=== PATIENT | male | born 1945 | race Caucasian/White ===

== ENCOUNTER 2017-02-02 10:43 | Inpatient (IN) | payer BC, MEDICARE, OTHER ==
[2017-02-02] MEDS ORDERED: RX INFO: IV CONTRAST WAS GIVEN 1 EACH MISC MISCELLANE PRN (10:47)
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
[2017-02-02 11:03] LABS: Anisocytosis Slight; Basophils # (A) 0.1 k/uL (0-0.2); Basophils % (A) 1 %; CH 26.2; CHCM 30.9; Eosinophils # (A) 0.2 k/uL (0-0.7); Eosinophils % (A) 2 %; HDW 2.87; HGB 11.1 gm/dL (13.0-17.5); Hypochromasia Moderate; Luc # (Auto) 0.35; Luc % (Auto) 3; Lymphocytes # (A) 1.9 k/uL (1.0-4.8); Lymphocytes % (A) 19 %; MCH 26.2 pg (25.0-35.0); MCHC 30.9 g/dL (31.0-37.0); MCV 84.9 fL (80.0-100.0); Monocytes # (A) 0.7 k/uL (0-1.0); Monocytes % (A) 7 %; Neutrophils % (A) 69 %; RBC 4.24 m/uL (4.30-5.90); WBC 10.2 k/uL (3.8-10.6); WBC (Perox) 10.68
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
[2017-02-02 11:16] LABS: INR 1.4 (<1.1); Prothrombin Time 13.6 sec (9.0-12.0)
[2017-02-02 11:20] LABS: ALT 31 U/L (21-72); AST 28 U/L (17-59); Alcohol <10 mg/dL; Alkaline Phosphatase 137 U/L (38-126); Amylase 55 U/L (30-110); Anion Gap 9 mmol/L; Blood Urea Nitrogen 18 mg/dL (9-20); Calcium 8.8 mg/dL (8.4-10.2); Carbon Dioxide 24 mmol/L (22-30); Chloride 110 mmol/L (98-107); Glucose 138 mg/dL (74-99); Non-African American GFR(MDRD) >60 (>60 ml/min/1.73 sqM); Potassium 4.6 mmol/L (3.5-5.1); Sodium 143 mmol/L (137-145); Total Bilirubin 0.6 mg/dL (0.2-1.3); Total Protein 6.8 g/dL (6.3-8.2)
[2017-02-02 11:27] LABS: Creatine Kinase 125 U/L (55-170)
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
[2017-02-02 11:40] LABS: Creatine Kinase MB 1.2 ng/mL (0.0-2.4); Troponin I <0.012 ng/mL (0.000-0.034)
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
[2017-02-02] MEDS ORDERED: NALOXONE 0.4 MG/ML 1 ML VIAL IV PRN (12:40)
[2017-02-02] MEDS ORDERED: HYDROmorphone 1 MG/ML 1 ML SYRINGE IVP PRN (12:43)
[2017-02-02 13:36] LABS: Appearance,Urine Clear (Clear); Bilirubin,Urine Negative (Negative); Glucose,Urine (UA) Negative (Negative); Ketones,Urine Negative (Negative); Leukocyte Esterase,Urine Negative (Negative); Nitrite,Urine Negative (Negative); PH, Urine 5.5 (5.0-8.0); Particle Count 6567; Protein,Urine Trace (Negative); RBC,Urine 76 /hpf (0-5); Squamous Epithelial Cell,Urine <1 /hpf (0-4); UA Billing (MACRO vs. MICRO) MICRO; Urobilinogen,Urine <2.0 mg/dL (<2.0); WBC,Urine 4 /hpf (0-5)
[2017-02-02 14:43] LABS: Specific Gravity,Urine 1.047 (1.001-1.035)
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
[2017-02-02] MEDS ORDERED: MAGNESIUM HYDROXIDE 2,400 MG/10 ML CUP PO PRN (15:23)
[2017-02-02 17:41] LABS: Creatine Kinase 371 U/L (55-170)
[2017-02-02] MEDS: PANTOPRAZOLE 40 MG TABLET PO SCH (17:42)
[2017-02-02 17:56] LABS: Troponin I <0.012 ng/mL (0.000-0.034)
[2017-02-02 17:59] LABS: Creatine Kinase MB 4.2 ng/mL (0.0-2.4)
[2017-02-02] MEDS: amLODIPine 5 MG TAB PO SCH (20:46)
[2017-02-02] MEDS: ATORVASTATIN 80 MG TAB PO SCH (20:46)
[2017-02-02] MEDS: traMADol 50 MG TAB PO PRN (23:04)
[2017-02-03] MEDS: PANTOPRAZOLE 40 MG TABLET PO SCH (05:58)
[2017-02-03] MEDS: traMADol 50 MG TAB PO PRN ×2 (06:01→19:47)
[2017-02-03 06:50] LABS: Anisocytosis Slight; CH 25.8; CHCM 30.4; HCT 29.6 % (39.0-53.0); HDW 2.77; Hypochromasia Marked; MCH 26.2 pg (25.0-35.0); MCHC 30.7 g/dL (31.0-37.0); MCV 85.1 fL (80.0-100.0); RBC 3.47 m/uL (4.30-5.90); WBC 12.1 k/uL (3.8-10.6)
[2017-02-03 07:02] LABS: HGB 9.1 gm/dL (13.0-17.5)
[2017-02-03 07:19] LABS: Anion Gap 7 mmol/L; Blood Urea Nitrogen 26 mg/dL (9-20); Calcium 8.5 mg/dL (8.4-10.2); Carbon Dioxide 26 mmol/L (22-30); Chloride 109 mmol/L (98-107); Glucose 117 mg/dL (74-99); Non-African American GFR(MDRD) 50 (>60 ml/min/1.73 sqM); Potassium 4.8 mmol/L (3.5-5.1); Sodium 142 mmol/L (137-145)
--- NOTE | 2017-02-03 08:01 | XR ---
EXAMINATION TYPE: XR chest 2V DATE OF EXAM: 02/03/2017 COMPARISON: February 02, 2017 HISTORY: Shortness of breath TECHNIQUE: Frontal and lateral views of the chest are obtained. FINDINGS: Scattered senescent parenchymal changes noted. Hyperinflation compatible with COPD. No evidence for infiltrate. No evidence for atelectasis. Heart size is stable. Mediastinal structures are stable and grossly unremarkable. No evidence for hilar prominence. Degenerative changes dorsal spine. IMPRESSION: 1. No evidence for acute pulmonary disease.
[2017-02-03] MEDS: ASPIRIN 81 MG CHEW PO SCH (08:23)
[2017-02-03] MEDS: DONEPEZIL 5 MG TAB PO SCH (08:24)
[2017-02-03] MEDS: FUROSEMIDE 20 MG TAB PO SCH (08:24)
[2017-02-03] MEDS: LISINOPRIL 10 MG TAB PO SCH (08:24)
[2017-02-03] MEDS: amLODIPine 5 MG TAB PO SCH ×2 (08:24→19:38)
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
[2017-02-03] MEDS: SODIUM CHLORIDE 0.9% 1,000 ML IV SCH ×2 (13:32→19:38)
[2017-02-03 13:55] LABS: Reticulocyte % 2.6 % (0.5-2.0)
[2017-02-03 13:57] LABS: % Iron Saturation 9.9 % (20-50)
[2017-02-03 15:14] LABS: Anisocytosis Slight; CH 25.8; CHCM 30.3; HCT 27.2 % (39.0-53.0); HDW 2.75; HGB 8.4 gm/dL (13.0-17.5); Hypochromasia Marked; MCH 26.4 pg (25.0-35.0); MCHC 30.9 g/dL (31.0-37.0); MCV 85.5 fL (80.0-100.0); Mean Platelet Volume 7.8; RBC 3.18 m/uL (4.30-5.90); WBC 13.9 k/uL (3.8-10.6)
[2017-02-03 18:37] LABS: Appearance,Urine Cloudy (Clear); Bilirubin,Urine Negative (Negative); Glucose,Urine (UA) Negative (Negative); Granular Casts,Urine 3 /lpf (0); Ketones,Urine Negative (Negative); Leukocyte Esterase,Urine Large (Negative); Mucus,Urine Occasional /hpf; Nitrite,Urine Negative (Negative); Particle Count 19116; Protein,Urine 1+ (Negative); RBC,Urine 11 /hpf (0-5); Specific Gravity,Urine 1.026 (1.001-1.035); Squamous Epithelial Cell,Urine 2 /hpf (0-4); UA Billing (MACRO vs. MICRO) MICRO; Urobilinogen,Urine <2.0 mg/dL (<2.0); WBC,Urine 102 /hpf (0-5)
[2017-02-03] MEDS: ATORVASTATIN 80 MG TAB PO SCH (19:38)
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
[2017-02-03 21:53] LABS: Anisocytosis Slight; CH 25.9; CHCM 30.9; HCT 27.5 % (39.0-53.0); HGB 8.9 gm/dL (13.0-17.5); Hypochromasia Moderate; MCH 27.4 pg (25.0-35.0); MCHC 32.5 g/dL (31.0-37.0); MCV 84.2 fL (80.0-100.0); Mean Platelet Volume 7.6; RBC 3.26 m/uL (4.30-5.90); WBC 16.3 k/uL (3.8-10.6)
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
[2017-02-03 23:27] LABS: Calcium 8.2 mg/dL (8.4-10.2); Magnesium 2.2 mg/dL (1.6-2.3); Potassium 5.1 mmol/L (3.5-5.1)
[2017-02-04] MEDS: SODIUM CHLORIDE 0.9% 1,000 ML IV SCH ×2 (05:10→08:27)
[2017-02-04 06:00] LABS: Anisocytosis Slight; CH 25.7; CHCM 30.8; HCT 25.3 % (39.0-53.0); HDW 2.88; Hypochromasia Moderate; MCH 26.6 pg (25.0-35.0); MCHC 31.8 g/dL (31.0-37.0); MCV 83.8 fL (80.0-100.0); Mean Platelet Volume 8.2; RBC 3.02 m/uL (4.30-5.90); RDW 16.8 % (11.5-15.5); WBC 16.9 k/uL (3.8-10.6)
[2017-02-04] MEDS: PANTOPRAZOLE 40 MG TABLET PO SCH (06:15)
[2017-02-04] MEDS: traMADol 50 MG TAB PO PRN (08:32)
[2017-02-04] MEDS: DONEPEZIL 5 MG TAB PO SCH (08:33)
[2017-02-04] MEDS: ASPIRIN 81 MG CHEW PO SCH (08:33)
[2017-02-04] MEDS: FUROSEMIDE 20 MG TAB PO SCH (08:33)
[2017-02-04] MEDS: LISINOPRIL 10 MG TAB PO SCH (08:33)
[2017-02-04] MEDS: amLODIPine 5 MG TAB PO SCH ×2 (08:33→22:55)
[2017-02-04] MEDS ORDERED: RIVAROXABAN 10 MG TAB PO SCH (09:00)
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
--- NOTE | 2017-02-04 11:08 | CT ---
EXAMINATION TYPE: CT chest wo con DATE OF EXAM: 02/04/2017 COMPARISON: February 02, 2017 HISTORY: Chest pain CT DLP: 573.[address] of the chest was performed with lung and mediastinal window settings submitted. The la ck of contrast limits evaluation of the vascular, mediastinal and parenchymal structures including th e upper abdomen. LUNGS: There is a new right-sided pleural effusion which is new areas of increased density may reflec t hemothorax. AP measurement is 3.8 cm. Anterior sliver pneumothorax persists. There is also new find ing of pneumomediastinum. There is subcutaneous emphysema along the right chest wall. The left lung i s clear. MEDIASTINUM/JULIO: There is also new finding of pneumomediastinum.Thoracic aorta is of normal caliber with limited evaluation given lack of contrast. The heart is enlarged with coronary artery calcific ations identified.. No evidence for mediastinal mass. No lymph nodes greater than 1cm. UPPER ABDOMEN mild fluid density noted within the periphery of the liver seen on image 52 of 64 may r eflect a small subcapsular hematoma. This is a new finding. Is evidence of cholelithiasis. OTHER: Recently described multiple right-sided rib fractures are again noted. Segmental fractures not ed to involve the right third rib. IMPRESSION: 1. New finding of a pneumomediastinum with extensive subcutaneous air along the right chest wall and minimally extending towards the left. 2. Sliver right-sided pneumothorax suspected. 3. New finding of right-sided pleural effusion with probable hemothorax component. 4. I cannot exclude a small subcapsular hepatic hematoma. This is also a new finding. 5. Multiple right-sided rib fractures are again noted. One segmental component of rib #3. Correlate c linically for possible flail chest.
--- NOTE | 2017-02-04 12:15 | P.PN ---
Progress Note - Text The patient's CT scan was reviewed. There is evidence of a new pneumomediastinum and pleural effusion. The patient will be made nothing by mouth and thoracic surgery consult. we'll start IV antibiotics.
[2017-02-04] MEDS ORDERED: SODIUM CHLORIDE 0.9% 1,000 ML IV SCH (12:45)
[2017-02-04 14:25] LABS: Anisocytosis Slight; CH 25.5; CHCM 29.9; HCT 25.3 % (39.0-53.0); HDW 2.71; HGB 7.8 gm/dL (13.0-17.5); Hypochromasia Marked; MCH 26.4 pg (25.0-35.0); MCHC 30.9 g/dL (31.0-37.0); MCV 85.6 fL (80.0-100.0); RBC 2.95 m/uL (4.30-5.90); RDW 16.9 % (11.5-15.5); WBC 18.3 k/uL (3.8-10.6)
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
[2017-02-04] MEDS: metroNIDAZOLE-NS PMX 500 MG in SALINE 1 100ML.BAG IVPB SCH ×2 (15:20→23:50)
[2017-02-04] MEDS: AMPICILLIN-SULBACTAM 3 GM in SODIUM CHLORIDE 0.9% 100 ML IVPB SCH ×2 (16:26→23:48)
--- NOTE | 2017-02-04 18:37 | XR ---
EXAMINATION TYPE: XR ribs bilateral DATE OF EXAM: 02/04/2017 6:18 PM COMPARISON: NONE HISTORY: Chest pain TECHNIQUE: 8 views FINDINGS: There is subcutaneous emphysema over the right chest. I see no pneumothorax. I see no displ aced rib fracture. Lungs appear clear of consolidation. There is slight blunting of right costophreni c angle.. There is subtle deformity of the anterior right fourth and fifth ribs that could be nondisp laced fractures. IMPRESSION: Subcutaneous emphysema and nondisplaced right rib fractures. Small right pleural effusion . No change compared to the CT scan this morning at 10:00 AM.
[2017-02-04] MEDS ORDERED: RX INFO: IV CONTRAST WAS GIVEN 1 EACH MISC MISCELLANE PRN (18:47)
--- NOTE | 2017-02-04 20:32 | ECHOF ---
Referral Reason:R/O cardiac contusion MEASUREMENTS -------- HEIGHT: 157.5 cm WEIGHT: 130.6 kg BP: RVIDd: 3.7 cm (< 3.3) IVSd: 1.2 cm (0.6 - 1.1) LVIDd: 4.8 cm (3.9 - 5.3) LVPWd: 1.3 cm (0.6 - 1.1) IVSs: 1.9 cm LVIDs: 2.6 cm LVPWs: 1.7 cm MV E Jairon: 0.71 m/s MV DecT: 176 ms MV A Jairon: 0.24 m/s MV E/A Ratio: 2.96 RAP: 5.00 mmHg RVSP: 8.27 mmHg FINDINGS -------- Sinus rhythm. Morbid Obesity This was a techncally difficult study with suboptimal views, , Definity utilized for enhancement of images. There is mild concentric left ventricular hypertrophy. Overall left ventricular systolic function is low-normal with, an EF between 50 - 55 %. The right ventricle is normal in size. The left atrial size is normal. The right atrial size is normal. 1.5MG OF DEFINITY UTLIZED: 2 OR MORE WALL SEGMENTS NOT VISUALIZED. The aortic valve was not well visualized. Mild mitral regurgitation is present. Mild tricuspid regurgitation present. There is no evidence of pulmonary hypertension. The right ventricular systolic pressure, as measured by Doppler, is 8.27mmHg. The pulmonic valve was not well visualized. CONCLUSIONS -------- 1. Morbid Obesity 2. There is no evidence of pulmonary hypertension. 3. The right ventricular systolic pressure, as measured by Doppler, is 8.27mmHg. 4. The pulmonic valve was not well visualized. 13.Aorta Not well visualized- consider other modalities for optimal evaluation 5. This was a techncally difficult study with suboptimal views, , Definity utilized for enhancement of images. 6. There is mild concentric left ventricular hypertrophy. 7. Overall left ventricular systolic function is low-normal with, an EF between 50 - 55 %. 8. The right ventricle is normal in size. 9. 1.5MG OF DEFINITY UTLIZED: 2 OR MORE WALL SEGMENTS NOT VISUALIZED. 10. The aortic valve was not well visualized. 11. Mild mitral regurgitation is present. 12. Mild tricuspid regurgitation present. FIRE ALARM OPERATOR: Yolanda Rebolledo RDCS
[2017-02-04 20:39] LABS: Calcium 7.9 mg/dL (8.4-10.2); Potassium 4.8 mmol/L (3.5-5.1)
--- NOTE | 2017-02-04 22:06 | CT ---
EXAMINATION TYPE: CT angio chest DATE OF EXAM: 02/04/2017 9:53 PM COMPARISON: NONE HISTORY: r/o dissection CT DLP: 1631.70 mGycm Automated exposure control for dose reduction was used. CONTRAST: CTA scan of the thorax is performed with IV Contrast, patient injected with 80 mL of Visipaque 320, p ulmonary embolism protocol. There are 3-D post processed images.. FINDINGS: There is extensive subcutaneous emphysema and soft tissue air on the right anterior chest wall. There is no sign of a pneumothorax. There is pneumopericardium. There is some pericardial fluid. There is right pleural effusion with right basilar atelectasis. I see no filling defects in the pulmonary jossue laurie. There are multiple right-sided rib fractures and at least one comminuted rib fracture. There is no evidence of aortic aneurysm or dissection. There is no mediastinal adenopathy. There is c oronary artery calcification. There are no hilar masses.. IMPRESSION: RIGHT PLEURAL EFFUSION AND RIGHT LOWER LOBE INFILTRATE AND ATELECTASIS. PNEUMOPERICARDIUM. NO EVIDENC E OF PULMONARY EMBOLISM. RIGHT-SIDED CHEST WALL EXTENSIVE SOFT TISSUE AIR. RIGHT LATERAL MULTIPLE RIB FRACTURES NOTED. THERE I S AT LEAST ONE COMMINUTED RIB FRACTURE AND THIS IS DIAGNOSTIC OF FLAIL CHEST. Calcified gallstones are noted.
[2017-02-04 22:28] LABS: Anisocytosis Slight; CH 25.8; HCT 23.8 % (39.0-53.0); HDW 2.88; HGB 7.6 gm/dL (13.0-17.5); Hypochromasia Moderate; MCH 26.6 pg (25.0-35.0); MCHC 31.9 g/dL (31.0-37.0); MCV 83.5 fL (80.0-100.0); Mean Platelet Volume 7.9; RBC 2.85 m/uL (4.30-5.90); RDW 16.9 % (11.5-15.5); WBC 18.8 k/uL (3.8-10.6)
[2017-02-04] MEDS: ATORVASTATIN 80 MG TAB PO SCH (22:55)
[2017-02-05] MEDS ORDERED: SODIUM CHLORIDE 0.9% 1,000 ML IV SCH (03:51)
[2017-02-05] MEDS: PANTOPRAZOLE 40 MG TABLET PO SCH ×2 (06:25→06:37)
[2017-02-05 06:45] LABS: Anisocytosis Slight; CH 25.8; CHCM 30.2; HCT 23.9 % (39.0-53.0); HDW 2.78; HGB 7.4 gm/dL (13.0-17.5); Hypochromasia Marked; MCH 26.6 pg (25.0-35.0); MCHC 30.9 g/dL (31.0-37.0); MCV 85.9 fL (80.0-100.0); Mean Platelet Volume 7.9; RBC 2.78 m/uL (4.30-5.90); RDW 17.3 % (11.5-15.5); WBC 14.8 k/uL (3.8-10.6)
[2017-02-05 07:00] LABS: Anion Gap 6 mmol/L; Blood Urea Nitrogen 32 mg/dL (9-20); Calcium 7.8 mg/dL (8.4-10.2); Carbon Dioxide 24 mmol/L (22-30); Chloride 112 mmol/L (98-107); Glucose 108 mg/dL (74-99); Non-African American GFR(MDRD) 54 (>60 ml/min/1.73 sqM); Potassium 4.6 mmol/L (3.5-5.1); Sodium 142 mmol/L (137-145)
--- NOTE | 2017-02-05 09:18 | FL ---
EXAMINATION TYPE: FL barium swallow DATE OF EXAM ORDERED: 02/05/2017 9:08 AM HISTORY: Chest pain. COMPARISON: None. FINDINGS: The patient drank Omnipaque with ease. The esophagus distended normally with Omnipaque 300 was obstructing or constricting disease. There is no evidence of extravasation. The ligament of Trei tz is in the correct location. IMPRESSION: NO EVIDENCE OF ESOPHAGEAL LEAK.
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
[2017-02-05] MEDS: ASPIRIN 81 MG CHEW PO SCH (09:52)
[2017-02-05] MEDS: metroNIDAZOLE-NS PMX 500 MG in SALINE 1 100ML.BAG IVPB SCH ×2 (09:52→16:48)
[2017-02-05] MEDS: HEPARIN SODIUM,PORCINE 5,000 UNIT/ML 1 ML VIAL SQ SCH ×2 (09:52→16:48)
[2017-02-05] MEDS: FUROSEMIDE 20 MG TAB PO SCH (09:52)
[2017-02-05] MEDS: LISINOPRIL 10 MG TAB PO SCH (09:52)
[2017-02-05] MEDS: amLODIPine 5 MG TAB PO SCH ×2 (09:52→20:19)
[2017-02-05] MEDS: DONEPEZIL 5 MG TAB PO SCH (09:52)
[2017-02-05] MEDS: SODIUM CHLORIDE 0.9% 1,000 ML IV SCH ×2 (11:16→20:32)
[2017-02-05] MEDS: AMPICILLIN-SULBACTAM 3 GM in SODIUM CHLORIDE 0.9% 100 ML IVPB SCH ×2 (11:16→18:17)
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
[2017-02-05 15:15] LABS: Anisocytosis Slight; CH 25.7; CHCM 30.8; HCT 23.5 % (39.0-53.0); HDW 2.96; HGB 7.5 gm/dL (13.0-17.5); Hypochromasia Moderate; MCH 26.8 pg (25.0-35.0); MCV 83.9 fL (80.0-100.0); Mean Platelet Volume 8.5; RDW 17.2 % (11.5-15.5); WBC 18.4 k/uL (3.8-10.6)
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
[2017-02-05] MEDS: ATORVASTATIN 80 MG TAB PO SCH (20:19)
[2017-02-05] MEDS: traMADol 50 MG TAB PO PRN (20:33)
[2017-02-05 22:58] LABS: Anisocytosis Slight; CHCM 30.2; HCT 23.9 % (39.0-53.0); HDW 2.83; HGB 7.3 gm/dL (13.0-17.5); Hypochromasia Marked; MCH 26.3 pg (25.0-35.0); MCHC 30.6 g/dL (31.0-37.0); MCV 86.2 fL (80.0-100.0); Mean Platelet Volume 8.1; RBC 2.77 m/uL (4.30-5.90); RDW 17.4 % (11.5-15.5); WBC 15.1 k/uL (3.8-10.6)
[2017-02-06] MEDS: AMPICILLIN-SULBACTAM 3 GM in SODIUM CHLORIDE 0.9% 100 ML IVPB SCH ×2 (00:51→19:09)
[2017-02-06] MEDS: HEPARIN SODIUM,PORCINE 5,000 UNIT/ML 1 ML VIAL SQ SCH ×4 (00:51→23:04)
[2017-02-06] MEDS: metroNIDAZOLE-NS PMX 500 MG in SALINE 1 100ML.BAG IVPB SCH ×3 (02:00→19:09)
[2017-02-06] MEDS: PANTOPRAZOLE 40 MG TABLET PO SCH (06:07)
[2017-02-06] MEDS: ASPIRIN 81 MG CHEW PO SCH (08:04)
[2017-02-06] MEDS: FUROSEMIDE 20 MG TAB PO SCH (08:04)
[2017-02-06] MEDS: amLODIPine 5 MG TAB PO SCH ×2 (08:04→20:00)
[2017-02-06] MEDS: DONEPEZIL 5 MG TAB PO SCH (08:04)
[2017-02-06] MEDS: LISINOPRIL 10 MG TAB PO SCH (08:04)
[2017-02-06] MEDS: SODIUM CHLORIDE 0.9% 1,000 ML IV SCH (08:05)
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
[2017-02-06] MEDS: TAMSULOSIN 0.4 MG CAP.ER.24H PO SCH (10:36)
[2017-02-06 10:57] LABS: Anisocytosis Slight; CH 25.5; CHCM 29.8; HCT 25.2 % (39.0-53.0); HDW 2.87; HGB 7.9 gm/dL (13.0-17.5); Hypochromasia Marked; MCH 26.8 pg (25.0-35.0); MCHC 31.2 g/dL (31.0-37.0); RBC 2.93 m/uL (4.30-5.90); RDW 17.3 % (11.5-15.5); WBC 13.9 k/uL (3.8-10.6)
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
[2017-02-06 16:01] LABS: Magnesium 2.5 mg/dL (1.6-2.3); Potassium 4.1 mmol/L (3.5-5.1)
[2017-02-06] MEDS: ATORVASTATIN 80 MG TAB PO SCH (20:00)
[2017-02-06] MEDS: CIPROFLOXACIN HCL 500 MG TAB PO SCH (20:00)
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
[2017-02-07] MEDS: PANTOPRAZOLE 40 MG TABLET PO SCH (06:45)
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
[2017-02-07] MEDS: FUROSEMIDE 20 MG TAB PO SCH (10:13)
[2017-02-07] MEDS: DONEPEZIL 5 MG TAB PO SCH (10:13)
[2017-02-07] MEDS: HEPARIN SODIUM,PORCINE 5,000 UNIT/ML 1 ML VIAL SQ SCH (10:13)
[2017-02-07] MEDS: ASPIRIN 81 MG CHEW PO SCH (10:13)
[2017-02-07] MEDS: CIPROFLOXACIN HCL 500 MG TAB PO SCH (10:13)
[2017-02-07] MEDS: TAMSULOSIN 0.4 MG CAP.ER.24H PO SCH (10:14)
[2017-02-07] MEDS: LISINOPRIL 10 MG TAB PO SCH (10:14)
[2017-02-07 11:34] VITALS: BP 125/63; PULSE 68; RESP 16; TEMP 98.9
[2017-02-07] MEDS: amLODIPine 5 MG TAB PO SCH (12:42)
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
== END 2017-02-07 16:49 | DRG 183 ==
LOC: EC 10:43 → 6SEL 12:40
PROVIDERS: ADMIT Surgery; ATTEND Surgery
PROC: 0T9B70Z Drainage of Bladder with Drainage Device, Via Natural or Artificial Opening (ICD-10-PCS; principal; 2017-02-03)
DX: S22.41XA Multiple fractures of ribs, right side, initial encounter for closed fracture (principal); S27.2XXA Traumatic hemopneumothorax, initial encounter; N17.9 Acute kidney failure, unspecified; S22.20XA Unspecified fracture of sternum, initial encounter for closed fracture; T79.7XXA Traumatic subcutaneous emphysema, initial encounter; S27.0XXA Traumatic pneumothorax, initial encounter; E66.01 Morbid (severe) obesity due to excess calories; N39.0 Urinary tract infection, site not specified; S31.119A Laceration without foreign body of abdominal wall, unspecified quadrant without penetration into peritoneal cavity, initial encounter; B95.2 Enterococcus as the cause of diseases classified elsewhere; I48.2 Chronic atrial fibrillation; R60.0 Localized edema; R33.9 Retention of urine, unspecified; S80.02XA Contusion of left knee, initial encounter; R13.10 Dysphagia, unspecified; D64.9 Anemia, unspecified; R31.29 Other microscopic hematuria; R04.0 Epistaxis; R47.02 Dysphasia; E78.5 Hyperlipidemia, unspecified; G47.33 Obstructive sleep apnea (adult) (pediatric); I73.9 Peripheral vascular disease, unspecified; I25.5 Ischemic cardiomyopathy; Z86.718 Personal history of other venous thrombosis and embolism; Z86.79 Personal history of other diseases of the circulatory system; Z86.73 Personal history of transient ischemic attack (TIA), and cerebral infarction without residual deficits; Z79.899 Other long term (current) drug therapy; Z79.01 Long term (current) use of anticoagulants; Z79.82 Long term (current) use of aspirin; Z87.891 Personal history of nicotine dependence; Z82.3 Family history of stroke; Z68.39 Body mass index [BMI] 39.0-39.9, adult; V43.52XA Car driver injured in collision with other type car in traffic accident, initial encounter; Y92.410 Unspecified street and highway as the place of occurrence of the external cause
CPT/HCPCS: 36415; 70450; 71010; 71020; 71110; 71250; 71260; 71275; 72125; 72170; 74177; 74220; 80048; 80053; 80306; 80320; 81001; 82150; 82550; 82553; 82607; 82728; 82746; 83540; 83550; 83605; 83690; 83735; 84132; 84466; 84484; 85025; 85027; 85045; 85610; 85730; 86850; 86900; 86901; 87077; 87086; 87186; 93005; 93306

== ENCOUNTER 2017-10-11 08:12 | Day surgery (SDC) | payer MEDICARE, BC ==
[2017-10-10 11:20] VITALS: BMI 38.3
[~2017-10-11 08:12] MED LIST: LACTATED RINGERS 1,000 ML IV SCH
[2017-10-11 08:36] VITALS: RESP 16; TEMP 98.5
[2017-10-11] MEDS ORDERED: LIDOCAINE 1% 20 ML VIAL (10MG/ML) FOR IV START INTRADERMA ONE (08:44)
[2017-10-11] MEDS ORDERED: PROPOFOL 10 MG/ML 20 ML VIAL IV ONE (10:04)
[2017-10-11 11:11] VITALS: BP 154/69; PULSE 49
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
== END 2017-10-11 11:29 | disposition home or self-care (01) ==
LOC: ORWHC2ENDO 08:12
DX: D12.3 Benign neoplasm of transverse colon (principal); K29.50 Unspecified chronic gastritis without bleeding; K44.9 Diaphragmatic hernia without obstruction or gangrene; K29.80 Duodenitis without bleeding; K57.30 Diverticulosis of large intestine without perforation or abscess without bleeding; Z86.010 Personal history of colon polyps; E78.5 Hyperlipidemia, unspecified; I11.9 Hypertensive heart disease without heart failure; I48.91 Unspecified atrial fibrillation; G47.33 Obstructive sleep apnea (adult) (pediatric); K21.9 Gastro-esophageal reflux disease without esophagitis; Z86.73 Personal history of transient ischemic attack (TIA), and cerebral infarction without residual deficits; Z86.718 Personal history of other venous thrombosis and embolism; Z79.01 Long term (current) use of anticoagulants; Z79.82 Long term (current) use of aspirin; Z79.899 Other long term (current) drug therapy
CPT/HCPCS: 88305; 45385; 43239; J2704

== ENCOUNTER → 2017-11-17 | Outpatient (CLI) | payer MEDICARE, BC ==
[2017-11-17 07:48] LABS: Anisocytosis Slight; HCT 32.3 % (39.0-53.0); HGB 10.1 gm/dL (13.0-17.5); Hypochromasia Marked; MCH 26.3 pg (25.0-35.0); MCHC 31.4 g/dL (31.0-37.0); MCV 83.8 fL (80.0-100.0); Mean Platelet Volume 8.2; Microcytosis Slight; Platelet Count 207 k/uL (150-450); RBC 3.85 m/uL (4.30-5.90); RDW 19.7 % (11.5-15.5); WBC 10.8 k/uL (3.8-10.6)
[2017-11-17 08:28] LABS: Calcium 8.9 mg/dL (8.4-10.2); Potassium 4.6 mmol/L (3.5-5.1)
== END | disposition home or self-care (01) ==
LOC: LABWHC1 07:07
PROVIDERS: ATTEND Internal Medicine Clinical Cardiac Electrophysiology
DX: I49.3 Ventricular premature depolarization (principal); I47.2 Ventricular tachycardia
CPT/HCPCS: 36415; 80048; 85027

== ENCOUNTER 2017-11-26 06:42 | Day surgery (SDC) | payer MEDICARE, BC ==
[2017-11-22 09:30] VITALS: BMI 38.3
[~2017-11-26 06:42] MED LIST changes: +ALPRAZolam 0.25 MG TAB PO PRN; +ALPRAZolam 0.5 MG TAB PO PRN; +ASPIRIN 325 MG TAB PO STA; +ATORVASTATIN 80 MG TAB PO STA; +NITROGLYCERIN SL TABS 0.4 MG TAB SUBLINGUAL PRN; +SODIUM CHLORIDE 0.9% 1,000 ML IV SCH; +SODIUM CHLORIDE 0.9% 1,000 ML in EMPTY BAG 1 BAG IV ONE
[2017-11-26] MEDS ORDERED: HEPARIN SODIUM,PORCINE 5,000 UNIT/ML 1 ML VIAL ONE (08:08)
[2017-11-26] MEDS ORDERED: PROTAMINE SULFATE 10 MG/ML 5 ML VIAL IV ONE (08:08)
[2017-11-26] MEDS ORDERED: diphenhydrAMINE 50 MG/ML 1 ML VIAL ONE (08:08)
[2017-11-26] MEDS ORDERED: ATROPINE SULFATE 0.1 MG/ML 10ML SYRINGE ONE (08:08)
[2017-11-26] MEDS ORDERED: IV FLUID CONTINUATION 900 ML IV ONE (08:08)
[2017-11-26] MEDS ORDERED: fentaNYL (PF) 50 MCG/ML 2 ML AMP ONE (08:08)
[2017-11-26] MEDS ORDERED: MIDAZOLAM 2 MG/2 ML VIAL ONE (08:08)
[2017-11-26] MEDS ORDERED: LIDOCAINE 2% INJ 20 MG/ML SQ ONE (08:49)
[2017-11-26 10:03] LABS: O2 Sat Blood Gas 74.9 %
[2017-11-26 10:05] LABS: O2 Sat Blood Gas 74.5 %
[2017-11-26] MEDS ORDERED: HEPARIN SODIUM (1,000 UNIT/ML) 1,000 UNIT in SODIUM CHLORIDE 0.9% 1,000 ML IRRIGATION ONE (10:06)
[2017-11-26 10:07] LABS: O2 Sat Blood Gas 99.5 %
[2017-11-26 10:11] LABS: O2 Sat Blood Gas 75.8 %
[2017-11-26 10:13] LABS: O2 Sat Blood Gas 71.9 %
[2017-11-26 10:15] LABS: O2 Sat Blood Gas 99.4 %
[2017-11-26] MEDS ORDERED: HEPARIN SOD,PORK IN 0.45% NACL 25,000 UNIT in 0.45% NACL 1 500ML.BAG IV ONE (10:41)
[2017-11-26] MEDS ORDERED: HYDROcodone/APAP 5-325MG 1 EACH TAB PO PRN (13:00)
[2017-11-26] MEDS ORDERED: ACETAMINOPHEN TAB 325 MG TAB PO PRN (13:00)
[2017-11-26] MEDS ORDERED: ACETAMINOPHEN IV (For NPO) 1,000 MG in EMPTY BAG 1 BAG IVPB ONE (13:30)
--- NOTE | 2017-11-26 13:39 | P.PN ---
Progress Note - Text Patient awaiting evaluation of pulmonary hypertension Right heart cath revealed elevated PA pressures in the mid 70s Pulmonary capillary wedge pressures and direct LA pressure is of 30 mmHg hypertension with hypertensive heart disease and preserved LV systolic function RA pressure of about 27 mmHg Eccentric aortic regurgitation with a pressure half time of greater than 500 ms in the past Mild MR Nonobstructive CAD Obesity Pulmonary hypertension severe Atrial tachycardia, epicardial PVCs from inferior wall status post ablation in the past Plan Consult Dr. Valdes Pulmonary hypertension workup, reassessment of her sleep apnea, possible chest CT Look for any pericardial constraint/thickening 2-D echo and Doppler study to assess Structure and function, evaluate diastolic function evaluate mitral valve and aortic valve
[2017-11-26] MEDS ORDERED: IV FLUID CONTINUATION 1,000 ML IV ONE (13:43)
--- NOTE | 2017-11-26 13:50 | AS ---
ARTERIAL STUDY Tin James is a 72-year-old male patient who had elevated PA pressures on 2D echo. He has normal LV function. Mild coronary artery disease. No significant mitral valve disease. The aortic valve is calcified. There is an eccentric mild aortic regurgitation with a pressure half-time of 572 milliseconds. PA pressure is elevated on 2D echo. Right heart cath was recommended. Venous sheaths were placed in the right and left femoral veins in preparation for EP study and ablation, but prior to that a Pierson-Inder catheter was placed in the right heart. The pulmonary capillary wedge pressure was 32 mmHg, mean 29 mmHg, and oxygen saturation was 95%. PA pressures were 79/26//42 mmHg and with 70% saturation. RV pressure 77/21/23 mmHg and oxygen saturation was 74.9%. RA pressure was 27 x 26 mmHg and mean of 24 with oxygen saturation of 71.9%. SVC 26 mmHg, IVC 25 mmHg, oxygen saturation of the SVC was 75.8% and the oxygen saturation of the IVC was 74.5%. The FA oxygen saturation was 99.4%. This was later confirmed with direct LA pressure measurements with a mean of 30 mmHg. IMPRESSION: Severe pulmonary hypertension with elevated left atrial pressures as well as right atrial pressures. SUGGEST: 1. Repeat 2D echo and Doppler study to assess the aortic valve and mitral valve. 2. Pulmonary hypertension evaluation and CT of the chest to look for any pericardial calcification of thickening. 3. The RA pressure was around 28 x 13 x 20 mmHg and LA pressure was 67 x 0 x 30 mmHg. MMODL / IJN: [id number] /
--- NOTE | 2017-11-26 14:41 | CE ---
CARDIAC ELECTROPHYSIOLOGY REPORT This is a 72-year-old male patient who was brought in for an EP study and possible ablation. Right heart cath was performed. He has known atrial fibrillation and frequent PVCs but during the monitoring period he had no PVCs on the left from the left ventricle. He has undergone previous PVC ablation in the past. He was actually found to be in atrial tachycardia. He also has elevated LA pressures and diastolic heart failure and a decision was made to proceed with atrial tachycardia ablation. Three venous sheaths were placed in the right femoral vein and a femoral arterial sheath was placed for hemodynamic monitoring and sampling through the procedure and this was removed at the end of the procedure. The procedure was performed on IV heparin. Patient is on Eliquis. CS catheter was placed and an atrial tachycardia with a cycle length of about 280 milliseconds was noted. Mapping ablation catheter placed in the right atrium, entrainment mapping was performed from the right atrial isthmus and the post pacing interval was close to 400 milliseconds. The post pacing intervals were within 30 milliseconds from the coronary sinus catheters; however, when the coronary sinus catheter was placed in the anterior cardiac vein, the PPA was longer. Intracardiac echocardiography was performed. The right atrial and left atrial appendages were evaluated. There was no evidence for intracardiac mass or thrombus. Left to right transseptal catheterization was performed. RA pressure 28 mmHg. LV pressure 30 mmHg. A 3D electro anatomic mapping of the atrial tachycardia was performed with mapping and ablation catheter irrigated tip catheter). The tachycardia was localized just to the roof of the left atrium just outside the left superior pulmonary vein, slightly on the anterior side. RF ablation at this site and around the area with good contact force and a power of 25 patel did not result in termination of tachycardia. It did not result in slowing of the tachycardia. This was about 134 milliseconds earlier than the earliest coronary sinus and with good unipolar signals. Therefore, a decision made to perform an encircling linear ablation around the left superior pulmonary vein only and this was successfully accomplished and later the scar prep revealed an isolated pulmonary vein with entrance block. However, this did not result in termination of the tachycardia. Therefore, the ablation catheter was removed. A PentaRay catheter was placed in the left atrium and once again a detailed 3D activation mapping of the left atrium was performed. Once again, the earliest site was in the roof just outside the left superior pulmonary vein exactly where we had previously ablated. Further RF lesions in this area did not result in any termination of the tachycardia. This tachycardia was deemed to be an epicardial atrial tachycardia and all catheters were then removed and patient was transferred back to telemetry. RESULT: 1. Diagnostic EP study revealing an epicardial atrial tachycardia outside the left superior pulmonary vein and the roof of the left atrium, but RF ablation with good contact force and with adequate power did not result in termination of tachycardia. 2. Wide venetie ira linear ablation around the pulmonary vein did not result in termination of the tachycardia. All catheters were removed. Heparin was reversed. The patient was transferred back to telemetry. PLAN: Continue current medications. Continue antihypertensive therapy and anticoagulation. MMODL / IJN: [id number] /
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
[2017-11-26] MEDS: amLODIPine 5 MG TAB PO SCH (20:26)
[2017-11-26] MEDS ORDERED: ATORVASTATIN 80 MG TAB PO SCH (21:00)
[2017-11-27] MEDS: amLODIPine 5 MG TAB PO SCH (08:11)
[2017-11-27 08:53] VITALS: RESP 18
[2017-11-27] MEDS ORDERED: ASPIRIN 81 MG PO SCH (09:00)
[2017-11-27] MEDS ORDERED: TAMSULOSIN 0.4 MG CAP.ER.24H PO SCH (09:00)
[2017-11-27] MEDS ORDERED: RIVAROXABAN 20 MG TAB PO SCH (09:00)
[2017-11-27] MEDS ORDERED: LISINOPRIL 10 MG TAB PO SCH (09:00)
[2017-11-27] MEDS ORDERED: FUROSEMIDE 40 MG TAB PO SCH (09:00)
--- NOTE | 2017-11-27 10:40 | P.PCN ---
Preoperative Diagnosis: Patient is sitting comfortably in bed but he gets short of breath with average exertion. Groins of healed well. He denies any chest discomfort dizziness or lightheadedness On examination temperature 98.2F pulse rate in the 70s Blood pressure 137/61 mmHg pulse rate in the 70s afebrile Heart sounds are normal no murmurs no gallops no rubs Breath sounds are clear no rhonchi no crackles Increased BMI Impression severe pulmonary hypertension Assess for valvular heart disease Observe sleep apnea Morbid obesity Hypertensive heart disease and preserved LV systolic function Nonobstructive CAD Diastolic heart failure, chronic Plan HUNTER today to assess for valvular heart disease as a cause of pulmonary hypertension Discharge later and follow-up in the office in about 1-2 weeks Condition: stable
[2017-11-27 11:53] VITALS: PULSE 56; TEMP 97.8
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
[2017-11-27 16:06] VITALS: BP 120/58
--- NOTE | 2017-11-27 18:10 | PN ---
PROGRESS NOTE DATE OF SERVICE: 11/27/2017 CHIEF COMPLAINT: Arrhythmia. HISTORY OF PRESENT ILLNESS: This gentleman is doing well. He feels good. He has had no fever, chills, chest pain, palpitations, etc. He is expected to go home today. PHYSICAL EXAMINATION: CHEST: Clear. Cardiac exam is unchanged. The abdomen is protuberant, soft, nontender. IMPRESSION: 1. Supraventricular tachycardia. 2. Hypertension. PLAN: Possibly home today. MMODL / IJN: [id number] /
--- NOTE | 2017-11-27 18:25 | CONS ---
CONSULTATION CHIEF COMPLAINT: Cardiac arrhythmia. HISTORY OF PRESENT ILLNESS: This is another admission for this 72-year-old gentleman who has come in for elective attempt to ablate atrial arrhythmia. Apparently the procedure was done and was unsuccessful. He is comfortable and otherwise has no complaints. REVIEW OF SYSTEMS: He has had no headaches, dizziness, syncope, change in vision or hearing, cough, hemoptysis, chest pain, orthopnea, PND, abdominal pain, nausea, vomiting, melena, hematochezia, renal failure, etc. Past medical history, family history, and personal and social histories reveal that he has NO ALLERGIES. He takes: 1. Lisinopril 10 mg once a day. 2. Lasix 20 mg once a day. 3. Amlodipine 5 mg twice a day. 4. Atorvastatin 80 mg once a day. 5. Donepezil 5 mg at bedtime. 6. Xarelto 20 mg a day. 7. Aspirin 81 mg. Remainder of his history is unremarkable. He used to smoke, but he has quit. He drinks alcohol occasionally. He is very compliant in terms of management of his health care. He is overweight. PHYSICAL EXAMINATION: Blood pressure is 142/60 with a pulse of 80 and regular, respirations of 20 and he is afebrile. In general, he appeared to be well developed, well nourished, in no acute distress. Skin color is normal. Skin is warm and dry. Lymph nodes are not enlarged. Head, ears, eyes, nose, mouth and throat were normal. Neck veins were not distended. Thyroid is not enlarged. Chest is clear. Cardiac exam demonstrates an irregularly irregular rhythm. There is no S3 or S4. The abdomen is protuberant, soft, nontender without any masses or visceromegaly. Extremities are normal. Neurologically he is intact. IMPRESSION: 1. Atrial fibrillation and atrial tachycardia. 2. History of premature ventricular contractions. 3. Hypertension. 4. Exogenous obesity. RECOMMENDATIONS: None at this time. MMODL / IJN: [id number] /
== END 2017-11-27 17:38 | disposition home or self-care (01) ==
LOC: CATHEP 06:42 → 3OBS 12:56 → CATHEP 11-27 17:38
PROVIDERS: ATTEND Internal Medicine Clinical Cardiac Electrophysiology
DX: I49.3 Ventricular premature depolarization (principal); I27.20 Pulmonary hypertension, unspecified; I08.3 Combined rheumatic disorders of mitral, aortic and tricuspid valves; I47.2 Ventricular tachycardia; I48.2 Chronic atrial fibrillation; I47.1 Supraventricular tachycardia; I25.10 Atherosclerotic heart disease of native coronary artery without angina pectoris; E78.5 Hyperlipidemia, unspecified; I11.0 Hypertensive heart disease with heart failure; I50.32 Chronic diastolic (congestive) heart failure; G47.33 Obstructive sleep apnea (adult) (pediatric); Z99.89 Dependence on other enabling machines and devices; E66.01 Morbid (severe) obesity due to excess calories; Z68.38 Body mass index [BMI] 38.0-38.9, adult; R73.03 Prediabetes; I25.5 Ischemic cardiomyopathy; F03.90 Unspecified dementia, unspecified severity, without behavioral disturbance, psychotic disturbance, mood disturbance, and anxiety; Z86.73 Personal history of transient ischemic attack (TIA), and cerebral infarction without residual deficits; Z79.01 Long term (current) use of anticoagulants; Z79.82 Long term (current) use of aspirin; Z79.899 Other long term (current) drug therapy; Z86.718 Personal history of other venous thrombosis and embolism; Z87.891 Personal history of nicotine dependence
CPT/HCPCS: 93451; 93462; 93662; 93654; 85347; 86900; 86901; 85018; 82810; 86850; C1769 ×5; C1894 ×2; C1730; C1731; C1759; C1893; C1732; J2001; J2250; J2720; J1200; J1644 ×3; J0461; J3010

== ENCOUNTER 2017-11-29 10:47 | Day surgery (SDC) | payer MEDICARE, BC ==
[2017-11-28 09:04] VITALS: BMI 38.3
[2017-11-29 11:08] VITALS: TEMP 97.6
[2017-11-29] MEDS ORDERED: MIDAZOLAM 2 MG/2 ML VIAL ONE (12:19)
[2017-11-29] MEDS ORDERED: fentaNYL (PF) 50 MCG/ML 2 ML AMP ONE (12:19)
[2017-11-29] MEDS ORDERED: IV FLUID CONTINUATION 400 ML IV ONE (12:20)
[2017-11-29] MEDS: BENZOCAINE SPRAY 1 CAN MUCOUS MEM ONE ×2 (12:35→12:39)
[2017-11-29] MEDS ORDERED: MIDAZOLAM 2 MG/2 ML VIAL IV ONE (12:38)
[2017-11-29] MEDS ORDERED: fentaNYL (PF) 50 MCG/ML 2 ML AMP IV ONE (12:38)
[2017-11-29 12:48] VITALS: RESP 14
[2017-11-29 12:54] VITALS: PULSE 56
[2017-11-29] MEDS ORDERED: SODIUM CHLORIDE 0.9% 1,000 ML IV SCH (13:00)
--- NOTE | 2017-11-29 13:18 | ECHOT ---
TRANSESOPHAGEAL ECHOCARDIOGRAM This transesophageal echocardiogram was performed to evaluate the pulmonary hypertension and aortic regurgitation. The patient was given intravenous sedation with Versed and fentanyl and transesophageal echocardiogram was performed without any complications. Left ventricular chamber is normal in size with an estimated ejection fraction of 50%. The mitral valve morphology is normal. There is moderate mitral regurgitation noted. Bi-atrial enlargement is noted. Left atrium is severely enlarged. There is no evidence of any thrombus in the left atrial appendage. There is systolic diastolic reversal of flow in the pulmonary vein suggestive of elevated left atrial pressure. The right ventricular chamber is normal in size. Right atrium is enlarged. There is a moderate degree of tricuspid regurgitation. Aortic valve is mildly thickened. There is a mild to moderate aortic regurgitation noted. Color Doppler study shows evidence of small atrial septal defect which is secondary to probably recent transseptal puncture. FINAL IMPRESSION: 1. This study shows evidence of mild to moderate aortic regurgitation. There is mild thickening of the aortic leaflets noted. 2. Significant bi-atrial enlargement is noted. 3. There is no evidence of any thrombus in left atrium. 4. There is a moderate degree of mitral regurgitation and [id number] aortic regurgitation and moderate degree of tricuspid regurgitation noted. There is a small atrial septal defect secondary to recent transeptal puncture. RECOMMENDATIONS: Aggressive medical treatment for the elevated left atrial pressure and pulmonary hypertension. MMODL / IJN: [id number] /
[2017-11-29 14:30] VITALS: BP 141/65
== END 2017-11-29 14:24 | disposition home or self-care (01) ==
LOC: CATHCVL 10:47
PROVIDERS: ATTEND Internal Medicine Cardiovascular Disease
DX: I08.3 Combined rheumatic disorders of mitral, aortic and tricuspid valves (principal); Q21.1 Atrial septal defect; I48.2 Chronic atrial fibrillation; Z79.01 Long term (current) use of anticoagulants; I47.2 Ventricular tachycardia; I49.3 Ventricular premature depolarization; E78.5 Hyperlipidemia, unspecified; I25.10 Atherosclerotic heart disease of native coronary artery without angina pectoris; I10 Essential (primary) hypertension; Z87.891 Personal history of nicotine dependence; Z86.73 Personal history of transient ischemic attack (TIA), and cerebral infarction without residual deficits; G47.33 Obstructive sleep apnea (adult) (pediatric); Z99.89 Dependence on other enabling machines and devices; Z79.82 Long term (current) use of aspirin; Z79.899 Other long term (current) drug therapy
CPT/HCPCS: 93312; 93320; 93325; J2250; J3010

== ENCOUNTER 2018-02-05 20:36 | Inpatient (IN) | payer MEDICARE, BC ==
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
[2018-02-05 20:59] LABS: Glucose,Whole Blood 112 mg/dL (75-99)
[2018-02-05] MEDS ORDERED: IPRATROPIUM 0.5 MG/2.5 ML NEBU INHALATION STA (21:05)
[2018-02-05] MEDS ORDERED: ALBUTEROL NEBULIZED 2.5 MG/3 ML INHALATION STA (21:05)
[2018-02-05 21:19] LABS: Anisocytosis Slight; Basophils % (A) 0 %; Eosinophils % (A) 0 %; HCT 22.5 % (39.0-53.0); Hypochromasia Marked; Lymphocytes # (A) 0.9 k/uL (1.0-4.8); Lymphocytes % (A) 14 %; MCHC 26.8 g/dL (31.0-37.0); MCV 82.1 fL (80.0-100.0); Mean Platelet Volume 8.8; Microcytosis Slight; Monocytes # (A) 0.5 k/uL (0-1.0); Monocytes % (A) 8 %; Neutrophils # (A) 4.8 k/uL (1.3-7.7); Neutrophils % (A) 75 %; Platelet Count 138 k/uL (150-450); Poikilocytosis Slight; RBC 2.74 m/uL (4.30-5.90); RDW 19.4 % (11.5-15.5); WBC 6.4 k/uL (3.8-10.6)
[2018-02-05 21:25] LABS: INR 2.1 (<1.2); Partial Thromboplastin Time 39.8 sec (22.0-30.0); Prothrombin Time 19.3 sec (9.0-12.0)
[2018-02-05 21:33] LABS: Creatine Kinase 38 U/L (55-170)
[2018-02-05 21:37] LABS: Albumin 3.1 g/dL (3.5-5.0); Calcium 8.6 mg/dL (8.4-10.2); Magnesium 2.7 mg/dL (1.6-2.3); Phosphorus 5.3 mg/dL (2.5-4.5); Potassium 4.4 mmol/L (3.5-5.1); Total Bilirubin 1.1 mg/dL (0.2-1.3); Total Protein 6.3 g/dL (6.3-8.2)
--- NOTE | 2018-02-05 21:37 | CT ---
EXAMINATION TYPE: CT brain wo con DATE OF EXAM: 02/05/2018 COMPARISON: 02/02/2017 INDICATION: ams, weakness, cva symptoms DLP: 1054.2 mGycm, Automated exposure control for dose reduction was used. CONTRAST: None CT of the brain is performed utilizing 3 mm thick sections through the posterior fossa and 3 mm thick sections through the remaining calvarium. Study is performed within 24 hours of arrival to the hosp ital. No abnormal hyperdensity is present to suggest an acute intracranial hemorrhage. No mass lesion is evident. No acute infarcts are evident. Mild periventricular white matter hypodensity is present most likely o n the basis of chronic white matter ischemic changes. Ventricles and sulci are prominent for the patient age. Paranasal sinuses and mastoid air cells within the [id number] are clear. IMPRESSIONS: 1. Atrophy with mild white matter changes. No significant change from comparison.
--- NOTE | 2018-02-05 21:38 | XR ---
EXAMINATION TYPE: XR chest 2V DATE OF EXAM: 02/05/2018 COMPARISON: 02/03/2017 INDICATION: Weakness TECHNIQUE: Frontal and lateral views of the chest are obtained. FINDINGS: The heart size is normal. The pulmonary vasculature is normal. Small right pleural fluid collection is present. EKG leads overlie the chest.. IMPRESSION: 1. Small right pleural effusion with adjacent atelectasis
[2018-02-05 21:46] LABS: Troponin I <0.012 ng/mL (0.000-0.034)
[2018-02-05 21:51] LABS: Creatine Kinase MB 2.7 ng/mL (0.0-2.4)
[2018-02-05] MEDS ORDERED: SODIUM CHLORIDE 0.9% 1,000 ML IV STA ×2 (22:09)
--- NOTE | 2018-02-05 23:13 | CT ---
EXAMINATION TYPE: CT angio chest DATE OF EXAM: 02/05/2018 11:06 PM COMPARISON: 02/04/2017 HISTORY: SOB, weakness CT DLP: 545.1 mGycm Automated exposure control for dose reduction was used. CONTRAST: CTA scan of the thorax is performed with IV Contrast, patient injected with 80 mL of Isovue 370, pulm onary embolism protocol. There are 3-D post processed images.. FINDINGS: There are moderate bilateral pleural effusions. Heart is enlarged. There is no pericardial effusion. There is patchy bilateral lower lobe atelectasis and infiltrate. There is no mediastinal adenopathy. I see no filling defects in the pulmonary arteries. Ascending aorta measures 4.2 cm. There is no evid ence of dissection. Bony thorax appears intact. There is thoracolumbar kyphotic mild deformity. IMPRESSION: NO EVIDENCE OF PULMONARY EMBOLISM. BILATERAL PLEURAL EFFUSIONS. MILD ANEURYSM OF ASCENDING AORTA. ATH EROSCLEROTIC VASCULAR DISEASE.
--- NOTE | 2018-02-05 23:29 | CT ---
EXAMINATION TYPE: CT abdomen pelvis w con DATE OF EXAM: 02/05/2018 COMPARISON: NONE HISTORY: abdominal pain, weakness CT DLP: 1504.2 mGycm Automated exposure control for dose reduction was used. TECHNIQUE: Helical acquisition of images was performed from the lung bases through the pelvis. CONTRAST: Performed without Oral Contrast and with IV Contrast, patient injected with 80 mL of Isovue 370. FINDINGS: There are moderate bilateral pleural effusions with basilar pulmonary infiltrates and atelectasis. Liver shows no focal defect. There are numerous calcified gallstones. Spleen appears normal. There is no pancreatic mass. I see no intestinal wall thickening. There are no dilated loops. There is subcut aneous edema around the abdomen. There is no sign of free air. There is no ascites. There are sigmoid diverticula. There is no sign of diverticulitis. There is some cortical thinning in the lower pole r ight kidney. There is no hydronephrosis. There are bilateral renal calcifications and most of these a re vascular. There are spondylotic changes in the lumbar spine. I see no compression fracture. IMPRESSION: CORTICAL THINNING IN THE LOWER POLE RIGHT KIDNEY COULD RELATE TO CHRONIC PYELONEPHRITIS. ATHEROSCLERO TIC VASCULAR DISEASE. BILATERAL PLEURAL EFFUSIONS AND BASILAR PULMONARY INFILTRATES AND ATELECTASIS. CARDIOMEGALY. THE CHEST ABNORMALITIES ARE NEW COMPARED TO OLD EXAM AND ARE CONSISTENT WITH CHRONIC CO NGESTIVE HEART FAILURE. . CHOLELITHIASIS. GALLSTONES ARE INCREASED COMPARED TO OLD EXAM.
[2018-02-05] MEDS ORDERED: cefTRIAXone 2,000 MG in SODIUM CHLORIDE 0.9% 100 ML IVPB STA (23:30)
[2018-02-05] MEDS ORDERED: AZITHROMYCIN 500 MG in SODIUM CHLORIDE 0.9% 250 ML IVPB STA (23:31)
[2018-02-06 00:10] LABS: Appearance,Urine Cloudy (Clear); Bilirubin,Urine Negative (Negative); Blood,Urine Negative (Negative); Color,Urine Yellow; Glucose,Urine (UA) Negative (Negative); Hyaline Casts,Urine 41 /lpf (0-2); Ketones,Urine Negative (Negative); Leukocyte Esterase,Urine Trace (Negative); Mucus,Urine Rare /hpf; Nitrite,Urine Negative (Negative); Protein,Urine 1+ (Negative); RBC,Urine 2 /hpf (0-5); Specific Gravity,Urine 1.017 (1.001-1.035); Squamous Epithelial Cell,Urine 1 /hpf (0-4); Urobilinogen,Urine <2.0 mg/dL (<2.0); WBC,Urine 10 /hpf (0-5)
[2018-02-06 00:50] LABS: Glucose,Whole Blood 131 mg/dL (75-99)
[2018-02-06] MEDS ORDERED: SODIUM CHLORIDE 0.9% 1,000 ML IV ONE ×3 (01:01→15:30)
[2018-02-06] MEDS ORDERED: NALOXONE 0.4 MG/ML 1 ML VIAL IV PRN (01:07)
[2018-02-06] MEDS ORDERED: SODIUM CHLORIDE 0.9% 1,000 ML IV SCH ×2 (01:15→15:45)
[2018-02-06] MEDS: NOREPINEPHRIN 4 MG-0.9% NS PMX 4 MG/250 ML ML IV SCH ×5 (03:23→21:36)
[2018-02-06 06:46] LABS: Anisocytosis Slight; Basophils % (A) 0 %; Eosinophils % (A) 1 %; HCT 26.2 % (39.0-53.0); Hypochromasia Marked; Lymphocytes # (A) 0.8 k/uL (1.0-4.8); Lymphocytes % (A) 13 %; MCH 23.7 pg (25.0-35.0); MCHC 28.5 g/dL (31.0-37.0); Monocytes # (A) 0.6 k/uL (0-1.0); Monocytes % (A) 10 %; Neutrophils # (A) 4.6 k/uL (1.3-7.7); Neutrophils % (A) 74 %; Platelet Count 111 k/uL (150-450); Poikilocytosis Marked; RBC 3.16 m/uL (4.30-5.90); RDW 18.5 % (11.5-15.5); WBC 6.2 k/uL (3.8-10.6)
[2018-02-06 06:52] LABS: HGB 7.5 gm/dL (13.0-17.5)
[2018-02-06 07:09] LABS: Calcium 7.9 mg/dL (8.4-10.2); Magnesium 2.4 mg/dL (1.6-2.3); Phosphorus 5.4 mg/dL (2.5-4.5); Potassium 4.6 mmol/L (3.5-5.1)
--- NOTE | 2018-02-06 07:26 | XR ---
EXAMINATION TYPE: XR chest 1V DATE OF EXAM: 02/06/2018 HISTORY: Shortness of breath. COMPARISON: 02/05/2018 TECHNIQUE: Single view of the chest is submitted. FINDINGS: Demonstrated are scattered senescent parenchymal change. There is right basilar effusion and atelectasis with improved aeration relative to the prior study sm all left-sided pleural effusion. Pulmonary venous congestion. The heart is stable. Hilar and mediastinal structures are within normal limits. Degenerative changes are seen of the dorsal spine. IMPRESSION: 1. There is right basilar effusion and atelectasis with improved aeration relative to the prior stud y small left-sided pleural effusion. Pulmonary venous congestion.
[2018-02-06] MEDS ORDERED: PANTOPRAZOLE 40 MG/10 ML VIAL IV SCH (09:00)
[2018-02-06] MEDS ORDERED: FUROSEMIDE 10 MG/ML 10 ML VIAL IV STA (09:01)
[2018-02-06] MEDS: HEPARIN SODIUM,PORCINE 5,000 UNIT/ML 1 ML VIAL SQ SCH ×2 (09:17→16:12)
[2018-02-06] MEDS: cefTRIAXone IN SWFI 1,000 MG/10 ML SYRINGE IVP SCH ×2 (09:43→21:01)
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
[2018-02-06] MEDS: ASPIRIN 81 MG PO SCH (11:00)
--- NOTE | 2018-02-06 11:19 | US ---
EXAMINATION TYPE: US chest DATE OF EXAM: 02/06/2018 COMPARISON: NONE CLINICAL HISTORY: Markings for thoracentesis by pulmonary staff. EXAM MEASUREMENTS: Right Pleural Effusion fluid pocket: 5.0 cm Right skin to fluid thickness: 3.4 cm Left Pleural Effusion fluid pocket: 7.9 cm Left skin to fluid thickness: 3.4 cm Right side marked for possible thoracentesis outside the dept. Left side marked for possible thoracentesis outside the dept. Pulmonologists are able to review the images in the patient?s EMR. IMPRESSIONS: Pleural effusions as noted.
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
[2018-02-06] MEDS: SODIUM CHLORIDE 0.9% 1,000 ML IV SCH (18:27)
--- NOTE | 2018-02-06 18:28 | CONS ---
CONSULTATION Mr. James is a 72-year-old gentleman with a known history of chronic persistent atrial fibrillation who underwent an EP study by Dr. Albarado in November of this year. He had an EP study for possible ablation of atrial tachycardia. However, this procedure was unsuccessful and he has been also known to have chronic atrial fib for which rate control and anticoagulation was advised. He came into the hospital this time with what seems to be increasing shortness of breath. He has multiple medical problems in the form of obstructive sleep apnea secondary to pulmonary hypertension, chronic atrial fibrillation on Xarelto with a decent rate control and previous ablation for nonsustained VT and atrial tachycardia ablation was unsuccessful. He has history of previous DVT as well. He came in complaining of increasing shortness of breath and also feeling weak tired and exhausted. He appears to have bilateral pleural effusions and probably right lower lobe pneumonia as well. He also was hypotensive when he came in. He received IV fluids and placed on a norepinephrine drip at 4 mcg/minute. I was asked to see him mainly because of his associated atrial fibrillation. Patient appears to have sepsis clinically, but atrial fibrillation rate is controlled. He is hemodynamically somewhat unstable on Levophed drip. He seems to be reasonably stable, though overall. PAST MEDICAL HISTORY: Past medical history remarkable for: 1. Chronic atrial fibrillation, history of ablation for PVCs but none unsuccessful ablation for atrial tachycardia. 2. History of deep vein thrombosis. 3. Hypertension. 4. Hyperlipidemia. 5. Sleep apnea syndrome. 6. Pulmonary hypertension. MEDICATIONS: At home include: 1. Aspirin. 2. Atorvastatin. 3. Lasix. 4. Zestril. 5. Xarelto 20 mg daily. 6. Norvasc 5 mg daily. 7. Multivitamins. This gentleman had a transesophageal echo that was performed in November which revealed preserved left ventricular systolic function. EXAMINATION: VITAL SIGNS: Blood pressure is about 100/70, pulse rate is about 60 per minute irregular. HEENT: Unremarkable. Fundus was not examined by me. NECK: Supple. There is JVD of 1 cm. No carotid bruit. CARDIAC: Heart exam reveals S1, S2 heard normally with irregularity in rhythm, short systolic murmur. LUNGS reveal diminished air entry both bases. ABDOMEN is soft, nontender. EXTREMITIES: Lower extremities reveal diminished pulses. CENTRAL NERVOUS SYSTEM: Central nervous system grossly no focal deficits. IMPRESSION: 1. Probable right lower lobe pneumonia with effusion and probable sepsis. 2. Chronic atrial fibrillation. 3. No evidence of systolic heart failure with preserved ejection fraction by echo as recently as November. 4. Hyperlipidemia. RECOMMENDATIONS: I am recommending that we continue antibiotics, cautious IV fluids. Obtain EKG in the morning and based on clinical course I will make further recommendations. I will also check a BNP level as well on this patient. His lactic acid level was elevated and he should be ideally be hydrated. From a cardiac standpoint, no aggressive intervention is advised. Thank you very much for the consult. KATHLEEN / IJN: [id number] /
[2018-02-06] MEDS ORDERED: FUROSEMIDE 250 MG in SODIUM CHLORIDE 0.9% 225 ML IVP SCH (18:30)
--- NOTE | 2018-02-06 18:46 | CONS ---
CONSULTATION DATE OF SERVICE: 02/06/2018. CHIEF COMPLAINT: Sepsis. HISTORY OF PRESENT ILLNESS: This patient is doing a little bit better. Temperature is being brought up with thermal blanket. His rhythm is atrial fib with PVCs. PHYSICAL EXAM: Chest is clear. Cardiac exam demonstrates atrial fibrillation and it is irregularly irregular. Abdomen is protuberant and soft. Extremities are well perfused. IMPRESSION: 1. Sepsis, source unknown. 2. Hypothermia. 3. Atrial fibrillation with frequent PVCs. 4. History of coronary artery disease. 5. Anemia. PLAN: Continue to follow with stranding supervisor. Patient seems to be stable and improving. MMODL / IJN: [id number] /
[2018-02-06] MEDS: ATORVASTATIN 40 MG TAB PO SCH (21:00)
[2018-02-06] MEDS: AZITHROMYCIN 500 MG in SODIUM CHLORIDE 0.9% 250 ML IVPB SCH (21:00)
[2018-02-06] MEDS: LATANOPROST 0.005% OPHTH DROPS 2.5 ML BTL BOTH EYES SCH (21:01)
[2018-02-06 22:34] LABS: ABG Base Excess -1.7 mmol/L; ABG HCO3 27 mmol/L (21-25); ABG Oxygen Saturation 94.2 % (94-97); ABG PO2 80 mmHg (83-108); ABG TCO2 29 mmol/L (19-24)
[2018-02-06 22:39] LABS: ABG PCO2 71 mmHg (35-45); ABG PH 7.18 (7.35-7.45)
[2018-02-06] MEDS ORDERED: PROPOFOL 100 ML IV ONE (22:46)
[2018-02-06 22:53] LABS: Anisocytosis Slight; Basophils % (A) 0 %; Eosinophils # (A) 0.2 k/uL (0-0.7); Eosinophils % (A) 1 %; HCT 27.9 % (39.0-53.0); HGB 8.4 gm/dL (13.0-17.5); Hypochromasia Marked; Lymphocytes % (A) 6 %; MCH 24.5 pg (25.0-35.0); MCHC 30.1 g/dL (31.0-37.0); MCV 81.3 fL (80.0-100.0); Mean Platelet Volume 7.5; Microcytosis Slight; Monocytes # (A) 1.6 k/uL (0-1.0); Monocytes % (A) 9 %; Neutrophils # (A) 14.2 k/uL (1.3-7.7); Neutrophils % (A) 82 %; Platelet Count 146 k/uL (150-450); Poikilocytosis Marked; RBC 3.43 m/uL (4.30-5.90); RDW 19.3 % (11.5-15.5); WBC 17.3 k/uL (3.8-10.6)
[2018-02-06 22:59] LABS: Calcium 7.5 mg/dL (8.4-10.2); Potassium 5.1 mmol/L (3.5-5.1)
[2018-02-06] MEDS: PROPOFOL 1,000 MG in EMPTY BAG 1 BAG IV SCH (23:25)
--- NOTE | 2018-02-06 23:32 | XR ---
EXAMINATION TYPE: XR chest 1V portable DATE OF EXAM: 02/06/2018 COMPARISON: 02/06/2018 HISTORY: Tube placement TECHNIQUE: Single frontal view of the chest is obtained. FINDINGS: Endotracheal tube is 2.5 cm from the christiano. There is nasogastric tube. Exam is limited by the patient size. There are bilateral pleural effusions. There is pulmonary vascular congestion. The re are chest leads. IMPRESSION: Congestive heart failure with pleural effusions that appears worse than exam this mckay g at 6:00 AM.
[2018-02-07] MEDS: PROPOFOL 1,000 MG in EMPTY BAG 1 BAG IV SCH ×4 (00:05→17:43)
[2018-02-07] MEDS ORDERED: SODIUM CHLORIDE 0.9% 1,000 ML IV ONE (00:07)
[2018-02-07 00:35] LABS: ABG Base Excess -2.6 mmol/L; ABG HCO3 25 mmol/L (21-25); ABG Oxygen Saturation 99.9 % (94-97); ABG PCO2 61 mmHg (35-45); ABG PH 7.22 (7.35-7.45); ABG PO2 242 mmHg (83-108); ABG TCO2 27 mmol/L (19-24)
[2018-02-07] MEDS: NOREPINEPHRIN 4 MG-0.9% NS PMX 4 MG/250 ML ML IV SCH ×5 (02:07→13:41)
[2018-02-07] MEDS: HEPARIN SODIUM,PORCINE 5,000 UNIT/ML 1 ML VIAL SQ SCH ×3 (02:29→15:10)
[2018-02-07 05:28] LABS: Anisocytosis Slight; Basophils % (A) 0 %; Eosinophils # (A) 0.1 k/uL (0-0.7); Eosinophils % (A) 1 %; HCT 26.7 % (39.0-53.0); HGB 7.6 gm/dL (13.0-17.5); Hypochromasia Marked; Lymphocytes # (A) 1.1 k/uL (1.0-4.8); Lymphocytes % (A) 8 %; MCH 23.5 pg (25.0-35.0); MCHC 28.5 g/dL (31.0-37.0); MCV 82.6 fL (80.0-100.0); Mean Platelet Volume 10.1; Microcytosis Slight; Monocytes # (A) 1.5 k/uL (0-1.0); Monocytes % (A) 11 %; Neutrophils # (A) 11.5 k/uL (1.3-7.7); Neutrophils % (A) 79 %; Platelet Count 112 k/uL (150-450); Poikilocytosis Marked; RBC 3.24 m/uL (4.30-5.90); RDW 19.3 % (11.5-15.5); WBC 14.5 k/uL (3.8-10.6)
[2018-02-07 05:34] LABS: Calcium 7.6 mg/dL (8.4-10.2); Magnesium 2.2 mg/dL (1.6-2.3); Phosphorus 4.7 mg/dL (2.5-4.5); Potassium 4.4 mmol/L (3.5-5.1)
--- NOTE | 2018-02-07 06:45 | P.PCN ---
Date of Procedure: 02/07/18 Preoperative Diagnosis: Hemodynamic instability Postoperative Diagnosis: Hemodynamic instability Procedure(s) Performed: Right radial arterial line placement Anesthesia: none Surgeon: Kei Bianchi Indications for Procedure: Patient requiring vasopressor support Description of Procedure: Right wrist was prepped and draped appropriately. Gabino's test was performed and showed adequate collateral circulation Sterile technique was used sterile Mask and gloves.. 2 mls of 1% lidocaine were injected. A 20-gauge arrow was utilized and the Selinger technique was utilized with palpation of the right radial artery. Flashback was achieved guidewire was advanced, and 20-gauge Angiocath was hubbed the skin. Angiocath was sutured in place and securement Tegaderm was placed as well Patient tolerated procedure well
--- NOTE | 2018-02-07 06:50 | P.PCN ---
Date of Procedure: 02/06/18 Preoperative Diagnosis: Acute respiratory failure Postoperative Diagnosis: Acute respiratory failure Procedure(s) Performed: Endotracheal intubation Anesthesia: GETA (6 mg etomidate, 80 mg succinylcholine, 2 mg Versed) Indications for Procedure: Acute respiratory failure Description of Procedure: 72-year-old male with acute respiratory failure. Were called for endotracheal intubation. Patient was alert and oriented 3 Medical history reviewed, nothing by mouth status was ascertained to be greater than 8 hours Patient was laid in the supine position, 6 programs etomidate, 2 mg Versed, and 80 mg going were given Mac 3 blade was used in an 8.0 endotracheal tube was placed with a grade 1 view. CO2 color change was appreciated, bilateral breath sounds appreciated. Patient remained hemodynamic stable throughout the intubation.
[2018-02-07 07:29] LABS: ABG Base Excess -0.1 mmol/L; ABG HCO3 26 mmol/L (21-25); ABG Oxygen Saturation 95.9 % (94-97); ABG PCO2 48 mmHg (35-45); ABG PH 7.34 (7.35-7.45); ABG PO2 77 mmHg (83-108); ABG TCO2 27 mmol/L (19-24)
[2018-02-07] MEDS: PANTOPRAZOLE 40 MG/10 ML VIAL IV SCH ×2 (08:26→20:46)
[2018-02-07] MEDS: CHLORHEXIDINE GLUCONATE 15 ML CUP MUCOUS MEM SCH ×2 (08:26→20:43)
[2018-02-07] MEDS: ASPIRIN 81 MG PO SCH (08:27)
--- NOTE | 2018-02-07 08:38 | XR ---
EXAMINATION TYPE: XR chest 1V DATE OF EXAM: 02/07/2018 COMPARISON: NONE INDICATION: Bilateral infiltrates TECHNIQUE: Single frontal view of the chest is obtained. FINDINGS: The heart size is enlarged. The pulmonary vasculature is somewhat prominent. There is diffuse increased lung markings greater at the right base but present throughout the bilater al lung saucedo. There is a endotracheal tube with the tip above the christiano. Nasogastric tube transverses the thorax. IMPRESSION: 1. Improving bilateral lung infiltrates. The greatest residuals in the right lung base. Continued fol low-up is recommended. 2. Lines and catheters discussed above.
[2018-02-07] MEDS ORDERED: RIVAROXABAN 20 MG TAB PO SCH (09:00)
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
[2018-02-07] MEDS ORDERED: FUROSEMIDE 10 MG/ML 10 ML VIAL IV STA (11:05)
--- NOTE | 2018-02-07 11:23 | PN ---
PROGRESS NOTE Mr. James came in yesterday with what seemed to be a pneumonia and sepsis type picture. He is known to have chronic atrial fibrillation. However, overnight he became hypotensive and was intubated. He is on a ventilator now, on Levophed drip, which is being gradually weaned off. Sepsis seems to be the main issue. Hemodynamically, he is unstable. Remains in atrial fib controlled rate. Prognosis remains guarded. Vital signs reveal a blood pressure of 108/70 on Levophed drip. S1, S2 heard normally with irregular rate and rhythm, short systolic murmur. Lungs reveal diminished air entry with rales on both bases. Abdomen is soft. Lower extremities reveal diminished pulses. Central nervous system assessment was not possible. Cardiac-martinez, no intervention. I agree with the management outlined by Dr. Turk. [email or web address] / REMEDIOS: [id number] /
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
--- NOTE | 2018-02-07 12:23 | ECHOF ---
Referral Reason:eval LV function MEASUREMENTS -------- HEIGHT: 180.3 cm WEIGHT: 126.1 kg BP: 130/53 RVIDd: 3.4 cm (< 3.3) IVSd: 1.1 cm (0.6 - 1.1) LVIDd: 5.2 cm (3.9 - 5.3) LVPWd: 1.4 cm (0.6 - 1.1) IVSs: 1.6 cm LVIDs: 4.5 cm LVPWs: 1.2 cm Ao Diam: 4.2 cm (2.0 - 3.7) AV Cusp: 2.3 cm (1.5 - 2.6) LA Diam: 4.5 cm (2.7 - 3.8) MV EXCURSION: 17.570 mm (> 18.000) MV EF SLOPE: 180 mm/s (70 - 150) EPSS: 1.5 cm MV E Jairon: 1.20 m/s MV DecT: 206 ms MV A Jairon: 0.68 m/s MV E/A Ratio: 1.77 AV maxP.07 mmHg AV meanP.44 mmHg AR PHT: 554 ms RAP: 5.00 mmHg RVSP: 27.35 mmHg FINDINGS -------- Sinus rhythm. This was a technically difficult study with suboptimal views. Pt. on a vent. The left ventricular size is normal. Left ventricular wall thickness is normal. There is mild toan bal hypokinesis of LV . Overall left ventricular systolic function is mildly impaired with, an EF b etween 45 - 50 %. Mitral Doppler inflow pattern suggests diastolic filling abnormality 17.87. The right ventricle is mildly enlarged. The left atrium is mildly dilated. The right atrium is normal in size. Aortic valve is trileaflet and is mildly thickened. There is mild aortic regurgitation. The mitral valve leaflets are mildly thickened. Mild mitral regurgitation is present. Mild tricuspid regurgitation present. The right ventricular systolic pressure, as measured by Doppl er, is 27.35mmHg. Pulmonic valve appears structurally normal. The aortic root is dilated measuring 4.2 cm. The pericardium is normal. CONCLUSIONS -------- 1. Sinus rhythm. 2. This was a technically difficult study with suboptimal views. 3. Pt. on a vent. 4. The left ventricular size is normal. 5. Left ventricular wall thickness is normal. 6. There is mild global hypokinesis of LV . 7. Overall left ventricular systolic function is mildly impaired with, an EF between 45 - 50 %. 8. Mitral Doppler inflow pattern suggest diastolic filling abnormality 17.87. 9. The right ventricle is mildly enlarged. 10. The left atrium is mildly dilated. 11. The right atrium is normal in size. 12. Aortic valve is trileaflet and is mildly thickened. 13. There is mild aortic regurgitation. 14. The mitral valve leaflets are mildly thickened. 15. Mild mitral regurgitation is present. 16. Mild tricuspid regurgitation present. 17. The right ventricular systolic pressure, as measured by Doppler, is 27.35mmHg. 18. Pulmonic valve appears structurally normal. 19. The aortic root is dilated measuring 4.2 cm 20. The pericardium is normal. [employer]ASTEW[employer] SUPERVISOR: Larisa Samaniego RDCS
[2018-02-07] MEDS: cefTRIAXone IN SWFI 1,000 MG/10 ML SYRINGE IVP SCH ×2 (13:18→20:47)
[2018-02-07] MEDS: SODIUM CHLORIDE 0.9% 1,000 ML IV SCH (13:23)
--- NOTE | 2018-02-07 13:35 | CDI ---
Last Revision, August 2017 Documentation Clarification Form Date: 02/07/18 133 From: Clover Lawrence Admit Date: 02/05/2018 11:33:00 PM Patient Name: Tin James Visit Number: [id number] ATTENTION: The Clinical Documentation Specialists (CDI) and [facility] Coding Staff appreciate your assistance in clarifying documentation. Please respond to the clarification below the line at the bottom and electronically sign. The CDI & [facility] Coding staff will review the response and follow-up if needed. Please note: Queries are made part of the Legal Health Record. If you have any questions, please contact the author of this message via ITS. Dr. Ayush Wills A diagnosis of anemia lacks specificity to accurately reflect your patients severity of condition and clarification is needed. History/Risk Factors: Chronic anemia, sepsis, Atrial Fib on chronic anticoagulation, CAD, HTN, Hypothermia Clinical indicators: 02/06 H&P :"Delirium, sepsis, pneumonitis, and anemia." 02/07 Nephrology Consult: "Severe anemia on admission status post blood transfusion. Hemoglobin improved." Hemoglobin: 6/8.4/7.6 Hematocrit: 22.5/27.9/26.7 Treatment: Labs AM Daily 2 units PRBC's transfused 3L IVF Bolus In order to capture the severity of condition, please clarify the type of anemia and etiology if known: Acute blood loss anemia Acute on chronic blood loss anemia Chronic blood loss anemia Iron deficiency anemia Drug induced anemia Nutritional anemia Anemia of chronic kidney disease Anemia of chronic disease Unable to determine Other, please specify Please continue to document in your progress notes and discharge summary in order to capture severity of illness and risk of mortality. Include clinical findings that support your diagnosis. MTDD
--- NOTE | 2018-02-07 13:55 | CDI ---
Last Revision, August 2017 Documentation Clarification Form Date: 02/07/18 5811 From: Clover Lawrence RN, CCDS Admit Date: 02/05/2018 11:33:00 PM Patient Name: Tin James Visit Number: [id number] ATTENTION: The Clinical Documentation Specialists (CDI) and [facility] Coding Staff appreciate your assistance in clarifying documentation. Please respond to the clarification below the line at the bottom and electronically sign. The CDI & [facility] Coding staff will review the response and follow-up if needed. Please note: Queries are made part of the Legal Health Record. If you have any questions, please contact the author of this message via ITS. Dr. Ayush Wills Altered mental status was documented in the medical record and requires further specifity Patient history/risk factors: Atrial Fib, CAD, HTN, BECKY with ATN, Sepsis with Septic shock, Pneumonia Clinical Indicators: 02/06 H&P: "Delirium, sepsis, pneumonitis, and anemia." 02/07 Nephrology Consult: "Patient presented to the hospital with altered mental status and severe anemia with hemoglobin of 6." Labs: WBC 6.4/17.3/14.5, Hgb 6/8.4/7.6, BUN 34/32, Creatinine 1.4/1.76/1.7, Lactic Acid 9/1.3 CXR: "Improving bilateral lung infiltrates. The greatest residuals in the right lung base." CT Brain:"Atrophy with mild white matter changes. No significant change from comparison." Treatment: 2 units PRBC's 3 IVF Bolus Lasix Gtt and Lasix IVP Levophed titrate for B/P Iv Zithromax 250 IVPB Q 24 hrs IV Cefriaxone 1 gm IVP BID In your professional opinion, please clarify the etiology of the altered mental status, if known. Encephalopathy (specify Type- Metabolic, Septic, Toxic, Anoxic and Underlying Medical Illness) Dementia (if know, specify Type and if with/without Behavioral Disturbance) Other condition (please specify) Unable to determine Please continue to document in your progress notes and discharge summary in order to capture severity of illness and risk of mortality. Include clinical findings that support your diagnosis. MTDD
--- NOTE | 2018-02-07 20:11 | PN ---
PROGRESS NOTE CHIEF COMPLAINT: Septic shock. HISTORY OF PRESENT ILLNESS: This gentleman is doing fairly well, but he is intubated and on pressors. Vital signs at the present time are stable. Source of the infection is still not clear. PHYSICAL EXAMINATION: Blood pressure is 111/68. Peripheral perfusion is good. Chest is clear to auscultation on both sides. Cardiac exam demonstrates atrial fibrillation. The abdomen is soft and nontender and without masses. IMPRESSION: 1. Septic shock, source unknown. 2. Atrial fibrillation. 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 MMODL / IJN: [id number] /
[2018-02-07] MEDS: ATORVASTATIN 40 MG TAB PO SCH (20:43)
[2018-02-07] MEDS: LATANOPROST 0.005% OPHTH DROPS 2.5 ML BTL BOTH EYES SCH (20:45)
[2018-02-07] MEDS: AZITHROMYCIN 500 MG in SODIUM CHLORIDE 0.9% 250 ML IVPB SCH (20:47)
[2018-02-07] MEDS ORDERED: DEXTROSE 5% IN WATER 1,000 ML IV ONE (22:43)
[2018-02-08] MEDS: FUROSEMIDE 10 MG/ML 4 ML VIAL IV SCH ×3 (00:17→16:18)
[2018-02-08] MEDS: HEPARIN SODIUM,PORCINE 5,000 UNIT/ML 1 ML VIAL SQ SCH ×3 (00:17→16:18)
[2018-02-08] MEDS: PROPOFOL 1,000 MG in EMPTY BAG 1 BAG IV SCH ×4 (00:19→20:52)
[2018-02-08] MEDS ORDERED: ATROPINE SULFATE 0.1 MG/ML 10ML SYRINGE ONE (02:40)
[2018-02-08 03:28] LABS: Anisocytosis Moderate; HCT 25.3 % (39.0-53.0); HGB 7.5 gm/dL (13.0-17.5); Hypochromasia Marked; MCHC 29.7 g/dL (31.0-37.0); MCV 80.8 fL (80.0-100.0); Mean Platelet Volume 11.3; Microcytosis Slight; Platelet Count 100 k/uL (150-450); Poikilocytosis Marked; RBC 3.13 m/uL (4.30-5.90); WBC 9.8 k/uL (3.8-10.6)
[2018-02-08 03:35] LABS: Calcium 7.7 mg/dL (8.4-10.2); Magnesium 2.1 mg/dL (1.6-2.3); Phosphorus 2.9 mg/dL (2.5-4.5); Potassium 3.5 mmol/L (3.5-5.1)
[2018-02-08 04:06] LABS: Lymphocytes # (M) 0.88 k/uL (1.0-4.8); Monocytes # (M) 1.37 k/uL (0-1.0); Myelocytes % 1 %; Neutrophils # (M) 7.45 k/uL (1.3-7.7); Neutrophils % (M) 76 %; Nucleated Red Blood Cells 0 /100 WBC (0-0); Total Cells Counted 200
[2018-02-08] MEDS ORDERED: Potassium Replacement Protocol 1 EACH MISC MISCELLANE PRN (05:35)
[2018-02-08] MEDS: POTASSIUM BICARBONATE/CIT AC 20 MEQ TABLET.EFF NG-TUBE SCH ×2 (06:33→08:13)
--- NOTE | 2018-02-08 07:18 | XR ---
EXAMINATION TYPE: XR chest 1V portable DATE OF EXAM: 02/08/2018 COMPARISON: 02/07/2018 HISTORY: Ventilatory dependent respiratory failure TECHNIQUE: Single frontal view of the chest is obtained. FINDINGS: Similar appearing bilateral layering pleural effusions and bibasilar airspace disease are seen. Endotracheal tube and enteric tube are stable in position overall. Cardiomegaly is redemonstrat ed. Osseous structures are grossly intact. No sizable pneumothorax. IMPRESSION: Unchanged bilateral layering small pleural effusions and associated bibasilar airspace d isease, likely on the basis of decompensated congestive heart failure.
[2018-02-08] MEDS: CHLORHEXIDINE GLUCONATE 15 ML CUP MUCOUS MEM SCH ×2 (08:14→20:39)
[2018-02-08] MEDS: ASPIRIN 81 MG PO SCH (08:14)
[2018-02-08] MEDS: PANTOPRAZOLE 40 MG/10 ML VIAL IV SCH ×2 (08:14→20:39)
[2018-02-08] MEDS: cefTRIAXone IN SWFI 1,000 MG/10 ML SYRINGE IVP SCH ×2 (08:14→20:38)
[2018-02-08 08:40] LABS: ABG Base Excess 6.9 mmol/L; ABG HCO3 30 mmol/L (21-25); ABG Oxygen Saturation 95.3 % (94-97); ABG PCO2 41 mmHg (35-45); ABG PH 7.48 (7.35-7.45); ABG PO2 71 mmHg (83-108); ABG TCO2 32 mmol/L (19-24)
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
--- NOTE | 2018-02-08 11:53 | CDI ---
Last Revision, August 2017 Documentation Clarification Form 2nd Request Date: 02/07/2018 1:36:00 PM From: Clover Lawrence RN, CCDS Admit Date: 02/05/2018 11:33:00 PM Patient Name: Tin James Visit Number: [id number] ATTENTION: The Clinical Documentation Specialists (CDI) and [facility] Coding Staff appreciate your assistance in clarifying documentation. Please respond to the clarification below the line at the bottom and electronically sign. The CDI & [facility] Coding staff will review the response and follow-up if needed. Please note: Queries are made part of the Legal Health Record. If you have any questions, please contact the author of this message via ITS. Dr. Ayush Wills A diagnosis of anemia lacks specificity to accurately reflect your patients severity of condition and clarification is needed. History/Risk Factors: Chronic anemia, sepsis, Atrial Fib on chronic anticoagulation, CAD, HTN, Hypothermia Clinical indicators: 02/06 H&P :"Delirium, sepsis, pneumonitis, and anemia." 02/07 Nephrology Consult: "Severe anemia on admission status post blood transfusion. Hemoglobin improved." Hemoglobin: 6/8.4/7.6 Hematocrit: 22.5/27.9/26.7 Treatment: Labs AM Daily 2 units PRBC's transfused 3L IVF Bolus In order to capture the severity of condition, please clarify the type of anemia and etiology if known: Acute blood loss anemia Acute on chronic blood loss anemia Chronic blood loss anemia Iron deficiency anemia Drug induced anemia Nutritional anemia Anemia of chronic kidney disease Anemia of chronic disease Unable to determine Other, please specify Please continue to document in your progress notes and discharge summary in order to capture severity of illness and risk of mortality. Include clinical findings that support your diagnosis. MTDD
--- NOTE | 2018-02-08 11:57 | PN ---
PROGRESS NOTE Patient is still intubated on vent, has history of atrial fibrillation. He is on vent with Levophed which is being tapered. Remains in atrial fibrillation with controlled ventricular rate. He is on subcu heparin. He was on Xarelto prior to coming in. He is anemic with a hemoglobin 7.5. When stable, we should reintroduce the anticoagulant. On exam, intubated on vent. Blood pressure is 111/44, respiratory rate 15, heart rate is 54. Chest exam reveals diminished air entry bilaterally. Heart exam reveals first and second heart sounds. No gallop. Examination of extremities reveals bilateral 2+ edema with cellulitis. ASSESSMENT: 1. Acute exacerbation of chronic systolic heart failure. 2. Vent requiring respiratory failure. 3. Hypotension. I will continue current medications. Will see why the patient is not resuming the anticoagulant. If there are no good reasons, we will. KATHLEEN / REMEDIOS: [id number] /
--- NOTE | 2018-02-08 11:58 | CDI ---
Last Revision, August 2017 Documentation Clarification Form 2nd Request Date: 02/07/2018 1:55:00 PM From: Clover Lawrence RN, CCDS Admit Date: 02/05/2018 11:33:00 PM Patient Name: Tin James Visit Number: [id number] ATTENTION: The Clinical Documentation Specialists (CDI) and [facility] Coding Staff appreciate your assistance in clarifying documentation. Please respond to the clarification below the line at the bottom and electronically sign. The CDI & [facility] Coding staff will review the response and follow-up if needed. Please note: Queries are made part of the Legal Health Record. If you have any questions, please contact the author of this message via ITS. Dr. Ayush Wills Patient history/risk factors: Atrial Fib, CAD, HTN, BECKY with ATN, Sepsis with Septic shock, Pneumonia Clinical Indicators: 02/06 H&P: "Delirium, sepsis, pneumonitis, and anemia." 02/07 Nephrology Consult: "Patient presented to the hospital with altered mental status and severe anemia with hemoglobin of 6." Labs: WBC 6.4/17.3/14.5, Hgb 6/8.4/7.6, BUN 34/32, Creatinine 1.4/1.76/1.7, Lactic Acid 9/1.3 CXR: "Improving bilateral lung infiltrates. The greatest residuals in the right lung base." CT Brain:"Atrophy with mild white matter changes. No significant change from comparison." Treatment: 2 units PRBC's 3 IVF Bolus Lasix Gtt and Lasix IVP Levophed titrate for B/P Iv Zithromax 250 IVPB Q 24 hrs IV Cefriaxone 1 gm IVP BID In your professional opinion, please clarify the etiology of the altered mental status, if known. Encephalopathy (specify Type Metabolic, Toxic, Anoxic, Hepatic) Dementia (if know, specify Type and if with/without Behavioral Disturbance) Other condition (please specify) Unable to determine Please continue to document in your progress notes and discharge summary in order to capture severity of illness and risk of mortality. Include clinical findings that support your diagnosis. MTDD
[2018-02-08 12:10] LABS: ABG Base Excess 8.7 mmol/L; ABG HCO3 32 mmol/L (21-25); ABG Oxygen Saturation 56.9 % (94-97); ABG PCO2 40 mmHg (35-45); ABG PH 7.51 (7.35-7.45); ABG TCO2 33 mmol/L (19-24)
[2018-02-08 12:13] LABS: ABG PO2 29 mmHg (83-108)
--- NOTE | 2018-02-08 12:45 | XR ---
EXAMINATION TYPE: XR chest 1V DATE OF EXAM: 02/08/2018 COMPARISON: 02/08/2018 HISTORY: Endotracheal tube evaluation. TECHNIQUE: Single frontal view of the chest is obtained. FINDINGS: The endotracheal tube appears appropriately positioned terminating approximately 2.2 cm fr om the christiano the level of the aortic arch. Enteric tube courses beyond the distal [id number] and also appears appropriately placed. Bilateral layering pleural effusions and bibasilar airspace diseas e are again seen examination with mild pulmonary vascular congestion and cardiomegaly. Osseous struct ures appear intact. IMPRESSION: Stable appearance of appropriately radiographically placed lines and tubes. Unchanged se quela of congestive heart failure in comparison to the exam earlier on the same date.
[2018-02-08] MEDS: POTASSIUM CHLORIDE 10 MEQ in WATER FOR INJECTION 1 100ML.BAG IVPB SCH ×2 (14:03→16:17)
--- NOTE | 2018-02-08 14:27 | PN ---
PROGRESS NOTE Patient is seen for followup for acute kidney injury and volume overload. He is currently maintained on IV Lasix and D5W, which was started for hyponatremia. The patient has had good urine output. For 24 hours, he had about 6.8 L. PHYSICAL EXAMINATION: On examination, patient is on the vent. Blood pressure is 114/39, heart rate 54 per minute. He is afebrile. EXAMINATION OF THE HEART: S1, S2. EXAMINATION OF THE LUNGS: Bilateral breath sounds are heard. Abdomen is soft, nontender. Examination of lower extremities shows edema 3+ bilaterally. [employer] exam is grossly intact. LABS: Labs show sodium of 145, potassium 3.5, chloride 108, BUN 28, serum creatinine 1.4 mg/dL. ASSESSMENT: 1. Severe volume overload, currently improving. 2. Acute kidney injury, nonoliguric, acute tubular necrosis secondary to hypotension and anemia. Renal function is improved. Patient also had IV contrast with a component of contrast nephropathy. 3. Lower extremity cellulitis, maintained on antibiotics. 4. History of diastolic heart failure. 5. Chronic kidney disease stage 3 with baseline creatinine 1.1 to 1.3. 6. Hypotension secondary to sepsis, likely from cellulitis. All cultures are negative. 7. Hypernatremia, now improved with D5W. PLAN: Continue antibiotics. Continue current dose of Lasix. Continue with the D5W as well. MMODL / IJN: [id number] /
--- NOTE | 2018-02-08 15:57 | PN ---
PROGRESS NOTE CHIEF COMPLAINT: Septic shock. HISTORY OF PRESENT ILLNESS: This gentleman is doing a little bit better. He has diuresed off a significant amount of fluid and he is off of pressors. He is still on a ventilator. Source for his sepsis is not known. PHYSICAL EXAMINATION: He is slightly pale. He is on a ventilator. Breath sounds are heard well on both sides. Cardiac exam demonstrates a slow ventricular response to his atrial fibrillation. Abdomen is soft. There are no masses. Extremities are normal. IMPRESSION: 1. Septic shock, improving. 2. Atrial fibrillation. 3. Possible pneumonitis. 4. Cellulitis of both lower legs. PLAN: Continue current treatment until he can be safely extubated and moved out of ICU. MMODL / IJN: [id number] /
[2018-02-08] MEDS: AZITHROMYCIN 500 MG in SODIUM CHLORIDE 0.9% 250 ML IVPB SCH (20:38)
[2018-02-08] MEDS: ATORVASTATIN 40 MG TAB PO SCH (20:39)
[2018-02-08] MEDS: LATANOPROST 0.005% OPHTH DROPS 2.5 ML BTL BOTH EYES SCH (20:43)
[2018-02-09] MEDS: FUROSEMIDE 10 MG/ML 4 ML VIAL IV SCH ×4 (00:24→23:37)
[2018-02-09] MEDS: HEPARIN SODIUM,PORCINE 5,000 UNIT/ML 1 ML VIAL SQ SCH ×4 (00:25→23:37)
[2018-02-09] MEDS: PROPOFOL 1,000 MG in EMPTY BAG 1 BAG IV SCH ×2 (03:34→07:10)
[2018-02-09 04:45] LABS: Anisocytosis Moderate; Basophils % (A) 0 %; Eosinophils # (A) 0.2 k/uL (0-0.7); Eosinophils % (A) 3 %; HCT 25.3 % (39.0-53.0); HGB 7.5 gm/dL (13.0-17.5); Hypochromasia Marked; Lymphocytes # (A) 1.1 k/uL (1.0-4.8); Lymphocytes % (A) 15 %; MCH 23.4 pg (25.0-35.0); MCHC 29.5 g/dL (31.0-37.0); MCV 79.6 fL (80.0-100.0); Microcytosis Slight; Monocytes # (A) 0.9 k/uL (0-1.0); Monocytes % (A) 11 %; Neutrophils # (A) 5.1 k/uL (1.3-7.7); Neutrophils % (A) 68 %; Platelet Count 100 k/uL (150-450); Poikilocytosis Marked; RBC 3.18 m/uL (4.30-5.90); RDW 20.7 % (11.5-15.5); WBC 7.5 k/uL (3.8-10.6)
[2018-02-09 05:04] LABS: Calcium 7.7 mg/dL (8.4-10.2); Magnesium 1.8 mg/dL (1.6-2.3); Potassium 3.6 mmol/L (3.5-5.1)
[2018-02-09] MEDS: DEXTROSE 5% IN WATER 1,000 ML IV SCH (07:11)
[2018-02-09] MEDS: POTASSIUM BICARBONATE/CIT AC 20 MEQ TABLET.EFF NG-TUBE SCH ×2 (07:26→08:43)
[2018-02-09] MEDS: MAGNESIUM SULFATE-D5W PMX 1 GM in DEXTROSE/WATER 1 100ML.BAG IVPB SCH ×2 (07:33→08:44)
--- NOTE | 2018-02-09 07:50 | XR ---
EXAMINATION TYPE: XR chest 1V portable DATE OF EXAM: 02/09/2018 COMPARISON: 02/08/2018 HISTORY: Endotracheal tube positioning TECHNIQUE: Single frontal view of the chest is obtained. FINDINGS: Endotracheal tube and enteric tube are unchanged in position, appearing satisfactorily alfonso shayy. There are persistent layering pleural effusions and associated bibasilar airspace disease, simil ar in degree to the prior exam given differences in inspiration. Lung apices are well aerated. Cardia mucinous fluid is enlarged. Osseous structures appear intact. Mild pulmonary vascular congestion is unchanged. IMPRESSION: Unchanged mild pulmonary vascular congestion and bilateral pleural effusions with associ ated bibasilar airspace disease likely on the basis of congestive heart failure.
[2018-02-09] MEDS: PANTOPRAZOLE 40 MG/10 ML VIAL IV SCH ×2 (08:06→20:11)
[2018-02-09] MEDS: CHLORHEXIDINE GLUCONATE 15 ML CUP MUCOUS MEM SCH (08:12)
[2018-02-09] MEDS: cefTRIAXone IN SWFI 1,000 MG/10 ML SYRINGE IVP SCH ×2 (08:12→20:11)
[2018-02-09 08:15] LABS: ABG Base Excess 9.8 mmol/L; ABG HCO3 32 mmol/L (21-25); ABG Oxygen Saturation 99.6 % (94-97); ABG PCO2 39 mmHg (35-45); ABG PH 7.53 (7.35-7.45); ABG PO2 142 mmHg (83-108); ABG TCO2 34 mmol/L (19-24)
[2018-02-09] MEDS: ASPIRIN 81 MG PO SCH (08:43)
[2018-02-09 10:54] LABS: ABG Base Excess 9.8 mmol/L; ABG HCO3 33 mmol/L (21-25); ABG Oxygen Saturation 98.1 % (94-97); ABG PCO2 45 mmHg (35-45); ABG PH 7.48 (7.35-7.45); ABG PO2 95 mmHg (83-108); ABG TCO2 35 mmol/L (19-24)
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
--- NOTE | 2018-02-09 12:28 | P.PN ---
Subjective Progress Note Date: 02/09/18 Principal diagnosis: This is a 72-year-old male seen in consultation because of acute kidney injury from congestive heart failure. He is responding slowly but consistently with large amount of urine output on Lasix IV. He still remains extremely weak on nasal cannula oxygen with significant edema. His awake alert. Patient is a 72-year-old male seen in renal consultation for acute kidney injury. It appears patient has chronic kidney disease stage III with baseline creatinine in the range of 1.1-1.3. Creatinine peaked at 1.76 this admission and is down to 1.70 today. Patient presented to the hospital with altered mental status and severe anemia with hemoglobin of 6. He did receive 2 units of blood transfusion and hemoglobin improved. He is currently requiring 12 mics of Levophed. He was noted to have bilateral pleural effusions and therefore rate of IV fluids has been decreased to normal saline at 50 mL an hour. He did receive IV contrast dye on February 05 for CAT scan of the abdomen and pelvis and a CTA. He was noted to have bilateral pleural effusions. No hydronephrosis was noted. His urine output is about 100 mL an hour. He was intubated last night. Sodium level is slightly high at 146. Cultures are negative so far. He is noted to have lower extremity cellulitis. He was maintained on lisinopril as an outpatient which is currently held. Objective - Vital Signs Vital signs: Vital Signs Temp 97.7 F 02/09/18 12:00 Pulse 75 02/09/18 12:00 Resp 18 02/09/18 12:00 BP 99/45 02/09/18 10:00 Pulse Ox 95 02/09/18 12:00 Intake & Output 02/08/18 02/09/18 02/09/18 18:59 06:59 18:59 Intake Total 810.00 1618.957 648.05 Output Total 3325 2245 675 Balance -2515.00 -626.043 -26.95 Weight 126 kg 126 kg 121.6 kg Intake: IV 600 800 262 Azithromycin 500 mg In 250 Sodium Chloride 0.9% 250 ml @ 125 mls/hr IVPB Q24H [facility] Rx#:[id number] Dextrose 5% in Water 1, 600 550 250 000 ml @ 50 mls/hr IV . Q20H [facility] Rx#:[id number] normal saline pressure 12 bag Intake, IV Titration 100.00 168.957 86.05 Amount Propofol 1,000 mg In 100.00 168.957 86.05 Empty Bag 1 bag @ Titrate IV .Q0M [facility] Rx#: [id number] Oral 60 Tube Feeding 50 560 270 Other 90 30 Output: Urine 3325 2245 675 Other: Voiding Method Indwelling Catheter Indwelling Catheter Indwelling Catheter ABP, PAP, CO, CI - Last Documented Arterial Blood Pressure 118/44 On examination he is a ill-looking gentleman on nasal cannula oxygen HEENT exam no JVP neck is supple no facial asymmetry Lungs are significant for bilateral wheezes and crackles with fair air entry bilaterally Heart sounds are unremarkable for any murmur rub gallop Abdomen soft somewhat distended and obese He has edema of the abdominal wall and the chest wall. Extremity exam was 2-3+ edema Neurologically awake alert but profoundly weak. No focal motor deficit - Labs CBC & Chem 7: 02/09/18 04:30 02/09/18 11:40 Labs: Abnormal Lab Results - Last 24 Hours (Table) 02/09/18 02/09/18 02/09/18 Range/Units 04:30 04:30 08:08 RBC 3.18 L (4.30-5.90) m/uL Hgb 7.5 L (13.0-17.5) gm/dL Hct 25.3 L (39.0-53.0) % MCV 79.6 L (80.0-100.0) fL MCH 23.4 L (25.0-35.0) pg MCHC 29.5 L (31.0-37.0) g/dL RDW 20.7 H (11.5-15.5) % Plt Count 100 L (150-450) k/uL ABG pH 7.53 H (7.35-7.45) ABG pO2 142 H (83-108) mmHg ABG HCO3 32 H (21-25) mmol/L ABG Total CO2 34 H (19-24) mmol/L ABG O2 Saturation 99.6 H (94-97) % Carbon Dioxide 32 H (22-30) mmol/L BUN 23 H (9-20) mg/dL Creatinine 1.29 H (0.66-1.25) mg/dL Calcium 7.7 L (8.4-10.2) mg/dL Microbiology - Last 24 Hours (Table) 02/07/18 09:01 Gram Stain - Final Sputum Sputum Culture - Final 02/07/18 00:15 Blood Culture - Preliminary Blood No Growth after 48 hours 02/05/18 20:47 Blood Culture - Preliminary Blood No Growth after 72 hours 02/06/18 22:28 Blood Culture - Preliminary Blood No Growth after 48 hours Assessment and Plan Assessment: Impression 1. Acute kidney injury secondary to congestive heart failure as well as secondary to ATN from hypotension and possible dye. Responding to IV Lasix with significant diuresis blood pressure is maintained 2. Mild degree of metabolic alkalosis with a pH of 7.53, pCO2 is 39 and is bicarb is 32. This reflects effect of diuresis with's bicarb being stable. 3. Anemia with hemoglobin of 7.5, on admission was 6. 4. Mild thrombocytopenia 5. Congestive heart failure. Recommendation. 1. Maintain current diuretic regimen of 40 mg every 8 hours. 2. Maintain monitoring potassium and sodium currently they are within normal range. Replace as necessary. 3. Watch blood pressure. 4. Adequate nutritional support
--- NOTE | 2018-02-09 13:00 | US ---
EXAMINATION TYPE: US chest DATE OF EXAM: 02/09/2018 COMPARISON: NONE CLINICAL HISTORY: pleural effusions. EXAM MEASUREMENTS: Right Pleural Effusion fluid pocket: 12.5 cm Right skin to fluid thickness: 3.8 cm Left Pleural Effusion fluid pocket: 9.7 cm Left skin to fluid thickness: 2.8 cm Right side marked for possible thoracentesis outside the dept. Pulmonologists are able to review the images in the patient?s EMR. IMPRESSIONS: Bilateral pleural effusions, right greater than left.
--- NOTE | 2018-02-09 13:23 | XR ---
EXAMINATION TYPE: XR chest 1V portable DATE OF EXAM: 02/09/2018 COMPARISON: 02/09/2018 HISTORY: Status post right-sided thoracentesis TECHNIQUE: Single frontal view of the chest is obtained. FINDINGS: Endotracheal and enteric tubes have been removed in the interim. There is interval improve ment of the right-sided pleural effusion with trace right pleural effusion layering remaining. Small to moderate left pleural effusion also is redemonstrated that it has a layering effect. No postproced ural pneumothorax is identified. Cardiomediastinal silhouette is partially obscured but stable and ap pears enlarged. IMPRESSION: No postprocedural pneumothorax status post right-sided pleural effusion with improvement in degree of right-sided pleural effusion. Stable left pleural effusion and left basilar airspace di sease likely atelectasis.
--- NOTE | 2018-02-09 13:25 | PCN ---
PROCEDURE NOTE OPERATIVE REPORT: Right sided thoracentesis. PREOPERATIVE DIAGNOSIS: Large right-sided pleural effusion. POSTOPERATIVE DIAGNOSIS: Large right-sided pleural effusion. ANESTHESIA USED: 2 mL of 1% lidocaine. PROCEDURE: Patient was placed in a sitting upright position, the area below the right scapula was examined with ultrasound, and fluid was localized via by ultrasound first. Then the area was prepared in a sterile fashion and drapes were applied. At the level of the 8th intercostal space and tip of the scapula, the area was locally anesthetized with lidocaine. Then, a 26-gauge needle inserted into the same site, advanced into the pleural space until fluid was obtained and the fluid was initially clear. Standard thoracentesis catheter and needle were used, and it was an 8-Azeri catheter that was used. However, prior to placement of the needle and catheter, a small tiny incision was made at the same site, that catheter and needle were advanced into the pleural space, fluid was obtained, the fluid was slightly serosanguineous, and roughly 1500 mL of fluid were obtained from the right pleural space. Procedure was well tolerated, no evidence of any immediate complications, the fluid was sent for different diagnostic studies. Chest x-ray was ordered postoperatively. MMODL / IJN: [id number] /
--- NOTE | 2018-02-09 13:49 | PN ---
PROGRESS NOTE CHIEF COMPLAINT: Septic shock. HISTORY OF PRESENT ILLNESS: This gentleman is doing a little bit better. He is still on the ventilator and he is off pressors. PHYSICAL EXAM: Blood pressure 135/59 with a pulse of 75, in atrial fibrillation. Breath sounds are heard on both sides. Cardiac exam is otherwise unremarkable. Abdomen is soft and there are no masses or obvious tenderness. Extremities are the same. IMPRESSION: 1. Septic shock, source unknown. 2. Atrial fibrillation. PLAN: Continue to monitor until he is off the ventilator and can be transferred to a step- down unit. MMODL / IJN: [id number] /
--- NOTE | 2018-02-09 14:16 | PN ---
PROGRESS NOTE Tin is a 72-year-old gentleman who was admitted to hospital with congestive heart failure. He also has underlying atrial fibrillation and pleural effusion. This morning, he is extubated, had a thoracentesis done. Denies any new symptoms. On exam, heart rate is 75 beats per minute, blood pressure is 118/44, respiratory rate is 18. Chest exam reveals diminished air entry at the bases. Heart exam reveals first and second heart sounds, irregular rhythm. Abdomen is soft. Examination of extremities reveals bilateral 2+ edema. LAB: Labs show a hemoglobin of 7.5, platelet count is 100. Potassium is 3.6. Creatinine is 1.2. ASSESSMENT: 1. Acute exacerbation of chronic congestive heart failure. 2. Chronic atrial fibrillation. 3. Pleural effusion. PLAN: Patient is on appropriate medical therapy including aspirin, Lipitor, IV Lasix. Will restart the MARTHA inhibitors and anticoagulant needs to be re-initiated. MMODL / IJN: [id number] /
[2018-02-09 15:29] LABS: Appearance,BF Bloody; Color,BF Red
[2018-02-09 15:30] LABS: Nucleated Cells, Body Fluid 1125 /uL; RBC, Body Fluid 35875 /uL
[2018-02-09 15:40] LABS: Mononuclear WBC,Body Fluid 45 %; Polynuclear WBC,Body Fluid 54 %; Total Cells Counted,Body Fluid 100
[2018-02-09] MEDS: ATORVASTATIN 40 MG TAB PO SCH (20:11)
[2018-02-09] MEDS: LATANOPROST 0.005% OPHTH DROPS 2.5 ML BTL BOTH EYES SCH (20:11)
[2018-02-09] MEDS: AZITHROMYCIN 500 MG in SODIUM CHLORIDE 0.9% 250 ML IVPB SCH (20:11)
[2018-02-09 23:35] LABS: Total Protein, Body Fluid 1600 mg/dL
[2018-02-10 05:37] LABS: Magnesium 2.1 mg/dL (1.6-2.3); Potassium 4.3 mmol/L (3.5-5.1)
[2018-02-10 05:45] LABS: Anisocytosis Moderate; HCT 26.2 % (39.0-53.0); HGB 7.8 gm/dL (13.0-17.5); Hypochromasia Marked; MCH 23.9 pg (25.0-35.0); MCHC 29.7 g/dL (31.0-37.0); MCV 80.4 fL (80.0-100.0); Mean Platelet Volume 11.2; Microcytosis Slight; Platelet Count 101 k/uL (150-450); Poikilocytosis Moderate; RBC 3.26 m/uL (4.30-5.90); RDW 20.6 % (11.5-15.5); WBC 8.1 k/uL (3.8-10.6)
[2018-02-10] MEDS: DEXTROSE 5% IN WATER 1,000 ML IV SCH (05:45)
[2018-02-10 06:14] LABS: Eosinophils # (M) 0.08 k/uL (0-0.7); Lymphocytes # (M) 0.89 k/uL (1.0-4.8); Monocytes # (M) 0.97 k/uL (0-1.0); Myelocytes # (M) 0.08 k/uL (0); Myelocytes % 1 %; Neutrophils # (M) 6.08 k/uL (1.3-7.7); Neutrophils % (M) 75 %; Nucleated Red Blood Cells 0 /100 WBC (0-0); Total Cells Counted 200
--- NOTE | 2018-02-10 07:26 | XR ---
EXAMINATION: XR chest 1V portable DATE AND TIME: 02/10/2018 6:25 AM ORDERING PROVIDER: Matt Turk MD~[id number] CLINICAL INDICATION: Tube placement TECHNIQUE: AP semiupright portable COMPARISON: 02/09/2018 1:03 PM DESCRIPTION: EKG leads noted. Pleural spaces are negative pneumothorax, but positive for bilateral posteriorly dependent pleural ef fusions, appearing to be mild-moderate radiographically. There is concurrent partial airlessness with in the lower lobes, presumably passive atelectasis although concurrent basilar pneumonia can be clini rito considered. There is no dewayne pulmonary edema and no visualized consolidative opacities throughout the lungs. Mildly enlarged cardiac silhouette redemonstrated. Bones and soft tissues are unremarkable. IMPRESSION: 1. SIMILAR OVERALL LUNG INFLATION PATTERN. 2. BILATERAL PLEURAL EFFUSIONS WITH BIBASILAR AIRLESSNESS.
[2018-02-10] MEDS: cefTRIAXone IN SWFI 1,000 MG/10 ML SYRINGE IVP SCH ×2 (08:31→20:57)
[2018-02-10] MEDS: HEPARIN SODIUM,PORCINE 5,000 UNIT/ML 1 ML VIAL SQ SCH (08:31)
[2018-02-10] MEDS: FUROSEMIDE 10 MG/ML 4 ML VIAL IV SCH ×2 (08:31→20:57)
[2018-02-10] MEDS: PANTOPRAZOLE 40 MG/10 ML VIAL IV SCH ×2 (08:31→20:57)
[2018-02-10] MEDS: ASPIRIN 81 MG PO SCH (09:18)
[2018-02-10] MEDS: LACTULOSE 20 GM/30 ML CUP PO SCH (10:04)
--- NOTE | 2018-02-10 11:59 | P.PN ---
Subjective Principal diagnosis: This is a 72-year-old male seen in consultation because of acute kidney injury from congestive heart failure. He is responding slowly but consistently with large amount of urine output on Lasix IV. UO was 3851.BP lowish 90's He still remains extremely weak on nasal cannula oxygen with significant edema. His awake alert. Creat better Patient is a 72-year-old male seen in renal consultation for acute kidney injury. It appears patient has chronic kidney disease stage III with baseline creatinine in the range of 1.1-1.3. Creatinine peaked at 1.76 this admission and is down to 1.70 today. Patient presented to the hospital with altered mental status and severe anemia with hemoglobin of 6. He did receive 2 units of blood transfusion and hemoglobin improved. He is currently requiring 12 mics of Levophed. He was noted to have bilateral pleural effusions and therefore rate of IV fluids has been decreased to normal saline at 50 mL an hour. He did receive IV contrast dye on February 05 for CAT scan of the abdomen and pelvis and a CTA. He was noted to have bilateral pleural effusions. No hydronephrosis was noted. His urine output is about 100 mL an hour. He was intubated last night. Sodium level is slightly high at 146. Cultures are negative so far. He is noted to have lower extremity cellulitis. He was maintained on lisinopril as an outpatient which is currently held. Objective - Vital Signs Vital signs: Vital Signs Temp 97.2 F L 02/10/18 08:00 Pulse 63 02/10/18 11:00 Resp 18 02/10/18 11:00 BP 98/53 02/10/18 10:00 Pulse Ox 97 02/10/18 11:00 Intake & Output 02/09/18 02/10/18 02/10/18 18:59 06:59 18:59 Intake Total 1019.05 939 462 Output Total 3560 2250 730 Balance -2540.95 -1311 -268 Weight 121.6 kg 110.1 kg Intake: IV 633 689 212 Dextrose 5% in Water 1, 600 000 ml @ 50 mls/hr IV . Q20H [facility] Rx#:[id number] Dextrose 5% in Water 1, 650 200 000 ml @ 50 mls/hr IV . Q20H [facility] Rx#:[id number] normal saline pressure 33 39 12 bag Intake, IV Titration 86.05 250 Amount Azithromycin 500 mg In 250 Sodium Chloride 0.9% 250 ml @ 125 mls/hr IVPB Q24H [facility] Rx#:[id number] Propofol 1,000 mg In 86.05 Empty Bag 1 bag @ Titrate IV .Q0M [facility] Rx#: [id number] Oral 250 Tube Feeding 270 Other 30 Output: Urine 1960 2250 730 Other 1600 Other: Voiding Method Indwelling Catheter Indwelling Catheter Indwelling Catheter ABP, PAP, CO, CI - Last Documented Arterial Blood Pressure 121/34 On examination he is a ill-looking gentleman on nasal cannula oxygen HEENT exam no JVP neck is supple no facial asymmetry Lungs are improved with fair air entry and no crackles Heart sounds are unremarkable for any murmur rub gallop Abdomen soft somewhat distended and obese He has edema of the abdominal wall and the chest wall. Extremity exam was 2-3+ edema Neurologically awake alert but profoundly weak. No focal motor deficit - Labs CBC & Chem 7: 02/10/18 05:00 02/10/18 05:00 Labs: Abnormal Lab Results - Last 24 Hours (Table) 02/09/18 02/10/18 02/10/18 Range/Units 10:50 05:00 05:00 RBC 3.26 L (4.30-5.90) m/uL Hgb 7.8 L (13.0-17.5) gm/dL Hct 26.2 L (39.0-53.0) % MCH 23.9 L (25.0-35.0) pg MCHC 29.7 L (31.0-37.0) g/dL RDW 20.6 H (11.5-15.5) % Plt Count 101 L (150-450) k/uL Lymphocytes # (Manual) 0.89 L (1.0-4.8) k/uL Myelocytes # (Manual) 0.08 H (0) k/uL ABG pH 7.48 H (7.35-7.45) ABG HCO3 33 H (21-25) mmol/L ABG Total CO2 35 H (19-24) mmol/L ABG O2 Saturation 98.1 H (94-97) % Carbon Dioxide 34 H (22-30) mmol/L BUN 21 H (9-20) mg/dL Calcium 8.0 L (8.4-10.2) mg/dL Microbiology - Last 24 Hours (Table) 02/07/18 00:15 Blood Culture - Preliminary Blood No Growth after 72 hours 02/05/18 20:47 Blood Culture - Preliminary Blood No Growth after 96 hours 02/06/18 22:28 Blood Culture - Preliminary Blood No Growth after 72 hours 02/07/18 09:01 Gram Stain - Final Sputum Sputum Culture - Final Assessment and Plan Assessment: Impression 1. Acute kidney injury secondary to congestive heart failure as well as secondary to ATN from hypotension and possible dye. Responding to IV Lasix with significant diuresis 3850 cc, blood pressure is low in 90's.Creat better 2. Mild degree of metabolic alkalosis with a bicarb is 32>34. This reflects effect of diuresis 3. Anemia with hemoglobin of 7.5 > 7.8, on admission was 6. 4. Mild thrombocytopenia 5. Congestive heart failure.better 6. S/P left pleural Tap 02/09/18 Recommendation. 1. Maintain current diuretic regimen of 40 mg every 8 hours. 2. Maintain monitoring potassium and sodium currently they are within normal range. Replace as necessary. 3. Watch blood pressure. 4. Adequate nutritional support
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
--- NOTE | 2018-02-10 13:32 | PN ---
PROGRESS NOTE Tin is a 72-year-old gentleman who was admitted to hospital with acute onset congestive heart failure, has chronic underlying atrial fibrillation. He had pleural effusion and underwent thoracentesis. This morning he is feeling better. Still has leg edema and is on IV Lasix. Heart rate is well controlled and Xarelto had been resumed. EXAM: On exam today, he is comfortable at rest. Heart rate is 69 beats per minute, irregular. Blood pressure is 99/54, respiratory rate is 18. Chest exam reveals diminished air entry at the bases. Heart exam reveals first and second heart sounds. No gallop. Exam of extremities reveals bilateral pitting edema. LABS: Show a hemoglobin of 7.8, potassium is 4.3, BUN is 21, creatinine is 1.2. ASSESSMENT: 1. Acute exacerbation of chronic congestive heart failure. 2. Pleural effusion. 3. Chronic atrial fibrillation with controlled ventricular rate. PLAN: Patient will continue the current dose of Lasix and continue the Xarelto. MMODL / IJN: [id number] /
[2018-02-10] MEDS: RIVAROXABAN 20 MG TAB PO SCH (17:26)
[2018-02-10] MEDS: ATORVASTATIN 40 MG TAB PO SCH (20:57)
[2018-02-10] MEDS: LATANOPROST 0.005% OPHTH DROPS 2.5 ML BTL BOTH EYES SCH (20:57)
[2018-02-11] MEDS: DEXTROSE 5% IN WATER 1,000 ML IV SCH (00:15)
[2018-02-11 04:55] LABS: Anisocytosis Moderate; Basophils % (A) 0 %; Eosinophils # (A) 0.2 k/uL (0-0.7); Eosinophils % (A) 3 %; HCT 23.9 % (39.0-53.0); HGB 7.1 gm/dL (13.0-17.5); Hypochromasia Marked; Lymphocytes # (A) 1.1 k/uL (1.0-4.8); Lymphocytes % (A) 15 %; MCH 23.9 pg (25.0-35.0); MCHC 29.5 g/dL (31.0-37.0); MCV 80.9 fL (80.0-100.0); Mean Platelet Volume 10.9; Microcytosis Slight; Monocytes # (A) 0.8 k/uL (0-1.0); Monocytes % (A) 11 %; Neutrophils # (A) 4.9 k/uL (1.3-7.7); Neutrophils % (A) 67 %; Poikilocytosis Moderate; RBC 2.96 m/uL (4.30-5.90); RDW 20.8 % (11.5-15.5); WBC 7.3 k/uL (3.8-10.6)
[2018-02-11 05:20] LABS: Potassium 4.4 mmol/L (3.5-5.1)
[2018-02-11 05:29] LABS: Large Platelets Present; Platelet Count 89 k/uL (150-450); Target Cells Present
[2018-02-11] MEDS: PANTOPRAZOLE 40 MG/10 ML VIAL IV SCH ×2 (08:13→20:06)
[2018-02-11] MEDS: FUROSEMIDE 10 MG/ML 4 ML VIAL IV SCH (08:13)
[2018-02-11] MEDS: ASPIRIN 81 MG PO SCH (08:13)
[2018-02-11] MEDS: LACTULOSE 20 GM/30 ML CUP PO SCH (08:13)
[2018-02-11] MEDS: cefTRIAXone IN SWFI 1,000 MG/10 ML SYRINGE IVP SCH ×2 (08:21→20:05)
--- NOTE | 2018-02-11 08:25 | XR ---
EXAMINATION TYPE: XR chest 1V portable DATE OF EXAM: 02/11/2018 COMPARISON: 02/10/2018 INDICATION: Tube placement TECHNIQUE: Single frontal view of the chest is obtained. FINDINGS: The heart size is normal. The pulmonary vasculature is slightly prominent. There is opacity in the retrocardiac region with silhouetting left diaphragm. A retrocardiac infiltra te should be considered. Small effusion could be considered. This is slightly improved from prior neftali dy. Small right pleural effusion is present. IMPRESSION: 1. Silhouetting left diaphragm. 2. Small bilateral pleural effusions likely present. Retrocardiac infiltrate such as pneumonia should also be considered.
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
[2018-02-11 10:21] VITALS: BMI 35.5
--- NOTE | 2018-02-11 11:33 | PN ---
PROGRESS NOTE The patient is followup for acute kidney injury. Renal function has improved with creatinine going down from 1.7 at peak to 1.19 now. The patient will be transferred out of the ICU. He was being aggressively diuresed. Lasix is now at 40 mg IV daily. The patient has had good urine output. PHYSICAL EXAMINATION: On examination, blood pressure is 118/37, heart rate 69 per minute. Patient is afebrile. EXAMINATION OF THE HEART: S1, S2. EXAMINATION OF THE LUNGS: Bilateral breath sounds are heard. Abdomen is soft, nontender. Examination of the lower extremities shows edema 2+ bilaterally. Chronic skin changes. NETWORKER exam is grossly intact. LABS: Labs show hemoglobin 7.1 g/dL. Sodium 139, potassium 4.4, BUN 20, serum creatinine 1.19. ASSESSMENT: 1. Acute kidney injury, cardiorenal, currently improved. The patient also had an element of acute tubular necrosis from hypotension and dye. His creatinine is significantly improved. Continue with current dose of Lasix. He has been diuresing fairly well. 2. Anemia. No active bleeding noted. Hemoglobin staying at around 7. If it drops further, patient will benefit from 1 unit packed RBCs transfusion. 3. Congestive heart failure, volume overload, acute on top of chronic, now improved. 4. Left pleural effusion, status post thoracentesis. 5. Respiratory failure, status post extubation. 6. Chronic kidney disease stage III with baseline creatinine 1.1 to 1.3 mg/dL. 7. Hypernatremia, now resolved. 8. Lower extremity cellulitis, maintained on antibiotics. PLAN: Encourage increased oral intake. Continue current dose of Lasix. Repeat labs in a.m.. MMODL / IJN: [id number] /
[2018-02-11] MEDS: SODIUM CHLORIDE 0.9% 500 ML IV SCH (11:58)
--- NOTE | 2018-02-11 17:06 | MISC ---
MISCELLANOUS REPORT QUERY: 1. Wanted to know about the anemia. The type of anemia and I would say other specify. Anemia of sepsis and septic shock. 2. Clarify etiology of altered mental status. First one encephalopathy, toxic, metabolic. MMODL / IJN: [id number] /
[2018-02-11] MEDS: RIVAROXABAN 20 MG TAB PO SCH (17:30)
--- NOTE | 2018-02-11 19:39 | PN ---
PROGRESS NOTE DATE OF SERVICE: 02/10/2018 CHIEF COMPLAINT: Resolving septic shock. HISTORY OF PRESENT ILLNESS: This gentleman is coming along slowly. He has been extubated. He is having a little difficulty with speech, but he seems oriented and has no problems with vision, hearing, or moving on either side. PHYSICAL EXAMINATION: Chest is clear. Cardiac exam is normal. Abdomen is soft, nontender. Extremities are normal and well perfused. IMPRESSION: 1. Cardiogenic shock. 2. Renal failure. 3. Atrial fibrillation. 4. Anemia. PLAN: Continue to follow as he slowly improves. His hemoglobin is 7.1. MMODL / IJN: [id number] /
--- NOTE | 2018-02-11 19:39 | PN ---
PROGRESS NOTE DATE OF SERVICE: 02/11/2018 CHIEF COMPLAINT: Resolving septic shock. HISTORY OF PRESENT ILLNESS: This gentleman is doing a little bit better each day. Speech has cleared up quite a bit. PHYSICAL EXAMINATION: His color is good. Chest demonstrates fairly good breath sounds on both sides. Cardiac exam is normal. The abdomen is soft, nontender. IMPRESSION: Resolving cardiogenic shock with heart failure, renal failure and atrial fibrillation. PLAN: As he continues to improve, he may eventually be moved out of ICU. MMODL / IJN: [id number] /
[2018-02-11] MEDS: ATORVASTATIN 40 MG TAB PO SCH (20:05)
[2018-02-11] MEDS: LATANOPROST 0.005% OPHTH DROPS 2.5 ML BTL BOTH EYES SCH (20:06)
[2018-02-12 06:11] LABS: Anisocytosis Moderate; HGB 7.5 gm/dL (13.0-17.5); Hypochromasia Marked; MCH 24.4 pg (25.0-35.0); MCHC 29.8 g/dL (31.0-37.0); MCV 81.9 fL (80.0-100.0); Microcytosis Slight; Poikilocytosis Moderate; RBC 3.06 m/uL (4.30-5.90); RDW 21.2 % (11.5-15.5); WBC 6.7 k/uL (3.8-10.6)
[2018-02-12 06:12] LABS: Platelet Count 92 k/uL (150-450)
[2018-02-12 06:24] LABS: Calcium 8.1 mg/dL (8.4-10.2); Phosphorus 3.9 mg/dL (2.5-4.5); Potassium 4.4 mmol/L (3.5-5.1)
[2018-02-12 06:37] LABS: Basophils # (M) 0.07 k/uL (0-0.2); Eosinophils # (M) 0.34 k/uL (0-0.7); Large Platelets Present; Monocytes # (M) 1.07 k/uL (0-1.0); Neutrophils # (M) 4.42 k/uL (1.3-7.7); Neutrophils % (M) 66 %; Nucleated Red Blood Cells 0 /100 WBC (0-0); Polychromasia Present; Total Cells Counted 100
--- NOTE | 2018-02-12 08:06 | XR ---
EXAMINATION TYPE: XR chest 1V portable DATE OF EXAM: 02/12/2018 COMPARISON: 02/11/2018 HISTORY: Shortness of breath TECHNIQUE: Single frontal view of the chest is obtained. FINDINGS: Bilateral consolidation and pleural effusion are stable. Chronic rib deformities noted. No pneumothorax. Interstitium is unchanged correlate for mild venous congestion. IMPRESSION: 1. Bilateral infiltrate and pleural effusion. Central venous congestion not excluded correlate clinic ally
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
[2018-02-12] MEDS: cefTRIAXone IN SWFI 1,000 MG/10 ML SYRINGE IVP SCH ×2 (09:23→22:03)
[2018-02-12] MEDS: LACTULOSE 20 GM/30 ML CUP PO SCH (09:23)
[2018-02-12] MEDS: FUROSEMIDE 10 MG/ML 4 ML VIAL IV SCH (09:23)
[2018-02-12] MEDS: SODIUM CHLORIDE 0.9% 500 ML IV SCH (09:24)
[2018-02-12] MEDS: PANTOPRAZOLE 40 MG/10 ML VIAL IV SCH (09:24)
[2018-02-12] MEDS: ASPIRIN 81 MG PO SCH (10:26)
--- NOTE | 2018-02-12 12:25 | PN ---
PROGRESS NOTE DATE OF SERVICE: 02/12/2018 CHIEF COMPLAINT: Status post septic shock. HISTORY OF PRESENT ILLNESS: This gentleman continues to improve. He is oriented, awake and alert. Speech is back to normal. He is not having a lot of discomfort. PHYSICAL EXAM: His chest is clear. Cardiac exam is unchanged with atrial fibrillation. The abdomen is soft, nontender. Extremities are normal. IMPRESSION: Septic shock. PLAN: 1. Gradually increase activity. 2. Start to consider discharge planning. He may have to go for rehab. MMODL / IJN: [id number] /
[2018-02-12] MEDS: RIVAROXABAN 20 MG TAB PO SCH (17:02)
[2018-02-12] MEDS: PANTOPRAZOLE 40 MG TABLET PO SCH (17:02)
[2018-02-12] MEDS: LATANOPROST 0.005% OPHTH DROPS 2.5 ML BTL BOTH EYES SCH (21:15)
[2018-02-12] MEDS: ATORVASTATIN 40 MG TAB PO SCH (21:15)
[2018-02-13] MEDS: LACTULOSE 20 GM/30 ML CUP PO SCH (07:51)
[2018-02-13] MEDS: ASPIRIN 81 MG PO SCH (07:52)
[2018-02-13] MEDS: SODIUM CHLORIDE 0.9% 500 ML IV SCH (07:52)
[2018-02-13] MEDS: FUROSEMIDE 10 MG/ML 4 ML VIAL IV SCH ×2 (07:52→21:42)
[2018-02-13] MEDS: PANTOPRAZOLE 40 MG TABLET PO SCH ×2 (07:52→16:52)
[2018-02-13] MEDS: cefTRIAXone IN SWFI 1,000 MG/10 ML SYRINGE IVP SCH ×2 (08:59→21:19)
[2018-02-13 09:55] LABS: Anisocytosis Moderate; HCT 25.4 % (39.0-53.0); HGB 7.4 gm/dL (13.0-17.5); Hypochromasia Marked; MCH 24.2 pg (25.0-35.0); MCHC 29.1 g/dL (31.0-37.0); Mean Platelet Volume 9.9; Microcytosis Slight; Platelet Count 106 k/uL (150-450); Poikilocytosis Moderate; RBC 3.06 m/uL (4.30-5.90); RDW 21.1 % (11.5-15.5); WBC 7.4 k/uL (3.8-10.6)
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
--- NOTE | 2018-02-13 16:26 | PN ---
PROGRESS NOTE Patient is seen for followup for acute kidney injury, severe volume overload. He has been on Lasix drip, which is now discontinued, and patient is maintained on IV Lasix at 40 mg once a day. He has been transferred out of the ICU. Patient is complaining of increased lower extremity edema. He denies any significant shortness of breath. His creatinine is stable at about 1.2 mg/dL. Chest x-ray from yesterday shows bilateral infiltrates and pleural effusions with suggestion of central venous congestion as well. On examination, blood pressure is 121/58, heart rate 61 per minute. Patient is afebrile. EXAMINATION OF THE HEART: S1, S2. EXAMINATION OF LUNGS: Bilateral breath sounds are heard. Decreased breath sounds at the bases. ABDOMEN: Soft, non-tender. Examination of lower extremities shows about 3 to 4+ edema bilaterally with redness of the skin noted as well. [employer] exam is grossly intact. ASSESSMENT: 1. Acute kidney injury, mainly cardiorenal, currently improved. 2. Severe volume overload, also improved. However, patient's legs remain significantly edematous. I will increase the Lasix to 40 mg IV q.12 hours. 3. Status post respiratory failure. 4. Left pleural effusion, status post thoracentesis. 5. Chronic kidney disease, stage III, secondary to nephrosclerosis with baseline creatinine 1.1 to 1.3 mg/dL. 6. Hypernatremia, now resolved. PLAN: Increase Lasix to 40 mg q.12 hours and check iron profile. MMODL / IJN: [id number] /
[2018-02-13] MEDS: RIVAROXABAN 20 MG TAB PO SCH (16:52)
--- NOTE | 2018-02-13 18:13 | PN ---
PROGRESS NOTE CHIEF COMPLAINT: Status post septic shock. HISTORY OF PRESENT ILLNESS: This gentleman is doing well. He is sitting up in a chair, but his legs are extremely weak. He will probably have to go to rehab. REVIEW OF SYSTEMS: He has no other complaints. PHYSICAL EXAMINATION: He is slightly pale. Chest is clear. Cardiac exam is unremarkable with atrial fibrillation. Abdomen is soft, nontender. IMPRESSION: Septic shock. PLAN: Progress activity. He will probably be able to go to rehab soon. MMODL / IJN: [id number] /
[2018-02-13] MEDS: LATANOPROST 0.005% OPHTH DROPS 2.5 ML BTL BOTH EYES SCH (21:19)
[2018-02-13] MEDS: ATORVASTATIN 40 MG TAB PO SCH (21:19)
[2018-02-14 01:28] LABS: Iron Saturation 3.97 (15.00-50.00)
[2018-02-14 06:41] VITALS: BP 106/51; PULSE 67; RESP 24; TEMP 97
[2018-02-14] MEDS: FUROSEMIDE 10 MG/ML 4 ML VIAL IV SCH (08:34)
[2018-02-14] MEDS: LACTULOSE 20 GM/30 ML CUP PO SCH (08:34)
[2018-02-14] MEDS: ASPIRIN 81 MG PO SCH (08:35)
[2018-02-14] MEDS: PANTOPRAZOLE 40 MG TABLET PO SCH (08:35)
[2018-02-14] MEDS: cefTRIAXone IN SWFI 1,000 MG/10 ML SYRINGE IVP SCH (09:29)
--- NOTE | 2018-02-14 14:15 | PN ---
PROGRESS NOTE The patient is seen for followup for acute kidney disease and severe fluid overload. His Lasix was increased yesterday to 40 mg q.12 hours. is stable with serum creatinine of 1.2 mg/dL from yesterday. Overall, patient states he is feeling well. He denies any shortness of breath. PHYSICAL EXAMINATION: Blood pressure is 106/51, heart rate 67 per minute. He is afebrile. Examination of the heart: S1, S2. Examination lungs: Bilateral breath sounds are heard. No crackles or wheezing heard. Decreased breath sounds in the bases. Abdomen is soft, obese. Examination lower extremity shows edema 4+ bilaterally with erythema of the skin noted bilaterally as well. LABS: Hemoglobin 7.4 g/dL, serum creatinine 1.46. I do not have any labs from today. ASSESSMENT: 1. Acute kidney injury, mainly cardiorenal and associated with hypoperfusion, currently improved. We will repeat renal profile today. 2. Volume overload, improved; however, the patient remains with significant edema. Lasix was increased yesterday q.12 hours, which I will continue for now. 3. Pleural effusion, status post right thoracentesis. 4. Chronic kidney disease stage III secondary to nephrosclerosis. Baseline creatinine 1.1 to 13 mg/dL. 5. Hyponatremia, currently resolved. PLAN: Check labs today. MMODL / IJN: [id number] /
--- NOTE | 2018-02-14 14:51 | DS ---
DISCHARGE SUMMARY CHIEF COMPLAINT: Anemia and sepsis. HISTORY OF PRESENT ILLNESS AND PHYSICAL EXAM: Details of this man's history and physical can be found in the initial workup. LABORATORY STUDIES: While he was in the hospital, he had laboratory studies, details of which can be found in the laboratory section of his chart. COURSE IN HOSPITAL: After admission, he was placed on bedrest and started on intravenous fluids. He went into septic shock and was placed in the intensive care unit. He did well enough on the ventilator for several days and renal function ozzy. He remained in atrial fibrillation, but eventually stabilized and the blood pressure came back up. He was able to be taken off of pressors. He was then placed on the step-down unit and continued to do fairly well. His legs were very weak, but he felt that he could manage at home with help and did not need to go to the [facility]. Arrangements were made for him to go home on the . He will have home care. We will see him in the office in the next several days. FINAL DIAGNOSES: 1. Septic shock, source unknown. 2. Cellulitis of both shins. 3. Possible urinary tract infection. 4. Possible pneumonitis. 5. Atrial fibrillation. 6. Acute renal failure due to sepsis. 7. Congestive heart failure. OPERATIONS: None. CONSULTATIONS: Intensive medicine and infectious Disease. He is improved. He is improved. MMODL / LUCERON: [id number] /
== END 2018-02-14 14:23 | DRG 871 ==
LOC: EC 20:36 → 6ICU 23:33 → 4MS4W 02-12 10:24
PROVIDERS: ADMIT Family Medicine; ATTEND Family Medicine
PROC: 0W993ZZ Drainage of Right Pleural Cavity, Percutaneous Approach (ICD-10-PCS; 2018-02-05)
PROC: 30233N1 Transfusion of Nonautologous Red Blood Cells into Peripheral Vein, Percutaneous Approach (ICD-10-PCS; 2018-02-06)
PROC: 5A1945Z Respiratory Ventilation, 24-96 Consecutive Hours (ICD-10-PCS; principal; 2018-02-07)
PROC: 0BH17EZ Insertion of Endotracheal Airway into Trachea, Via Natural or Artificial Opening (ICD-10-PCS; 2018-02-07)
PROC: 03HB33Z Insertion of Infusion Device into Right Radial Artery, Percutaneous Approach (ICD-10-PCS; 2018-02-07)
PROC: 5A09357 Assistance with Respiratory Ventilation, Less than 24 Consecutive Hours, Continuous Positive Airway Pressure (ICD-10-PCS; 2018-02-10)
DX: A41.9 Sepsis, unspecified organism (principal); I50.33 Acute on chronic diastolic (congestive) heart failure; J18.9 Pneumonia, unspecified organism; J96.01 Acute respiratory failure with hypoxia; J96.02 Acute respiratory failure with hypercapnia; N17.0 Acute kidney failure with tubular necrosis; R65.21 Severe sepsis with septic shock; E87.0 Hyperosmolality and hypernatremia; E87.4 Mixed disorder of acid-base balance; I13.0 Hypertensive heart and chronic kidney disease with heart failure and stage 1 through stage 4 chronic kidney disease, or unspecified chronic kidney disease; L03.115 Cellulitis of right lower limb; L03.116 Cellulitis of left lower limb; N39.0 Urinary tract infection, site not specified; J90 Pleural effusion, not elsewhere classified; D64.9 Anemia, unspecified; I71.2 Thoracic aortic aneurysm, without rupture; D69.6 Thrombocytopenia, unspecified; I27.29 Other secondary pulmonary hypertension; I48.2 Chronic atrial fibrillation; E86.0 Dehydration; N18.3 Chronic kidney disease, stage 3 (moderate); N14.1 Nephropathy induced by other drugs, medicaments and biological substances; E78.5 Hyperlipidemia, unspecified; G47.33 Obstructive sleep apnea (adult) (pediatric); I25.10 Atherosclerotic heart disease of native coronary artery without angina pectoris; I87.8 Other specified disorders of veins; T50.8X5A Adverse effect of diagnostic agents, initial encounter; E66.9 Obesity, unspecified; R01.1 Cardiac murmur, unspecified; Z68.35 Body mass index [BMI] 35.0-35.9, adult; Z79.01 Long term (current) use of anticoagulants; Z79.82 Long term (current) use of aspirin; Z79.899 Other long term (current) drug therapy; Z87.891 Personal history of nicotine dependence; Z86.73 Personal history of transient ischemic attack (TIA), and cerebral infarction without residual deficits; Z86.718 Personal history of other venous thrombosis and embolism; Z82.3 Family history of stroke; Y92.239 Unspecified place in hospital as the place of occurrence of the external cause
CPT/HCPCS: 36415; 36600; 70450; 71045; 71046; 71275; 74177; 76604; 80048; 80053; 81001; 82140; 82550; 82553; 82805; 83540; 83550; 83605; 83615; 83735; 83880; 84100; 84132; 84157; 84295; 84443; 84484; 85025; 85027; 85610; 85730; 86850; 86900; 86901; 86920; 87040; 87070; 87086; 87205; 88108; 88305; 89050; 93005; 93306; 94002; 94003; 94644; 94660; 94760; 96361; 96365; 96368; 99291

== ENCOUNTER 2018-02-15 14:35 | Emergency (ER) | payer MEDICARE, BC ==
[2018-02-15 14:44] VITALS: RESP 18
[2018-02-15 15:18] LABS: Anisocytosis Moderate; Basophils # (A) 0.1 k/uL (0-0.2); Basophils % (A) 1 %; Eosinophils # (A) 0.2 k/uL (0-0.7); Eosinophils % (A) 2 %; HCT 26.8 % (39.0-53.0); HGB 7.8 gm/dL (13.0-17.5); Hypochromasia Marked; Lymphocytes # (A) 1.1 k/uL (1.0-4.8); Lymphocytes % (A) 13 %; MCH 23.8 pg (25.0-35.0); MCHC 29.1 g/dL (31.0-37.0); MCV 81.9 fL (80.0-100.0); Microcytosis Slight; Monocytes # (A) 0.8 k/uL (0-1.0); Monocytes % (A) 10 %; Neutrophils # (A) 6.1 k/uL (1.3-7.7); Neutrophils % (A) 71 %; Platelet Count 163 k/uL (150-450); Poikilocytosis Moderate; RBC 3.27 m/uL (4.30-5.90); RDW 21.4 % (11.5-15.5); WBC 8.7 k/uL (3.8-10.6)
[2018-02-15 15:21] LABS: INR 1.4 (<1.2); Partial Thromboplastin Time 33.4 sec (22.0-30.0)
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
[2018-02-15 15:23] LABS: Albumin 3.2 g/dL (3.5-5.0); Calcium 8.4 mg/dL (8.4-10.2); Potassium 3.6 mmol/L (3.5-5.1); Total Bilirubin 0.7 mg/dL (0.2-1.3); Total Protein 6.9 g/dL (6.3-8.2)
[2018-02-15 15:53] LABS: Creatine Kinase MB 0.5 ng/mL (0.0-2.4); Troponin I 0.02 ng/mL (0.000-0.034)
[2018-02-15 17:10] VITALS: BP 126/60; PULSE 80; TEMP 98.3
== END 2018-02-15 17:09 | disposition home or self-care (01) ==
LOC: EC 14:35
DX: D64.9 Anemia, unspecified (principal); I48.91 Unspecified atrial fibrillation; E78.5 Hyperlipidemia, unspecified; G47.33 Obstructive sleep apnea (adult) (pediatric); E66.9 Obesity, unspecified; Z87.891 Personal history of nicotine dependence; Z79.01 Long term (current) use of anticoagulants; Z79.899 Other long term (current) drug therapy; Z86.73 Personal history of transient ischemic attack (TIA), and cerebral infarction without residual deficits; Z86.718 Personal history of other venous thrombosis and embolism; Z99.89 Dependence on other enabling machines and devices; Z68.37 Body mass index [BMI] 37.0-37.9, adult
CPT/HCPCS: 36415; 80053; 82272; 82550; 82553; 83605; 84484; 85025; 85610; 85730; 86850; 86900; 86901; 99284

== ENCOUNTER 2018-02-19 03:45 | Observation (INO) | payer MEDICARE, BC ==
[2018-02-19 04:17] LABS: Calcium 8.2 mg/dL (8.4-10.2); Potassium 4.1 mmol/L (3.5-5.1); Total Bilirubin 0.8 mg/dL (0.2-1.3); Total Protein 6.5 g/dL (6.3-8.2)
[2018-02-19 04:24] LABS: Anisocytosis Moderate; Basophils # (A) 0.1 k/uL (0-0.2); Basophils % (A) 1 %; Eosinophils # (A) 0.2 k/uL (0-0.7); Eosinophils % (A) 2 %; HCT 25.5 % (39.0-53.0); HGB 7.3 gm/dL (13.0-17.5); Hypochromasia Marked; Lymphocytes % (A) 10 %; MCH 23.6 pg (25.0-35.0); MCHC 28.7 g/dL (31.0-37.0); MCV 82.3 fL (80.0-100.0); Mean Platelet Volume 8.7; Microcytosis Slight; Monocytes # (A) 0.6 k/uL (0-1.0); Monocytes % (A) 6 %; Neutrophils # (A) 7.9 k/uL (1.3-7.7); Neutrophils % (A) 79 %; Platelet Count 251 k/uL (150-450); Poikilocytosis Moderate; RDW 20.9 % (11.5-15.5)
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
[2018-02-19] MEDS ORDERED: SODIUM CHLORIDE 0.9% 1,000 ML IV ONE (08:05)
[2018-02-19] MEDS ORDERED: NA PHOS,M-B/NA PHOS,DI-BA 133 ML ENEMA RECTAL PRN (08:07)
[2018-02-19] MEDS ORDERED: BISACODYL 10 MG SUPP RECTAL PRN (08:07)
[2018-02-19] MEDS ORDERED: MAGNESIUM HYDROXIDE 2,400 MG/10 ML CUP PO PRN (08:07)
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
[2018-02-19 11:45] LABS: INR 1.3 (<1.2); Prothrombin Time 12.2 sec (9.0-12.0)
[2018-02-19] MEDS ORDERED: PROPOFOL 10 MG/ML 20 ML VIAL IV ONE (16:17)
[2018-02-19] MEDS ORDERED: MIDAZOLAM 2 MG/2 ML VIAL ONE (16:17)
[2018-02-19] MEDS ORDERED: LACTATED RINGERS 1,000 ML IV ONE ×2 (16:17)
[2018-02-19] MEDS ORDERED: GLYCOPYRROLATE 0.2 MG/ML 2 ML VIAL ONE (16:17)
[2018-02-19] MEDS ORDERED: LIDOCAINE 1% INJ 10MG/ML (20 ML MDV) ONE (16:17)
--- NOTE | 2018-02-19 16:49 | P.PCN ---
Date of Procedure: 02/19/18 Procedure(s) Performed: Procedure: Esophagogastroduodenoscopy. Preoperative diagnosis: Anemia, nausea and vomiting. Postoperative diagnosis: Gastritis but no ulcers, gastric outlet obstruction or bleeding. Preparation sedation: Was provided by anesthesia. Brief clinical history: The patient is a 72-year-old male with a history of DVT , A. fib maintained on XARELTO, CHF, sleep apnea, hyperlipidemia, colonic diverticulosis. Patient admitted from [facility] with acute emesis 2 yesterday. Patient states it appeared to be undigested food gastric fluids with minimal abdominal discomfort. Denies chest pain or shortness of breath. Denies hematemesis hematochezia melena. He denies abdominal pain. Unsure if he received his anticoagulation yesterday. Admission hemoglobin 6.8 presenyly 7.3. Over the past month hemoglobin has ranged between 6-8. He was hospitalized early February with anemia (hemoglobin 6-8) and sepsis possible pneumonitis possible UTI required ICU monitoring. He received 2 units of blood on 02/06/2018. Previous hemoglobin in 2017 was similar ranging between 7-9. INR on 02/15/2018 was 1.4. He underwent EGD colonoscopy October 2017 for Hemoccult-positive stools with findings of small sliding hiatal hernia but no obvious esophagitis or completed reflux disease. Mild antral gastritis and moderate duodenitis but no ulcers or bleeding. Colonoscopy revealed sigmoid diverticulosis with no evidence of diverticulitis or strictures. Splenic flexure polypectomy 1. Other details are summarized in the history and physical and dictated consultation and progress notes. This evaluation is to assess for a possible source of bleeding. Procedure: With the patient on his left lateral decubitus position and after informed consent and adequate sedation, I passed the Olympus-GIF 160 video upper endoscope through the cricopharyngeus down the esophagus. The esophagus appeared healthy with no obvious erosions, ulcers, strictures or Julian's esophagus. There were no mucosal tears or bleeding. The endoscope was then passed into the stomach which was insufflated with air and inspected in detail including the retroflex view in the cardia. There was diffuse mottling and erythema but no ulcers, erosions or bleeding. No pyloric channel ulcer. Duodenal bulb, post bulbar area and descending duodenum appeared healthy. No biopsies were obtained then the endoscope was withdrawn. Plan: The patient was reassured. Will allow diet as tolerated and consider capsule endoscopy either this admission or as outpatient.
[2018-02-19] MEDS: RIVAROXABAN 20 MG TAB PO SCH (17:16)
[2018-02-19] MEDS: MULTIVITAMINS, THERA 1 EACH TAB PO SCH (17:16)
[2018-02-19] MEDS: CHOLECALCIFEROL 1,000 UNIT TAB PO SCH (17:16)
[2018-02-19] MEDS: PANTOPRAZOLE 40 MG TABLET PO SCH (17:16)
[2018-02-19] MEDS: amLODIPine 5 MG TAB PO SCH (17:16)
--- NOTE | 2018-02-19 18:05 | HP ---
HISTORY AND PHYSICAL CHIEF COMPLAINT: Vomiting and anemia. HISTORY OF PRESENT ILLNESS: This is a re-admission for this 72-year-old white male who was just sent to [facility] for rehab after an extended hospital stay for septic shock. When he left the hospital, his hemoglobin was over 7. [facility] that he was having repeated episodes of nausea and vomiting, but no hematemesis, melena, etc. In the middle of the night, the nurse called that his hemoglobin was down to around 6.8. He is referred to the hospital. There are no signs of GI blood loss, but dropping hemoglobin is a concern. REVIEW OF SYSTEMS: He has no complaints, including chest pain, shortness of breath, abdominal pain, nausea, vomiting, etc. Past medical history, family history and personal and social histories are all unchanged. PHYSICAL EXAMINATION: Blood pressure is 126/74 with a pulse of 84 and regular, respirations of 35. He is afebrile. In general, he appeared to be pale and overweight. He was seen to be comfortable. Head, ears, eyes, nose, mouth and throat were normal. Neck veins were not distended. The chest is clear. Cardiac demonstrated atrial fibrillation. The abdomen is soft, nontender without masses. Bowel sounds are present. Extremities are normal. Neurologically, he is intact. IMPRESSION: 1. Anemia. 2. Rule out gastrointestinal blood loss. 3. Atrial fibrillation. PLAN: 1. Bed rest. 2. IV fluids. 3. GI consult for probable upper GI endoscopy. KATHLEEN / REMEDIOS: [id number] /
[2018-02-19] MEDS: ATORVASTATIN 80 MG TAB PO SCH (21:05)
[2018-02-19] MEDS: LATANOPROST 0.005% OPHTH DROPS 2.5 ML BTL BOTH EYES SCH (21:05)
[2018-02-20] MEDS: FUROSEMIDE 20 MG TAB PO SCH (06:22)
[2018-02-20] MEDS ORDERED: MAGNESIUM CITRATE 296 ML BOTTLE PO STA (07:42)
--- NOTE | 2018-02-20 07:46 | P.PN ---
Subjective Progress Note Date: 02/20/18 Principal diagnosis: anemia s/p EGD no evidence of PUD/bleeding. Denies abdominal pain. CBC pending. Objective - Vital Signs Vital signs: Vital Signs Temp 97.8 F 02/20/18 05:27 Pulse 70 02/20/18 05:27 Resp 16 02/20/18 05:27 BP 106/69 02/20/18 05:27 Pulse Ox 93 L 02/20/18 05:27 Intake & Output 02/19/18 02/20/18 02/20/18 18:59 06:59 18:59 Intake Total 200 Balance 200 Weight 109.769 kg Intake: IV 200 Oral 0 Other: Voiding Method Toilet Toilet # Voids 1 - Constitutional General appearance: Present: average body habitus - EENT Eyes: Present: normal appearance - Respiratory Respiratory: bilateral: CTA - Cardiovascular Rhythm: regular Heart sounds: normal: S1, S2 - Gastrointestinal Gastrointestinal Comment(s): nontender General gastrointestinal: Present: soft - Labs CBC & Chem 7: 02/19/18 03:51 02/19/18 03:51 Labs: Abnormal Lab Results - Last 24 Hours (Table) 02/19/18 Range/Units 10:52 PT 12.2 H (9.0-12.0) sec INR 1.3 H (<1.2) Assessment and Plan (1) Anemia Narrative/Plan: 72-year-old gentleman admitted with acute nonbloody emesis 2 with minimal epigastric discomfort with acute anemia over the last month and recent hospitalization requiring blood transfusion maintained on anticoagulation for history of atrial fibrillation. Etiology of acute blood loss anemia is unclear possible peptic ulcer disease possible small bowel source possible colonic. EGD colonoscopy October 2017 reported no evidence of upper GI bleed or peptic ulcer disease colonoscopy revealed sigmoid diverticulosis. Re-surveillance EGD yesterday no evidence of peptic ulcer disease or bleeding. Possible small bowel source. Current Visit: Yes Status: Acute Code(s): D64.9 - ANEMIA, UNSPECIFIED SNOMED Code(s): 600254296 (2) Vomiting Current Visit: Yes Status: Acute Code(s): R11.10 - VOMITING, UNSPECIFIED SNOMED Code(s): 043524249 (3) Colon, diverticulosis Current Visit: Yes Status: Acute Code(s): K57.30 - DVRTCLOS OF LG INT W/O PERFORATION OR ABSCESS W/O BLEEDING SNOMED Code(s): 604399320 (4) Chronic atrial fibrillation Current Visit: No Status: Acute Code(s): I48.2 - CHRONIC ATRIAL FIBRILLATION SNOMED Code(s): 933682299 (5) Coagulopathy Current Visit: Yes Status: Acute Code(s): D68.9 - COAGULATION DEFECT, UNSPECIFIED SNOMED Code(s): 79810690 Plan: 1. Continue PPI. 2. CApsule study today. 3. CBC monitoring. Assessment and plan of care discussed with Dr. Treadwell
[2018-02-20] MEDS: PANTOPRAZOLE 40 MG TABLET PO SCH ×2 (08:25→17:58)
[2018-02-20] MEDS: DONEPEZIL 5 MG TAB PO SCH (08:25)
[2018-02-20] MEDS: amLODIPine 5 MG TAB PO SCH ×2 (08:25→17:58)
[2018-02-20] MEDS: LISINOPRIL 10 MG TAB PO SCH (08:25)
[2018-02-20 09:36] LABS: Anisocytosis Moderate; Basophils % (A) 0 %; Eosinophils # (A) 0.2 k/uL (0-0.7); Eosinophils % (A) 2 %; HCT 24.3 % (39.0-53.0); HGB 7.1 gm/dL (13.0-17.5); Hypochromasia Marked; Lymphocytes # (A) 1.1 k/uL (1.0-4.8); Lymphocytes % (A) 14 %; MCH 24.2 pg (25.0-35.0); MCHC 29.3 g/dL (31.0-37.0); MCV 82.7 fL (80.0-100.0); Mean Platelet Volume 9.3; Microcytosis Slight; Monocytes # (A) 0.6 k/uL (0-1.0); Monocytes % (A) 8 %; Neutrophils # (A) 5.9 k/uL (1.3-7.7); Neutrophils % (A) 74 %; Platelet Count 230 k/uL (150-450); Poikilocytosis Slight; RBC 2.94 m/uL (4.30-5.90); RDW 20.9 % (11.5-15.5)
[2018-02-20] MEDS ORDERED: SIMETHICONE 40 MG/0.6 ML DROPS 2,000 MG/30 ML BOTTLE PO ONE (14:00)
--- NOTE | 2018-02-20 16:12 | PN ---
PROGRESS NOTE DATE OF SERVICE: 02/20/2018 CHIEF COMPLAINT: Abdominal pain, vomiting and anemia. HISTORY OF PRESENT ILLNESS: This gentleman is comfortable. He is not having any further abdominal pain or vomiting. He is going for upper GI endoscopy today. PHYSICAL EXAMINATION: He remains pale. He is awake and alert. Chest is clear. Cardiac exam is unchanged with his atrial fibrillation. Abdomen is soft, nontender. IMPRESSION: 1. Anemia. 2. Vomiting. PLAN: Upper GI endoscopy today. If this is negative, he can probably go back to the senior care tomorrow. MMODL / IJN: [id number] /
[2018-02-20] MEDS: CHOLECALCIFEROL 1,000 UNIT TAB PO SCH (17:58)
[2018-02-20] MEDS: MULTIVITAMINS, THERA 1 EACH TAB PO SCH (17:58)
[2018-02-20] MEDS: RIVAROXABAN 20 MG TAB PO SCH (17:58)
[2018-02-20] MEDS: IRON POLYSACCHARIDES COMPLEX 150 MG CAP PO SCH (17:58)
[2018-02-20] MEDS: LATANOPROST 0.005% OPHTH DROPS 2.5 ML BTL BOTH EYES SCH (21:03)
[2018-02-20] MEDS: ATORVASTATIN 80 MG TAB PO SCH (21:03)
[2018-02-21 05:38] VITALS: RESP 18
[2018-02-21] MEDS: FUROSEMIDE 20 MG TAB PO SCH (06:04)
[2018-02-21 07:56] LABS: Anisocytosis Moderate; Basophils % (A) 0 %; Eosinophils # (A) 0.2 k/uL (0-0.7); Eosinophils % (A) 2 %; HCT 23.4 % (39.0-53.0); Hypochromasia Marked; Lymphocytes # (A) 0.9 k/uL (1.0-4.8); Lymphocytes % (A) 13 %; MCH 23.8 pg (25.0-35.0); MCHC 29.1 g/dL (31.0-37.0); MCV 81.9 fL (80.0-100.0); Mean Platelet Volume 9.1; Microcytosis Slight; Monocytes # (A) 0.6 k/uL (0-1.0); Monocytes % (A) 8 %; Neutrophils # (A) 5.2 k/uL (1.3-7.7); Neutrophils % (A) 74 %; Platelet Count 246 k/uL (150-450); Poikilocytosis Slight; RBC 2.86 m/uL (4.30-5.90)
[2018-02-21 08:02] LABS: HGB 6.8 gm/dL (13.0-17.5)
[2018-02-21] MEDS: DONEPEZIL 5 MG TAB PO SCH (08:19)
[2018-02-21] MEDS: amLODIPine 5 MG TAB PO SCH ×2 (08:19→16:58)
[2018-02-21] MEDS: PANTOPRAZOLE 40 MG TABLET PO SCH ×2 (08:19→16:57)
[2018-02-21] MEDS: LISINOPRIL 10 MG TAB PO SCH (08:19)
[2018-02-21] MEDS: IRON POLYSACCHARIDES COMPLEX 150 MG CAP PO SCH (11:51)
--- NOTE | 2018-02-21 12:19 | P.PN ---
Subjective Progress Note Date: 02/21/18 Principal diagnosis: anemia s/p EGD no evidence of PUD/bleeding. Denies abdominal pain. CBC 6.8. Denies hematemesis hematochezia or melena. Small bowel capsule endoscopy completed preliminarily results indicated capsule remained mostly in the stomach exam was limited what was seen no obvious bleeding. Receiving unit of blood this morning. Anticipate discharge. Objective - Vital Signs Vital signs: Vital Signs Temp 96.8 F L 02/21/18 10:58 Pulse 65 02/21/18 10:58 Resp 18 02/21/18 10:58 BP 124/61 02/21/18 10:58 Pulse Ox 93 L 02/21/18 10:58 Intake & Output 02/20/18 02/21/18 02/21/18 18:59 06:59 18:59 Intake Total 0 Balance 0 Intake: Blood Product 0 Rc As-1 Unit 0 [id number] Other: Voiding Method Toilet Toilet Toilet # Voids 1 # Bowel Movements 1 - Exam General appearance: The patient is alert, oriented, in no acute distress. HET: Head is normocephalic and atraumatic. Pupils are equal and reactive. Oropharynx is clear without lesions. Neck: Supple without lymphadenopathy. Trachea midline. Heart: S1 S2. Regular rate and rhythm. Lungs: No crackles or wheezes are heard. Abdomen: Soft, nontender, nondistended with bowel sounds. No peritoneal signs. No palpable organomegaly or masses. - Labs CBC & Chem 7: 02/21/18 06:59 02/19/18 03:51 Labs: Abnormal Lab Results - Last 24 Hours (Table) 02/19/18 02/21/18 Range/Units 03:51 06:59 RBC 2.86 L (4.30-5.90) m/uL Hgb 6.8 L* (13.0-17.5) gm/dL Hct 23.4 L (39.0-53.0) % MCH 23.8 L (25.0-35.0) pg MCHC 29.1 L (31.0-37.0) g/dL RDW 21.0 H (11.5-15.5) % Lymphocytes # 0.9 L (1.0-4.8) k/uL Crossmatch See Detail Assessment and Plan (1) Anemia Narrative/Plan: 72-year-old gentleman admitted with acute nonbloody emesis 2 with minimal epigastric discomfort with acute anemia over the last month and recent hospitalization requiring blood transfusion maintained on anticoagulation for history of atrial fibrillation. Etiology of acute blood loss anemia is unclear possible peptic ulcer disease possible small bowel source possible colonic. EGD colonoscopy October 2017 reported no evidence of upper GI bleed or peptic ulcer disease colonoscopy revealed sigmoid diverticulosis. Re-surveillance EGD yesterday no evidence of peptic ulcer disease or bleeding. Small ENDOSCOPY COMPLETED HOWEVER LIMITED EXAM SECONDARY TO CAPSULE REMAINING IN STOMACH FOR MOST OF THE STUDY WHAT WAS SEEN NO EVIDENCE OF ACTIVE BLEEDING. Possible small bowel source possible colonic. Current Visit: Yes Status: Acute Code(s): D64.9 - ANEMIA, UNSPECIFIED SNOMED Code(s): 901721039 (2) Vomiting Current Visit: Yes Status: Acute Code(s): R11.10 - VOMITING, UNSPECIFIED SNOMED Code(s): 876339828 (3) Colon, diverticulosis Current Visit: Yes Status: Acute Code(s): K57.30 - DVRTCLOS OF LG INT W/O PERFORATION OR ABSCESS W/O BLEEDING SNOMED Code(s): 679697383 (4) Chronic atrial fibrillation Current Visit: No Status: Acute Code(s): I48.2 - CHRONIC ATRIAL FIBRILLATION SNOMED Code(s): 183699931 (5) Coagulopathy Current Visit: Yes Status: Acute Code(s): D68.9 - COAGULATION DEFECT, UNSPECIFIED SNOMED Code(s): 28638192 Plan: 1. Formal report to follow from Dr. Treadwell regarding small ENDOSCOPY FINDINGS. DISCHARGE PER MEDICINE. REPEAT CBC IN 3-5 DAYS. DIET TOLERATED. RESUME ANTICOAGULATION. FOLLOW-UP IN OFFICE IN 2-3 WEEKS. Assessment and plan a care discussed with Dr. Treadwell
--- NOTE | 2018-02-21 14:16 | PN ---
PROGRESS NOTE CHIEF COMPLAINT: Anemia. HISTORY OF PRESENT ILLNESS: This gentleman is doing well. He is undergoing a capsule study. He did not have an endoscopy. He feels fine. He has had no shortness of breath, chest pain, abdominal pain, etc. Hemoglobin has dropped below 7 again. IMPRESSION: 1. Anemia. 2. Question gastrointestinal blood loss. 3. Atrial fibrillation. 4. Congestive heart failure. 5. Recent septic shock. PLAN: He can go back to [facility] any time pending the outcome of his endoscopy study. Because his hemoglobin is down to 6.8, be given another unit of packed cells. MMODL / IJN: [id number] /
[2018-02-21 16:23] VITALS: BP 132/69; PULSE 67; TEMP 98
--- NOTE | 2018-02-21 16:23 | DS ---
DISCHARGE SUMMARY CHIEF COMPLAINT: Progressive anemia and possible GI blood loss with nausea and vomiting. HISTORY OF PRESENT ILLNESS AND PHYSICAL EXAM: Details of this man's history and physical can be found in the initial workup. LABORATORY STUDIES: While he was in a hospital he had laboratory studies, details which can be found in the laboratory section of her chart. COURSE IN HOSPITAL: After admission he was placed on bedrest on intravenous fluids and was transfused. While in the hospital, he was seen and evaluated by GI and they took him for upper GI endoscopy, which is unremarkable. He had an enteric study with a capsule which was less than adequate because the stayed in the stomach most of the time. However, no other abnormalities identified and it was felt he could go back to the alf on the . He will return there for physical therapy on his usual activity, diet and medication. FINAL DIAGNOSES: 1. Progressive anemia. 2. Possible slow GI blood loss, source unknown. 3. Atrial fibrillation. 4. Congestive heart failure. 5. Recent episode of septic shock. OPERATIONS: Endoscopy. CONSULTATION: Gastroenterology. He is improved. MMODL / IJN: [id number] /
[2018-02-21] MEDS: RIVAROXABAN 20 MG TAB PO SCH (16:57)
[2018-02-21] MEDS: CHOLECALCIFEROL 1,000 UNIT TAB PO SCH (16:57)
[2018-02-21] MEDS: MULTIVITAMINS, THERA 1 EACH TAB PO SCH (16:57)
== END 2018-02-21 17:13 ==
LOC: EC 03:45 → 5MS5E 08:05
PROVIDERS: ADMIT Family Medicine; ATTEND Family Medicine
DX: D64.9 Anemia, unspecified (principal); K29.60 Other gastritis without bleeding; I48.2 Chronic atrial fibrillation; K57.30 Diverticulosis of large intestine without perforation or abscess without bleeding; D68.9 Coagulation defect, unspecified; E78.5 Hyperlipidemia, unspecified; I50.9 Heart failure, unspecified; G47.33 Obstructive sleep apnea (adult) (pediatric); Z99.89 Dependence on other enabling machines and devices; E66.9 Obesity, unspecified; Z68.33 Body mass index [BMI] 33.0-33.9, adult; Z79.899 Other long term (current) drug therapy; Z79.01 Long term (current) use of anticoagulants; Z86.19 Personal history of other infectious and parasitic diseases; Z87.891 Personal history of nicotine dependence; Z86.010 Personal history of colon polyps; Z86.73 Personal history of transient ischemic attack (TIA), and cerebral infarction without residual deficits; Z86.718 Personal history of other venous thrombosis and embolism; Z82.3 Family history of stroke
CPT/HCPCS: 99285 ×2; 36415; 93005; 86900; 86901; 80053; 85025 ×3; 85610; 86850; 86920; 43235; 91110; G0378 ×3; P9016; J2250; J2001; J2704

== ENCOUNTER 2018-04-12 16:42 | Inpatient (IN) | payer MEDICARE, BC ==
[2018-04-12] MEDS ORDERED: SODIUM CHLORIDE 0.9% 500 ML IV STA (16:43)
[2018-04-12 17:13] LABS: Anisocytosis Slight; Basophils % (A) 0 %; Eosinophils % (A) 0 %; HCT 27.9 % (39.0-53.0); HGB 8.5 gm/dL (13.0-17.5); Hypochromasia Marked; Lymphocytes # (A) 0.8 k/uL (1.0-4.8); Lymphocytes % (A) 6 %; MCH 24.7 pg (25.0-35.0); MCHC 30.5 g/dL (31.0-37.0); MCV 80.9 fL (80.0-100.0); Mean Platelet Volume 7.5; Microcytosis Slight; Monocytes # (A) 1.1 k/uL (0-1.0); Monocytes % (A) 8 %; Neutrophils # (A) 11.8 k/uL (1.3-7.7); Neutrophils % (A) 84 %; Platelet Count 384 k/uL (150-450); RBC 3.44 m/uL (4.30-5.90); VBG PH 7.36 (7.31-7.41)
[2018-04-12 17:20] LABS: INR 1.4 (<1.2); Partial Thromboplastin Time 27.2 sec (22.0-30.0); Prothrombin Time 12.9 sec (9.0-12.0)
[2018-04-12 17:23] LABS: Calcium 7.4 mg/dL (8.4-10.2); Magnesium 1.8 mg/dL (1.6-2.3); Total Bilirubin 0.9 mg/dL (0.2-1.3)
[2018-04-12] MEDS ORDERED: SODIUM CHLORIDE 0.9% 500 ML IV ONE ×3 (17:32→18:58)
[2018-04-12 17:46] LABS: Creatine Kinase MB 1.6 ng/mL (0.0-2.4); Troponin I 0.034 ng/mL (0.000-0.034)
[2018-04-12] MEDS ORDERED: VANCOMYCIN IV PER PHARMACY 1 EACH MISC MISCELLANE PRN (17:46)
[2018-04-12] MEDS ORDERED: CEFEPIME 2 GM in SODIUM CHLORIDE 0.9% 50 ML IVPB STA (17:49)
[2018-04-12] MEDS ORDERED: VANCOMYCIN 1,750 MG in SODIUM CHLORIDE 0.9% 500 ML IVPB ONE (18:00)
[2018-04-12] MEDS ORDERED: PANTOPRAZOLE 40 MG/10 ML VIAL IVP STA (18:38)
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
--- NOTE | 2018-04-12 19:14 | XR ---
EXAMINATION TYPE: XR chest 2V DATE OF EXAM: 04/12/2018 COMPARISON: 02/12/2018 HISTORY: Short of breath TECHNIQUE: Frontal and lateral views of the chest are obtained. FINDINGS: There is increased density posteriorly on the lateral view that is suggestive of consolida tion in the right lower lobe. There is no heart failure. Heart appears slightly enlarged. There is sp urring in the thoracic spine. IMPRESSION: Right lower lobe posterior consolidation and pleural fluid. There is probably improved a eration of the left lung base compared to last exam.
--- NOTE | 2018-04-12 19:27 | CT ---
EXAMINATION TYPE: CT brain wo con DATE OF EXAM: 04/12/2018 COMPARISON: 02/25/2018 HISTORY: pain headache CT DLP: [id number] mGycm Automated exposure control for dose reduction was used. FINDINGS: There is cerebral cortical atrophy. There is no mass effect nor midline shift. There is no sign of in tracranial hemorrhage. The calvarium is intact. There is incomplete pneumatization of the mastoid sin uses. IMPRESSION: CEREBRAL ATROPHY. NO ACUTE INTRACRANIAL ABNORMALITY. NO CHANGE. CHRONIC BILATERAL MASTOIDITIS.
[2018-04-12 20:24] LABS: Appearance,Urine Cloudy (Clear); Bilirubin,Urine Negative (Negative); Blood,Urine Moderate (Negative); Color,Urine Yellow; Glucose,Urine (UA) Negative (Negative); Hyaline Casts,Urine 25 /lpf (0-2); Ketones,Urine Negative (Negative); Leukocyte Esterase,Urine Negative (Negative); Mucus,Urine Occasional /hpf; Nitrite,Urine Negative (Negative); Protein,Urine 2+ (Negative); RBC,Urine 23 /hpf (0-5); Squamous Epithelial Cell,Urine 1 /hpf (0-4); Urobilinogen,Urine <2.0 mg/dL (<2.0); WBC,Urine 8 /hpf (0-5)
[2018-04-12] MEDS ORDERED: NALOXONE 0.4 MG/ML 1 ML VIAL IV PRN (20:48)
[2018-04-12] MEDS ORDERED: ACETAMINOPHEN TAB 325 MG TAB PO PRN (20:48)
[2018-04-12] MEDS: SODIUM CHLORIDE 0.9% 1,000 ML IV SCH (22:34)
[2018-04-13] MEDS: CEFEPIME 2 GM in SODIUM CHLORIDE 0.9% 50 ML IVPB SCH ×3 (01:21→20:20)
[2018-04-13] MEDS: PANTOPRAZOLE 40 MG/10 ML VIAL IVP SCH ×2 (07:35→20:20)
[2018-04-13 08:10] LABS: Calcium 7.1 mg/dL (8.4-10.2); Potassium 4.2 mmol/L (3.5-5.1)
[2018-04-13] MEDS: SODIUM CHLORIDE 0.9% 1,000 ML IV SCH ×2 (10:57→20:20)
[2018-04-13] MEDS: DONEPEZIL 5 MG TAB PO SCH (11:19)
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
[2018-04-13] MEDS: VANCOMYCIN 1,500 MG in SODIUM CHLORIDE 0.9% 250 ML IVPB SCH (17:08)
--- NOTE | 2018-04-13 18:27 | PN ---
PROGRESS NOTE DATE OF SERVICE: 04/13/2018. CHIEF COMPLAINT: Syncope, possible GI bleeding. HISTORY OF PRESENT ILLNESS: This gentleman seems to feel fine. Vital signs have stabilized. He has he has not had any bleeding. He denies any chest pain. He has had no shortness of breath. He still has the generalized petechial rash. PHYSICAL EXAM: His chest demonstrates occasional rales at the bases. Cardiac exam is atrial fibrillation. The abdomen is soft. IMPRESSION: 1. Syncope, etiology unknown. 2. Hypertension. 3. Anemia. 4. Rule out GI bleed. 5. Petechial rash. PLAN: Progress activity and diet and continue to monitor his vital signs and hemoglobin as well as other parameters. MMODL / IJN: [id number] /
--- NOTE | 2018-04-13 18:27 | HP ---
HISTORY AND PHYSICAL CHIEF COMPLAINT: Syncope. HISTORY OF PRESENT ILLNESS: This is another recent admission for this 72-year-old white male. He was in the hospital recently for septic shock and nearly succumbed. He then went to [facility] for over a month. He just got out. He has persistent anemia. When he was in the office recently he was still anemic. He apparently fell at home and EMS was called. He was taken to the hospital. He has chronic atrial fibrillation. He had no focal neurologic deficits, complaints of chest pain, abdominal pain, vomiting, diarrhea, hematemesis, melena, etc. REVIEW OF SYSTEMS: He denies any headaches, chest pain, abdominal pain, urinary complaints, neurologic changes, etc. PAST MEDICAL HISTORY, FAMILY HISTORY, PERSONAL AND SOCIAL HISTORIES: Find that he is on Aricept, low-dose aspirin, atorvastatin 80, ferrous sulfate 325, Lasix 40 mg daily, lisinopril 10 mg daily, rivaroxaban 20 mg a day and amlodipine 5 mg twice a day. He has no allergies. Does not smoke or drink. PHYSICAL EXAMINATION: Blood pressure is 78/42 with a pulse 69 and irregularly irregular. Respirations were 20 and temp is 99.4. In general, he appeared to be pale and chronically ill. Skin was dry. He had generalized petechial dermatitis. Head, ears, eyes, nose, mouth, and throat were normal and neck veins were not distended. The chest is clear. Cardiac exam demonstrated atrial fibrillation. Abdomen is soft, nontender without any masses or visceromegaly. Extremities are normal. Neurologically, he is intact. LABORATORY VALUES: Revealed a BUN of 41 and creatinine of 2. Troponin was normal. [place] white [place] [address] with a hemoglobin of 8.5. Platelets are 384,000. He has been admitted to the hospital diagnoses: 1. Syncope, etiology unknown. 2. Hypotension, etiology unknown. 3. Anemia. 4. Rule out GI bleed. 5. Rule out myocardial infarction. 6. Rule out sepsis. PLAN: 1. Bed rest. 2. IV fluids. 3. Appropriate cultures. 4. Monitor vital signs. 5. Monitor hemoglobin. MMODL / IJN: [id number] /
[2018-04-14] MEDS: PANTOPRAZOLE 40 MG/10 ML VIAL IVP SCH ×2 (08:05→20:56)
[2018-04-14] MEDS: CEFEPIME 2 GM in SODIUM CHLORIDE 0.9% 50 ML IVPB SCH ×2 (09:06→20:56)
[2018-04-14] MEDS: DONEPEZIL 5 MG TAB PO SCH (11:06)
--- NOTE | 2018-04-14 12:18 | P.PN ---
Subjective Progress Note Date: 04/14/18 Erika is a 72-year-old white male patient of Dr. Pastrana, who presented per EMS to the emergency department on the way 2017 at 1600 or evaluation of dyspnea, hypotension, altered mentation, A. fib RVR. He is a poor historian. He denied any fever, or chills, denied any chest pain, denied any phlegm production. Patient states he lost his balance going up the steps to his house , and fell onto the steps, but he denies any injuries. He was noted to be very short of breath, and His female friend called the ambulance. When the ambulance arrived patient was confused, and moderate to severe amount of respiratory distress. In the emergency department she was noted to be hypotensive and tachycardic in atrial fibrillation. Patient was hospitalized in February of this year, for progressive anemia, possible GI blood loss, and the source was not determined, bilateral plural effusions secondary to congestive heart failure with diastolic dysfunction, and possible underlying pneumonia, requiring intubation and mechanical ventilation. We saw the patient in consultation during that admission, and patient underwent right-sided thoracentesis with Dr. Stokes with removal of 1500 mL of pleural fluid which was transudate in nature and cytology was negative for malignancy. Patient was discharged to [facility] and rehab on 02/21/2018 where he remained for a period of 3 weeks, and subsequently was discharged home. Chest x-ray was completed and showed a right lower lobe posterior consolidation and pleural effusion, this was compared to previous chest x-ray on 02/12/2018 and and there is probably improved aeration of the left lung compared to last exam. Lab work showed mild leukocytosis, and obesity of 14.0, hemoglobin is 8.5, INR is 1.4, sodium is 135, BUN of 41, creatinine is 2.0, plasma lactic acid was elevated at 4.1, LFTs were within normal limits, urine analysis showed moderate ketones, RBCs and WBCs. Patient was given a total of 4 L of 0.9 normal saline, his lactic acid did come down to 1.6, and his blood pressure improved. Patient was started on combination of cefepime and vancomycin for a possibility of healthcare acquired pneumonia. Anyway seen the patient in consultation for septic shock, likely related to acute right lower lobe pneumonia, possibly healthcare acquired. On today's evaluation of 04/14/2018, the patient is looking extremely well. Sitting up on a chair. No respiratory distress. No cough or sputum production. No fever or chills. Hemodynamically stable. Awaiting follow-up on his blood work. Meanwhile the blood cultures are negative and urine cultures are negative the patient is still covered with a broad-spectrum antibiotics utilizing a combination of cefepime and vancomycin. The rash is also improved and I would say there is probably 40-50% improvement in the rash throughout his body. No other significant events. Is resting comfortably in bed. He is able to sit up on a chair without any major difficulties. Objective - Vital Signs Vital signs: Vital Signs Temp 97.6 F 04/14/18 08:05 Pulse 79 04/14/18 08:05 Resp 18 04/14/18 08:05 BP 109/57 04/14/18 08:05 Pulse Ox 97 04/14/18 08:05 Intake & Output 04/13/18 04/14/18 04/14/18 18:59 06:59 18:59 Intake Total 430 Output Total 700 1250 Balance -270 -1250 Weight 109.5 kg Intake: Oral 430 Output: Urine 700 1250 Other: Voiding Method Indwelling Catheter Indwelling Catheter Indwelling Catheter - Exam GENERAL EXAM: Alert, pleasant, pale looking 72-year-old white male, comfortable in no apparent distress. HEAD: Normocephalic/atraumatic. EYES: Normal reaction of pupils, equal size. Conjunctiva pink, sclera white. NOSE: Clear with pink turbinates. THROAT: No erythema or exudates. NECK: No masses, no JVD, no thyroid enlargement, no adenopathy. CHEST: No chest wall deformity. Symmetrical expansion. LUNGS: Diminished breath sounds, with bibasilar crackles CVS: Irregular rate and rhythm, normal S1 and S2, no gallops, no murmurs, no rubs ABDOMEN: Soft, nontender. No hepatosplenomegaly, normal bowel sounds, no guarding or rigidity. EXTREMITIES: No clubbing, no cyanosis, 2+ pulses and upper and lower extremities. 1+ edema and upper and lower extremities MUSCULOSKELETAL: Muscle strength and tone normal. SPINE: No scoliosis or deformity SKIN: Patient has petechial rash on upper and lower extremities CENTRAL NERVOUS SYSTEM: Alert and oriented -3. No focal deficits, tone is normal in all 4 extremities. PSYCHIATRIC: Alert and oriented -3. Appropriate affect. Intact judgment and insight. - Labs CBC & Chem 7: 04/12/18 16:54 04/13/18 07:00 Labs: Abnormal Lab Results - Last 24 Hours (Table) 04/12/18 Range/Units 16:54 ESR 20 H (0-15) mm/hr Microbiology - Last 24 Hours (Table) 04/12/18 19:54 Urine Culture - Final Urine,Catheterized 04/12/18 16:54 Blood Culture - Preliminary Blood No Growth after 24 hours Assessment and Plan Plan: #1. Septic shock, likely related to right lower lobe pneumonia, possibly healthcare acquired , improving. Repeat chest x-ray in the morning. Continue the cefepime vancomycin combination. #2. Leukocytosis, hypotension, altered mental status, acute kidney injury secondary to above, awaiting follow-up blood work from today. The patient is hemodynamically stable at this point in time. #3. Anemia, related to GI blood loss, occult stool was positive. Most recent GI workup in February 2018 consisting of EGD, small bowel endoscopy could not identify the source of bleeding #4. A. fib RVR, well controlled at this point in time #5. Chronic A. fib on long-term anticoagulation with Xarelto #6. Acute kidney injury dated to sepsis #7. Lactic acidosis related to sepsis, improved with IV fluids, improved and lactic acid level is down to 1.6 #8. Recent hospitalization for septic shock, possible underlying pneumonia, pulmonary edema, pleural effusions, UTI, GI bleeding #9. History of CVA #10. Secondary pulmonary hypertension #11. Hyperlipidemia #12. Previous history of cardiac ablation for nonsustained V. tach #13 diffuse body rash Plan Continue same antibiotic coverage. The rash is improving. Awaiting follow-up blood work from today. We'll hold and the Xarelto and MARTHA inhibitor still the patient's renal function normalizes. Hold also on the Lasix. Restart Aricept. Restart Lipitor. We'll continue to follow.
[2018-04-14 12:54] LABS: Anisocytosis Slight; Basophils % (A) 0 %; Eosinophils % (A) 0 %; HCT 28.6 % (39.0-53.0); HGB 8.3 gm/dL (13.0-17.5); Hypochromasia Marked; Lymphocytes # (A) 0.7 k/uL (1.0-4.8); Lymphocytes % (A) 5 %; MCH 23.9 pg (25.0-35.0); MCHC 29.2 g/dL (31.0-37.0); MCV 81.8 fL (80.0-100.0); Mean Platelet Volume 8.3; Microcytosis Slight; Monocytes # (A) 0.8 k/uL (0-1.0); Monocytes % (A) 6 %; Neutrophils # (A) 11.4 k/uL (1.3-7.7); Neutrophils % (A) 87 %; Platelet Count 437 k/uL (150-450); RDW 19.1 % (11.5-15.5); WBC 13.1 k/uL (3.8-10.6)
[2018-04-14 13:03] LABS: Albumin 2.1 g/dL (3.5-5.0); Calcium 7.3 mg/dL (8.4-10.2); Potassium 4.5 mmol/L (3.5-5.1); Total Bilirubin 0.5 mg/dL (0.2-1.3); Total Protein 5.1 g/dL (6.3-8.2)
[2018-04-14 17:11] LABS: Glucose,Whole Blood 108 mg/dL (75-99)
[2018-04-14] MEDS: SODIUM CHLORIDE 0.9% 1,000 ML IV SCH (17:25)
[2018-04-14] MEDS: VANCOMYCIN 1,500 MG in SODIUM CHLORIDE 0.9% 250 ML IVPB SCH (17:29)
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
[2018-04-15] MEDS: SODIUM CHLORIDE 0.9% 1,000 ML IV SCH ×2 (05:04→17:53)
[2018-04-15 07:23] LABS: Calcium 7.1 mg/dL (8.4-10.2); Potassium 4.3 mmol/L (3.5-5.1)
[2018-04-15] MEDS: CEFEPIME 2 GM in SODIUM CHLORIDE 0.9% 50 ML IVPB SCH ×2 (07:57→21:20)
[2018-04-15] MEDS: ASPIRIN 81 MG PO SCH (07:57)
[2018-04-15] MEDS: ATORVASTATIN 80 MG TAB PO SCH (07:57)
[2018-04-15] MEDS: PANTOPRAZOLE 40 MG/10 ML VIAL IVP SCH ×2 (07:57→21:20)
--- NOTE | 2018-04-15 08:48 | XR ---
EXAMINATION TYPE: XR chest 1V DATE OF EXAM: 04/15/2018 COMPARISON: 04/12/2018 HISTORY: Follow-up for pneumonia. TECHNIQUE: Single frontal view of the chest is obtained. FINDINGS: There is worsening of the right perihilar and right basilar airspace disease in comparison to the prior. Trace right pleural effusion is suspected as there is blunting of the costophrenic ang le. Cardiac silhouette is enlarged as seen on the prior. Osseous structures are grossly intact. IMPRESSION: Worsening right-sided airspace disease with probable trace pleural effusion.
[2018-04-15] MEDS: DONEPEZIL 5 MG TAB PO SCH (11:27)
--- NOTE | 2018-04-15 12:22 | P.PN ---
Subjective Progress Note Date: 04/15/18 Principal diagnosis: Septic shock, likely related to right lower lobe pneumonia, possibly healthcare acquired, improvingGeovanna James is a 72-year-old white male patient of Dr. Pastrana, who presented per EMS to the emergency department on the way 2017 at 1600 or evaluation of dyspnea, hypotension, altered mentation, A. fib RVR. He is a poor historian. He denied any fever, or chills, denied any chest pain, denied any phlegm production. Patient states he lost his balance going up the steps to his house , and fell onto the steps, but he denies any injuries. He was noted to be very short of breath, and His female friend called the ambulance. When the ambulance arrived patient was confused, and moderate to severe amount of respiratory distress. In the emergency department she was noted to be hypotensive and tachycardic in atrial fibrillation. Patient was hospitalized in February of this year, for progressive anemia, possible GI blood loss, and the source was not determined, bilateral plural effusions secondary to congestive heart failure with diastolic dysfunction, and possible underlying pneumonia, requiring intubation and mechanical ventilation. We saw the patient in consultation during that admission, and patient underwent right-sided thoracentesis with Dr. Stokes with removal of 1500 mL of pleural fluid which was transudate in nature and cytology was negative for malignancy. Patient was discharged to [facility] on 02/21/2018 where he remained for a period of 3 weeks, and subsequently was discharged home. Chest x-ray was completed and showed a right lower lobe posterior consolidation and pleural effusion, this was compared to previous chest x-ray on 02/12/2018 and and there is probably improved aeration of the left lung compared to last exam. Lab work showed mild leukocytosis, and obesity of 14.0, hemoglobin is 8.5, INR is 1.4, sodium is 135, BUN of 41, creatinine is 2.0, plasma lactic acid was elevated at 4.1, LFTs were within normal limits, urine analysis showed moderate ketones, RBCs and WBCs. Patient was given a total of 4 L of 0.9 normal saline, his lactic acid did come down to 1.6, and his blood pressure improved. Patient was started on combination of cefepime and vancomycin for a possibility of healthcare acquired pneumonia. Anyway seen the patient in consultation for septic shock, likely related to acute right lower lobe pneumonia, possibly healthcare acquired. On today's evaluation of 04/14/2018, the patient is looking extremely well. Sitting up on a chair. No respiratory distress. No cough or sputum production. No fever or chills. Hemodynamically stable. Awaiting follow-up on his blood work. Meanwhile the blood cultures are negative and urine cultures are negative the patient is still covered with a broad-spectrum antibiotics utilizing a combination of cefepime and vancomycin. The rash is also improved and I would say there is probably 40-50% improvement in the rash throughout his body. No other significant events. Is resting comfortably in bed. He is able to sit up on a chair without any major difficulties. Only 2017 patient seen in follow-up in selective care unit. She is sitting up in the chair, in no acute distress, pulse ox on 2 L per nasal cannula is 95% , patient is afebrile, any chest pain, denies any chills. No phlegm production. Today's chest x-ray has been reviewed, and shows worsening right- sided airspace disease with probable trace pleural effusion, but clinically patient is doing better, mentation is improving, is afebrile, vital signs are stable, no hypotension, renal profile is improving, BUN is 50 and creatinine is down to 1.70. Electrolytes are unremarkable. Urine and blood cultures remain negative. Patient is being treated with a combination of cefepime and vancomycin, clinically he continues to improve. Objective - Vital Signs Vital signs: Vital Signs Temp 97.0 F L 04/15/18 07:53 Pulse 80 04/15/18 11:54 Resp 18 04/15/18 11:25 BP 102/54 04/15/18 11:25 Pulse Ox 95 04/15/18 11:25 Intake & Output 04/14/18 04/15/18 04/15/18 18:59 06:59 18:59 Intake Total 200 Output Total 800 Balance 200 -800 Weight 110.5 kg Intake: Oral 200 Output: Urine 800 Other: Voiding Method Indwelling Catheter Indwelling Catheter Indwelling Catheter # Bowel Movements 2 - Exam GENERAL EXAM: Alert, pleasant, pale looking 72-year-old white male, comfortable in no apparent distress. HEAD: Normocephalic/atraumatic. EYES: Normal reaction of pupils, equal size. Conjunctiva pink, sclera white. NOSE: Clear with pink turbinates. THROAT: No erythema or exudates. NECK: No masses, no JVD, no thyroid enlargement, no adenopathy. CHEST: No chest wall deformity. Symmetrical expansion. LUNGS: Diminished breath sounds, with bibasilar crackles CVS: Irregular rate and rhythm, normal S1 and S2, no gallops, no murmurs, no rubs ABDOMEN: Soft, nontender. No hepatosplenomegaly, normal bowel sounds, no guarding or rigidity. EXTREMITIES: No clubbing, no cyanosis, 2+ pulses and upper and lower extremities. 1+ edema and upper and lower extremities MUSCULOSKELETAL: Muscle strength and tone normal. SPINE: No scoliosis or deformity SKIN: Patient has petechial rash on upper and lower extremities CENTRAL NERVOUS SYSTEM: Alert and oriented -3. No focal deficits, tone is normal in all 4 extremities. PSYCHIATRIC: Alert and oriented -3. Appropriate affect. Intact judgment and insight. - Labs CBC & Chem 7: 04/14/18 12:39 04/15/18 06:07 Labs: Abnormal Lab Results - Last 24 Hours (Table) 04/14/18 04/14/18 04/14/18 Range/Units 12:39 12:39 16:54 WBC 13.1 H (3.8-10.6) k/uL RBC 3.50 L (4.30-5.90) m/uL Hgb 8.3 L (13.0-17.5) gm/dL Hct 28.6 L (39.0-53.0) % MCH 23.9 L (25.0-35.0) pg MCHC 29.2 L (31.0-37.0) g/dL RDW 19.1 H (11.5-15.5) % Neutrophils # 11.4 H (1.3-7.7) k/uL Lymphocytes # 0.7 L (1.0-4.8) k/uL Sodium 136 L (137-145) mmol/L Chloride 108 H (98-107) mmol/L Carbon Dioxide 21 L (22-30) mmol/L BUN 53 H (9-20) mg/dL Creatinine 1.97 H (0.66-1.25) mg/dL POC Glucose (mg/dL) 108 H (75-99) mg/dL Calcium 7.3 L (8.4-10.2) mg/dL Alkaline Phosphatase 134 H (38-126) U/L Total Protein 5.1 L (6.3-8.2) g/dL Albumin 2.1 L (3.5-5.0) g/dL 04/15/18 Range/Units 06:07 WBC (3.8-10.6) k/uL RBC (4.30-5.90) m/uL Hgb (13.0-17.5) gm/dL Hct (39.0-53.0) % MCH (25.0-35.0) pg MCHC (31.0-37.0) g/dL RDW (11.5-15.5) % Neutrophils # (1.3-7.7) k/uL Lymphocytes # (1.0-4.8) k/uL Sodium (137-145) mmol/L Chloride 111 H (98-107) mmol/L Carbon Dioxide (22-30) mmol/L BUN 50 H (9-20) mg/dL Creatinine 1.70 H (0.66-1.25) mg/dL POC Glucose (mg/dL) (75-99) mg/dL Calcium 7.1 L (8.4-10.2) mg/dL Alkaline Phosphatase (38-126) U/L Total Protein (6.3-8.2) g/dL Albumin (3.5-5.0) g/dL Microbiology - Last 24 Hours (Table) 04/12/18 16:54 Blood Culture - Preliminary Blood No Growth after 48 hours Assessment and Plan Plan: Assessment: #1. Septic shock, likely related to right lower lobe pneumonia, possibly healthcare acquired, repeat chest x-ray shows worsening of right lower lobe infiltrate, but clinically patient is improving #2. Leukocytosis, hypotension, altered mental status, acute kidney injury secondary to above #3. Anemia, related to GI blood loss, occult stool was positive. Most recent GI workup in February 2018 consisting of EGD, small bowel endoscopy could not identify the source of bleeding #4. A. fib RVR #5. Chronic A. fib on long-term anticoagulation with Xarelto #6. Acute kidney injury dated to sepsis #7. Lactic acidosis related to sepsis, improved with IV fluids #8. Recent hospitalization for septic shock, possible underlying pneumonia, pulmonary edema, pleural effusions, UTI, GI bleeding #9. History of CVA #10. Secondary pulmonary hypertension #11. Hyperlipidemia #12. Previous history of cardiac ablation for nonsustained V. tach Plan: Continue current antibiotic coverage, cefepime and vancomycin, patient is stable , continues to improve, no dyspnea, no chest pain, no phlegm production. On his home dose O2 at 2 L per nasal cannula. His chest x-ray has been reviewed, slight worsening of the right lower lobe infiltrate, clinically patient is improving. We'll continue to follow I performed a history & physical examination of the patient and discussed their management with my nurse practitioner, Maylin Tsai. I reviewed the nurse practitioner's note and agree with the documented findings and plan of care. Lung sounds are positive for bibasilar crackles. The findings and the impression was discussed with the patient. I attest to the documentation by the nurse practitioner. Time with Patient: Less than 30
[2018-04-15 15:26] LABS: C-ANCA <1:20 Titer (<1:20); P-ANCA <1:20 Titer (<1:20)
[2018-04-15] MEDS ORDERED: VANCOMYCIN TROUGH DUE 1 EACH MISC MISCELLANE ONE (17:00)
[2018-04-15] MEDS: VANCOMYCIN 1,500 MG in SODIUM CHLORIDE 0.9% 250 ML IVPB SCH (17:52)
--- NOTE | 2018-04-15 18:27 | PN ---
PROGRESS NOTE DATE OF SERVICE: 04/14/2018 CHIEF COMPLAINT: Pneumonitis and possible sepsis with syncope. HISTORY OF PRESENT ILLNESS: This gentleman is doing well. He feels fine. He remains pale, but he is not short of breath and he has no chills and is not running a temperature. PHYSICAL EXAMINATION: He is pale. Breath sounds are diminished at the bases. Cardiac exam is unremarkable. The abdomen is soft, non-tender. IMPRESSION: 1. Syncope and possible sepsis. 2. Pneumonitis. 3. Anemia. PLAN: Continue on the same program and increase his activity. Try to discharge as soon as possible. MMODL / IJN: [id number] /
--- NOTE | 2018-04-15 18:57 | PN ---
PROGRESS NOTE DATE OF SERVICE: 04/15/2018 CHIEF COMPLAINT: Pneumonitis and sepsis. HISTORY OF PRESENT ILLNESS: This gentleman states he feels fine. He has had no fever or chills. PHYSICAL EXAMINATION: Breath sounds are diminished at the bases. Cardiac exam is unchanged. Abdomen is soft. IMPRESSION: 1. Pneumonitis. 2. Sepsis. PLAN: It was thought that he might be able to go home, but his chest actually shows that his infiltrate is getting worse, and he will be held over. MMODL / IJN: [id number] /
[2018-04-16] MEDS: CEFEPIME 2 GM in SODIUM CHLORIDE 0.9% 50 ML IVPB SCH ×2 (08:25→20:35)
[2018-04-16] MEDS: PANTOPRAZOLE 40 MG/10 ML VIAL IVP SCH (08:26)
[2018-04-16] MEDS: ATORVASTATIN 80 MG TAB PO SCH (08:29)
[2018-04-16] MEDS: ASPIRIN 81 MG PO SCH (08:29)
[2018-04-16] MEDS: SODIUM CHLORIDE 0.9% 1,000 ML IV SCH ×2 (08:29→20:35)
[2018-04-16] MEDS: DONEPEZIL 5 MG TAB PO SCH (12:00)
--- NOTE | 2018-04-16 13:48 | P.PN ---
Subjective Progress Note Date: 04/16/18 Principal diagnosis: Septic shock, likely related to right lower lobe pneumonia, possibly healthcare acquired, improvingGeovanna James is a 72-year-old white male patient of Dr. Pastrana, who presented per EMS to the emergency department on the way 2017 at 1600 or evaluation of dyspnea, hypotension, altered mentation, A. fib RVR. He is a poor historian. He denied any fever, or chills, denied any chest pain, denied any phlegm production. Patient states he lost his balance going up the steps to his house , and fell onto the steps, but he denies any injuries. He was noted to be very short of breath, and His female friend called the ambulance. When the ambulance arrived patient was confused, and moderate to severe amount of respiratory distress. In the emergency department she was noted to be hypotensive and tachycardic in atrial fibrillation. Patient was hospitalized in February of this year, for progressive anemia, possible GI blood loss, and the source was not determined, bilateral plural effusions secondary to congestive heart failure with diastolic dysfunction, and possible underlying pneumonia, requiring intubation and mechanical ventilation. We saw the patient in consultation during that admission, and patient underwent right-sided thoracentesis with Dr. Stokes with removal of 1500 mL of pleural fluid which was transudate in nature and cytology was negative for malignancy. Patient was discharged to [facility] and rehab on 02/21/2018 where he remained for a period of 3 weeks, and subsequently was discharged home. Chest x-ray was completed and showed a right lower lobe posterior consolidation and pleural effusion, this was compared to previous chest x-ray on 02/12/2018 and and there is probably improved aeration of the left lung compared to last exam. Lab work showed mild leukocytosis, and obesity of 14.0, hemoglobin is 8.5, INR is 1.4, sodium is 135, BUN of 41, creatinine is 2.0, plasma lactic acid was elevated at 4.1, LFTs were within normal limits, urine analysis showed moderate ketones, RBCs and WBCs. Patient was given a total of 4 L of 0.9 normal saline, his lactic acid did come down to 1.6, and his blood pressure improved. Patient was started on combination of cefepime and vancomycin for a possibility of healthcare acquired pneumonia. Anyway seen the patient in consultation for septic shock, likely related to acute right lower lobe pneumonia, possibly healthcare acquired. On today's evaluation of 04/14/2018, the patient is looking extremely well. Sitting up on a chair. No respiratory distress. No cough or sputum production. No fever or chills. Hemodynamically stable. Awaiting follow-up on his blood work. Meanwhile the blood cultures are negative and urine cultures are negative the patient is still covered with a broad-spectrum antibiotics utilizing a combination of cefepime and vancomycin. The rash is also improved and I would say there is probably 40-50% improvement in the rash throughout his body. No other significant events. Is resting comfortably in bed. He is able to sit up on a chair without any major difficulties. Only 2017 patient seen in follow-up in selective care unit. She is sitting up in the chair, in no acute distress, pulse ox on 2 L per nasal cannula is 95% , patient is afebrile, any chest pain, denies any chills. No phlegm production. Today's chest x-ray has been reviewed, and shows worsening right- sided airspace disease with probable trace pleural effusion, but clinically patient is doing better, mentation is improving, is afebrile, vital signs are stable, no hypotension, renal profile is improving, BUN is 50 and creatinine is down to 1.70. Electrolytes are unremarkable. Urine and blood cultures remain negative. Patient is being treated with a combination of cefepime and vancomycin, clinically he continues to improve. On 04/16/2018 patient seen in follow-up on selective care unit. He sitting up in the chair, in no acute distress, he is on 2 L per nasal cannula with pulse ox 100%, he is afebrile, hemodynamically stable, no evidence of any altered mentation. He is alert and awake, and responding appropriately. Denies any dyspnea, denies any chest pain. No new chest x-rays today, no new labs. Lung sounds are positive for a few scattered crackles, but no rhonchi, no wheezes noted. Microbiology remains negative. No fever, no chills. No dyspnea, no chest pain, no chest congestion. He is looking and feeling well. No cough, no sputum production. The rash on his upper and lower extremities is improving, in the p.m., and c-ANCA and p-ANCA levels were within normal limits. Continues on a combination of cefepime and vancomycin. Objective - Vital Signs Vital signs: Vital Signs Temp 96.2 F L 04/16/18 11:13 Pulse 72 04/16/18 11:13 Resp 18 04/16/18 11:13 BP 118/56 04/16/18 11:13 Pulse Ox 100 04/16/18 11:13 Intake & Output 04/15/18 04/16/18 04/16/18 18:59 06:59 18:59 Intake Total 650 590 200 Output Total 825 1100 Balance -175 -510 200 Weight 111.9 kg Intake: Intake, IV Titration 250 350 Amount Cefepime 2 gm In Sodium 100 Chloride 0.9% 50 ml @ 100 mls/hr IVPB Q12HR YANICK Rx #:[id number] Vancomycin 1,500 mg In 250 250 Sodium Chloride 0.9% 250 ml @ 125 mls/hr IVPB Q24H YANICK Rx#:[id number] Oral 400 240 200 Output: Urine 825 1100 Other: Voiding Method Indwelling Catheter Indwelling Catheter Indwelling Catheter # Voids 2 # Bowel Movements 1 - Exam GENERAL EXAM: Alert, pleasant, pale looking 72-year-old white male, comfortable in no apparent distress. HEAD: Normocephalic/atraumatic. EYES: Normal reaction of pupils, equal size. Conjunctiva pink, sclera white. NOSE: Clear with pink turbinates. THROAT: No erythema or exudates. NECK: No masses, no JVD, no thyroid enlargement, no adenopathy. CHEST: No chest wall deformity. Symmetrical expansion. LUNGS: Diminished breath sounds, with bibasilar crackles CVS: Irregular rate and rhythm, normal S1 and S2, no gallops, no murmurs, no rubs ABDOMEN: Soft, nontender. No hepatosplenomegaly, normal bowel sounds, no guarding or rigidity. EXTREMITIES: No clubbing, no cyanosis, 2+ pulses and upper and lower extremities. 1+ edema and upper and lower extremities MUSCULOSKELETAL: Muscle strength and tone normal. SPINE: No scoliosis or deformity SKIN: Patient has petechial rash on upper and lower extremities CENTRAL NERVOUS SYSTEM: Alert and oriented -3. No focal deficits, tone is normal in all 4 extremities. PSYCHIATRIC: Alert and oriented -3. Appropriate affect. Intact judgment and insight. - Labs CBC & Chem 7: 04/14/18 12:39 04/15/18 06:07 Labs: Microbiology - Last 24 Hours (Table) 04/12/18 16:54 Blood Culture - Preliminary Blood No Growth after 72 hours Assessment and Plan Plan: Assessment: #1. Septic shock, likely related to right lower lobe pneumonia, possibly healthcare acquired, repeat chest x-ray shows worsening of right lower lobe infiltrate, but clinically patient is improving #2. Leukocytosis, hypotension, altered mental status, acute kidney injury secondary to above, improved #3. Anemia, related to GI blood loss, occult stool was positive. Most recent GI workup in February 2018 consisting of EGD, small bowel endoscopy could not identify the source of bleeding #4. A. fib RVR #5. Chronic A. fib on long-term anticoagulation with Xarelto #6. Acute kidney injury dated to sepsis #7. Lactic acidosis related to sepsis, improved with IV fluids #8. Recent hospitalization for septic shock, possible underlying pneumonia, pulmonary edema, pleural effusions, UTI, GI bleeding #9. History of CVA #10. Secondary pulmonary hypertension #11. Hyperlipidemia #12. Previous history of cardiac ablation for nonsustained V. tach Plan: Patient remains stable, no specific complaints, no pulmonary complaints, no dyspnea, no chest pain, no chest congestion, no wheezing. Patient is calm and comfortable, he is afebrile, no chills, no chest wall tenderness. Continues on cefepime and vancomycin. Renal profile is improving. Clinically patient continues to improve and can be considered for discharge from pulmonary standpoint. I performed a history & physical examination of the patient and discussed their management with my nurse practitioner, Maylin Tsai. I reviewed the nurse practitioner's note and agree with the documented findings and plan of care. Lung sounds are positive for bibasilar crackles. The findings and the impression was discussed with the patient. I attest to the documentation by the nurse practitioner. Time with Patient: Less than 30
[2018-04-16] MEDS: VANCOMYCIN 1,500 MG in SODIUM CHLORIDE 0.9% 250 ML IVPB SCH (17:59)
--- NOTE | 2018-04-16 18:01 | PN ---
PROGRESS NOTE CHIEF COMPLAINT: Syncope, right lower lobe pneumonitis and failure to thrive. HISTORY OF PRESENT ILLNESS: This gentleman seems to be declining. He is a little bit more lethargic, but he complains of no chest pain, shortness of breath, abdominal pain, etc. His last chest x- ray demonstrated his right lower lobe infiltrate is increasing intensity. PHYSICAL EXAM: He remains pale. Hemoglobin is stable. Chest demonstrates decreased breath sounds at the right base. Cardiac exam is unremarkable and the abdomen is soft and protuberant. IMPRESSION: 1. Right lower lobe pneumonitis. 2. General debility and weakness. 3. Anemia. PLAN: 1. Physical and occupational therapy. 2. Continue to follow chest x-ray. 3. Discharge planning. MMODL / IJN: [id number] /
[2018-04-16] MEDS: PANTOPRAZOLE 40 MG TABLET PO SCH (20:40)
[2018-04-17] MEDS: SODIUM CHLORIDE 0.9% 1,000 ML IV SCH ×2 (05:57→21:26)
[2018-04-17 06:47] LABS: Calcium 7.4 mg/dL (8.4-10.2); Potassium 4.5 mmol/L (3.5-5.1)
[2018-04-17] MEDS: CEFEPIME 2 GM in SODIUM CHLORIDE 0.9% 50 ML IVPB SCH ×2 (08:15→21:26)
[2018-04-17] MEDS: ATORVASTATIN 80 MG TAB PO SCH (08:15)
[2018-04-17] MEDS: ASPIRIN 81 MG PO SCH (08:15)
[2018-04-17] MEDS: PANTOPRAZOLE 40 MG TABLET PO SCH ×2 (08:15→21:26)
[2018-04-17] MEDS: VANCOMYCIN 1,500 MG in SODIUM CHLORIDE 0.9% 250 ML IVPB SCH (10:58)
[2018-04-17] MEDS: DONEPEZIL 5 MG TAB PO SCH (11:02)
--- NOTE | 2018-04-17 11:29 | P.PN ---
Subjective Progress Note Date: 04/17/18 Principal diagnosis: Shortness of breath Progress note dated 04/17/2018 This is a 72-year-old male with septic shock secondary to right lower lobe pneumonia. His pneumonia is likely healthcare acquired. Anyway, the patient is doing much better. He still on oxygen therapy. Not having any breathing difficulty. Not coughing or wheezing. Not producing any phlegm. In addition, the patient has a history of hypertension, secondary to sepsis anemia secondary to GI blood loss chronic atrial fibrillation with RVR acute kidney injury secondary to sepsis, lactic acidosis, CVA, pulmonary hypertension, hyperlipidemia and cardiac ablation for nonsustained ventricular tachycardia. The patient still is on oxygen. He continues on breathing treatments and antibiotics. Objective - Vital Signs Vital signs: Vital Signs Temp 96.2 F L 04/17/18 11:22 Pulse 64 04/17/18 11:22 Resp 18 04/17/18 11:22 BP 121/59 04/17/18 11:22 Pulse Ox 100 04/17/18 11:22 Intake & Output 04/16/18 04/17/18 04/17/18 18:59 06:59 18:59 Intake Total 430 600 740 Output Total 900 600 Balance -470 0 740 Weight 111.9 kg Intake: IV 600 0.9 600 Intake, IV Titration 50 500 Amount Cefepime 2 gm In Sodium 50 50 Chloride 0.9% 50 ml @ 100 mls/hr IVPB Q12HR [facility]AN[facility] Rx #:[id number] Sodium Chloride 0.9% 1, 200 000 ml @ 75 mls/hr IV . [id number] YANICK Rx#:[id number] Vancomycin 1,500 mg In 250 Sodium Chloride 0.9% 250 ml @ 125 mls/hr IVPB Q24H YANICK Rx#:[id number] Oral 380 240 Output: Urine 900 600 Uretheral ([place]bard) 600 Other: Voiding Method Indwelling Catheter Indwelling Catheter Indwelling Catheter # Voids 2 - Exam No acute distress, oriented 3. Nasal O2 in place. No signs or symptoms of respiratory distress. HEENT examination is grossly unremarkable. Mucous membranes are moist. No oral lesions. Neck supple. Full range of motion. No adenopathy thyromegaly or neck vein distention. Cardiovascular examination reveals regular rhythm rate. S1-S2 normal. No S3 or S4. No discernible murmur noted. Lungs reveal mild coarse bilateral rhonchi. Breath sounds are diminished. No wheezes. No crackles. Breath sounds equal bilaterally. Abdomen soft bowel sounds are heard. No masses or tenderness. Extremities are intact. No cyanosis clubbing or edema. Skin is without rash or lesion. Neurologic examination is brief but nonfocal. - Labs CBC & Chem 7: 04/14/18 12:39 04/17/18 06:15 Labs: Abnormal Lab Results - Last 24 Hours (Table) 04/17/18 Range/Units 06:15 Chloride 113 H (98-107) mmol/L BUN 35 H (9-20) mg/dL Calcium 7.4 L (8.4-10.2) mg/dL Microbiology - Last 24 Hours (Table) 04/12/18 16:54 Blood Culture - Preliminary Blood No Growth after 96 hours Assessment and Plan Assessment: Assessment Septic shock, resolved, secondary to healthcare acquired right lower lobe pneumonia History of acute kidney injury secondary to sepsis Anemia, secondary to GI blood loss, with negative EGD. Atrial fibrillation/RVR Acute kidney injury Lactic acidosis, resolved History of CVA Secondary pulmonary hypertension Hyperlipidemia Previous history of cardiac ablation for nonsustained V. tach Plan: Plan dated 04/17/2018 The patient continues on breathing treatments and antibiotics. The patient also continues on oxygen therapy. Antibiotics include cefepime and vancomycin. The patient is encouraged to deep breathe cough and clear secretions and continue using the incentive spirometer. From the pulmonary standpoint, patient is stable. The patient will need to be evaluated for possible oxygen therapy once discharged. This would include a room air resting saturation and a saturation on room air while ambulating. The patient should follow-up with one of us in the office. Prognosis is guarded. Time with Patient: Less than 30
[2018-04-17] MEDS ORDERED: CALCIUM CARBONATE 500 MG CHEWABLE PO PRN (12:52)
--- NOTE | 2018-04-17 15:22 | XR ---
EXAMINATION TYPE: XR chest 2V DATE OF EXAM: 04/17/2018 COMPARISON: Chest x-ray from 2 days ago. HISTORY: Pneumonia progress study. TECHNIQUE: Frontal and lateral views of the chest are obtained. FINDINGS: Diminished inspiration is present on current study. Persistent perihilar opacities are maryann ntified. Persistent small bilateral pleural effusions are noted best seen on lateral view . The cardi ac silhouette size remains enlarged. The osseous structures are intact. IMPRESSION: Suboptimal study with poor inspiration, persistent cardiomegaly and small bilateral pleu ral effusions with perihilar edema and/or infiltrates. Advised progress two view chest xray.
--- NOTE | 2018-04-17 18:29 | PN ---
PROGRESS NOTE DATE OF SERVICE: 04/17/2018 CHIEF COMPLAINT: Right lower lobe pneumonitis and septic shock. HISTORY OF PRESENT ILLNESS: This gentleman states that he is doing better, but every time one enters the room, he is asleep and has been very inactive. He denies fever, chills, headache, etc. He is coughing and he is a little bit short of breath. Last x-ray demonstrated his right lower lobe infiltrate was getting worse and this will be repeated. PHYSICAL EXAM: He has decreased breath sounds in the right base. Cardiac is the same and the abdomen is soft and nontender. IMPRESSION: 1. Right lower lobe pneumonitis. 2. ? septic shock. 3. Chronic anemia. PLAN: Repeat chest x-ray and continue current program. Discharge planning has been requested, but the patient refuses go back to [facility]. KATHLEEN / REMEDIOS: [id number] /
[2018-04-18] MEDS: VANCOMYCIN 1,500 MG in SODIUM CHLORIDE 0.9% 250 ML IVPB SCH ×2 (03:25→18:54)
[2018-04-18] MEDS: PANTOPRAZOLE 40 MG TABLET PO SCH ×2 (08:21→21:18)
[2018-04-18] MEDS: ASPIRIN 81 MG PO SCH (08:21)
[2018-04-18] MEDS: CEFEPIME 2 GM in SODIUM CHLORIDE 0.9% 50 ML IVPB SCH ×2 (08:21→21:18)
[2018-04-18] MEDS: ATORVASTATIN 80 MG TAB PO SCH (08:21)
[2018-04-18 08:58] VITALS: BMI 34.8
[2018-04-18] MEDS: SODIUM CHLORIDE 0.9% 1,000 ML IV SCH ×2 (10:38→21:18)
[2018-04-18] MEDS: DONEPEZIL 5 MG TAB PO SCH (11:50)
--- NOTE | 2018-04-18 14:42 | P.PN ---
Subjective Progress Note Date: 04/18/18 Principal diagnosis: Septic shock secondary to right lower lobe pneumonia Erika is a 72-year-old white male patient of Dr. Pastrana, who presented per EMS to the emergency department on the way 2017 at 1600 or evaluation of dyspnea, hypotension, altered mentation, A. fib RVR. He is a poor historian. He denied any fever, or chills, denied any chest pain, denied any phlegm production. Patient states he lost his balance going up the steps to his house , and fell onto the steps, but he denies any injuries. He was noted to be very short of breath, and His female friend called the ambulance. When the ambulance arrived patient was confused, and moderate to severe amount of respiratory distress. In the emergency department she was noted to be hypotensive and tachycardic in atrial fibrillation. Patient was hospitalized in February of this year, for progressive anemia, possible GI blood loss, and the source was not determined, bilateral plural effusions secondary to congestive heart failure with diastolic dysfunction, and possible underlying pneumonia, requiring intubation and mechanical ventilation. We saw the patient in consultation during that admission, and patient underwent right-sided thoracentesis with Dr. Stokes with removal of 1500 mL of pleural fluid which was transudate in nature and cytology was negative for malignancy. Patient was discharged to [facility] and rehab on 02/21/2018 where he remained for a period of 3 weeks, and subsequently was discharged home. Chest x-ray was completed and showed a right lower lobe posterior consolidation and pleural effusion, this was compared to previous chest x-ray on 02/12/2018 and and there is probably improved aeration of the left lung compared to last exam. Lab work showed mild leukocytosis, and obesity of 14.0, hemoglobin is 8.5, INR is 1.4, sodium is 135, BUN of 41, creatinine is 2.0, plasma lactic acid was elevated at 4.1, LFTs were within normal limits, urine analysis showed moderate ketones, RBCs and WBCs. Patient was given a total of 4 L of 0.9 normal saline, his lactic acid did come down to 1.6, and his blood pressure improved. Patient was started on combination of cefepime and vancomycin for a possibility of healthcare acquired pneumonia. Anyway seen the patient in consultation for septic shock, likely related to acute right lower lobe pneumonia, possibly healthcare acquired. On today's evaluation of 04/14/2018, the patient is looking extremely well. Sitting up on a chair. No respiratory distress. No cough or sputum production. No fever or chills. Hemodynamically stable. Awaiting follow-up on his blood work. Meanwhile the blood cultures are negative and urine cultures are negative the patient is still covered with a broad-spectrum antibiotics utilizing a combination of cefepime and vancomycin. The rash is also improved and I would say there is probably 40-50% improvement in the rash throughout his body. No other significant events. Is resting comfortably in bed. He is able to sit up on a chair without any major difficulties. Only 2017 patient seen in follow-up in selective care unit. She is sitting up in the chair, in no acute distress, pulse ox on 2 L per nasal cannula is 95% , patient is afebrile, any chest pain, denies any chills. No phlegm production. Today's chest x-ray has been reviewed, and shows worsening right- sided airspace disease with probable trace pleural effusion, but clinically patient is doing better, mentation is improving, is afebrile, vital signs are stable, no hypotension, renal profile is improving, BUN is 50 and creatinine is down to 1.70. Electrolytes are unremarkable. Urine and blood cultures remain negative. Patient is being treated with a combination of cefepime and vancomycin, clinically he continues to improve. On 04/16/2018 patient seen in follow-up on selective care unit. He sitting up in the chair, in no acute distress, he is on 2 L per nasal cannula with pulse ox 100%, he is afebrile, hemodynamically stable, no evidence of any altered mentation. He is alert and awake, and responding appropriately. Denies any dyspnea, denies any chest pain. No new chest x-rays today, no new labs. Lung sounds are positive for a few scattered crackles, but no rhonchi, no wheezes noted. Microbiology remains negative. No fever, no chills. No dyspnea, no chest pain, no chest congestion. He is looking and feeling well. No cough, no sputum production. The rash on his upper and lower extremities is improving, in the p.m., and c-ANCA and p-ANCA levels were within normal limits. Continues on a combination of cefepime and vancomycin. Progress note dated 04/17/2018 This is a 72-year-old male with septic shock secondary to right lower lobe pneumonia. His pneumonia is likely healthcare acquired. Anyway, the patient is doing much better. He still on oxygen therapy. Not having any breathing difficulty. Not coughing or wheezing. Not producing any phlegm. In addition, the patient has a history of hypertension, secondary to sepsis anemia secondary to GI blood loss chronic atrial fibrillation with RVR acute kidney injury secondary to sepsis, lactic acidosis, CVA, pulmonary hypertension, hyperlipidemia and cardiac ablation for nonsustained ventricular tachycardia. The patient still is on oxygen. He continues on breathing treatments and antibiotics. The patient is seen again today 04/18/2018 in follow-up on the selective care unit. He is currently sitting up in a chair at the bedside. He is awake and alert in no acute distress. He denies any worsening shortness of breath, cough or congestion. He is maintaining good O2 saturations in the high 90s on room air. Chest x-ray reveals poor inspiratory effort. There is persistent cardiomegaly and small bilateral pleural effusions with some perihilar edema. He is afebrile. Hemodynamically stable. Blood and urine cultures reveal no growth. He remains on vancomycin and cefepime. Objective - Vital Signs Vital signs: Vital Signs Temp 96.7 F L 04/18/18 11:40 Pulse 85 04/18/18 11:40 Resp 18 04/18/18 11:40 BP 121/57 04/18/18 11:40 Pulse Ox 99 04/18/18 11:40 Intake & Output 04/17/18 04/18/18 04/18/18 18:59 06:59 18:59 Intake Total 1190 175 50 Output Total 600 Balance 1190 -425 50 Weight 113.2 kg 113.2 kg Intake: IV 175 0.9 175 Intake, IV Titration 950 50 Amount Cefepime 2 gm In Sodium 50 50 Chloride 0.9% 50 ml @ 100 mls/hr IVPB Q12HR [facility]ANICK Rx #:[id number] Sodium Chloride 0.9% 1, 400 000 ml @ 75 mls/hr IV . [id number] YANICK Rx#:[id number] Vancomycin 1,500 mg In 500 Sodium Chloride 0.9% 250 ml @ 125 mls/hr IVPB Q24H YANICK Rx#:[id number] Oral 240 Output: Urine 600 Other: Voiding Method Indwelling Catheter Indwelling Catheter Indwelling Catheter - Exam No acute distress, oriented 3. Nasal O2 in place. No signs or symptoms of respiratory distress. HEENT examination is grossly unremarkable. Mucous membranes are moist. No oral lesions. Neck supple. Full range of motion. No adenopathy thyromegaly or neck vein distention. Cardiovascular examination reveals regular rhythm rate. S1-S2 normal. No S3 or S4. No discernible murmur noted. Lungs reveal mild coarse bilateral rhonchi. Breath sounds are diminished. No wheezes. No crackles. Breath sounds equal bilaterally. Abdomen soft bowel sounds are heard. No masses or tenderness. Extremities are intact. No cyanosis clubbing or edema. Skin is without rash or lesion. Neurologic examination is brief but nonfocal. - Labs CBC & Chem 7: 04/14/18 12:39 04/17/18 06:15 Labs: Microbiology - Last 24 Hours (Table) 04/12/18 16:54 Blood Culture - Preliminary Blood No Growth after 120 hours Assessment and Plan Assessment: Assessment Septic shock, resolved, secondary to healthcare acquired right lower lobe pneumonia History of acute kidney injury secondary to sepsis Anemia, secondary to GI blood loss, with negative EGD. Atrial fibrillation/RVR Acute kidney injury Lactic acidosis, resolved History of CVA Secondary pulmonary hypertension Hyperlipidemia Previous history of cardiac ablation for nonsustained V. tach Plan: The patient was seen and evaluated by Dr. Alves. He could be discharged from the pulmonary standpoint. He should follow-up in our office in 1-2 weeks' time. We'll repeat a chest x-ray then. He is encouraged to call sooner with any recurrence of symptoms or other questions or concerns. I, the cosigning physician, performed a history & physical examination of the patient. Lungs sounds with few scattered rhonchi. Maintaining good O2 saturations in the 90s on 2 L/m per nasal cannula. I discussed the assessment and plan of care with my nurse practitioner, Trudy Bear. I attest to the above note as dictated by her.
[2018-04-18 15:09] LABS: Anisocytosis Slight; Basophils % (A) 0 %; Eosinophils # (A) 0.3 k/uL (0-0.7); Eosinophils % (A) 2 %; HCT 28.3 % (39.0-53.0); HGB 8.4 gm/dL (13.0-17.5); Hypochromasia Marked; Lymphocytes % (A) 7 %; MCH 24.2 pg (25.0-35.0); MCHC 29.6 g/dL (31.0-37.0); Mean Platelet Volume 8.1; Microcytosis Slight; Monocytes # (A) 1.6 k/uL (0-1.0); Monocytes % (A) 11 %; Neutrophils # (A) 12.1 k/uL (1.3-7.7); Neutrophils % (A) 80 %; Platelet Count 326 k/uL (150-450); Poikilocytosis Slight; RBC 3.46 m/uL (4.30-5.90); RDW 18.7 % (11.5-15.5); WBC 15.3 k/uL (3.8-10.6)
[2018-04-18 16:11] LABS: Polychromasia Present
--- NOTE | 2018-04-19 00:17 | P.PN ---
Subjective Progress Note Date: 04/18/18 Principal diagnosis: Septic shock secondary to right lower lobe pneumonia Patient is a 72-year-old male with a known history of Atrial Fibrillation, CVA/ TIA, Deep Vein Thrombosis (DVT), Hyperlipidemia, Sleep Apnea/CPAP/BIPAP, Vascular Disorder was admitted to the hospital status post fall and was found to have right lower lobe pneumonia and sepsis. 04/18/2018 Currently patient is awake alert and oriented 3. Denied any worsening shortness of breath or chest pain. Patient is still having leukocytosis. Chest x-ray showed poor inspiratory effort. And persistent cardiomegaly and small bilateral pleural effusions with some perihilar edema. Otherwise patient is afebrile. Continued antibiotics in the form of vancomycin and cefepime. Pulmonary is following. We will monitor his repeat CBC and BMP tomorrow. Hold IV fluids. All other review of systems negative except the above Current medications reviewed Active Medications Generic Name Dose Route Start Last Admin Trade Name Freq PRN Reason Stop Dose Admin Acetaminophen 650 mg 04/12/18 20:48 Tylenol Tab PO Q6HR PRN Mild Pain or Fever > 100.5 Aspirin 81 mg 04/15/18 09:00 04/18/18 08:21 Aspirin PO 81 mg DAILY YANICK Administration Atorvastatin Calcium 80 mg 04/15/18 09:00 04/18/18 08:21 Lipitor PO 80 mg DAILY YANICK Administration Calcium Carbonate/Glycine 500 mg 04/17/18 12:52 Tums PO TID PRN Heartburn Donepezil HCl 5 mg 04/13/18 12:00 04/18/18 11:50 Aricept PO 5 mg DAILY@1200 YANICK Administration Cefepime HCl 2 gm/ Sodium 50 mls @ 100 mls/hr 04/13/18 21:00 04/18/18 21:18 Chloride IVPB 100 mls/hr Q12HR YANICK Administration Vancomycin HCl 1,500 mg/ 250 mls @ 125 mls/hr 04/17/18 11:00 04/18/18 18:54 Sodium Chloride IVPB 125 mls/hr Q16H YANICK Administration Naloxone HCl 0.2 mg 04/12/18 20:48 Narcan IV Q2M PRN Opioid Reversal Pantoprazole Sodium 40 mg 04/16/18 21:00 04/18/18 21:18 Protonix PO Not Given BID YANICK Silver Sulfadiazine 1 applic 04/18/18 21:00 04/18/18 18:55 Silvadene Cream TOPICAL 1 applic 2100 YANICK Administration Objective - Vital Signs Vital signs: Vital Signs Temp 96.7 F L 04/18/18 11:40 Pulse 85 04/18/18 11:40 Resp 18 04/18/18 11:40 BP 121/57 04/18/18 11:40 Pulse Ox 99 04/18/18 11:40 Intake & Output 04/17/18 04/18/18 04/18/18 18:59 06:59 18:59 Intake Total 1190 175 50 Output Total 600 Balance 1190 -425 50 Weight 113.2 kg 113.2 kg Intake: IV 175 0.9 175 Intake, IV Titration 950 50 Amount Cefepime 2 gm In Sodium 50 50 Chloride 0.9% 50 ml @ 100 mls/hr IVPB Q12HR [facility] Rx #:[id number] Sodium Chloride 0.9% 1, 400 000 ml @ 75 mls/hr IV . [id number] [facility] Rx#:[id number] Vancomycin 1,500 mg In 500 Sodium Chloride 0.9% 250 ml @ 125 mls/hr IVPB Q24H [facility] Rx#:[id number] Oral 240 Output: Urine 600 Other: Voiding Method Indwelling Catheter Indwelling Catheter Indwelling Catheter - Exam No acute distress, oriented 3. Nasal O2 in place. No signs or symptoms of respiratory distress. HEENT examination is grossly unremarkable. Mucous membranes are moist. No oral lesions. Neck supple. Full range of motion. No adenopathy thyromegaly or neck vein distention. Cardiovascular examination reveals regular rhythm rate. S1-S2 normal. No S3 or S4. No discernible murmur noted. Lungs reveal mild coarse bilateral rhonchi. Breath sounds are diminished. No wheezes. No crackles. Breath sounds equal bilaterally. Abdomen soft bowel sounds are heard. No masses or tenderness. Extremities are intact. No cyanosis clubbing or edema. Skin is without rash or lesion. Neurologic examination is brief but nonfocal. - Labs CBC & Chem 7: 04/18/18 14:29 04/17/18 06:15 Labs: Abnormal Lab Results - Last 24 Hours (Table) 04/18/18 Range/Units 14:29 WBC 15.3 H (3.8-10.6) k/uL RBC 3.46 L (4.30-5.90) m/uL Hgb 8.4 L (13.0-17.5) gm/dL Hct 28.3 L (39.0-53.0) % MCH 24.2 L (25.0-35.0) pg MCHC 29.6 L (31.0-37.0) g/dL RDW 18.7 H (11.5-15.5) % Microbiology - Last 24 Hours (Table) 04/12/18 16:54 Blood Culture - Preliminary Blood No Growth after 120 hours Assessment and Plan Assessment: Septic shock, resolved, secondary to healthcare acquired right lower lobe pneumonia History of acute kidney injury secondary to sepsis Anemia, secondary to GI blood loss, with negative EGD. Atrial fibrillation/RVR Acute kidney injury Lactic acidosis, resolved History of CVA Secondary pulmonary hypertension Hyperlipidemia Previous history of cardiac ablation for nonsustained V. tach Plan: Patient will be continued on antibiotics and monitor closely. Repeat CBC and BMP. Encourage oral intake and ambulation. IV fluids were discontinued. Anticipate discharge tomorrow with more clinical improvement. Time with Patient: Greater than 30
[2018-04-19 06:29] LABS: Anisocytosis Slight; HCT 28.2 % (39.0-53.0); HGB 8.3 gm/dL (13.0-17.5); Hypochromasia Marked; MCH 24.3 pg (25.0-35.0); MCHC 29.6 g/dL (31.0-37.0); MCV 82.2 fL (80.0-100.0); Mean Platelet Volume 7.2; Microcytosis Slight; Platelet Count 293 k/uL (150-450); RBC 3.42 m/uL (4.30-5.90); RDW 18.5 % (11.5-15.5); WBC 15.7 k/uL (3.8-10.6)
[2018-04-19 06:36] LABS: Potassium 4.3 mmol/L (3.5-5.1)
[2018-04-19 08:09] LABS: Eosinophils # (M) 0.16 k/uL (0-0.7); Lymphocytes # (M) 0.47 k/uL (1.0-4.8); Metamyelocytes # (M) 0.16 k/uL (0); Metamyelocytes % 1 %; Monocytes # (M) 0.47 k/uL (0-1.0); Myelocytes # (M) 0.63 k/uL (0); Myelocytes % 4 %; Neutrophils # (M) 14.13 k/uL (1.3-7.7); Neutrophils % (M) 90 %; Nucleated Red Blood Cells 0 /100 WBC (0-0); Total Cells Counted 200
[2018-04-19 08:10] LABS: Poikilocytosis (M) Present
[2018-04-19] MEDS: ATORVASTATIN 80 MG TAB PO SCH (09:23)
[2018-04-19] MEDS: ASPIRIN 81 MG PO SCH (09:23)
[2018-04-19] MEDS: PANTOPRAZOLE 40 MG TABLET PO SCH ×2 (09:23→21:42)
[2018-04-19] MEDS: CEFEPIME 2 GM in SODIUM CHLORIDE 0.9% 50 ML IVPB SCH (09:23)
[2018-04-19] MEDS: VANCOMYCIN 1,500 MG in SODIUM CHLORIDE 0.9% 250 ML IVPB SCH (11:04)
[2018-04-19] MEDS: DONEPEZIL 5 MG TAB PO SCH (11:04)
--- NOTE | 2018-04-19 13:37 | P.PN ---
Subjective Progress Note Date: 04/19/18 Principal diagnosis: Septic shock secondary to right lower lobe pneumonia Erika is a 72-year-old white male patient of Dr. Pastrana, who presented per EMS to the emergency department on the way 2017 at 1600 or evaluation of dyspnea, hypotension, altered mentation, A. fib RVR. He is a poor historian. He denied any fever, or chills, denied any chest pain, denied any phlegm production. Patient states he lost his balance going up the steps to his house , and fell onto the steps, but he denies any injuries. He was noted to be very short of breath, and His female friend called the ambulance. When the ambulance arrived patient was confused, and moderate to severe amount of respiratory distress. In the emergency department she was noted to be hypotensive and tachycardic in atrial fibrillation. Patient was hospitalized in February of this year, for progressive anemia, possible GI blood loss, and the source was not determined, bilateral plural effusions secondary to congestive heart failure with diastolic dysfunction, and possible underlying pneumonia, requiring intubation and mechanical ventilation. We saw the patient in consultation during that admission, and patient underwent right-sided thoracentesis with Dr. Stokes with removal of 1500 mL of pleural fluid which was transudate in nature and cytology was negative for malignancy. Patient was discharged to [facility] on 02/21/2018 where he remained for a period of 3 weeks, and subsequently was discharged home. Chest x-ray was completed and showed a right lower lobe posterior consolidation and pleural effusion, this was compared to previous chest x-ray on 02/12/2018 and and there is probably improved aeration of the left lung compared to last exam. Lab work showed mild leukocytosis, and obesity of 14.0, hemoglobin is 8.5, INR is 1.4, sodium is 135, BUN of 41, creatinine is 2.0, plasma lactic acid was elevated at 4.1, LFTs were within normal limits, urine analysis showed moderate ketones, RBCs and WBCs. Patient was given a total of 4 L of 0.9 normal saline, his lactic acid did come down to 1.6, and his blood pressure improved. Patient was started on combination of cefepime and vancomycin for a possibility of healthcare acquired pneumonia. Anyway seen the patient in consultation for septic shock, likely related to acute right lower lobe pneumonia, possibly healthcare acquired. On today's evaluation of 04/14/2018, the patient is looking extremely well. Sitting up on a chair. No respiratory distress. No cough or sputum production. No fever or chills. Hemodynamically stable. Awaiting follow-up on his blood work. Meanwhile the blood cultures are negative and urine cultures are negative the patient is still covered with a broad-spectrum antibiotics utilizing a combination of cefepime and vancomycin. The rash is also improved and I would say there is probably 40-50% improvement in the rash throughout his body. No other significant events. Is resting comfortably in bed. He is able to sit up on a chair without any major difficulties. Only 2017 patient seen in follow-up in selective care unit. She is sitting up in the chair, in no acute distress, pulse ox on 2 L per nasal cannula is 95% , patient is afebrile, any chest pain, denies any chills. No phlegm production. Today's chest x-ray has been reviewed, and shows worsening right- sided airspace disease with probable trace pleural effusion, but clinically patient is doing better, mentation is improving, is afebrile, vital signs are stable, no hypotension, renal profile is improving, BUN is 50 and creatinine is down to 1.70. Electrolytes are unremarkable. Urine and blood cultures remain negative. Patient is being treated with a combination of cefepime and vancomycin, clinically he continues to improve. On 04/16/2018 patient seen in follow-up on selective care unit. He sitting up in the chair, in no acute distress, he is on 2 L per nasal cannula with pulse ox 100%, he is afebrile, hemodynamically stable, no evidence of any altered mentation. He is alert and awake, and responding appropriately. Denies any dyspnea, denies any chest pain. No new chest x-rays today, no new labs. Lung sounds are positive for a few scattered crackles, but no rhonchi, no wheezes noted. Microbiology remains negative. No fever, no chills. No dyspnea, no chest pain, no chest congestion. He is looking and feeling well. No cough, no sputum production. The rash on his upper and lower extremities is improving, in the p.m., and c-ANCA and p-ANCA levels were within normal limits. Continues on a combination of cefepime and vancomycin. Progress note dated 04/17/2018 This is a 72-year-old male with septic shock secondary to right lower lobe pneumonia. His pneumonia is likely healthcare acquired. Anyway, the patient is doing much better. He still on oxygen therapy. Not having any breathing difficulty. Not coughing or wheezing. Not producing any phlegm. In addition, the patient has a history of hypertension, secondary to sepsis anemia secondary to GI blood loss chronic atrial fibrillation with RVR acute kidney injury secondary to sepsis, lactic acidosis, CVA, pulmonary hypertension, hyperlipidemia and cardiac ablation for nonsustained ventricular tachycardia. The patient still is on oxygen. He continues on breathing treatments and antibiotics. The patient is seen again today 04/18/2018 in follow-up on the selective care unit. He is currently sitting up in a chair at the bedside. He is awake and alert in no acute distress. He denies any worsening shortness of breath, cough or congestion. He is maintaining good O2 saturations in the high 90s on room air. Chest x-ray reveals poor inspiratory effort. There is persistent cardiomegaly and small bilateral pleural effusions with some perihilar edema. He is afebrile. Hemodynamically stable. Blood and urine cultures reveal no growth. He remains on vancomycin and cefepime. The patient is seen again today 04/19/2018 in follow-up on the selective care unit. He is currently resting quite comfortably in bed. He remains awake and alert in no acute distress. He denies any worsening shortness of breath, cough or congestion. He is maintaining good O2 saturations in the high 90s on 2 L/m per nasal cannula. He is afebrile. Hemodynamically stable. Urine and blood cultures reveal no growth. White count 15.7. Hemoglobin 8.3. Creatinine 1.06 Objective - Vital Signs Vital signs: Vital Signs Temp 98.6 F 04/19/18 00:00 Pulse 89 04/19/18 03:55 Resp 18 04/19/18 03:55 BP 127/57 04/19/18 03:55 Pulse Ox 98 04/19/18 03:55 Intake & Output 04/18/18 04/19/18 04/19/18 18:59 06:59 18:59 Intake Total 50 480 Output Total 600 Balance 50 -600 480 Weight 113.2 kg 112.8 kg Intake: Intake, IV Titration 50 Amount Cefepime 2 gm In Sodium 50 Chloride 0.9% 50 ml @ 100 mls/hr IVPB Q12HR [facility] Rx #:[id number] Oral 480 Output: Urine 600 Other: Voiding Method Indwelling Catheter Indwelling Catheter # Bowel Movements 1 2 - Exam No acute distress, oriented 3. Nasal O2 in place. No signs or symptoms of respiratory distress. HEENT examination is grossly unremarkable. Mucous membranes are moist. No oral lesions. Neck supple. Full range of motion. No adenopathy thyromegaly or neck vein distention. Cardiovascular examination reveals regular rhythm rate. S1-S2 normal. No S3 or S4. No discernible murmur noted. Lungs reveal mild coarse bilateral rhonchi. Breath sounds are diminished. No wheezes. No crackles. Breath sounds equal bilaterally. Abdomen soft bowel sounds are heard. No masses or tenderness. Extremities are intact. No cyanosis clubbing or edema. Skin is without rash or lesion. Neurologic examination is brief but nonfocal. - Labs CBC & Chem 7: 04/19/18 05:55 04/19/18 05:55 Labs: Abnormal Lab Results - Last 24 Hours (Table) 04/18/18 04/19/18 04/19/18 Range/Units 14:29 05:55 05:55 WBC 15.3 H 15.7 H (3.8-10.6) k/uL RBC 3.46 L 3.42 L (4.30-5.90) m/uL Hgb 8.4 L 8.3 L (13.0-17.5) gm/dL Hct 28.3 L 28.2 L (39.0-53.0) % MCH 24.2 L 24.3 L (25.0-35.0) pg MCHC 29.6 L 29.6 L (31.0-37.0) g/dL RDW 18.7 H 18.5 H (11.5-15.5) % Neutrophils # 12.1 H (1.3-7.7) k/uL Neutrophils # (Manual) 14.13 H (1.3-7.7) k/uL Lymphocytes # (Manual) 0.47 L (1.0-4.8) k/uL Monocytes # 1.6 H (0-1.0) k/uL Metamyelocytes # (Man) 0.16 H (0) k/uL Myelocytes # (Manual) 0.63 H (0) k/uL Chloride 114 H (98-107) mmol/L BUN 28 H (9-20) mg/dL Calcium 7.0 L (8.4-10.2) mg/dL Microbiology - Last 24 Hours (Table) 04/12/18 16:54 Blood Culture - Final Blood No Growth after 144 hours Assessment and Plan Assessment: Assessment Septic shock, resolved, secondary to healthcare acquired right lower lobe pneumonia History of acute kidney injury secondary to sepsis Anemia, secondary to GI blood loss, with negative EGD. Atrial fibrillation/RVR Acute kidney injury Lactic acidosis, resolved History of CVA Secondary pulmonary hypertension Hyperlipidemia Previous history of cardiac ablation for nonsustained V. tach Plan: The patient was seen and evaluated by Dr. Alves. He could be discharged from the pulmonary standpoint. He should follow-up in our office in 1-2 weeks' time. We'll repeat a chest x-ray then. He is encouraged to call sooner with any recurrence of symptoms or other questions or concerns. We will see the patient on as-needed basis. I, the cosigning physician, performed a history & physical examination of the patient. Lungs sounds with few scattered rhonchi. Maintaining good O2 saturations in the 90s on 2 L/m per nasal cannula. I discussed the assessment and plan of care with my nurse practitioner, Trudy Bear. I attest to the above note as dictated by her.
--- NOTE | 2018-04-19 20:40 | XR ---
EXAMINATION TYPE: XR chest 1V DATE OF EXAM: 04/19/2018 COMPARISON: 04/17/2018 HISTORY: Pneumonia TECHNIQUE: Single frontal view of the chest is obtained. FINDINGS: There is no heart failure. There is poor inspiration with probably some atelectasis at the right lung base. There are chest leads. IMPRESSION: Poor inspiration that is improved slightly compared to last exam. No heart failure seen.
[2018-04-20] MEDS: VANCOMYCIN 1,500 MG in SODIUM CHLORIDE 0.9% 250 ML IVPB SCH (04:38)
[2018-04-20 07:05] LABS: Calcium 6.9 mg/dL (8.4-10.2); Potassium 4.3 mmol/L (3.5-5.1)
[2018-04-20] MEDS: PANTOPRAZOLE 40 MG TABLET PO SCH (08:17)
[2018-04-20] MEDS: ASPIRIN 81 MG PO SCH (08:17)
[2018-04-20] MEDS: ATORVASTATIN 80 MG TAB PO SCH (08:17)
[2018-04-20] MEDS: DONEPEZIL 5 MG TAB PO SCH (11:27)
[2018-04-20 11:31] VITALS: BP 118/58; PULSE 84; RESP 16; TEMP 97.5
[2018-04-21] MEDS ORDERED: VANCOMYCIN TROUGH DUE 1 EACH MISC MISCELLANE ONE (10:00)
--- NOTE | 2018-04-25 18:40 | DS ---
DISCHARGE SUMMARY DATE OF SERVICE: 04/20/2018 CHIEF COMPLAINT: Syncope, anemia, failure to thrive. HISTORY OF PRESENT ILLNESS AND PHYSICAL EXAM: The details of this man's history and physical can be found in the initial workup. LABORATORY STUDIES: While he was in the hospital, he had laboratory studies, details which can be found in the laboratory section of his chart. COURSE IN HOSPITAL: After admission he was placed on bedrest, started on intravenous fluids and underwent a general evaluation for syncope. He was weak and somewhat debilitated, it was felt that he could be discharged on the to home care and will follow him up as an outpatient. He was discharged in my absence. FINAL DIAGNOSES: 1. Syncope. 2. Failure to thrive. 3. Recent episode of septic shock. 4. Anemia. OPERATIONS: None. CONSULTATIONS: None. He is improved. KATHLEEN / REMEDIOS: [id number] /
== END 2018-04-20 15:34 | disposition home or self-care (01) | DRG 871 ==
LOC: EC 16:42 → 6SEL 20:48
PROVIDERS: ADMIT Family Medicine; ATTEND Family Medicine
DX: A41.9 Sepsis, unspecified organism (principal); R65.21 Severe sepsis with septic shock; J18.9 Pneumonia, unspecified organism; K29.71 Gastritis, unspecified, with bleeding; N17.9 Acute kidney failure, unspecified; E87.2 Acidosis; I47.1 Supraventricular tachycardia; Y95 Nosocomial condition; D50.0 Iron deficiency anemia secondary to blood loss (chronic); I11.0 Hypertensive heart disease with heart failure; I27.29 Other secondary pulmonary hypertension; I48.2 Chronic atrial fibrillation; K29.60 Other gastritis without bleeding; E66.9 Obesity, unspecified; Z68.34 Body mass index [BMI] 34.0-34.9, adult; E78.5 Hyperlipidemia, unspecified; G47.33 Obstructive sleep apnea (adult) (pediatric); I50.9 Heart failure, unspecified; K29.80 Duodenitis without bleeding; K44.9 Diaphragmatic hernia without obstruction or gangrene; K57.30 Diverticulosis of large intestine without perforation or abscess without bleeding; R62.7 Adult failure to thrive; Z91.81 History of falling; Z79.01 Long term (current) use of anticoagulants; Z79.82 Long term (current) use of aspirin; Z79.899 Other long term (current) drug therapy; Z82.3 Family history of stroke; Z86.718 Personal history of other venous thrombosis and embolism; Z86.73 Personal history of transient ischemic attack (TIA), and cerebral infarction without residual deficits; Z87.891 Personal history of nicotine dependence; Z87.440 Personal history of urinary (tract) infections; Z87.01 Personal history of pneumonia (recurrent); Z99.81 Dependence on supplemental oxygen; Z60.2 Problems related to living alone; Z86.010 Personal history of colon polyps; I27.20 Pulmonary hypertension, unspecified; R55 Syncope and collapse
CPT/HCPCS: 36415; 51702; 70450; 71045; 71046; 80048; 80053; 80202; 81001; 82272; 82550; 82553; 82803; 83605; 83735; 84484; 85025; 85610; 85652; 85730; 86255; 87040; 87086; 93005; 96361; 96365; 96375; 99285

== ENCOUNTER 2018-05-13 13:12 | Inpatient (IN) | payer MEDICARE, BC ==
[2018-05-13] MEDS ORDERED: FUROSEMIDE 10 MG/ML 10 ML VIAL IV STA (13:19)
[2018-05-13] MEDS ORDERED: NITROGLYCERIN OINT 1 INCH/GM PACKET TOPICAL STA (13:20)
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
--- NOTE | 2018-05-13 13:44 | XR ---
EXAMINATION TYPE: XR chest 1V portable DATE OF EXAM: 05/13/2018 COMPARISON: 04/19/2018 HISTORY: Difficulty in breathing TECHNIQUE: Single frontal view of the chest is obtained. FINDINGS: There are diffuse bilateral infiltrates and pleural effusion. Heart size prominent. Athero sclerotic change aorta. Arthropathy shoulders. No pneumothorax. IMPRESSION: 1. There is progressive airspace disease bilaterally with pleural effusion. Differential diagnosis in cludes diffuse pneumonia versus pulmonary edema.
[2018-05-13 13:46] LABS: Glucose,Whole Blood 160 mg/dL (75-99)
[2018-05-13 13:51] LABS: INR 1.5 (<1.2); Partial Thromboplastin Time 29.7 sec (22.0-30.0); Prothrombin Time 14.3 sec (9.0-12.0)
[2018-05-13 13:54] LABS: Albumin 2.2 g/dL (3.5-5.0); Calcium 7.4 mg/dL (8.4-10.2); Magnesium 1.4 mg/dL (1.6-2.3); Potassium 3.7 mmol/L (3.5-5.1); Total Bilirubin 0.5 mg/dL (0.2-1.3); Total Protein 5.3 g/dL (6.3-8.2)
--- NOTE | 2018-05-13 14:10 | CT ---
EXAMINATION TYPE: CT brain wo con DATE OF EXAM: 05/13/2018 COMPARISON: 04/12/2018 HISTORY: Neuro deficit CT DLP: 1100 mGycm Automated exposure control for dose reduction was used. FINDINGS: Motion artifact limits the exam. There is no obvious acute intraparenchymal hemorrhage or mass effect . Mild to moderate generalized degenerative change seen with no midline shift or mass effect. Calvari um intact. Periventricular low attenuation compatible with nonspecific white matter changes. More loc alized area of abnormal attenuation in the left parietal white matter stable compatible with remote i schemia. IMPRESSION: 1. EXAM LIMITED BY MOTION DEMONSTRATES NO DEFINITE ACUTE INTRACRANIAL HEMORRHAGE OR MASS EFFECT 2. DEGENERATIVE AND NONSPECIFIC WHITE MATTER CHANGES MOST TYPICAL REMOTE ISCHEMIA.
[2018-05-13 14:16] LABS: Creatine Kinase MB 2.7 ng/mL (0.0-2.4); Troponin I 0.013 ng/mL (0.000-0.034)
[2018-05-13 14:21] LABS: Anisocytosis Moderate; Basophils % (A) 0 %; Eosinophils # (A) 0.1 k/uL (0-0.7); Eosinophils % (A) 1 %; HCT 21.1 % (39.0-53.0); Hypochromasia Marked; Lymphocytes # (A) 0.8 k/uL (1.0-4.8); Lymphocytes % (A) 7 %; MCH 25.5 pg (25.0-35.0); MCHC 28.4 g/dL (31.0-37.0); Mean Platelet Volume 7.7; Monocytes # (A) 0.8 k/uL (0-1.0); Monocytes % (A) 7 %; Neutrophils # (A) 9.2 k/uL (1.3-7.7); Neutrophils % (A) 84 %; Platelet Count 278 k/uL (150-450); RBC 2.34 m/uL (4.30-5.90); RDW 21.2 % (11.5-15.5); WBC 10.9 k/uL (3.8-10.6)
[2018-05-13 14:26] LABS: MCV 89.9 fL (80.0-100.0)
[2018-05-13] MEDS ORDERED: NALOXONE 0.4 MG/ML 1 ML VIAL IV PRN (14:36)
[2018-05-13] MEDS ORDERED: PIPERACILLIN-TAZOBACTAM 3.375 GM in DEXTROSE/WATER 1 50ML.BAG IVPB STA (14:57)
--- NOTE | 2018-05-13 15:24 | XR ---
EXAMINATION TYPE: XR chest 1V DATE OF EXAM: 05/13/2018 HISTORY: Shortness of breath. COMPARISON: 05/13/2018 TECHNIQUE: Single view of the chest is submitted. FINDINGS: Demonstrated are scattered senescent parenchymal change. Diffuse bilateral airspace infiltrates persist with increasing pleural effusion particularly on the r ight. Continued follow-up advised. The heart is stable. Hilar and mediastinal structures are within normal limits. Degenerative changes are seen of the dorsal spine. IMPRESSION: 1. Diffuse bilateral airspace infiltrates persist with increasing pleural effusion particularly on t he right. Continued follow-up advised.
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
[2018-05-13] MEDS ORDERED: FUROSEMIDE 250 MG in SODIUM CHLORIDE 0.9% 225 ML IVP SCH (15:30)
[2018-05-13] MEDS: IPRATROPIUM-ALBUTEROL 3 ML NEB INHALATION SCH ×2 (15:43→19:40)
[2018-05-13] MEDS ORDERED: NOREPINEPHRINE 4 MG in SODIUM CHLORIDE 0.9% 250 ML IV SCH (15:45)
--- NOTE | 2018-05-13 16:05 | PCN ---
PROCEDURE NOTE TRIPLE LUMEN CATHETER PLACEMENT: Indication Hemodynamic monitoring/Intravenous access. A time-out was completed verifying correct patient, procedure, site, positioning, and implant(s) or special equipment if applicable. The patient was placed in a dependent position appropriate for triple lumen catheter placement based on the vein to be cannulated. The patient's left shoulder was prepped and draped in sterile fashion. 1% Lidocaine was used to anesthetize the surrounding skin area. A triple lumen 9F Cordis catheter was introduced into the subclavian or internal jugular or common femoral vein using Seldinger technique. The catheter was threaded smoothly over the guide wire and appropriate blood return was obtained. Each lumen of the catheter was evacuated of air and flushed with sterile saline. The catheter was then sutured in place to the skin and a sterile dressing applied. Perfusion to the extremity distal to the point of catheter insertion was checked and found to be adequate. PREOP DIAGNOSIS: Acute pulmonary edema. POSTOP DIAGNOSIS: Acute pulmonary edema. No complications. No pneumothorax. Chest x-ray shows adequate positioning of the line. MMODL / IJN: [id number] /
[2018-05-13 16:17] LABS: ABG Base Excess 1.5 mmol/L; ABG HCO3 26 mmol/L (21-25); ABG Oxygen Saturation 98.7 % (94-97); ABG PCO2 40 mmHg (35-45); ABG PH 7.42 (7.35-7.45); ABG PO2 91 mmHg (83-108); ABG TCO2 27 mmol/L (19-24)
[2018-05-13 16:52] LABS: Glucose,Whole Blood 113 mg/dL (75-99)
[2018-05-13] MEDS: PANTOPRAZOLE 40 MG/10 ML VIAL IVP SCH (16:55)
[2018-05-13] MEDS ORDERED: NOREPINEPHRINE 16 MG in SODIUM CHLORIDE 0.9% 250 ML IV SCH (17:30)
[2018-05-13] MEDS ORDERED: POTASSIUM CHLORIDE 20 MEQ in WATER FOR INJECTION 1 100ML.BAG IVPB ONE (18:44)
[2018-05-13] MEDS ORDERED: MAGNESIUM SULFATE-D5W PMX 1 GM in DEXTROSE/WATER 1 100ML.BAG IVPB ONE (18:44)
[2018-05-13 20:14] LABS: Amorphous Sediment,Urine Rare /hpf; Appearance,Urine Clear (Clear); Bacteria,Urine Occasional /hpf; Bilirubin,Urine Negative (Negative); Blood,Urine Large (Negative); Color,Urine Light Yellow; Glucose,Urine (UA) Negative (Negative); Hyaline Casts,Urine 22 /lpf (0-2); Ketones,Urine Negative (Negative); Leukocyte Esterase,Urine Moderate (Negative); Mucus,Urine Rare /hpf; Nitrite,Urine Negative (Negative); Protein,Urine Negative (Negative); RBC,Urine 19 /hpf (0-5); Specific Gravity,Urine 1.006 (1.001-1.035); Squamous Epithelial Cell,Urine <1 /hpf (0-4); Urobilinogen,Urine <2.0 mg/dL (<2.0); WBC,Urine 10 /hpf (0-5)
[2018-05-13 21:55] LABS: Anisocytosis Slight; Basophils % (A) 0 %; Eosinophils % (A) 0 %; HCT 24.1 % (39.0-53.0); HGB 7.3 gm/dL (13.0-17.5); Hypochromasia Marked; Lymphocytes # (A) 0.7 k/uL (1.0-4.8); Lymphocytes % (A) 8 %; MCH 25.9 pg (25.0-35.0); MCHC 30.3 g/dL (31.0-37.0); MCV 85.5 fL (80.0-100.0); Mean Platelet Volume 8.2; Monocytes # (A) 0.7 k/uL (0-1.0); Monocytes % (A) 8 %; Neutrophils # (A) 7.2 k/uL (1.3-7.7); Neutrophils % (A) 82 %; Platelet Count 209 k/uL (150-450); Poikilocytosis Moderate; RBC 2.82 m/uL (4.30-5.90); RDW 19.7 % (11.5-15.5); WBC 8.8 k/uL (3.8-10.6)
[2018-05-13 22:09] LABS: Calcium 7.4 mg/dL (8.4-10.2); Potassium 3.8 mmol/L (3.5-5.1)
[2018-05-14] MEDS: PIPERACILLIN-TAZOBACTAM 3.375 GM in DEXTROSE/WATER 1 50ML.BAG IVPB SCH ×3 (01:09→15:42)
[2018-05-14 05:29] LABS: Anisocytosis Moderate; Basophils % (A) 0 %; Eosinophils # (A) 0.1 k/uL (0-0.7); Eosinophils % (A) 1 %; HCT 24.2 % (39.0-53.0); HGB 7.6 gm/dL (13.0-17.5); Hypochromasia Marked; Lymphocytes # (A) 1.1 k/uL (1.0-4.8); Lymphocytes % (A) 12 %; MCH 26.7 pg (25.0-35.0); MCHC 31.2 g/dL (31.0-37.0); MCV 85.5 fL (80.0-100.0); Monocytes # (A) 0.9 k/uL (0-1.0); Monocytes % (A) 10 %; Neutrophils # (A) 6.9 k/uL (1.3-7.7); Neutrophils % (A) 74 %; Platelet Count 219 k/uL (150-450); Poikilocytosis Marked; RBC 2.83 m/uL (4.30-5.90); WBC 9.3 k/uL (3.8-10.6)
[2018-05-14 05:37] LABS: Calcium 7.6 mg/dL (8.4-10.2); Magnesium 1.6 mg/dL (1.6-2.3); Phosphorus 4.1 mg/dL (2.5-4.5); Potassium 3.8 mmol/L (3.5-5.1)
[2018-05-14] MEDS ORDERED: Potassium Replacement Protocol 1 EACH MISC MISCELLANE PRN ×2 (05:47→17:40)
[2018-05-14] MEDS ORDERED: POTASSIUM CHLORIDE 20 MEQ in WATER FOR INJECTION 1 100ML.BAG IVPB ONE (05:48)
[2018-05-14] MEDS ORDERED: Magnesium Replacement Protocol 1 EACH MISC MISCELLANE PRN (05:48)
[2018-05-14] MEDS: MAGNESIUM SULFATE-D5W PMX 1 GM in DEXTROSE/WATER 1 100ML.BAG IVPB SCH ×2 (06:00→08:52)
[2018-05-14] MEDS: IPRATROPIUM-ALBUTEROL 3 ML NEB INHALATION SCH ×4 (07:48→20:00)
--- NOTE | 2018-05-14 08:16 | XR ---
EXAMINATION TYPE: XR chest 1V DATE OF EXAM: 05/14/2018 COMPARISON: 05/13/2018 HISTORY: IV placement TECHNIQUE: Single frontal view of the chest is obtained. FINDINGS: Diffuse bilateral infiltrate and pleural effusion with cardiomegaly. Left-sided central li ne seen with the tip overlying the atriocaval junction. No sizable pneumothorax. IMPRESSION: 1. Diffuse bilateral infiltrate and pleural effusion. Differential diagnosis includes pulmonary edema versus diffuse pneumonia.
[2018-05-14] MEDS: PANTOPRAZOLE 40 MG/10 ML VIAL IVP SCH (08:52)
--- NOTE | 2018-05-14 09:39 | ECHOF ---
Referral Reason:chf MEASUREMENTS -------- HEIGHT: 182.9 cm WEIGHT: 111.6 kg BP: RVIDd: 4.6 cm (< 3.3) IVSd: 0.8 cm (0.6 - 1.1) LVIDd: 5.1 cm (3.9 - 5.3) LVPWd: 0.9 cm (0.6 - 1.1) IVSs: 1.4 cm LVIDs: 3.3 cm LVPWs: 1.7 cm LAESV Index (A-L): 42.71 ml/m Ao Diam: 3.8 cm (2.0 - 3.7) AV Cusp: 2.0 cm (1.5 - 2.6) LA Diam: 4.2 cm (2.7 - 3.8) MV E Jairon: 1.06 m/s MV DecT: 197 ms MV A Jairon: 0.47 m/s MV E/A Ratio: 2.25 AR PHT: 305 ms RAP: 5.00 mmHg RVSP: 17.14 mmHg FINDINGS -------- Sinus rhythm. This was a technically adequate study. The left ventricular size is normal. Left ventricular wall thickness is normal. Overall left vent ricular systolic function is low-normal with, an EF between 50 - 55 %. The right ventricle is severely enlarged. The left atrium is mildly dilated. The right atrium is normal in size. Aortic valve is trileaflet and is mildly thickened. There is mild aortic regurgitation. The mitral valve leaflets are mildly thickened. Mild mitral regurgitation is present. Mild tricuspid regurgitation present. The right ventricular systolic pressure, as measured by Doppl er, is 17.14mmHg. Pulmonic valve appears structurally normal. The aortic root is mildy dilated. IVC Not well visulized. The pericardium is normal. CONCLUSIONS -------- 1. Sinus rhythm. 2. This was a technically adequate study. 3. The left ventricular size is normal. 4. Left ventricular wall thickness is normal. 5. Overall left ventricular systolic function is low-normal with, an EF between 50 - 55 %. 6. The right ventricle is severely enlarged. 7. The left atrium is mildly dilated. 8. The right atrium is normal in size. 9. Aortic valve is trileaflet and is mildly thickened. 10. There is mild aortic regurgitation. 11. The mitral valve leaflets are mildly thickened. 12. Mild mitral regurgitation is present. 13. Mild tricuspid regurgitation present. 14. The right ventricular systolic pressure, as measured by Doppler, is 17.14mmHg. 15. Pulmonic valve appears structurally normal. 16. The aortic root is mildy dilated. 17. IVC Not well visulized. 18. The pericardium is normal. ACID ETCH OPERATOR: Larisa Samaniego RDCS
[2018-05-14] MEDS: LEVOFLOXACIN 250MG-D5W PMX 250 MG in DEXTROSE/WATER 1 50ML.BAG IVPB SCH (11:36)
[2018-05-14] MEDS ORDERED: VANCOMYCIN IV PER PHARMACY 1 EACH MISC MISCELLANE PRN (12:09)
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
[2018-05-14] MEDS ORDERED: VANCOMYCIN 1,750 MG in SODIUM CHLORIDE 0.9% 500 ML IVPB ONE (12:30)
[2018-05-14] MEDS: POTASSIUM CHLORIDE 20 MEQ in WATER FOR INJECTION 1 100ML.BAG IVPB SCH ×2 (18:10→20:23)
--- NOTE | 2018-05-14 18:23 | HP ---
HISTORY AND PHYSICAL CHIEF COMPLAINT: Hypotension and GI bleed. HISTORY OF PRESENT ILLNESS: This is another recent admission for this 73-year-old white male. He was in the hospital several months ago with massive upper GI bleed and he was a month recovering. He was in a senior care for a period of time. He has been home and doing fairly well, but on the day of admission, he was brought in passing blood and was hypovolemic. He was admitted. REVIEW OF SYSTEMS: Not obtained at that time. PAST MEDICAL HISTORY, FAMILY HISTORY, PERSONAL AND SOCIAL HISTORIES: Unchanged. He is on Lasix 40 mg once a day, Xarelto 15 once a day, amlodipine 5 twice a day, lisinopril 10 once a day, donepezil 5 mg once a day and aspirin. The remainder of his history is unremarkable and unchanged. PHYSICAL EXAMINATION: Blood pressure is 85/40 with a pulse of 88, respirations of 38 and he is afebrile. In general, he appeared to be extremely pale. He is awake, alert and oriented. Head, ears, eyes, nose, mouth, and throat were normal and the chest is clear except for occasional rales at the bases. Cardiac demonstrated atrial fibrillation and the abdomen was soft and there are no masses or tenderness. Bowel sounds are present. Extremities are normal and he was awake and alert and neurologically intact. IMPRESSION: 1. Upper gastrointestinal hemorrhage. 2. Gastrointestinal blood loss. 3. Atrial fibrillation. 4. Congestive heart failure. PLAN: Bed rest in ICU. Consult with Intensive Medicine and GI. MMODL / IJN: [id number] /
[2018-05-15] MEDS: PIPERACILLIN-TAZOBACTAM 3.375 GM in DEXTROSE/WATER 1 50ML.BAG IVPB SCH ×4 (00:03→23:40)
[2018-05-15 05:13] LABS: Anisocytosis Slight; Basophils % (A) 0 %; Eosinophils # (A) 0.2 k/uL (0-0.7); Eosinophils % (A) 2 %; HCT 22.3 % (39.0-53.0); Hypochromasia Marked; Lymphocytes # (A) 0.9 k/uL (1.0-4.8); Lymphocytes % (A) 11 %; MCH 26.9 pg (25.0-35.0); MCHC 30.4 g/dL (31.0-37.0); MCV 88.3 fL (80.0-100.0); Mean Platelet Volume 7.5; Monocytes # (A) 0.8 k/uL (0-1.0); Monocytes % (A) 10 %; Neutrophils # (A) 5.8 k/uL (1.3-7.7); Neutrophils % (A) 74 %; Platelet Count 179 k/uL (150-450); Poikilocytosis Moderate; RBC 2.53 m/uL (4.30-5.90); RDW 19.8 % (11.5-15.5); WBC 7.8 k/uL (3.8-10.6)
[2018-05-15 05:27] LABS: Calcium 7.3 mg/dL (8.4-10.2); Phosphorus 3.9 mg/dL (2.5-4.5); Potassium 3.8 mmol/L (3.5-5.1)
[2018-05-15] MEDS: VANCOMYCIN 1,750 MG in SODIUM CHLORIDE 0.9% 500 ML IVPB SCH (05:39)
[2018-05-15 05:41] LABS: HGB 6.8 gm/dL (13.0-17.5)
[2018-05-15] MEDS ORDERED: POTASSIUM CHLORIDE ER 20 MEQ TAB.ER PO SCH ×2 (06:00→17:00)
--- NOTE | 2018-05-15 07:49 | XR ---
EXAMINATION TYPE: XR chest 1V DATE OF EXAM: 05/15/2018 COMPARISON: 05/14/2018 HISTORY: 73-year-old male CHF TECHNIQUE: Single frontal view of the chest is obtained. FINDINGS: Left subclavian CVC tip in the caval atrial junction region. Heart mildly enlarged. Worsening bilater al diffuse airspace opacities with continued small effusions. IMPRESSION: Continued multifocal consolidation with the some interval worsening particularly on the right. Contin ued small effusions. Correlate for CHF and pulmonary edema.
[2018-05-15] MEDS: PANTOPRAZOLE 40 MG/10 ML VIAL IVP SCH (08:29)
[2018-05-15] MEDS: IPRATROPIUM-ALBUTEROL 3 ML NEB INHALATION SCH ×5 (08:35→23:25)
[2018-05-15] MEDS ORDERED: IPRATROPIUM-ALBUTEROL 3 ML NEB INHALATION PRN (08:55)
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
[2018-05-15] MEDS: FUROSEMIDE 10 MG/ML 10 ML VIAL IV SCH ×2 (09:10→21:30)
[2018-05-15] MEDS: LEVOFLOXACIN 250MG-D5W PMX 250 MG in DEXTROSE/WATER 1 50ML.BAG IVPB SCH (11:09)
--- NOTE | 2018-05-15 12:38 | CDI ---
Last Revision, August 2017 Documentation Clarification Form Date: 05/15/18 From: Cyn Lee RN Admit Date: 05/13/2018 2:36:00 PM Patient Name: Tin James Visit Number: [id number] ATTENTION: The Clinical Documentation Specialists (CDI) and [facility] Coding Staff appreciate your assistance in clarifying documentation. Please respond to the clarification below the line at the bottom and electronically sign. The CDI & [facility] Coding staff will review the response and follow-up if needed. Please note: Queries are made part of the Legal Health Record. If you have any questions, please contact the author of this message via ITS. Dr. Ayush Wills MD, Can you please render your opinion on the following documentation? Pt came in with difficulty breathing, lethargic decreased responsiveness. Pt was put on bipap. PN 05/13: 2+ bilateral edema. PN 05/14: lower extremity edema. Pn 05/15: He had positive edema in lower extremities bilaterally and diffuse swelling. H& P 05/14: "congestive heart failure". Patient history/risk factors: A FIB, CVA/TIA, DVT, Apnea, hyperlipidemia, obesity, vascular disorder Clinical Indicators: Lab findings on admission: WBC 10.9, RBC 2.34, HGB 6.0, HCT 21.1, INR 1.5, BUN 36, CR 2.30, LACTIC 5.7, CKMB 2.7, TOT PRO 5.3, ALB 2.2 Radiology findings: On 05/15: Continued multifocal consolidation with the some interval worsening particularly on the right. Continued small effusions. Correlate for CHF and pulmonary edema. Vital Signs: T 97, P 108, R 26, 107/52, 96% NONREBREATHER BNP: 40300 ECHO; EF 50-55% Treatment: Consults: Pulmonary Duoneb, Lasix IVP and IV q 12 hr., Levofloxacin, Piperacillin, Vanco In your professional opinion, can you please clarify the acuity and type of CHF if known? Diastolic Heart Failure: Acute Chronic Acute on Chronic Unable to Determine Other, please specify MTDD
--- NOTE | 2018-05-15 13:02 | CDI ---
Last Revision, August 2017 Documentation Clarification Form Date: 05/15/18 From: Cyn Lee RN Admit Date: 05/13/2018 2:36:00 PM Patient Name: Tin James Visit Number: [id number] ATTENTION: The Clinical Documentation Specialists (CDI) and [facility] Coding Staff appreciate your assistance in clarifying documentation. Please respond to the clarification below the line at the bottom and electronically sign. The CDI & [facility] Coding staff will review the response and follow-up if needed. Please note: Queries are made part of the Legal Health Record. If you have any questions, please contact the author of this message via ITS. Elma Arce MD, Can you please render your opinion on the following documentation? Pt came in with difficulty breathing, lethargic decreased responsiveness. Pt was put on bipap. Pulmonary Consult 05/13: "possibility of superimposed left lung pneumonia cannot be ruled out knowing that there is worsening opacity in the left upper lobe may be related to underlying infection/pneumonia." Pulmonary Pn 05/14 & : "I do suspect some underlying pneumonia" Patient history/risk factors: A FIB, CVA/TIA, DVT, Apnea, hyperlipidemia, obesity, vascular disorder Clinical Indicators: Lab findings on admission: WBC 10.9, lactic acid 5.7 Blood Culture: gram positive cocci in clusters Radiology findings: CXR 05/13: there is progressive airspace disease bilaterally with pleural effusion. Differential diagnosis includes diffuse pneumonia versus pulmonary edema. Vital Signs: T 97, P 108, R 26, 107/52, 96% NONREBREATHER Respiratory/lungs: diminished breath sounds, bilateral crackles Treatment: Consults: Pulmonary Breathing Tx: Duoneb, Lasix IVP and IV q 12 hr Antibiotics: Levofloxacin IVPB, Piperacillin IVPB, Vanco. IVPB In order to capture the severity of condition, please clarify if the condition signifies and you are treating for: Pneumonia ruled in Pneumonia ruled out Please specify the type of pneumonia: Other, please specify Unable to determine MTDD
--- NOTE | 2018-05-15 18:07 | PN ---
PROGRESS NOTE CHIEF COMPLAINT: Upper GI bleed. HISTORY OF PRESENT ILLNESS: This gentleman has stabilized nicely. Vital signs are normal and there has been no further bleeding. PHYSICAL EXAM: He remains pale and his chest is fairly clear. Abdomen is soft, nontender. IMPRESSION: 1. Upper GI bleed. 2. Blood loss anemia. PLAN: Probably move to a regular floor today. MMODL / IJN: [id number] /
--- NOTE | 2018-05-15 18:49 | PN ---
PROGRESS NOTE DATE OF SERVICE: 05/14/2018 CHIEF COMPLAINT: Upper GI bleed, hypovolemia, renal failure and CHF. HISTORY OF PRESENT ILLNESS: This gentleman seems to be stabilized. He is comfortable and he is having no pain. He is awake and alert. Bleeding seems to have stopped. His BNP is 11,800 and his lactic acid is up slightly. PHYSICAL EXAMINATION: He is in atrial fibrillation. The abdomen is soft and nontender. Chest is clear. IMPRESSION: 1. Upper gastrointestinal bleed. 2. Hypovolemia. 3. Blood loss anemia. 4. Congestive heart failure. 5. Atrial fibrillation. PLAN: Continue with IV fluids. Continue to monitor for any further bleeding. MMODL / IJN: [id number] /
[2018-05-15] MEDS: LATANOPROST 0.005% OPHTH DROPS 2.5 ML BTL BOTH EYES SCH (21:30)
[2018-05-16] MEDS: IPRATROPIUM-ALBUTEROL 3 ML NEB INHALATION SCH ×6 (03:32→23:43)
[2018-05-16 05:25] LABS: Calcium 7.4 mg/dL (8.4-10.2); Magnesium 1.8 mg/dL (1.6-2.3); Phosphorus 3.8 mg/dL (2.5-4.5); Potassium 3.7 mmol/L (3.5-5.1)
[2018-05-16 05:27] LABS: Anisocytosis Slight; Basophils % (A) 1 %; Eosinophils # (A) 0.2 k/uL (0-0.7); Eosinophils % (A) 3 %; HCT 22.2 % (39.0-53.0); Hypochromasia Marked; Lymphocytes # (A) 0.9 k/uL (1.0-4.8); Lymphocytes % (A) 13 %; MCH 27.3 pg (25.0-35.0); MCHC 30.7 g/dL (31.0-37.0); MCV 88.9 fL (80.0-100.0); Mean Platelet Volume 7.6; Monocytes # (A) 0.7 k/uL (0-1.0); Monocytes % (A) 9 %; Neutrophils # (A) 5.4 k/uL (1.3-7.7); Neutrophils % (A) 73 %; Platelet Count 164 k/uL (150-450); Poikilocytosis Moderate; RDW 19.5 % (11.5-15.5); WBC 7.4 k/uL (3.8-10.6)
[2018-05-16 05:30] LABS: HGB 6.8 gm/dL (13.0-17.5)
[2018-05-16] MEDS: VANCOMYCIN 1,750 MG in SODIUM CHLORIDE 0.9% 500 ML IVPB SCH (06:52)
--- NOTE | 2018-05-16 07:47 | XR ---
EXAMINATION TYPE: XR chest 1V DATE OF EXAM: 05/16/2018 CLINICAL HISTORY: Difficulty breathing progress study. TECHNIQUE: Single AP portable upright view of the chest is obtained. COMPARISON: Chest x-ray from one day earlier and older studies. FINDINGS: There is stable left subclavian catheter. There is persisting cardiomegaly with bilateral central opacities. There is more prominent silhouetting of right hemidiaphragm on current study. Uppe r lungs show no pneumothorax. Osseous structures are intact. IMPRESSION: Overall stable findings, suspected CHF exacerbation as there is cardiomegaly with centr al opacities favoring edema and probable small bilateral pleural effusions all redemonstrated, underl thomas infiltrates are not excluded. Correlate clinically.
[2018-05-16] MEDS ORDERED: POTASSIUM CHLORIDE ER 20 MEQ TAB.ER PO SCH (08:00)
[2018-05-16] MEDS: FUROSEMIDE 10 MG/ML 10 ML VIAL IV SCH ×2 (08:42→21:12)
[2018-05-16] MEDS: PANTOPRAZOLE 40 MG/10 ML VIAL IVP SCH (08:42)
[2018-05-16] MEDS: MAGNESIUM SULFATE-D5W PMX 1 GM in DEXTROSE/WATER 1 100ML.BAG IVPB SCH ×2 (08:42→09:57)
[2018-05-16] MEDS: PIPERACILLIN-TAZOBACTAM 3.375 GM in DEXTROSE/WATER 1 50ML.BAG IVPB SCH ×2 (09:57→15:03)
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
[2018-05-16] MEDS: LEVOFLOXACIN 250 MG TAB PO SCH (11:46)
[2018-05-16] MEDS: LATANOPROST 0.005% OPHTH DROPS 2.5 ML BTL BOTH EYES SCH (21:11)
[2018-05-17] MEDS: PIPERACILLIN-TAZOBACTAM 3.375 GM in DEXTROSE/WATER 1 50ML.BAG IVPB SCH ×3 (02:15→17:02)
[2018-05-17] MEDS: IPRATROPIUM-ALBUTEROL 3 ML NEB INHALATION SCH ×6 (03:11→23:53)
[2018-05-17 04:42] LABS: Anisocytosis Slight; Basophils % (A) 1 %; Eosinophils # (A) 0.3 k/uL (0-0.7); Eosinophils % (A) 4 %; HCT 25.8 % (39.0-53.0); HGB 7.8 gm/dL (13.0-17.5); Hypochromasia Marked; Lymphocytes # (A) 0.9 k/uL (1.0-4.8); Lymphocytes % (A) 12 %; MCH 26.8 pg (25.0-35.0); MCHC 30.1 g/dL (31.0-37.0); Mean Platelet Volume 9.4; Monocytes # (A) 0.7 k/uL (0-1.0); Monocytes % (A) 9 %; Neutrophils # (A) 5.3 k/uL (1.3-7.7); Neutrophils % (A) 72 %; Platelet Count 148 k/uL (150-450); Poikilocytosis Slight; RDW 19.1 % (11.5-15.5); WBC 7.4 k/uL (3.8-10.6)
[2018-05-17 04:59] LABS: Calcium 7.4 mg/dL (8.4-10.2); Magnesium 1.9 mg/dL (1.6-2.3); Phosphorus 3.8 mg/dL (2.5-4.5); Potassium 3.7 mmol/L (3.5-5.1)
[2018-05-17] MEDS ORDERED: VANCOMYCIN TROUGH DUE 1 EACH MISC MISCELLANE ONE (05:00)
[2018-05-17] MEDS: POTASSIUM CHLORIDE 10 MEQ in WATER FOR INJECTION 1 100ML.BAG IVPB SCH ×2 (06:11→09:58)
[2018-05-17] MEDS: MAGNESIUM SULFATE-D5W PMX 1 GM in DEXTROSE/WATER 1 100ML.BAG IVPB SCH ×2 (06:11→06:55)
--- NOTE | 2018-05-17 07:47 | XR ---
EXAMINATION TYPE: XR chest 1V DATE OF EXAM: 05/17/2018 COMPARISON: 05/16/2018 INDICATION: CHF TECHNIQUE: Single frontal view of the chest is obtained. FINDINGS: The heart size is enlarged. The pulmonary vasculature is prominent. There is a left upper lobe infiltrate. Right lower lobe infiltrate is present. Focal pulmonary edema could be considered. Pneumonia superimposed on CHF should be considered. Findings are worsening from comparison. Small right pleural effusion and minimal left pleural effusion may be present. IMPRESSION: 1. Worsening left upper and right lower lobe infiltrates. Consider atypical pulmonary edema and pneum onia within the differential. 2. Congestive heart failure. Continued follow-up is recommended.
[2018-05-17] MEDS: PANTOPRAZOLE 40 MG/10 ML VIAL IVP SCH (09:59)
[2018-05-17] MEDS: FUROSEMIDE 10 MG/ML 10 ML VIAL IV SCH (09:59)
[2018-05-17] MEDS: LEVOFLOXACIN 250 MG TAB PO SCH (12:22)
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
[2018-05-17] MEDS ORDERED: POTASSIUM CHLORIDE ER 20 MEQ TAB.ER PO SCH (16:00)
[2018-05-17] MEDS ORDERED: RIVAROXABAN 20 MG TAB PO SCH (18:00)
[2018-05-17] MEDS: LATANOPROST 0.005% OPHTH DROPS 2.5 ML BTL BOTH EYES SCH (20:40)
[2018-05-17] MEDS ORDERED: FUROSEMIDE 10 MG/ML 4 ML VIAL IV SCH (21:00)
[2018-05-18] MEDS: PIPERACILLIN-TAZOBACTAM 3.375 GM in DEXTROSE/WATER 1 50ML.BAG IVPB SCH ×3 (01:00→18:12)
[2018-05-18] MEDS: IPRATROPIUM-ALBUTEROL 3 ML NEB INHALATION SCH ×5 (03:46→20:15)
[2018-05-18 05:48] LABS: Anisocytosis Slight; Basophils % (A) 0 %; Eosinophils # (A) 0.3 k/uL (0-0.7); Eosinophils % (A) 3 %; HCT 28.6 % (39.0-53.0); HGB 8.5 gm/dL (13.0-17.5); Hypochromasia Marked; Lymphocytes # (A) 1.1 k/uL (1.0-4.8); Lymphocytes % (A) 13 %; MCH 26.9 pg (25.0-35.0); MCHC 29.8 g/dL (31.0-37.0); MCV 90.1 fL (80.0-100.0); Mean Platelet Volume 8.6; Monocytes # (A) 0.7 k/uL (0-1.0); Monocytes % (A) 8 %; Neutrophils # (A) 6.1 k/uL (1.3-7.7); Neutrophils % (A) 73 %; Platelet Count 168 k/uL (150-450); Poikilocytosis Slight; RBC 3.18 m/uL (4.30-5.90); WBC 8.3 k/uL (3.8-10.6)
[2018-05-18 05:59] LABS: Calcium 7.6 mg/dL (8.4-10.2); Phosphorus 3.5 mg/dL (2.5-4.5); Potassium 3.9 mmol/L (3.5-5.1)
[2018-05-18] MEDS: POTASSIUM CHLORIDE 10 MEQ in WATER FOR INJECTION 1 100ML.BAG IVPB SCH ×2 (06:37→09:50)
--- NOTE | 2018-05-18 06:47 | XR ---
EXAMINATION TYPE: XR chest 1V DATE OF EXAM: 05/18/2018 HISTORY: CHF. REFERENCE: Previous study dated 05/17/2018. FINDINGS: There is a left subclavian catheter in place, unchanged in appearance. There continues to be left upper lobe airspace disease as well as right lower lobe airspace disease. The heart remains enlarged. I suspect small effusions. The overall appearance has worsened somewhat. IMPRESSION: WORSENING CHANGES OF CONGESTIVE HEART FAILURE SUPERIMPOSED PNEUMONIA IS NOT EXCLUDED.
[2018-05-18] MEDS ORDERED: POTASSIUM BICARBONATE/CIT AC 20 MEQ TABLET.EFF NG-TUBE SCH (07:00)
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
[2018-05-18] MEDS: ASPIRIN 81 MG PO SCH (09:51)
[2018-05-18] MEDS: ATORVASTATIN 80 MG TAB PO SCH (09:51)
[2018-05-18] MEDS: FUROSEMIDE 10 MG/ML 4 ML VIAL IV SCH (09:52)
[2018-05-18] MEDS: PANTOPRAZOLE 40 MG/10 ML VIAL IVP SCH (09:52)
[2018-05-18] MEDS: DONEPEZIL 5 MG TAB PO SCH (12:59)
[2018-05-18] MEDS: LEVOFLOXACIN 250 MG TAB PO SCH (12:59)
[2018-05-18] MEDS: LATANOPROST 0.005% OPHTH DROPS 2.5 ML BTL BOTH EYES SCH (21:26)
[2018-05-19] MEDS: IPRATROPIUM-ALBUTEROL 3 ML NEB INHALATION SCH ×7 (00:01→23:38)
[2018-05-19] MEDS: PIPERACILLIN-TAZOBACTAM 3.375 GM in DEXTROSE/WATER 1 50ML.BAG IVPB SCH ×4 (00:04→23:55)
[2018-05-19 05:20] LABS: Anisocytosis Slight; Basophils % (A) 1 %; Eosinophils # (A) 0.3 k/uL (0-0.7); Eosinophils % (A) 3 %; HCT 25.4 % (39.0-53.0); HGB 7.8 gm/dL (13.0-17.5); Hypochromasia Marked; Lymphocytes # (A) 0.9 k/uL (1.0-4.8); Lymphocytes % (A) 11 %; MCH 27.5 pg (25.0-35.0); MCHC 30.7 g/dL (31.0-37.0); MCV 89.7 fL (80.0-100.0); Mean Platelet Volume 8.9; Monocytes # (A) 0.7 k/uL (0-1.0); Monocytes % (A) 9 %; Neutrophils # (A) 6.1 k/uL (1.3-7.7); Neutrophils % (A) 74 %; Platelet Count 159 k/uL (150-450); Poikilocytosis Slight; RBC 2.83 m/uL (4.30-5.90); RDW 18.8 % (11.5-15.5); WBC 8.2 k/uL (3.8-10.6)
[2018-05-19 05:26] LABS: INR 1.3 (<1.2); Prothrombin Time 12.4 sec (9.0-12.0)
[2018-05-19 05:33] LABS: Calcium 7.6 mg/dL (8.4-10.2); Magnesium 1.8 mg/dL (1.6-2.3); Phosphorus 3.2 mg/dL (2.5-4.5); Potassium 4.2 mmol/L (3.5-5.1)
--- NOTE | 2018-05-19 06:47 | XR ---
EXAMINATION TYPE: XR chest 1V portable DATE OF EXAM: 05/19/2018 HISTORY: CHF. REFERENCE: Previous study dated 05/18/2018. FINDINGS: The heart is enlarged. There is bilateral airspace disease. The heart is mildly enlarged. T here are bilateral effusions. Aeration in the left upper lobe is improved slightly. IMPRESSION: 1. CONTINUING CHANGES OF HEART FAILURE. 2. IMPROVED AERATION, LEFT UPPER LOBE.
[2018-05-19] MEDS: MAGNESIUM SULFATE-D5W PMX 1 GM in DEXTROSE/WATER 1 100ML.BAG IVPB SCH ×2 (07:09→08:42)
[2018-05-19] MEDS: ASPIRIN 81 MG PO SCH (08:42)
[2018-05-19] MEDS: ATORVASTATIN 80 MG TAB PO SCH (08:42)
[2018-05-19] MEDS: PANTOPRAZOLE 40 MG/10 ML VIAL IVP SCH (08:42)
[2018-05-19] MEDS: FUROSEMIDE 10 MG/ML 4 ML VIAL IV SCH (08:42)
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
[2018-05-19] MEDS: LEVOFLOXACIN 250 MG TAB PO SCH (12:28)
[2018-05-19] MEDS: DONEPEZIL 5 MG TAB PO SCH (12:28)
--- NOTE | 2018-05-19 15:35 | CONS ---
CONSULTATION DATE OF SERVICE: 05/19/2018. REASON FOR CONSULTATION: 1. Bilateral lower extremity venostasis ulcer. 2. Positive blood culture, Staph epi and Klebsiella. HISTORY OF PRESENT ILLNESS: The patient is a 73-year-old male who was brought into the ER at [facility] on 05/13/2018 with chief complaints of increasing shortness of breath. His symptoms started the day prior to presentation to hospital. Family did notice some left-sided facial droop. The patient was more lethargic and decreased response and when EMS arrived. Subsequently the patient has been brought into the hospital. The patient did have evaluation by the ER physician. Chest x-ray was suggestive of a fluid overload plus-minus left upper lobe pneumonia. The patient did have evidence of bilateral lower extremity edema. The patient had been afebrile on admission. White count mildly elevated 10.9. The patient did required BiPAP for respiratory support and subsequently has been admitted to the ICU for underlying CHF plus-minus left upper lobe pneumonia. The patient's blood cultures which were drawn in the ER subsequently show Staph epi and Klebsiella pneumonia. The patient initially was on vancomycin and Zosyn and Levaquin. Vancomycin subsequently has been discontinued. Patient will be continued on Zosyn and Levaquin. The patient did have multiple ulceration to the lower extremity, currently being treated with Silvadene cream. Infectious Disease was consulted for further recommendation regarding those wounds. The patient currently denies having any fever and chill. His breathing has much improved. He did have some occasional cough, but not bringing up any sputum. Denies any chest pain. The patient denies having any nausea, no vomiting. No abdominal pain and no diarrhea. As for the wound, he has 1 wound on his right leg and 2 on his left leg. He did have mild dull aching pain into those wounds of 1 to 2/10, and no radiation. No significant surrounding redness or any purulent drainage. REVIEW OF SYSTEMS: CONSTITUTIONAL: Positive for weakness but no high-grade fever. EYES: No complaint. ENT: No complaint. RESPIRATORY: As per HPI. CARDIOVASCULAR: As per HPI. GENITOURINARY: No complaint. GASTROINTESTINAL: No complaint. MUSCULOSKELETAL: No complaint. INTEGUMENTARY: As per HPI. PSYCHOLOGICAL: No complaint. ENDOCRINE: No complaint. NEUROLOGIC: No complaint. PAST MEDICAL HISTORY: Atrial fibrillation, CVA, TIA, DVT, hyperlipidemia, sleep apnea, COPD. PAST SURGICAL HISTORY: Cardiac ablation, heart catheterization, and ulcers involving the left lower extremity. SOCIAL HISTORY: Remote history of smoking. He smoked since the age of 19 until . No drinking. No drug use. FAMILY HISTORY: Father history of CVA and TIA, in the early 50s from CVA. Mother was healthy and at age of 91 from old age. ALLERGIES: No known drug allergies. MEDICATION: Currently include the patient is on DuoNeb, aspirin, Lipitor, Aricept, Lasix, levothyroxine and Zosyn 3.375 g q.8. EXAMINATION: Blood pressure is 103/44 with a pulse of 77, temperature 98. He is 91% on 3 L nasal cannula. General description is an elderly male lying in bed in no distress. No tachypnea or accessory muscle of respiration use. HEENT: Shows slight pallor. No scleral icterus. Oral mucosa is moist. No pharyngeal erythema or thrush. NECK: Trachea central. No thyromegaly. LUNGS: Unlabored breathing with decreased breath sounds in the bases. No wheeze or crackle. HEART: S1, S2. Regular rate and rhythm. ABDOMEN: Soft, no tenderness. No guarding or rigidity. EXTREMITIES: The patient did have ulceration on the right leg with minimal bleeding, but no surrounding redness or any foul-smelling drainage. The left leg wound looks clean. No significant swelling was noticed either. NEUROLOGICAL: Patient is awake, alert, oriented. Mood and affect normal. LABS: Hemoglobin 7.8, white count 8.2, BUN of 28, creatinine 1.3. Electrolytes has been normal. Vancomycin trough was 21.1 on the 14th. Currently off the vancomycin. DIAGNOSTIC IMPRESSION/PLAN: 1. Patient with bilateral extremity venostasis ulcer, currently with no evidence of any cellulitis, slight bleeding issue on the right leg, but no purulence was noticed. Will recommend local wound care. 2. Patient with Klebsiella pneumoniae bacteremia more likely secondary to pneumonia left lower lobe which seemed to be showing improvement on the x-ray done this morning. 3. Patient with a positive blood culture, Staph epi, more likely contamination. No need for further workup for the same. PLAN: 1. Discontinue Silvadene. 2. We will apply Aquacel Silver dressing to the right as well as left leg wound followed by Curtis wrap that will be changed q.48 hours. 3. The patient is on Zosyn and Levaquin for underlying pneumonia and bacteremia with plan to finish therapy with oral antibiotics. 4. We will follow up on clinical condition and further adjust medication if needed. Thank you for this consultation. Will follow this patient with you. KATHLEEN / LUCERON: [id number] /
[2018-05-19] MEDS: LATANOPROST 0.005% OPHTH DROPS 2.5 ML BTL BOTH EYES SCH (22:37)
--- NOTE | 2018-05-19 23:41 | PN ---
PROGRESS NOTE DATE OF SERVICE: 05/19/2018. CHIEF COMPLAINT: Upper GI bleed, hypotension, CHF and renal failure. HISTORY OF PRESENT ILLNESS: This gentleman is doing reasonably well. He is feeling a bit better. He is awake and alert. He is not short of breath. There has been no further bleeding. PHYSICAL EXAM: He remains pale. Chest is clear. Cardiac exam is normal. IMPRESSION: 1. Gastrointestinal hemorrhage. 2. Congestive heart failure. 3. Renal failure. PLAN: He will probably be able to move out to a regular floor today. MMODL / IJN: [id number] /
[2018-05-20 04:07] LABS: Anisocytosis Slight; Basophils # (A) 0.1 k/uL (0-0.2); Basophils % (A) 1 %; Eosinophils # (A) 0.3 k/uL (0-0.7); Eosinophils % (A) 3 %; HCT 24.3 % (39.0-53.0); HGB 7.3 gm/dL (13.0-17.5); Hypochromasia Marked; Lymphocytes % (A) 12 %; MCH 26.6 pg (25.0-35.0); MCV 88.7 fL (80.0-100.0); Mean Platelet Volume 9.9; Monocytes # (A) 0.7 k/uL (0-1.0); Monocytes % (A) 8 %; Neutrophils # (A) 6.2 k/uL (1.3-7.7); Neutrophils % (A) 73 %; Platelet Count 171 k/uL (150-450); RBC 2.74 m/uL (4.30-5.90); WBC 8.5 k/uL (3.8-10.6)
[2018-05-20 04:13] LABS: INR 1.2 (<1.2); Prothrombin Time 11.7 sec (9.0-12.0)
[2018-05-20] MEDS: IPRATROPIUM-ALBUTEROL 3 ML NEB INHALATION SCH ×6 (04:15→23:18)
[2018-05-20 04:28] LABS: Calcium 7.5 mg/dL (8.4-10.2); Magnesium 2.1 mg/dL (1.6-2.3); Phosphorus 3.6 mg/dL (2.5-4.5); Potassium 4.6 mmol/L (3.5-5.1)
--- NOTE | 2018-05-20 07:07 | XR ---
EXAMINATION TYPE: XR chest 1V portable DATE OF EXAM: 05/20/2018 Comparison: 05/19/2018 Clinical History: 73-year-old male follow-up CHF Findings: Left subclavian CVC tip is near the cavoatrial junction. Continued moderate right and small left pleu ral effusions with adjacent bibasilar opacities. Confluent left suprahilar opacity and diffuse inters titial densities persist. Impression: 1. Continued CHF with interstitial and patchy pulmonary edema. 2. Confluent consolidation in the left upper lobe is unchanged. 3. Continued moderate right and small left pleural effusions with adjacent atelectasis and/or consoli dation.
[2018-05-20] MEDS: ATORVASTATIN 80 MG TAB PO SCH (09:10)
[2018-05-20] MEDS: ASPIRIN 81 MG PO SCH (09:10)
[2018-05-20] MEDS: FUROSEMIDE 10 MG/ML 4 ML VIAL IV SCH (09:10)
[2018-05-20] MEDS: PANTOPRAZOLE 40 MG/10 ML VIAL IVP SCH (09:10)
[2018-05-20] MEDS: PIPERACILLIN-TAZOBACTAM 3.375 GM in DEXTROSE/WATER 1 50ML.BAG IVPB SCH ×2 (09:14→15:06)
--- NOTE | 2018-05-20 09:35 | US ---
EXAMINATION TYPE: US chest DATE OF EXAM: 05/20/2018 COMPARISON: 02/09/2018 CLINICAL HISTORY: 73-year-old male Markings for thoracentesis by pulmonary staff. Bilateral pleural e ffusions TECHNIQUE: Targeted ultrasound of the posterior lower bilateral hemithoraces assessment of pleural e ffusion. FINDINGS: EXAM MEASUREMENTS: Right Pleural Effusion pocket size: 13.8 cm Lung seen within mid pocket Right skin surface to fluid distance: 2.7 cm Left Pleural Effusion pocket size: 10.5 cm Left skin surface to fluid distance: 3.0 cm Right side MARKED for possible thoracentesis outside the dept. Left side MARKED for possible thoracentesis outside the dept. Pulmonologists are able to review the images in the patient?s EMR. IMPRESSIONS: Moderate bilateral pleural effusions with markings performed.
[2018-05-20] MEDS: LEVOFLOXACIN 250 MG TAB PO SCH (11:43)
[2018-05-20] MEDS: DONEPEZIL 5 MG TAB PO SCH (11:44)
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
[2018-05-20] MEDS: LATANOPROST 0.005% OPHTH DROPS 2.5 ML BTL BOTH EYES SCH (20:49)
--- NOTE | 2018-05-20 21:26 | MISC ---
MISCELLANOUS REPORT QUERY: Specify type of pneumonia: Bronchial pneumonia, bacterial. MMODL / IJN: [id number] /
--- NOTE | 2018-05-20 21:26 | MISC ---
MISCELLANOUS REPORT QUERY: Acute on chronic heart failure. MMODL / IJN: [id number] /
--- NOTE | 2018-05-20 23:02 | PN ---
PROGRESS NOTE DATE OF SERVICE: 05/20/2018. REASON FOR FOLLOWUP: 1. Bilateral lower extremity venous stasis ulcer. 2. Patient with Klebsiella bacteremia secondary to pneumonia. INTERVAL HISTORY: The patient is currently afebrile. He is breathing comfortably. Denies significant chest pain. Occasional cough. No nausea, no vomiting. No abdominal pain pain to the bilateral wound area. PHYSICAL EXAMINATION: Blood pressure 100/52 with a pulse of 84, temperature 97.9. He is 97% on 2 L nasal cannula. General description is an elderly male lying in bed in no distress. RESPIRATORY SYSTEM: Unlabored breathing, clear to auscultation anteriorly. HEART: S1, S2. Regular rate. ABDOMEN: Soft, nontender. Legs currently dressed up no obvious drainage on the dressing. LABS: Hemoglobin 7.8, white count 8.5 with a BUN of 30, creatinine is 1.73. DIAGNOSTIC IMPRESSION AND PLAN: 1. Patient with bilateral lower extremity venous stasis ulcer, but no evidence of any cellulitis. Plan will be for local wound care with Aquacel silver dressing and keeping the . 2. Patient Klebsiella bacteremia, source likely pneumonia. Currently covered with Zosyn. We will finish therapy with oral antibiotic on discharge. Continue supportive care. MMODL / IJN: [id number] /
[2018-05-21] MEDS: PIPERACILLIN-TAZOBACTAM 3.375 GM in DEXTROSE/WATER 1 50ML.BAG IVPB SCH ×3 (00:45→15:56)
[2018-05-21] MEDS: IPRATROPIUM-ALBUTEROL 3 ML NEB INHALATION SCH ×6 (03:18→23:34)
[2018-05-21 05:04] LABS: Anisocytosis Slight; Basophils % (A) 0 %; Eosinophils # (A) 0.3 k/uL (0-0.7); Eosinophils % (A) 3 %; HCT 23.9 % (39.0-53.0); HGB 7.2 gm/dL (13.0-17.5); Hypochromasia Marked; INR 1.2 (<1.2); Lymphocytes % (A) 12 %; MCH 26.7 pg (25.0-35.0); MCHC 30.2 g/dL (31.0-37.0); MCV 88.5 fL (80.0-100.0); Mean Platelet Volume 8.8; Monocytes # (A) 0.6 k/uL (0-1.0); Monocytes % (A) 7 %; Neutrophils # (A) 6.4 k/uL (1.3-7.7); Neutrophils % (A) 75 %; Platelet Count 168 k/uL (150-450); Prothrombin Time 11.8 sec (9.0-12.0); RDW 18.6 % (11.5-15.5); WBC 8.5 k/uL (3.8-10.6)
[2018-05-21 05:16] LABS: Calcium 7.7 mg/dL (8.4-10.2); Magnesium 1.9 mg/dL (1.6-2.3); Phosphorus 3.5 mg/dL (2.5-4.5); Potassium 4.6 mmol/L (3.5-5.1)
[2018-05-21] MEDS ORDERED: Magnesium Replacement Protocol 1 EACH MISC MISCELLANE PRN (05:46)
[2018-05-21] MEDS: MAGNESIUM SULFATE-D5W PMX 1 GM in DEXTROSE/WATER 1 100ML.BAG IVPB SCH ×2 (06:20→08:52)
[2018-05-21] MEDS: FUROSEMIDE 10 MG/ML 4 ML VIAL IV SCH (08:52)
[2018-05-21] MEDS: ASPIRIN 81 MG PO SCH (08:53)
[2018-05-21] MEDS: ATORVASTATIN 80 MG TAB PO SCH (08:53)
[2018-05-21] MEDS: PANTOPRAZOLE 40 MG/10 ML VIAL IVP SCH (08:56)
--- NOTE | 2018-05-21 10:42 | XR ---
EXAMINATION TYPE: XR chest 1V portable DATE OF EXAM: 05/21/2018 COMPARISON: Prior chest x-ray 05/20/2018 HISTORY: Status post right thoracentesis TECHNIQUE: Single frontal view of the chest is obtained. FINDINGS: Patient is rotated. Left subclavian central venous catheter is stable. There is improved a eration at the right lung base, the right hemidiaphragm is now visualized. Heart size is likely stabl e and enlarged. Interstitium and central vascularity are prominent. No evident pneumothorax. Persiste nt increased density at the left lung base obscuring the hemidiaphragm. IMPRESSION: No evident complication status post right thoracentesis.
--- NOTE | 2018-05-21 10:58 | PCN ---
PROCEDURE NOTE PROCEDURE: Right-sided thoracentesis. PREOPERATIVE DIAGNOSIS: Right pleural effusion. POSTOPERATIVE DIAGNOSIS: Right pleural effusion. ANESTHESIA USED: 2 mL of 1% lidocaine. PROCEDURE DESCRIPTION: The patient was placed in a sitting upright position, the area below the right scapula was prepared in a sterile fashion and drapes were applied. At the level of the eighth intercostal space and tip of the scapula, the area was locally anesthetized, and it was earlier localized by ultrasound. After local lidocaine applied, a 26-gauge needle was inserted at the same site, advanced into the pleural space until the fluid was localized with the needle. Then a small tiny incision was made, and a catheter with needle were used, advanced into the pleural space until the fluid was obtained. Then, the needle was pulled out of the pleural space and the catheter was advanced into the pleural space. Freely flowing fluid was removed, roughly 2100 mL of light yellow fluid was removed from the right pleural space, was not bloody. The fluid was sent for different diagnostic studies. Procedure was well tolerated and no evidence of any immediate complications. Chest x-ray showed complete resolution of the right pleural effusion and no evidence of pneumothorax. MMODL / IJN: [id number] /
[2018-05-21 11:09] LABS: Total Protein 4.9 g/dL (6.3-8.2)
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
--- NOTE | 2018-05-21 11:46 | PN ---
PROGRESS NOTE CHIEF COMPLAINTS: GI bleed. HISTORY OF PRESENT ILLNESS: This gentleman is waiting for thoracentesis. He has been fairly stable otherwise. However, I just has noticed in his hemoglobin and its hemoglobin keeps dropping. PHYSICAL EXAM: He remains pale. He is awake and alert. Chest demonstrates fairly good breath sounds bilaterally and cardiac exam is normal it is. Abdomen is soft, nontender. IMPRESSION: 1. Blood loss anemia. 2. Congestive heart failure. 3. Unstable hemoglobin. 4. Right pleural effusion. PLAN: Await thoracentesis and then he can move to a regular room. MMODL / IJN: [id number] /
[2018-05-21] MEDS: DONEPEZIL 5 MG TAB PO SCH (12:45)
[2018-05-21] MEDS: LEVOFLOXACIN 250 MG TAB PO SCH (12:45)
--- NOTE | 2018-05-21 16:40 | PN ---
PROGRESS NOTE DATE OF SERVICE: 05/20/18. CHIEF COMPLAINT: GI bleed, renal failure, CHF history and anemia. HISTORY OF PRESENT ILLNESS: This gentleman continues to slowly stabilize, but his hemoglobin keeps dropping. It is now back down to 7.3. There are no signs of bleeding. He is in sinus rhythm now. He is not particularly short of breath, but he has bilateral pleural effusions and these are being addressed. PHYSICAL EXAM: He is pale. Neck veins not distended. Chest demonstrates rales and rhonchi bilaterally. Cardiac exam is normal. Abdomen is soft and there are no masses or tenderness. IMPRESSION: 1. Gastrointestinal bleed. 2. Hypovolemic shock. 3. Persistent blood loss anemia. 4. Bilateral pleural effusions. PLAN: Continue to follow and hopefully move him to an another floor soon. MMODL / IJN: [id number] /
--- NOTE | 2018-05-21 17:49 | PN ---
PROGRESS NOTE DATE OF SERVICE: 05/18/2018 CHIEF COMPLAINT: Renal failure, GI blood loss and CHF. HISTORY OF PRESENT ILLNESS: This gentleman is doing a little bit better each day. His shortness of breath has improved. He is awake and alert. There has been no further bleeding. PHYSICAL EXAMINATION: Cardiac exam is unchanged. Chest is clear. Abdomen is soft, nontender. He is pale. IMPRESSION: 1. Upper gastrointestinal hemorrhage. 2. Blood loss anemia. 3. Renal failure. 4. Congestive heart failure. PLAN: Continue efforts to stabilize him and increase activity and diet. MMODL / IJN: [id number] /
--- NOTE | 2018-05-21 18:01 | PN ---
PROGRESS NOTE DATE OF SERVICE: 05/17/2018 CHIEF COMPLAINT: Blood loss anemia and renal failure secondary to upper GI bleed. HISTORY OF PRESENT ILLNESS: This gentleman is awake and alert and doing a little bit better each day. Hemoglobin is tending to drop, however. REVIEW OF SYSTEMS: He has had no chest pain, abdominal pain, nausea, vomiting, shortness of breath, etc. PHYSICAL EXAMINATION: Breath sounds are heard on both sides. The cardiac exam is normal. The abdomen is soft, nontender. IMPRESSION: 1. Hypovolemic shock. 2. Upper gastrointestinal bleed. 3. Congestive heart failure. 4. Atrial fibrillation. 5. Renal failure. PLAN: Slowly try to progress his activity while monitoring his hemoglobin. MMODL / IJN: [id number] /
[2018-05-21] MEDS: LATANOPROST 0.005% OPHTH DROPS 2.5 ML BTL BOTH EYES SCH (20:55)
[2018-05-21] MEDS ORDERED: SODIUM CHLORIDE 0.9% 500 ML IV ONE (21:34)
--- NOTE | 2018-05-21 21:52 | PN ---
PROGRESS NOTE DATE OF SERVICE: 05/21/2018 REASON FOR FOLLOWUP: 1. Bilateral lower extremity venostasis ulcers. 2. Klebsiella bacteremia pneumonia. INTERVAL HISTORY: The patient is afebrile. He has been breathing more comfortably. Denies significant chest pain. He continues to have some cough, not bringing up any sputum. No abdominal pain. No diarrhea. PHYSICAL EXAMINATION: Blood pressure is 121/60 with a pulse of 83, temperature 98.1. He is 97% on 3 L nasal cannula. General description is an elderly male lying in bed in no distress. RESPIRATORY SYSTEM: Unlabored breathing with decreased breath sounds at the bases. No wheeze. HEART: S1, S2. Regular rate and rhythm. ABDOMEN: Soft. No tenderness. LABS: Hemoglobin 7.2, white count 8.5 with a BUN of 31, creatinine 1.76. DIAGNOSTIC IMPRESSION AND PLAN: 1. Patient with bilateral lower extremity venostasis ulcers. Continue wound care with Aquacel Silver dressing and Curtis wrap to keep the swelling down. 2. Patient with Klebsiella bacteremia, source likely pneumonia. Currently covered with Zosyn. Plan to finish therapy with oral antibiotic on discharge. Continue with supportive care. MMODL / IJN: [id number] /
[2018-05-22] MEDS: PIPERACILLIN-TAZOBACTAM 3.375 GM in DEXTROSE/WATER 1 50ML.BAG IVPB SCH ×4 (00:14→23:20)
[2018-05-22] MEDS: IPRATROPIUM-ALBUTEROL 3 ML NEB INHALATION SCH ×5 (03:13→20:21)
[2018-05-22 04:31] LABS: Anisocytosis Slight; HCT 24.3 % (39.0-53.0); HGB 7.1 gm/dL (13.0-17.5); Hypochromasia Marked; MCH 26.3 pg (25.0-35.0); MCHC 29.2 g/dL (31.0-37.0); Mean Platelet Volume 8.3; Platelet Count 180 k/uL (150-450); RBC 2.69 m/uL (4.30-5.90); RDW 18.3 % (11.5-15.5); WBC 10.2 k/uL (3.8-10.6)
[2018-05-22 04:48] LABS: Calcium 7.5 mg/dL (8.4-10.2); Magnesium 2.1 mg/dL (1.6-2.3); Phosphorus 3.4 mg/dL (2.5-4.5); Potassium 4.7 mmol/L (3.5-5.1)
--- NOTE | 2018-05-22 07:46 | XR ---
EXAMINATION TYPE: XR chest 1V portable DATE OF EXAM: 05/22/2018 CLINICAL HISTORY: Difficulty breathing progress study. Thoracentesis yesterday. TECHNIQUE: Single AP portable upright view of the chest is obtained. COMPARISON: Chest x-ray from one day earlier and older studies. FINDINGS: There is stable left subclavian central venous catheter. There is persistent cardiomegaly with bibasilar opacities felt to reflect small left greater than right pleural effusions and associat ed bibasilar atelectasis and/or infiltrate. Left suprahilar consolidation remains present. Central va scular congestion is again seen. No pneumothorax is evident bilaterally. Osseous structures are intac t. IMPRESSION: Overall stable findings, cardiomegaly with central vascular congestion and small left g reater than right pleural effusions with associated bibasilar atelectasis and/or infiltrate and left suprahilar consolidation all redemonstrated.
[2018-05-22] MEDS: FUROSEMIDE 10 MG/ML 4 ML VIAL IV SCH (08:45)
[2018-05-22] MEDS: ASPIRIN 81 MG PO SCH (08:45)
[2018-05-22] MEDS: PANTOPRAZOLE 40 MG/10 ML VIAL IVP SCH (08:45)
[2018-05-22] MEDS: ATORVASTATIN 80 MG TAB PO SCH (08:46)
--- NOTE | 2018-05-22 10:20 | PN ---
PROGRESS NOTE CHIEF COMPLAINT: Hypovolemic shock, anemia and CHF. HISTORY OF PRESENT ILLNESS: This gentleman is fairly stable and is awaiting a telemetry bed. PHYSICAL EXAM: He is awake and alert. Chest demonstrates occasional rales and rhonchi. Cardiac exam is normal. Abdomen is soft, nontender. IMPRESSION: 1. Blood loss anemia. 2. Gastrointestinal bleeding. 3. Congestive heart failure. 4. Renal failure. PLAN: Await transfer to the telemetry bed. Increase activity and focus on physical therapy. MMODL / IJN: [id number] /
[2018-05-22] MEDS: LEVOFLOXACIN 250 MG TAB PO SCH (11:51)
[2018-05-22] MEDS: DONEPEZIL 5 MG TAB PO SCH (11:51)
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
[2018-05-22 15:08] LABS: Total Protein, Body Fluid 1456
[2018-05-22 15:15] LABS: Appearance,BF Hazy; Nucleated Cells, Body Fluid 66 /uL
[2018-05-22 15:16] LABS: Mononuclear WBC,Body Fluid 88 %; Polynuclear WBC,Body Fluid 10 %; RBC, Body Fluid 278 /uL
[2018-05-22 15:17] LABS: Total Cells Counted,Body Fluid 100
--- NOTE | 2018-05-22 15:23 | PN ---
PROGRESS NOTE DATE OF SERVICE: 05/22/2028. REASON FOR FOLLOW UP: 1. Bilateral lower extremity venostasis ulcer. 2. Klebsiella bacteremia pneumonia. INTERVAL HISTORY: The patient is currently afebrile. He seems to be breathing comfortably. Denies significant chest pain, occasional cough. He did have a right-sided thoracocentesis with removal of 2200 mL of fluid. The patient denies any abdominal pain. No diarrhea. No pain in the neck. EXAMINATION: Blood pressure 104/54 with a pulse of 91, temperature is 97.7. He is 98% on 3 L nasal cannula. General description is an elderly male lying in bed in no distress. RESPIRATORY SYSTEM: Unlabored breathing. Some coarse breath sounds in the bases. No wheeze. HEART: S1, S2. Regular rate and rhythm. ABDOMEN: Soft, no tenderness. Lower extremity currently wrapped with no obvious drainage on the dressing. LABS: Hemoglobin 7.1, white count 10.2 with a BUN of 33, creatinine 1.75. DIAGNOSTIC IMPRESSION/PLAN: 1. Patient has bilateral lower extremity venostasis ulcer. No evidence of any cellulitis. Local wound care with Aquacel Silver dressing and Curtis wrap to keep the swelling down. 2. Patient with Klebsiella pneumoniae bacteremia, source of pneumonia. Currently covered with Zosyn. 3. Positive blood culture with Staph epi likely contamination. No need for therapy for the same. MMODL / IJN: [id number] /
--- NOTE | 2018-05-22 15:29 | PN ---
PROGRESS NOTE DATE OF SERVICE: 05/16/2018. CHIEF COMPLAINT: Hypotension, anemia and renal failure. HISTORY OF PRESENT ILLNESS: This gentleman's is still somewhat unstable in terms of his blood pressure and hemoglobin as well as his kidney function. He remains awake and alert. PHYSICAL EXAM: Cardiac exam demonstrates rapid heart beat with no murmurs or extra sounds. Chest demonstrates decreased breath sounds with occasional rales. The abdomen is soft, nontender. IMPRESSION: 1. Hypovolemic shock. 2. Renal failure. 3. Congestive heart failure. 4. Gastrointestinal bleed. PLAN: Continue to follow with intensive medicine. MMODL / IJN: [id number] /
[2018-05-22] MEDS: ENOXAPARIN 30 MG/0.3 ML SYRINGE SQ SCH (16:02)
[2018-05-22] MEDS: LATANOPROST 0.005% OPHTH DROPS 2.5 ML BTL BOTH EYES SCH (19:57)
[2018-05-23] MEDS: IPRATROPIUM-ALBUTEROL 3 ML NEB INHALATION SCH ×6 (00:22→19:04)
[2018-05-23 04:48] LABS: Anisocytosis Slight; HCT 23.3 % (39.0-53.0); HGB 7.1 gm/dL (13.0-17.5); Hypochromasia Marked; MCH 27.3 pg (25.0-35.0); MCHC 30.3 g/dL (31.0-37.0); MCV 90.1 fL (80.0-100.0); Mean Platelet Volume 8.1; Platelet Count 182 k/uL (150-450); RBC 2.59 m/uL (4.30-5.90); RDW 18.2 % (11.5-15.5); WBC 10.4 k/uL (3.8-10.6)
[2018-05-23 04:53] LABS: Calcium 7.6 mg/dL (8.4-10.2); Phosphorus 3.5 mg/dL (2.5-4.5); Potassium 4.8 mmol/L (3.5-5.1)
--- NOTE | 2018-05-23 07:14 | XR ---
EXAMINATION TYPE: XR chest 1V portable DATE OF EXAM: 05/23/2018 CLINICAL HISTORY: Difficulty breathing and CHF progress study. TECHNIQUE: Single AP portable upright view of the chest is obtained. COMPARISON: Chest x-ray from one day earlier and older studies. FINDINGS: There is interval removal of left subclavian central venous catheter. There is stable card iomegaly with atherosclerotic thoracic aorta. There is chronic parenchymal change with small bilatera l pleural effusions and associated bibasilar atelectasis and/or infiltrate. There is more focal left upper lobe opacity redemonstrated. There is background chronic parenchymal change with increased sarahy ings centrally bilaterally. Osseous structures are intact. IMPRESSION: Persistent cardiomegaly with mild central vascular congestion and small right greater fidencio n left bilateral pleural effusions all raises concern for CHF exacerbation. More suspicious focal inf iltrate left upper lobe remains present though this is shows improvement over older exams not signifi cantly changed from yesterday.
[2018-05-23] MEDS: PANTOPRAZOLE 40 MG/10 ML VIAL IVP SCH (08:34)
[2018-05-23] MEDS: PIPERACILLIN-TAZOBACTAM 3.375 GM in DEXTROSE/WATER 1 50ML.BAG IVPB SCH ×2 (08:34→17:10)
[2018-05-23] MEDS: ATORVASTATIN 80 MG TAB PO SCH (08:34)
[2018-05-23] MEDS: ASPIRIN 81 MG PO SCH (08:34)
[2018-05-23] MEDS: ENOXAPARIN 30 MG/0.3 ML SYRINGE SQ SCH (08:34)
[2018-05-23] MEDS: FUROSEMIDE 10 MG/ML 4 ML VIAL IV SCH (08:34)
[2018-05-23] MEDS: DONEPEZIL 5 MG TAB PO SCH (12:10)
[2018-05-23] MEDS: LEVOFLOXACIN 250 MG TAB PO SCH (12:10)
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
--- NOTE | 2018-05-23 14:30 | PN ---
PROGRESS NOTE DATE OF SERVICE: 05/23/2018 CHIEF COMPLAINT: GI blood loss, hypovolemia, renal failure. HISTORY OF PRESENT ILLNESS: This gentleman is reasonably stable but his hemoglobin still remains low at 7.1. He is still in atrial fibrillation and his calcium is also low. BUN 31 with a creatinine 1.9. PHYSICAL EXAM: Head, ears, eyes, nose, mouth, and throat were normal. Neck veins not distended. The chest is fairly clear with decreased breath sounds at bases. Cardiac exam demonstrated atrial fibrillation. Abdomen is soft, nontender. IMPRESSION: 1. Gastrointestinal bleed with renal failure and hypovolemia as well as blood loss anemia. 2. Renal failure. PLAN: Continue to monitor hemoglobin and try to move out of ICU when a bed becomes available. MMODL / LUCERON: [id number] /
--- NOTE | 2018-05-23 17:15 | PN ---
PROGRESS NOTE DATE OF SERVICE: 05/23/2018 REASON FOR FOLLOWUP: 1. Bilateral lower extremity venostasis ulcers. 2. Klebsiella pneumoniae bacteremia and pneumonia. INTERVAL HISTORY: The patient is currently afebrile. He seems to be breathing more comfortably. Denies significant chest pain. Occasional cough. No abdominal pain or any worsening pain in the leg area. PHYSICAL EXAMINATION: Blood pressure is 124/52 with a pulse of 87, temperature 98.1. He is 97% on 2 L nasal cannula. General description is an elderly male up in the bed in no distress. RESPIRATORY SYSTEM: Unlabored breathing with decreased breath sounds at the bases. No wheeze. HEART: S1, S2. Regular rate and rhythm. ABDOMEN: Soft. No tenderness. LEGS: Currently dressed up. No obvious drainage on the dressing. LABS: Hemoglobin is 7.1, white count 10.4, BUN of 37, creatinine 1.91. Pleural fluid cultures are so far pending. DIAGNOSTIC IMPRESSION AND PLAN: 1. Patient with bilateral lower extremity venostasis ulcers with no evidence of any cellulitis. Recommend local wound care with Aquacel Silver dressing and Curtis wrap. 2. Patient with Klebsiella bacteremia pneumonia, currently covered with Zosyn and Levaquin, status post thoracocentesis yesterday. Culture has been so far pending. MMODL / IJN: [id number] /
[2018-05-23] MEDS: LATANOPROST 0.005% OPHTH DROPS 2.5 ML BTL BOTH EYES SCH (21:03)
[2018-05-24] MEDS: PIPERACILLIN-TAZOBACTAM 3.375 GM in DEXTROSE/WATER 1 50ML.BAG IVPB SCH ×4 (00:24→23:11)
[2018-05-24] MEDS: IPRATROPIUM-ALBUTEROL 3 ML NEB INHALATION SCH ×4 (06:57→20:33)
--- NOTE | 2018-05-24 07:41 | XR ---
EXAMINATION TYPE: XR chest 1V portable DATE OF EXAM: 05/24/2018 HISTORY: Shortness of breath. COMPARISON: 05/23/2018 TECHNIQUE: Single view of the chest is submitted. FINDINGS: Demonstrated are scattered senescent parenchymal change. Patchy basilar densities persist as well as left apical density. Correlate for pneumonia. Small effus ions persist as well. The heart is stable. Hilar and mediastinal structures are within normal limits. Degenerative changes are seen of the dorsal spine. IMPRESSION: 1. Patchy basilar densities persist as well as left apical density. Correlate for pneumonia. Small e ffusions persist as well.
[2018-05-24 07:50] LABS: Anisocytosis Slight; HCT 24.4 % (39.0-53.0); HGB 7.3 gm/dL (13.0-17.5); Hypochromasia Marked; MCH 26.3 pg (25.0-35.0); MCV 87.9 fL (80.0-100.0); Mean Platelet Volume 8.2; Platelet Count 204 k/uL (150-450); RBC 2.77 m/uL (4.30-5.90); RDW 18.4 % (11.5-15.5); WBC 10.4 k/uL (3.8-10.6)
[2018-05-24 07:58] LABS: Calcium 7.9 mg/dL (8.4-10.2); Magnesium 1.8 mg/dL (1.6-2.3); Phosphorus 3.7 mg/dL (2.5-4.5); Potassium 5.1 mmol/L (3.5-5.1)
[2018-05-24] MEDS: FUROSEMIDE 10 MG/ML 4 ML VIAL IV SCH (08:02)
[2018-05-24] MEDS: PANTOPRAZOLE 40 MG/10 ML VIAL IVP SCH (08:02)
[2018-05-24] MEDS: ENOXAPARIN 30 MG/0.3 ML SYRINGE SQ SCH (08:02)
[2018-05-24] MEDS: ATORVASTATIN 80 MG TAB PO SCH (08:02)
[2018-05-24] MEDS: ASPIRIN 81 MG PO SCH (08:02)
[2018-05-24] MEDS ORDERED: Magnesium Replacement Protocol 1 EACH MISC MISCELLANE PRN (09:05)
[2018-05-24] MEDS: MAGNESIUM SULFATE-D5W PMX 1 GM in DEXTROSE/WATER 1 100ML.BAG IVPB SCH ×2 (10:37→12:14)
[2018-05-24] MEDS: LEVOFLOXACIN 250 MG TAB PO SCH (11:34)
[2018-05-24] MEDS: DONEPEZIL 5 MG TAB PO SCH (11:34)
--- NOTE | 2018-05-24 14:13 | P.PN ---
Subjective Progress Note Date: 05/24/18 Principal diagnosis: Acute hypoxic respiratory failure secondary to diastolic congestive heart failure and left upper lobe pneumonia Acute hypoxic respiratory failure secondary to community-acquired pneumonia and congestive heart failure secondary to systolic dysfunction. 73-year-old male patient who was brought into the emergency department because of worsening shortness of breath and altered mentation. Apparently the patient was found to have diminished level of consciousness at home in addition to some questionable left-sided/facial droop that was not present at the time of admission today emergency department. The patient seemed to be more lethargic and hypoxic and he was in obvious respiratory failure. Initial chest exit showed acute bilateral pulmonary edema in addition to some questionable consolidation involving the left upper lobe. The patient was found to be in significant fluid overload. He had positive JVDs. He had positive edema in lower extremities bilaterally and diffuse swelling. He has chronic ulceration of the legs stage I to 2 that don't seem to be infected this point in time and he also has a stage II decubitus ulceration. No reported fever or chills. He is moving all 4 extremities without any limitation. On admission, it is not complain of any chest pain. White cell count is not elevated. Hemoglobin was at 6 and the patient has had chronic problems with anemia and his previous GI workup for blood loss anemia was essentially negative. His hemoglobin at a time of discharge from his most recent admission was 8. His chest x-ray was also clear from his most recent discharge. He is also an acute kidney injury. Creatinine is up to 2.3 from a normal baseline prior to his discharge. I evaluated this patient in the emergency department. He was awake and alert. He was short of breath. He was on a BiPAP at a pressure of 12/5 cm of water and FiO2 of 100%. He was given a dose of Lasix 80 mg IV push and he is producing adequate amount of urine output. 2 units of packed RBC was ordered. I inserted a triple lumen catheter in the left subclavian without any complications. He is moving all 4 extremities without any limitation. His cardiac rhythm showing a low voltage QRS, prolonged QT, no clear p waves are seen and the patient is possibly in a sinus rhythm although I'm not absolutely sure. I think he is in a flutter rhythm.. Repeat EKG needs to be done. CAT scan of the brain showed no definite acute intracranial hemorrhage or mass effect. There is units changes involving the white matter. On 05/14/2018 the patient is being seen for a follow-up. The patient is currently in the intensive care unit. Overnight the patient was kept on a BiPAP at a pressure of 14/6 cm of water and FiO2 was dropped down to 40%. The patient had a follow-up chest x-ray today showed consolidation of the left upper lobe which is slightly worse compared to yesterday. I do suspect some underlying pneumonia. I cover this patient on IV Zosyn and I added Levaquin today. CVP is around 10. The patient is producing 75 mL an hour of urine output. Renal function is impaired in stable with a creatinine of 2.09. The patient got transfused with 2 units of packed RBC. Hemoglobin is up to 7.6. No GI bleeding at this point in time and the patient is currently off Xarelto. His cardiac rhythm is atrial fibrillation. A repeat echocardiogram was done and the patient showed improvement in the LV function with an ejection fraction of 50-55%. Right ventricle was severely enlarged and there is mild regurgitation of the mitral valve and the tricuspid valve. No pericardial effusion. IVC was not visualized.. The right ventricular systolic pressure was estimated to be around 17 mmHg. Despite his underlying respiratory failure , the patient is awake and alert. He is following commands and answering questions appropriately. He is on pressors and currently is on 7 mics of norepinephrine infusion for blood pressure support. On 05/15/2018, seeing this patient for a follow-up. The patient remains in intensive care unit. He is awake and alert on the eighth of oxygen by nasal cannula. He was taken off the BiPAP. This improvement has occurred despite some worsening in the consolidation is seen on the chest x-ray. On today's chest and there is bilateral consolidation left more than right and a possibility of pneumonia still highly entertained. Echocardiac Eulalio was repeated and the patient has a preserved LV function contrary to the previous echocardiogram that was done earlier admissions. Ejection fraction is around 50 -55%. CVP is at 12. The patient is currently off pressors. The blood culture came back positive for gram-positive cocci and the patient was given vancomycin in combination with Levaquin and Zosyn for now. He is in atrial fibrillation. He is currently off pressors. He is producing urine output and the patient is in a negative fluid balance of 748 he is over the past 24 hours. No significant respiratory distress and the patient laying down comfortably in bed. Hemoglobin is down to 6.8 without evidence of any GI bleeding. We opted not to give him any blood transfusion for now and monitor the hemoglobin. Otherwise, he is tolerating his breakfast this morning. No other significant events overnight. The patient is resting comfortably in bed. The patient has no altered mentation and confusion this point in time. On 05/16/2008 and I'm seeing this patient for a follow-up. The patient remains in intensive care unit. The patient is still on 3 L of oxygen by nasal cannula and the flow is being titrated to maintain a saturation above 90%. He is obviously off BiPAP still. Initially there was concern of a septicemia. There was concern of a gram-positive septicemia. Final blood culture came back positive for gram-negative bacillus and the gram-positive fitter and turner to be staph epidermidis. The patient is currently on a combination of Zosyn and Levaquin and vancomycin. Fortunately, the patient is off pressors for now and the patient is maintaining his own blood pressure. The patient is being diuresis with Lasix 60 mg IV push every 12 hours and the patient has been negative fluid balance. Renal function is still stable with a creatinine of 1.7, relatively unchanged compared to yesterday. The white cell count is at 7.4. Chest x-ray still showing bilateral consolidation unchanged compared to yesterday. The hemoglobin still at 6.8 without evidence of any bleeding. The cardiac rhythm is atrial fibrillation. The patient is having short runs of tachycardia with aberrant rhythm. Electrolytes show a potassium level of 4.0. He agrees of is at 1.8. He is awake. Following commands and answering questions. No altered mentation. On 05/17/2018, I'm seeing this patient for a follow-up. He is doing well. I'm still surprised that the chest x-ray findings are still lagging behind. There is still bilateral pulmonary infiltrates that are quite extensive. Meanwhile, the patient is diagnosed having a Klebsiella pneumonia septicemia. The patient is currently on a combination of Zosyn and Levaquin. He is afebrile. Hemoglobin is stable. He is on no pressors for now. He is still being diuresed with IV Lasix and he is a negative fluid balance of 4.5 L over the past 24 hours. He is producing excellent amount of urine output. His lower extremity edema is also improving. Currently is on Lasix 60 mg IV push every 12 hours. Meanwhile the patient's blood work in the renal function remains stable. The patient got transfused with a unit of packed RBC and hemoglobin is up to 7.8. No signs of any GI bleed. His creatinine today is at 1.7. On 05/18/2018, the patient is resting comfortably in bed. He spent overnight on a BiPAP and currently is on fleets of oxygen by nasal cannula. I'm not appreciating a whole lot of difference on his chest x-ray finding. The patient is still consolidation bilaterally. He had Klebsiella pneumonia septicemia and the patient is currently on a combination of Zosyn and Levaquin. He is still being diuresed with IV Lasix. His urine output is excellent and the diuretics will be cut down to 40 mg of Lasix once a day. Renal function continues to improve slowly and the creatinine is down to 1.68. No fever. No chills. Hemoglobin is stable at 8.5 and the patient has not shown any signs of GI bleeding. Discussed the long-term anticoagulation with his primary care physician and with decided to hold off the antibiotic ventilation for now due to concerns of ongoing and recurrent GI bleeding. The patient was able to sit up at the bedside. He will need some aggressive physical therapy for today. No fever. No chills. No signs of any GI bleeding. He is weak. He is tolerating his diet. Wounds are being taken care of. 05/19/2018 I'm seeing this patient for a follow-up. He has no specific complaints. He had an uneventful night. His chest x-ray today shows improvement in the left upper lobe consolidation. The volume status is also improving and the patient is being diuresis with IV Lasix. The patient remains on a combination of Zosyn and Levaquin for a Klebsiella pneumonia septicemia. No fever. No chills. He remains on IV Lasix 40 mg on a daily basis and he remains in a negative fluid balance. No signs of any GI bleeding. We have already Stop the anticoagulation. Local wound care to his lower extremities. The renal function gradually continues to improve the creatinine is down to 1.63. On 05/20/2018, patient remains in the intensive care unit, improving, but continues to have significant amount of bilateral pleural effusions, he is responding to diuretics, he is also on antibiotics for Klebsiella pneumonia septicemia. Ultrasound of the chest showed bilateral pleural effusions, I am considering the possibility of thoracentesis especially the patient does not improve much with diuresis. Clinically the patient is feeling a bit better but not back to his baseline. Renal functioning seems to be a bit worse, creatinine today is 1.73 compared to 1.63 yesterday. Hemoglobin is 7.3 today. On 05/21/2018, patient remains in the ICU, improving, responding to diuretics as well as antibiotics, and I went ahead today and performed a right sided thoracentesis, over 2100 mL of fluid drained from the right pleural space. Fluid was sent for different diagnostic studies. Patient felt much better after the procedure. Hemoglobin today is 7.2, CBC is normal otherwise. His basic metabolic profile is normal renal profile is slightly worse with creatinine of 1.76. GFR is above 57. Patient was reevaluated today on 05/22/2018, feeling better breathing a lot easier since her last right sided thoracentesis done yesterday. Patient is not in any distress, remains on nasal cannula, remains on antibiotics and diuretics for his pneumonia and congestive heart failure respectively. Asked x-ray showed stable findings, cardiomegaly, small left pleural effusion, and left suprahilar consolidation. Blood culture from 05/13 was positive for staph epidermidis and Klebsiella pneumonia. Labs today showed hemoglobin of 7.1, no leukocytosis, electrolytes are normal bicarb however is 39 BUN is 36 creatinine is 1.75. His creatinine on admission was 2.30 and has been gradually improving labs on the pleural effusion are still pending. Patient is relatively asymptomatic today, denies any cough wheezing shortness of breath denies any chest pain no nausea no vomiting no abdominal pain. Patient was reevaluated today on 05/23/2018, continues to do well, improved significantly since his last thoracentesis. Patient is hemodynamically stable, remains on 2 L nasal cannula, remains on antibiotics, chest x-ray is showing improvement in his congestive heart failure and left upper lobe consolidation. Hence I plan to transfer the patient today to a regular medical floor with remote telemetry. Labs were reviewed hemoglobin is 7.1. Basic metabolic profile is normal renal functioning still hovering between 1.7 and 1.91 for the creatinine. On 05/24/2018 patient seen in follow-up on surgical floor, he had been transferred out of the intensive care unit yesterday, doing well. Currently on 2 L per flow nasal cannula, with a pulse ox of 96%, afebrile, hemodynamically stable. Denies any worsening shortness of breath or chest pain. He had a run of 7 beats V. tach, nonsustained, no major electrolyte abnormality, sodium is 141, potassium is 5.1, CO2 was 40, B1 is 39, creatinine is 1.94, magnesium was 1.8, patient was given 2 g of magnesium sulfate. This afternoon patient another run of 21 beats of V. tach, and cardiology has been consulted. Patient had the right-sided thoracentesis on 05/21/2018 with drainage of 2100 mL of pleural fluid. Pleural fluid analysis showed transudative pleural fluid. Pleural fluid cultures are pending. Cytology was negative for malignancy. Today's chest x-ray has been reviewed, showed patchy basilar densities and small pleural effusions. Clinically patient is without any major complaints, he has been ambulating to the bathroom with assistance, and tolerating activity fairly well. Edema in bilateral lower extremities is improving. Objective - Vital Signs Vital signs: Vital Signs Temp 97.6 F 05/24/18 10:30 Pulse 79 05/24/18 12:15 Resp 14 05/24/18 10:30 BP 100/66 05/24/18 12:15 Pulse Ox 91 L 05/24/18 10:30 Intake & Output 05/23/18 05/24/18 05/24/18 18:59 06:59 18:59 Intake Total 60.0 459 Output Total 1465 675 Balance -1405.0 -675 459 Intake: IV 60.0 0.9 10 Piperacillin-Tazobactam 3 50.0 .375 gm In Dextrose/Water 1 50ml.bag @ 12.5 mls/hr IVPB Q8HR [facility] Rx#: [id number] Oral 459 Output: Urine 1465 675 Other: Voiding Method Indwelling Catheter Urinal Urinal # Voids 1 1 2 # Bowel Movements 1 2 - Exam Physical Exam: Revealed a 73-year-old white male in no distress. Asymptomatic, pleasant. Head: Relatively unremarkable. HEENT:[Neck is supple.] [No neck masses.] [No thyromegaly.] [No JVD.] PERRLA, EOMI, neck is supple. Chest: [Bibasilar crackles, diminished at the bases. Symmetrical chest expansion noted. Cardiac Exam: Irregular irregular rhythm, no S3 gallop, no murmur. Abdomen: [Obese nontender no megaly no rebound] Extremities: [Trace of edema no clubbing. No cyanosis. Neurological Exam: [No focal neurologic deficit.] Alert oriented 3. Lymphatics: No lymphadenopathy. Psychiatric: Normal mood, affect and mental status examination. - Labs CBC & Chem 7: 05/24/18 06:38 05/24/18 06:38 Labs: Abnormal Lab Results - Last 24 Hours (Table) 05/24/18 05/24/18 Range/Units 06:38 06:38 RBC 2.77 L (4.30-5.90) m/uL Hgb 7.3 L (13.0-17.5) gm/dL Hct 24.4 L (39.0-53.0) % MCHC 30.0 L (31.0-37.0) g/dL RDW 18.4 H (11.5-15.5) % Carbon Dioxide 40 H (22-30) mmol/L BUN 39 H (9-20) mg/dL Creatinine 1.94 H (0.66-1.25) mg/dL Calcium 7.9 L (8.4-10.2) mg/dL Assessment and Plan Plan: Assessment: Impression: Acute hypoxic respiratory failure secondary to diastolic congestive heart failure and left upper lobe pneumonia. Right pleural effusion, status post thoracentesis on 05/21/2018 Acute kidney injury secondary to ATN and septic shock Chronic atrial fibrillation/flutter rate control. Klebsiella pneumonia sepsis and septic shock on presentation. Nonsustained episodes of V. tach, cardiology consulted Recommendation: Continue current antibiotic coverage, awaiting results of the pleural fluid cultures. Continue with oral diuretics, he continues to diurese, is maintaining negative fluid balance, weight is coming down. We'll consult cardiology for episodes of nonsustained ventricular tachycardia. Monitor electrolytes, oxygenation, episodes of chest discomfort, shortness of breath. We 'll continue to follow I performed a history & physical examination of the patient and discussed their management with my nurse practitioner, Maylin Tsai. I reviewed the nurse practitioner's note and agree with the documented findings and plan of care. Lung sounds are positive for bibasilar crackles. The findings and the impression was discussed with the patient. I attest to the documentation by the nurse practitioner. Time with Patient: Less than 30
--- NOTE | 2018-05-24 15:43 | PN ---
PROGRESS NOTE CHIEF COMPLAINT: Anemia, renal failure, congestive heart failure. HISTORY OF PRESENT ILLNESS: This gentleman states that he is doing fairly well, and he is not complaining of any shortness of breath. He has had no chest pain. Renal function is poor. PHYSICAL EXAMINATION: He remains poor and hemoglobin remains around 7.5. The chest demonstrates poor breath sounds with rales at the bases and with decreased breath sounds in the left lower lobe posteriorly. Cardiac exam demonstrates his atrial fibrillation. The abdomen is soft and nontender. IMPRESSION: 1. Blood loss anemia. 2. Congestive heart failure. 3. Atrial fibrillation. 4. Chronic kidney disease. PLAN: No change in program. Continue supportive care. MMODL / IJN: [id number] /
[2018-05-24] MEDS: LATANOPROST 0.005% OPHTH DROPS 2.5 ML BTL BOTH EYES SCH (21:07)
[2018-05-24 21:14] LABS: Anisocytosis Slight; Basophils # (A) 0.1 k/uL (0-0.2); Basophils % (A) 1 %; Eosinophils # (A) 0.3 k/uL (0-0.7); Eosinophils % (A) 2 %; HCT 25.3 % (39.0-53.0); HGB 7.6 gm/dL (13.0-17.5); Hypochromasia Marked; Lymphocytes # (A) 1.1 k/uL (1.0-4.8); Lymphocytes % (A) 10 %; MCH 26.3 pg (25.0-35.0); MCHC 29.9 g/dL (31.0-37.0); MCV 88.2 fL (80.0-100.0); Mean Platelet Volume 8.7; Monocytes # (A) 0.8 k/uL (0-1.0); Monocytes % (A) 7 %; Neutrophils # (A) 8.2 k/uL (1.3-7.7); Neutrophils % (A) 78 %; Platelet Count 220 k/uL (150-450); RBC 2.87 m/uL (4.30-5.90); RDW 18.5 % (11.5-15.5); WBC 10.6 k/uL (3.8-10.6)
[2018-05-24 22:02] LABS: Calcium 7.9 mg/dL (8.4-10.2); Potassium 4.5 mmol/L (3.5-5.1)
[2018-05-24] MEDS: METOPROLOL TARTRATE 25 MG TAB PO SCH (23:10)
--- NOTE | 2018-05-24 23:58 | PN ---
PROGRESS NOTE DATE OF SERVICE: 05/24/2018 REASONS FOR FOLLOWUP: 1. Bilateral lower extremity venous stasis ulcer. 2. Klebsiella pneumoniae and bacteremia. INTERVAL HISTORY: The patient is currently afebrile. He seemed to be breathing comfortably. Denies significant chest pain. Occasional cough. No abdominal pain and no pain to the leg wound area. EXAMINATION: His blood pressure 109/65, pulse of 89, temperature 98.1. He is 100% on 2L nasal cannula. General description is an elderly male up in a chair in no distress. RESPIRATORY SYSTEM: Unlabored breathing with decreased breath sounds in the bases. No wheeze. HEART: S1, S2. Regular rate and rhythm. ABDOMEN: Soft. No tenderness. LEGS: Wounds are currently dressed up. No obvious drainage on the dressings. DIAGNOSTIC IMPRESSION AND PLAN: 1. Patient with bilateral lower extremity venous stasis ulcers. To continue wound care consisting of Aquacel Silver dressing and Curtis wrap. 2. Patient with Klebsiella pneumoniae bacteremia and pneumonia for which the patient is currently on Zosyn, has received about 10 days of antibiotic, being given a short course for antibiotic on discharge. Continue with supportive care. MMODL / IJN: [id number] /
[2018-05-25] MEDS: IPRATROPIUM-ALBUTEROL 3 ML NEB INHALATION SCH ×4 (08:59→20:01)
[2018-05-25] MEDS: ASPIRIN 81 MG PO SCH (09:00)
[2018-05-25] MEDS: METOPROLOL TARTRATE 25 MG TAB PO SCH ×3 (09:00→20:27)
[2018-05-25] MEDS: ATORVASTATIN 80 MG TAB PO SCH (09:00)
[2018-05-25] MEDS: PIPERACILLIN-TAZOBACTAM 3.375 GM in DEXTROSE/WATER 1 50ML.BAG IVPB SCH ×3 (09:01→23:30)
[2018-05-25] MEDS: PANTOPRAZOLE 40 MG/10 ML VIAL IVP SCH (09:01)
[2018-05-25] MEDS: FUROSEMIDE 10 MG/ML 4 ML VIAL IV SCH (09:01)
[2018-05-25] MEDS: ENOXAPARIN 30 MG/0.3 ML SYRINGE SQ SCH (09:01)
[2018-05-25] MEDS: DONEPEZIL 5 MG TAB PO SCH (12:22)
[2018-05-25] MEDS: LEVOFLOXACIN 250 MG TAB PO SCH (12:22)
--- NOTE | 2018-05-25 12:44 | PN ---
PROGRESS NOTE CHIEF COMPLAINT: GI blood loss anemia, hypovolemia, ventricular tachycardia, hypocalcemia, and renal failure. HISTORY OF PRESENT ILLNESS: This gentleman continued to struggle. He is having runs of PVCs. Renal function is still a factor with a BUN of 46 and creatinine of 2.02. Hemoglobin is still low at 7.6 and his calcium is 7.9. REVIEW OF SYSTEMS: He denies chest pain, syncope, shortness of breath, etc. PHYSICAL EXAM: He continues to look very pale and chronically ill. Chest demonstrates occasional rales, but breath sounds are fairly clear at the bases. His cardiac exam reveals atrial fibrillation. The abdomen is soft and slightly tender over the epigastrium. IMPRESSION: 1. Gastrointestinal blood loss anemia. 2. Gastrointestinal bleeding. 3. Hypovolemia, hypovolemic shock. 4. Renal failure. 5. Hypocalcemia. PLAN: Arrhythmia is being addressed by Cardiology and we continue to monitor his dropping hemoglobin. MMODL / IJN: [id number] /
--- NOTE | 2018-05-25 12:57 | P.PN ---
Subjective Progress Note Date: 05/25/18 Principal diagnosis: Acute hypoxic respiratory failure secondary to diastolic congestive heart failure and left upper lobe pneumonia 73-year-old male patient who was brought into the emergency department because of worsening shortness of breath and altered mentation. Apparently the patient was found to have diminished level of consciousness at home in addition to some questionable left-sided/facial droop that was not present at the time of admission today emergency department. The patient seemed to be more lethargic and hypoxic and he was in obvious respiratory failure. Initial chest exit showed acute bilateral pulmonary edema in addition to some questionable consolidation involving the left upper lobe. The patient was found to be in significant fluid overload. He had positive JVDs. He had positive edema in lower extremities bilaterally and diffuse swelling. He has chronic ulceration of the legs stage I to 2 that don't seem to be infected this point in time and he also has a stage II decubitus ulceration. No reported fever or chills. He is moving all 4 extremities without any limitation. On admission, it is not complain of any chest pain. White cell count is not elevated. Hemoglobin was at 6 and the patient has had chronic problems with anemia and his previous GI workup for blood loss anemia was essentially negative. His hemoglobin at a time of discharge from his most recent admission was 8. His chest x-ray was also clear from his most recent discharge. He is also an acute kidney injury. Creatinine is up to 2.3 from a normal baseline prior to his discharge. I evaluated this patient in the emergency department. He was awake and alert. He was short of breath. He was on a BiPAP at a pressure of 12/5 cm of water and FiO2 of 100%. He was given a dose of Lasix 80 mg IV push and he is producing adequate amount of urine output. 2 units of packed RBC was ordered. I inserted a triple lumen catheter in the left subclavian without any complications. He is moving all 4 extremities without any limitation. His cardiac rhythm showing a low voltage QRS, prolonged QT, no clear p waves are seen and the patient is possibly in a sinus rhythm although I'm not absolutely sure. I think he is in a flutter rhythm.. Repeat EKG needs to be done. CAT scan of the brain showed no definite acute intracranial hemorrhage or mass effect. There is units changes involving the white matter. On 05/14/2018 the patient is being seen for a follow-up. The patient is currently in the intensive care unit. Overnight the patient was kept on a BiPAP at a pressure of 14/6 cm of water and FiO2 was dropped down to 40%. The patient had a follow-up chest x-ray today showed consolidation of the left upper lobe which is slightly worse compared to yesterday. I do suspect some underlying pneumonia. I cover this patient on IV Zosyn and I added Levaquin today. CVP is around 10. The patient is producing 75 mL an hour of urine output. Renal function is impaired in stable with a creatinine of 2.09. The patient got transfused with 2 units of packed RBC. Hemoglobin is up to 7.6. No GI bleeding at this point in time and the patient is currently off Xarelto. His cardiac rhythm is atrial fibrillation. A repeat echocardiogram was done and the patient showed improvement in the LV function with an ejection fraction of 50-55%. Right ventricle was severely enlarged and there is mild regurgitation of the mitral valve and the tricuspid valve. No pericardial effusion. IVC was not visualized.. The right ventricular systolic pressure was estimated to be around 17 mmHg. Despite his underlying respiratory failure , the patient is awake and alert. He is following commands and answering questions appropriately. He is on pressors and currently is on 7 mics of norepinephrine infusion for blood pressure support. On 05/15/2018, seeing this patient for a follow-up. The patient remains in intensive care unit. He is awake and alert on the eighth of oxygen by nasal cannula. He was taken off the BiPAP. This improvement has occurred despite some worsening in the consolidation is seen on the chest x-ray. On today's chest and there is bilateral consolidation left more than right and a possibility of pneumonia still highly entertained. Echocardiac Eulalio was repeated and the patient has a preserved LV function contrary to the previous echocardiogram that was done earlier admissions. Ejection fraction is around 50 -55%. CVP is at 12. The patient is currently off pressors. The blood culture came back positive for gram-positive cocci and the patient was given vancomycin in combination with Levaquin and Zosyn for now. He is in atrial fibrillation. He is currently off pressors. He is producing urine output and the patient is in a negative fluid balance of 748 he is over the past 24 hours. No significant respiratory distress and the patient laying down comfortably in bed. Hemoglobin is down to 6.8 without evidence of any GI bleeding. We opted not to give him any blood transfusion for now and monitor the hemoglobin. Otherwise, he is tolerating his breakfast this morning. No other significant events overnight. The patient is resting comfortably in bed. The patient has no altered mentation and confusion this point in time. On 05/16/2008 and I'm seeing this patient for a follow-up. The patient remains in intensive care unit. The patient is still on 3 L of oxygen by nasal cannula and the flow is being titrated to maintain a saturation above 90%. He is obviously off BiPAP still. Initially there was concern of a septicemia. There was concern of a gram-positive septicemia. Final blood culture came back positive for gram-negative bacillus and the gram-positive returning officer to be staph epidermidis. The patient is currently on a combination of Zosyn and Levaquin and vancomycin. Fortunately, the patient is off pressors for now and the patient is maintaining his own blood pressure. The patient is being diuresis with Lasix 60 mg IV push every 12 hours and the patient has been negative fluid balance. Renal function is still stable with a creatinine of 1.7, relatively unchanged compared to yesterday. The white cell count is at 7.4. Chest x-ray still showing bilateral consolidation unchanged compared to yesterday. The hemoglobin still at 6.8 without evidence of any bleeding. The cardiac rhythm is atrial fibrillation. The patient is having short runs of tachycardia with aberrant rhythm. Electrolytes show a potassium level of 4.0. He agrees of is at 1.8. He is awake. Following commands and answering questions. No altered mentation. On 05/17/2018, I'm seeing this patient for a follow-up. He is doing well. I'm still surprised that the chest x-ray findings are still lagging behind. There is still bilateral pulmonary infiltrates that are quite extensive. Meanwhile, the patient is diagnosed having a Klebsiella pneumonia septicemia. The patient is currently on a combination of Zosyn and Levaquin. He is afebrile. Hemoglobin is stable. He is on no pressors for now. He is still being diuresed with IV Lasix and he is a negative fluid balance of 4.5 L over the past 24 hours. He is producing excellent amount of urine output. His lower extremity edema is also improving. Currently is on Lasix 60 mg IV push every 12 hours. Meanwhile the patient's blood work in the renal function remains stable. The patient got transfused with a unit of packed RBC and hemoglobin is up to 7.8. No signs of any GI bleed. His creatinine today is at 1.7. On 05/18/2018, the patient is resting comfortably in bed. He spent overnight on a BiPAP and currently is on fleets of oxygen by nasal cannula. I'm not appreciating a whole lot of difference on his chest x-ray finding. The patient is still consolidation bilaterally. He had Klebsiella pneumonia septicemia and the patient is currently on a combination of Zosyn and Levaquin. He is still being diuresed with IV Lasix. His urine output is excellent and the diuretics will be cut down to 40 mg of Lasix once a day. Renal function continues to improve slowly and the creatinine is down to 1.68. No fever. No chills. Hemoglobin is stable at 8.5 and the patient has not shown any signs of GI bleeding. Discussed the long-term anticoagulation with his primary care physician and with decided to hold off the antibiotic ventilation for now due to concerns of ongoing and recurrent GI bleeding. The patient was able to sit up at the bedside. He will need some aggressive physical therapy for today. No fever. No chills. No signs of any GI bleeding. He is weak. He is tolerating his diet. Wounds are being taken care of. 05/19/2018 I'm seeing this patient for a follow-up. He has no specific complaints. He had an uneventful night. His chest x-ray today shows improvement in the left upper lobe consolidation. The volume status is also improving and the patient is being diuresis with IV Lasix. The patient remains on a combination of Zosyn and Levaquin for a Klebsiella pneumonia septicemia. No fever. No chills. He remains on IV Lasix 40 mg on a daily basis and he remains in a negative fluid balance. No signs of any GI bleeding. We have already Stop the anticoagulation. Local wound care to his lower extremities. The renal function gradually continues to improve the creatinine is down to 1.63. On 05/20/2018, patient remains in the intensive care unit, improving, but continues to have significant amount of bilateral pleural effusions, he is responding to diuretics, he is also on antibiotics for Klebsiella pneumonia septicemia. Ultrasound of the chest showed bilateral pleural effusions, I am considering the possibility of thoracentesis especially the patient does not improve much with diuresis. Clinically the patient is feeling a bit better but not back to his baseline. Renal functioning seems to be a bit worse, creatinine today is 1.73 compared to 1.63 yesterday. Hemoglobin is 7.3 today. On 05/21/2018, patient remains in the ICU, improving, responding to diuretics as well as antibiotics, and I went ahead today and performed a right sided thoracentesis, over 2100 mL of fluid drained from the right pleural space. Fluid was sent for different diagnostic studies. Patient felt much better after the procedure. Hemoglobin today is 7.2, CBC is normal otherwise. His basic metabolic profile is normal renal profile is slightly worse with creatinine of 1.76. GFR is above 57. Patient was reevaluated today on 05/22/2018, feeling better breathing a lot easier since her last right sided thoracentesis done yesterday. Patient is not in any distress, remains on nasal cannula, remains on antibiotics and diuretics for his pneumonia and congestive heart failure respectively. Asked x-ray showed stable findings, cardiomegaly, small left pleural effusion, and left suprahilar consolidation. Blood culture from 05/13 was positive for staph epidermidis and Klebsiella pneumonia. Labs today showed hemoglobin of 7.1, no leukocytosis, electrolytes are normal bicarb however is 39 BUN is 36 creatinine is 1.75. His creatinine on admission was 2.30 and has been gradually improving labs on the pleural effusion are still pending. Patient is relatively asymptomatic today, denies any cough wheezing shortness of breath denies any chest pain no nausea no vomiting no abdominal pain. Patient was reevaluated today on 05/23/2018, continues to do well, improved significantly since his last thoracentesis. Patient is hemodynamically stable, remains on 2 L nasal cannula, remains on antibiotics, chest x-ray is showing improvement in his congestive heart failure and left upper lobe consolidation. Hence I plan to transfer the patient today to a regular medical floor with remote telemetry. Labs were reviewed hemoglobin is 7.1. Basic metabolic profile is normal renal functioning still hovering between 1.7 and 1.91 for the creatinine. On 05/24/2018 patient seen in follow-up on surgical floor, he had been transferred out of the intensive care unit yesterday, doing well. Currently on 2 L per flow nasal cannula, with a pulse ox of 96%, afebrile, hemodynamically stable. Denies any worsening shortness of breath or chest pain. He had a run of 7 beats V. tach, nonsustained, no major electrolyte abnormality, sodium is 141, potassium is 5.1, CO2 was 40, B1 is 39, creatinine is 1.94, magnesium was 1.8, patient was given 2 g of magnesium sulfate. This afternoon patient another run of 21 beats of V. tach, and cardiology has been consulted. Patient had the right-sided thoracentesis on 05/21/2018 with drainage of 2100 mL of pleural fluid. Pleural fluid analysis showed transudative pleural fluid. Pleural fluid cultures are pending. Cytology was negative for malignancy. Today's chest x-ray has been reviewed, showed patchy basilar densities and small pleural effusions. Clinically patient is without any major complaints, he has been ambulating to the bathroom with assistance, and tolerating activity fairly well. Edema in bilateral lower extremities is improving. The patient is seen again today 05/25/2018 in follow-up in the selective care unit. He is currently sitting up in a chair at the bedside. He is awake and alert in no acute distress. He denies any worsening shortness of breath, cough or congestion. He is maintaining good O2 saturations in the high 90s on 2 L/m per nasal cannula. He is afebrile. Hemodynamically stable. He remains on antibiotics in the form of Zosyn and Levaquin. He is continued on bronchodilators. Remains on IV diuretics. Weight 99.1 kg. magnesium 2.1. No recurrent arrhythmias. Objective - Vital Signs Vital signs: Vital Signs Temp 97.9 F 05/25/18 12:00 Pulse 78 05/25/18 12:00 Resp 16 05/25/18 12:00 BP 102/61 05/25/18 12:00 Pulse Ox 98 05/25/18 12:00 Intake & Output 05/24/18 05/25/18 05/25/18 18:59 06:59 18:59 Intake Total 746 200 236 Output Total 150 200 Balance 596 0 236 Weight 99.1 kg Intake: IV 50 Piperacillin-Tazobactam 3 50 .375 gm In Dextrose/Water 1 50ml.bag @ 12.5 mls/hr IVPB Q8HR [facility] Rx#: [id number] Oral 696 200 236 Output: Urine 150 200 Other: Voiding Method Urinal Toilet Urinal # Voids 2 1 1 # Bowel Movements 1 1 - Exam Physical Exam: Revealed a 73-year-old white male in no distress. In a chair today. O2 at 2 L per nasal cannula. Head: Relatively unremarkable. HEENT:[Neck is supple.] [No neck masses.] [No thyromegaly.] [No JVD.] PERRLA, EOMI, neck is supple. Chest: [Bibasilar crackles, diminished at the bases. Symmetrical chest expansion noted. Cardiac Exam: Irregular irregular rhythm, no S3 gallop, no murmur. Abdomen: [Obese nontender no megaly no rebound] Extremities: [Trace of edema no clubbing. No cyanosis. Neurological Exam: [No focal neurologic deficit.] Alert oriented 3. Lymphatics: No lymphadenopathy. Psychiatric: Normal mood, affect and mental status examination. - Labs CBC & Chem 7: 05/24/18 20:54 05/24/18 20:54 Labs: Abnormal Lab Results - Last 24 Hours (Table) 05/24/18 05/24/18 Range/Units 20:54 20:54 RBC 2.87 L (4.30-5.90) m/uL Hgb 7.6 L (13.0-17.5) gm/dL Hct 25.3 L (39.0-53.0) % MCHC 29.9 L (31.0-37.0) g/dL RDW 18.5 H (11.5-15.5) % Neutrophils # 8.2 H (1.3-7.7) k/uL Chloride 96 L (98-107) mmol/L Carbon Dioxide 35 H (22-30) mmol/L BUN 46 H (9-20) mg/dL Creatinine 2.02 H (0.66-1.25) mg/dL Glucose 105 H (74-99) mg/dL Calcium 7.9 L (8.4-10.2) mg/dL Microbiology - Last 24 Hours (Table) 05/21/18 10:25 Gram Stain - Preliminary Pleural Fluid Body Fluid Culture - Preliminary Assessment and Plan Assessment: Assessment: Acute hypoxic respiratory failure secondary to diastolic congestive heart failure and left upper lobe pneumonia. Improved. Right pleural effusion, status post thoracentesis on 05/21/2018, fluid negative for malignancy Acute kidney injury secondary to ATN and septic shock Chronic atrial fibrillation/flutter rate control. Klebsiella pneumonia sepsis and septic shock on presentation. Nonsustained episodes of V. tach, cardiology consulted Recommendation: The patient was seen and evaluated by Dr. Turk. He is currently stable from the pulmonary standpoint. No further arrhythmias. We'll continue with his current medications. Increase his activity as tolerated. We'll continue to follow. I, the cosigning physician, performed a history & physical examination of the patient. Lungs sounds have few crackles in the posterior bases. Maintaining good O2 saturations in the 90s on 2 L/m per nasal cannula. I discussed the assessment and plan of care with my nurse practitioner, Trudy Bear. I attest to the above note as dictated by her.
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
[2018-05-25] MEDS: LATANOPROST 0.005% OPHTH DROPS 2.5 ML BTL BOTH EYES SCH (20:27)
[2018-05-26] MEDS: IPRATROPIUM-ALBUTEROL 3 ML NEB INHALATION SCH ×4 (07:36→19:08)
[2018-05-26] MEDS: ATORVASTATIN 80 MG TAB PO SCH (08:53)
[2018-05-26] MEDS: METOPROLOL TARTRATE 25 MG TAB PO SCH ×3 (08:53→23:07)
[2018-05-26] MEDS: FUROSEMIDE 10 MG/ML 4 ML VIAL IV SCH (08:53)
[2018-05-26] MEDS: ENOXAPARIN 30 MG/0.3 ML SYRINGE SQ SCH (08:53)
[2018-05-26] MEDS: ASPIRIN 81 MG PO SCH (08:53)
[2018-05-26] MEDS: PANTOPRAZOLE 40 MG/10 ML VIAL IVP SCH (08:53)
[2018-05-26] MEDS: PIPERACILLIN-TAZOBACTAM 3.375 GM in DEXTROSE/WATER 1 50ML.BAG IVPB SCH ×3 (08:54→23:55)
[2018-05-26] MEDS: LEVOFLOXACIN 250 MG TAB PO SCH (11:11)
[2018-05-26] MEDS: DONEPEZIL 5 MG TAB PO SCH (11:11)
--- NOTE | 2018-05-26 11:44 | P.PN ---
Subjective Progress Note Date: 05/26/18 Principal diagnosis: Acute hypoxic respiratory failure secondary to community-acquired pneumonia and congestive heart failure secondary to systolic dysfunction. 73-year-old male patient who was brought into the emergency department because of worsening shortness of breath and altered mentation. Apparently the patient was found to have diminished level of consciousness at home in addition to some questionable left-sided/facial droop that was not present at the time of admission today emergency department. The patient seemed to be more lethargic and hypoxic and he was in obvious respiratory failure. Initial chest exit showed acute bilateral pulmonary edema in addition to some questionable consolidation involving the left upper lobe. The patient was found to be in significant fluid overload. He had positive JVDs. He had positive edema in lower extremities bilaterally and diffuse swelling. He has chronic ulceration of the legs stage I to 2 that don't seem to be infected this point in time and he also has a stage II decubitus ulceration. No reported fever or chills. He is moving all 4 extremities without any limitation. On admission, it is not complain of any chest pain. White cell count is not elevated. Hemoglobin was at 6 and the patient has had chronic problems with anemia and his previous GI workup for blood loss anemia was essentially negative. His hemoglobin at a time of discharge from his most recent admission was 8. His chest x-ray was also clear from his most recent discharge. He is also an acute kidney injury. Creatinine is up to 2.3 from a normal baseline prior to his discharge. I evaluated this patient in the emergency department. He was awake and alert. He was short of breath. He was on a BiPAP at a pressure of 12/5 cm of water and FiO2 of 100%. He was given a dose of Lasix 80 mg IV push and he is producing adequate amount of urine output. 2 units of packed RBC was ordered. I inserted a triple lumen catheter in the left subclavian without any complications. He is moving all 4 extremities without any limitation. His cardiac rhythm showing a low voltage QRS, prolonged QT, no clear p waves are seen and the patient is possibly in a sinus rhythm although I'm not absolutely sure. I think he is in a flutter rhythm.. Repeat EKG needs to be done. CAT scan of the brain showed no definite acute intracranial hemorrhage or mass effect. There is units changes involving the white matter. On 05/14/2018 the patient is being seen for a follow-up. The patient is currently in the intensive care unit. Overnight the patient was kept on a BiPAP at a pressure of 14/6 cm of water and FiO2 was dropped down to 40%. The patient had a follow-up chest x-ray today showed consolidation of the left upper lobe which is slightly worse compared to yesterday. I do suspect some underlying pneumonia. I cover this patient on IV Zosyn and I added Levaquin today. CVP is around 10. The patient is producing 75 mL an hour of urine output. Renal function is impaired in stable with a creatinine of 2.09. The patient got transfused with 2 units of packed RBC. Hemoglobin is up to 7.6. No GI bleeding at this point in time and the patient is currently off Xarelto. His cardiac rhythm is atrial fibrillation. A repeat echocardiogram was done and the patient showed improvement in the LV function with an ejection fraction of 50-55%. Right ventricle was severely enlarged and there is mild regurgitation of the mitral valve and the tricuspid valve. No pericardial effusion. IVC was not visualized.. The right ventricular systolic pressure was estimated to be around 17 mmHg. Despite his underlying respiratory failure , the patient is awake and alert. He is following commands and answering questions appropriately. He is on pressors and currently is on 7 mics of norepinephrine infusion for blood pressure support. On 05/15/2018, seeing this patient for a follow-up. The patient remains in intensive care unit. He is awake and alert on the eighth of oxygen by nasal cannula. He was taken off the BiPAP. This improvement has occurred despite some worsening in the consolidation is seen on the chest x-ray. On today's chest and there is bilateral consolidation left more than right and a possibility of pneumonia still highly entertained. Echocardiac Eulalio was repeated and the patient has a preserved LV function contrary to the previous echocardiogram that was done earlier admissions. Ejection fraction is around 50 -55%. CVP is at 12. The patient is currently off pressors. The blood culture came back positive for gram-positive cocci and the patient was given vancomycin in combination with Levaquin and Zosyn for now. He is in atrial fibrillation. He is currently off pressors. He is producing urine output and the patient is in a negative fluid balance of 748 he is over the past 24 hours. No significant respiratory distress and the patient laying down comfortably in bed. Hemoglobin is down to 6.8 without evidence of any GI bleeding. We opted not to give him any blood transfusion for now and monitor the hemoglobin. Otherwise, he is tolerating his breakfast this morning. No other significant events overnight. The patient is resting comfortably in bed. The patient has no altered mentation and confusion this point in time. On 05/16/2008 and I'm seeing this patient for a follow-up. The patient remains in intensive care unit. The patient is still on 3 L of oxygen by nasal cannula and the flow is being titrated to maintain a saturation above 90%. He is obviously off BiPAP still. Initially there was concern of a septicemia. There was concern of a gram-positive septicemia. Final blood culture came back positive for gram-negative bacillus and the gram-positive flange turner to be staph epidermidis. The patient is currently on a combination of Zosyn and Levaquin and vancomycin. Fortunately, the patient is off pressors for now and the patient is maintaining his own blood pressure. The patient is being diuresis with Lasix 60 mg IV push every 12 hours and the patient has been negative fluid balance. Renal function is still stable with a creatinine of 1.7, relatively unchanged compared to yesterday. The white cell count is at 7.4. Chest x-ray still showing bilateral consolidation unchanged compared to yesterday. The hemoglobin still at 6.8 without evidence of any bleeding. The cardiac rhythm is atrial fibrillation. The patient is having short runs of tachycardia with aberrant rhythm. Electrolytes show a potassium level of 4.0. He agrees of is at 1.8. He is awake. Following commands and answering questions. No altered mentation. On 05/17/2018, I'm seeing this patient for a follow-up. He is doing well. I'm still surprised that the chest x-ray findings are still lagging behind. There is still bilateral pulmonary infiltrates that are quite extensive. Meanwhile, the patient is diagnosed having a Klebsiella pneumonia septicemia. The patient is currently on a combination of Zosyn and Levaquin. He is afebrile. Hemoglobin is stable. He is on no pressors for now. He is still being diuresed with IV Lasix and he is a negative fluid balance of 4.5 L over the past 24 hours. He is producing excellent amount of urine output. His lower extremity edema is also improving. Currently is on Lasix 60 mg IV push every 12 hours. Meanwhile the patient's blood work in the renal function remains stable. The patient got transfused with a unit of packed RBC and hemoglobin is up to 7.8. No signs of any GI bleed. His creatinine today is at 1.7. On 05/18/2018, the patient is resting comfortably in bed. He spent overnight on a BiPAP and currently is on fleets of oxygen by nasal cannula. I'm not appreciating a whole lot of difference on his chest x-ray finding. The patient is still consolidation bilaterally. He had Klebsiella pneumonia septicemia and the patient is currently on a combination of Zosyn and Levaquin. He is still being diuresed with IV Lasix. His urine output is excellent and the diuretics will be cut down to 40 mg of Lasix once a day. Renal function continues to improve slowly and the creatinine is down to 1.68. No fever. No chills. Hemoglobin is stable at 8.5 and the patient has not shown any signs of GI bleeding. Discussed the long-term anticoagulation with his primary care physician and with decided to hold off the antibiotic ventilation for now due to concerns of ongoing and recurrent GI bleeding. The patient was able to sit up at the bedside. He will need some aggressive physical therapy for today. No fever. No chills. No signs of any GI bleeding. He is weak. He is tolerating his diet. Wounds are being taken care of. 05/19/2018 I'm seeing this patient for a follow-up. He has no specific complaints. He had an uneventful night. His chest x-ray today shows improvement in the left upper lobe consolidation. The volume status is also improving and the patient is being diuresis with IV Lasix. The patient remains on a combination of Zosyn and Levaquin for a Klebsiella pneumonia septicemia. No fever. No chills. He remains on IV Lasix 40 mg on a daily basis and he remains in a negative fluid balance. No signs of any GI bleeding. We have already Stop the anticoagulation. Local wound care to his lower extremities. The renal function gradually continues to improve the creatinine is down to 1.63. On 05/20/2018, patient remains in the intensive care unit, improving, but continues to have significant amount of bilateral pleural effusions, he is responding to diuretics, he is also on antibiotics for Klebsiella pneumonia septicemia. Ultrasound of the chest showed bilateral pleural effusions, I am considering the possibility of thoracentesis especially the patient does not improve much with diuresis. Clinically the patient is feeling a bit better but not back to his baseline. Renal functioning seems to be a bit worse, creatinine today is 1.73 compared to 1.63 yesterday. Hemoglobin is 7.3 today. On 05/21/2018, patient remains in the ICU, improving, responding to diuretics as well as antibiotics, and I went ahead today and performed a right sided thoracentesis, over 2100 mL of fluid drained from the right pleural space. Fluid was sent for different diagnostic studies. Patient felt much better after the procedure. Hemoglobin today is 7.2, CBC is normal otherwise. His basic metabolic profile is normal renal profile is slightly worse with creatinine of 1.76. GFR is above 57. Patient was reevaluated today on 05/22/2018, feeling better breathing a lot easier since her last right sided thoracentesis done yesterday. Patient is not in any distress, remains on nasal cannula, remains on antibiotics and diuretics for his pneumonia and congestive heart failure respectively. Asked x-ray showed stable findings, cardiomegaly, small left pleural effusion, and left suprahilar consolidation. Blood culture from 05/13 was positive for staph epidermidis and Klebsiella pneumonia. Labs today showed hemoglobin of 7.1, no leukocytosis, electrolytes are normal bicarb however is 39 BUN is 36 creatinine is 1.75. His creatinine on admission was 2.30 and has been gradually improving labs on the pleural effusion are still pending. Patient is relatively asymptomatic today, denies any cough wheezing shortness of breath denies any chest pain no nausea no vomiting no abdominal pain. Patient was reevaluated today on 05/23/2018, continues to do well, improved significantly since his last thoracentesis. Patient is hemodynamically stable, remains on 2 L nasal cannula, remains on antibiotics, chest x-ray is showing improvement in his congestive heart failure and left upper lobe consolidation. Hence I plan to transfer the patient today to a regular medical floor with remote telemetry. Labs were reviewed hemoglobin is 7.1. Basic metabolic profile is normal renal functioning still hovering between 1.7 and 1.91 for the creatinine. Reevaluated today on 05/26/2018, patient is doing well, relatively asymptomatic, his rhythm seems to be fairly well controlled, patient is hemodynamically stable , no cough no wheezing no shortness of breath, has BiPAP at bedside, and using it when he sleeps separately. Labs were reviewed, relatively normal electrolytes, bicarb is 35 BUN is 46 creatinine is 2.02. Hemoglobin is 7.6. Objective - Vital Signs Vital signs: Vital Signs Temp 97.7 F 05/26/18 11:34 Pulse 68 05/26/18 11:34 Resp 16 05/26/18 11:34 BP 116/54 05/26/18 11:34 Pulse Ox 96 05/26/18 11:34 Intake & Output 05/25/18 05/26/18 05/26/18 18:59 06:59 18:59 Intake Total 698 580 Output Total 600 Balance 98 580 Weight 98.7 kg Intake: Oral 698 580 Output: Urine 600 Other: Voiding Method Toilet Toilet Urinal Urinal # Voids 1 1 # Bowel Movements 2 1 - Exam Physical Exam: Revealed a 73-year-old white sitting in a chair next to his bed, asymptomatic, in no distress.. Head: Atraumatic, normocephalic, relatively unremarkable. HEENT:[No neck masses no JVD no thyromegaly.. Chest: [Liter breath sound bilaterally no crackles or rhonchi or wheezes. Cardiac Exam: Irregular irregular rhythm, no S3 gallop, no murmur. Abdomen: [No rebound no guarding, obese, soft, positive bowel sounds. Extremities: [Trace of bipedal edema. No clubbing. No cyanosis. Neurological Exam: [Alert oriented 3, no focal deficit. Lymphatics: Palpable lymph nodes.. Psychiatric: Unremarkable. - Labs CBC & Chem 7: 05/24/18 20:54 05/24/18 20:54 Assessment and Plan Assessment: Impression: Acute hypoxic respiratory failure, multifactorial, secondary to left upper lobe pneumonia, congestive heart failure/diastolic dysfunction. Significantly improved, and chest x-ray is reassuring.. Right pleural effusion, requiring thoracentesis on 05/21, the fluid was transudative in nature. Acute kidney injury secondary to ATN and septic shock may have to consider nephrology consultation. Chronic atrial fibrillation/flutter rate control. Being addressed by cardiology. Klebsiella pneumonia sepsis and septic shock him on resolved. Recommendation:Considering the presentation, the patient is demonstrating a significant improvement, my recommendation would be to continue present treatment plan, consider discharge planning in the next 24-48 hours, must BE cleared by cardiology, consider evaluation by nephrology for his acute kidney injury. We'll continue to follow. Time with Patient: Less than 30
--- NOTE | 2018-05-26 12:14 | P.PN ---
Subjective Progress Note Date: 05/26/18 This is a 73-year-old gentleman who was initially admitted to the hospital with worsening shortness of breath and altered mentation. On admission patient was found to have diminished level of consciousness and also questionable left- sided facial droop. He was diagnosed to have evidence of pulmonary edema and possible pneumonia. He was fluid overloaded on admission. He also has some ulceration of the legs. He spent several days in intensive care unit. He was transferred to [facility] yesterday. Patient had a bout of nonsustained V. tach followed by another V. tach of 22 beats. Patient was asymptomatic. He was given magnesium supplementation was transferred to telemetry unit. At the time of my examination patient is sitting in the chair and doesn't appear to be in acute distress. He doesn't appear patient was symptomatic from these episodes. His echocardiogram done during this admission showed normal LV function. His creatinine went up to 2.3. His potassium level been normal. Patient is on beta kevin. Will increase the dose of the beta kevin and continue to monitor his rhythm. If patient has any recurrence of ventricular tachycardia episodes, will consider adding amiodarone. Further recommendations depend upon the clinical course. 05/26/2018. The patient continues to have short runs of nonsustained ventricular tachycardia. He is asymptomatic. Remains hemodynamically stable. Denies any chest discomfort, shortness breath or palpitations. He is alert and oriented 3. Objective - Vital Signs Vital signs: Vital Signs Temp 97.7 F 05/26/18 11:34 Pulse 68 05/26/18 11:34 Resp 16 05/26/18 11:34 BP 116/54 05/26/18 11:34 Pulse Ox 96 05/26/18 11:34 Intake & Output 05/25/18 05/26/18 05/26/18 18:59 06:59 18:59 Intake Total 698 580 Output Total 600 Balance 98 580 Weight 98.7 kg Intake: Oral 698 580 Output: Urine 600 Other: Voiding Method Toilet Toilet Urinal Urinal # Voids 1 1 # Bowel Movements 2 1 - Exam GENERAL EXAM: Patient is alert and doesn't appear to be in any acute distress HEENT: Normocephalic. Normal reaction of pupils, equal size, normal range of extraocular motion. No erythema or exudates in the throat. NECK: No masses, no nuchal rigidity. CHEST: No chest wall deformity. LUNGS: Diminished air exchange HEART: S1 and S2 normal with no audible mumurs or gallops. Regular rhythm, femorals equal on both sides.. ABDOMEN: No hepatosplenomegaly, normal bowel sounds, no guarding or rigidity. SKIN: No rashes CENTRAL NERVOUS SYSTEM: No focal deficits. EXTREMITIES: No cyanosis, clubbing or edema. - Labs CBC & Chem 7: 05/24/18 20:54 05/24/18 20:54 Assessment and Plan Assessment: Nonsustained ventricular tachycardia Acute renal failure E anemia TIA Chronic atrial fibrillation Plan: Continue with beta kevin therapy. Start the patient on oral amiodarone 300 mg twice a day 1 week then 200 mg twice a day thereafter. Continue with IV Lasix. Strict I&O and daily weights. We will continue to follow him closely. PRIMARY COUNSELOR note was reviewed, I agree with a documented findings and plan of care. Patient was seen and examined.
[2018-05-26] MEDS: AMIODARONE 100 MG TAB PO SCH ×2 (17:00→23:06)
[2018-05-26] MEDS: LATANOPROST 0.005% OPHTH DROPS 2.5 ML BTL BOTH EYES SCH (23:07)
--- NOTE | 2018-05-26 23:45 | PN ---
PROGRESS NOTE DATE OF SERVICE: 05/26/2018. REASON FOR FOLLOWUP: 1. Bilateral extremity weakness, resolved. 2. Klebsiella bacteremia pneumonia. INTERVAL HISTORY: The patient is afebrile. He is breathing comfortably. Denies significant chest pain or shortness of breath. Very minimal cough. No nausea, no vomiting. No diarrhea. EXAMINATION: Blood pressure 113/60 with a pulse of 88, temperature 97.6. He is 99% on 2 L nasal cannula. General description is an elderly male up in the bed in no distress. Respiratory system: Unlabored breathing with decreased breath sounds in the bases. No wheeze. Heart S1, S2. Regular rate and rhythm. ABDOMEN: Soft, wounds. Bilateral leg wounds currently dressed up. No obvious drainage on the dressing. LABS: No new lab have been obtained today. DIAGNOSTIC IMPRESSION/PLAN: 1. Patient with bilateral lower extremity venous stasis ulcers and cellulitis. Continue local wound care with Aquacel Silver dressing and Curtis wrap to keep the swelling down. 2. Patient with Klebsiella pneumoniae bacteremia secondary to pneumonia for which the patient has received Zosyn about 12 days. Recommend to discontinue on discharge. 3. Positive blood culture with Staph epi contamination. No need for treatment for the same. MMODL / IJN: [id number] /
[2018-05-27] MEDS: IPRATROPIUM-ALBUTEROL 3 ML NEB INHALATION SCH ×4 (08:35→19:42)
[2018-05-27] MEDS: PANTOPRAZOLE 40 MG/10 ML VIAL IVP SCH (09:12)
[2018-05-27] MEDS: METOPROLOL TARTRATE 25 MG TAB PO SCH ×3 (09:13→20:53)
[2018-05-27] MEDS: ATORVASTATIN 80 MG TAB PO SCH (09:13)
[2018-05-27] MEDS: ASPIRIN 81 MG PO SCH (09:13)
[2018-05-27] MEDS: FUROSEMIDE 10 MG/ML 4 ML VIAL IV SCH (09:13)
[2018-05-27] MEDS: AMIODARONE 100 MG TAB PO SCH (09:14)
[2018-05-27] MEDS: ENOXAPARIN 30 MG/0.3 ML SYRINGE SQ SCH (09:14)
[2018-05-27] MEDS: PIPERACILLIN-TAZOBACTAM 3.375 GM in DEXTROSE/WATER 1 50ML.BAG IVPB SCH ×3 (11:38→23:41)
[2018-05-27] MEDS: DONEPEZIL 5 MG TAB PO SCH (11:39)
[2018-05-27] MEDS: LEVOFLOXACIN 250 MG TAB PO SCH (11:39)
--- NOTE | 2018-05-27 12:24 | CDI ---
Last Revision, August 2017 Documentation Clarification Form Date: 05/27/18 From: Cyn Lee RN Admit Date: 05/13/2018 2:36:00 PM Patient Name: Tin James Visit Number: [id number] ATTENTION: The Clinical Documentation Specialists (CDI) and [facility] Coding Staff appreciate your assistance in clarifying documentation. Please respond to the clarification below the line at the bottom and electronically sign. The CDI & [facility] Coding staff will review the response and follow-up if needed. Please note: Queries are made part of the Legal Health Record. If you have any questions, please contact the author of this message via ITS. Dr. Ayush Wills MD, Can you please render your opinion on the following documentation? 05/[address] Shearer "acute kidney failure' 05/15 -05/26 PN state renal failure Presented with shortness of breath, acute renal failure, anemia, gi bleed, TIA History/Risk Factors: A FIB, CVA/TIA, DVT, cpap, hyperlipidemia, obesity, vascular disorder Clinical Indicators: Current on admission: BUN/CR/GFR: Patients Baseline: BUN 36, CR 2.30, GFR 27: 05/24 BUN 46, CR 2.02, GFR 32 Renal failure is charted in the PN from 05/13 - 05/26 Treatment: IVF BOLUS; .9 500ml x 1 Monitor labs No nephrology consult In order to capture the severity of condition, please clarify if the condition signifies: CKD Stage 3 (GFR 30-59) CKD Stage 4 (GFR 15-29) CKD Stage 5 (GFR <15) Other, please specify Unable to determine MTDD
--- NOTE | 2018-05-27 13:55 | CDI ---
Last Revision, August 2017 Documentation Clarification Form Date: 05/27/2018 12:24:00 PM From: Cyn Lee RN Admit Date: 05/13/2018 2:36:00 PM Patient Name: Tin James Visit Number: [id number] ATTENTION: The Clinical Documentation Specialists (CDI) and [facility] Coding Staff appreciate your assistance in clarifying documentation. Please respond to the clarification below the line at the bottom and electronically sign. The CDI & [facility] Coding staff will review the response and follow-up if needed. Please note: Queries are made part of the Legal Health Record. If you have any questions, please contact the author of this message via ITS. Ayush Devlin MD, Can you please render your opinion on the following documentation: 05/[address] Shearer "acute kidney failure' 05/15 -05/26 PN state renal failure Presented with shortness of breath, acute renal failure, anemia, gi bleed, TIA History/Risk Factors:A FIB, CVA/TIA, DVT, cpap, hyperlipidemia, obesity, vascular disorder Clinical Indicators: Current on admission: BUN/CR/GFR: Patients Baseline: BUN 36, CR 2.30, GFR 27: 05/24 BUN 46, CR 2.02, GFR 32 Renal failure is charted in the PN from 05/13 - 05/26 Treatment: IVF BOLUS; .9 500ml x 1 monitor labs No nephology consult In order to capture the severity of condition, please clarify if the condition signifies: CKD Stage 3 (GFR 30-59) CKD Stage 4 (GFR 15-29) CKD Stage 5 (GFR <15) Other, please specify Unable to determine + MTDD
--- NOTE | 2018-05-27 13:56 | P.PN ---
Subjective Progress Note Date: 05/27/18 Principal diagnosis: Acute hypoxic respiratory failure secondary to diastolic congestive heart failure and left upper lobe pneumonia Acute hypoxic respiratory failure secondary to community-acquired pneumonia and congestive heart failure secondary to systolic dysfunction. 73-year-old male patient who was brought into the emergency department because of worsening shortness of breath and altered mentation. Apparently the patient was found to have diminished level of consciousness at home in addition to some questionable left-sided/facial droop that was not present at the time of admission today emergency department. The patient seemed to be more lethargic and hypoxic and he was in obvious respiratory failure. Initial chest exit showed acute bilateral pulmonary edema in addition to some questionable consolidation involving the left upper lobe. The patient was found to be in significant fluid overload. He had positive JVDs. He had positive edema in lower extremities bilaterally and diffuse swelling. He has chronic ulceration of the legs stage I to 2 that don't seem to be infected this point in time and he also has a stage II decubitus ulceration. No reported fever or chills. He is moving all 4 extremities without any limitation. On admission, it is not complain of any chest pain. White cell count is not elevated. Hemoglobin was at 6 and the patient has had chronic problems with anemia and his previous GI workup for blood loss anemia was essentially negative. His hemoglobin at a time of discharge from his most recent admission was 8. His chest x-ray was also clear from his most recent discharge. He is also an acute kidney injury. Creatinine is up to 2.3 from a normal baseline prior to his discharge. I evaluated this patient in the emergency department. He was awake and alert. He was short of breath. He was on a BiPAP at a pressure of 12/5 cm of water and FiO2 of 100%. He was given a dose of Lasix 80 mg IV push and he is producing adequate amount of urine output. 2 units of packed RBC was ordered. I inserted a triple lumen catheter in the left subclavian without any complications. He is moving all 4 extremities without any limitation. His cardiac rhythm showing a low voltage QRS, prolonged QT, no clear p waves are seen and the patient is possibly in a sinus rhythm although I'm not absolutely sure. I think he is in a flutter rhythm.. Repeat EKG needs to be done. CAT scan of the brain showed no definite acute intracranial hemorrhage or mass effect. There is units changes involving the white matter. On 05/14/2018 the patient is being seen for a follow-up. The patient is currently in the intensive care unit. Overnight the patient was kept on a BiPAP at a pressure of 14/6 cm of water and FiO2 was dropped down to 40%. The patient had a follow-up chest x-ray today showed consolidation of the left upper lobe which is slightly worse compared to yesterday. I do suspect some underlying pneumonia. I cover this patient on IV Zosyn and I added Levaquin today. CVP is around 10. The patient is producing 75 mL an hour of urine output. Renal function is impaired in stable with a creatinine of 2.09. The patient got transfused with 2 units of packed RBC. Hemoglobin is up to 7.6. No GI bleeding at this point in time and the patient is currently off Xarelto. His cardiac rhythm is atrial fibrillation. A repeat echocardiogram was done and the patient showed improvement in the LV function with an ejection fraction of 50-55%. Right ventricle was severely enlarged and there is mild regurgitation of the mitral valve and the tricuspid valve. No pericardial effusion. IVC was not visualized.. The right ventricular systolic pressure was estimated to be around 17 mmHg. Despite his underlying respiratory failure , the patient is awake and alert. He is following commands and answering questions appropriately. He is on pressors and currently is on 7 mics of norepinephrine infusion for blood pressure support. On 05/15/2018, seeing this patient for a follow-up. The patient remains in intensive care unit. He is awake and alert on the eighth of oxygen by nasal cannula. He was taken off the BiPAP. This improvement has occurred despite some worsening in the consolidation is seen on the chest x-ray. On today's chest and there is bilateral consolidation left more than right and a possibility of pneumonia still highly entertained. Echocardiac Eulalio was repeated and the patient has a preserved LV function contrary to the previous echocardiogram that was done earlier admissions. Ejection fraction is around 50 -55%. CVP is at 12. The patient is currently off pressors. The blood culture came back positive for gram-positive cocci and the patient was given vancomycin in combination with Levaquin and Zosyn for now. He is in atrial fibrillation. He is currently off pressors. He is producing urine output and the patient is in a negative fluid balance of 748 he is over the past 24 hours. No significant respiratory distress and the patient laying down comfortably in bed. Hemoglobin is down to 6.8 without evidence of any GI bleeding. We opted not to give him any blood transfusion for now and monitor the hemoglobin. Otherwise, he is tolerating his breakfast this morning. No other significant events overnight. The patient is resting comfortably in bed. The patient has no altered mentation and confusion this point in time. On 05/16/2008 and I'm seeing this patient for a follow-up. The patient remains in intensive care unit. The patient is still on 3 L of oxygen by nasal cannula and the flow is being titrated to maintain a saturation above 90%. He is obviously off BiPAP still. Initially there was concern of a septicemia. There was concern of a gram-positive septicemia. Final blood culture came back positive for gram-negative bacillus and the gram-positive metal turner to be staph epidermidis. The patient is currently on a combination of Zosyn and Levaquin and vancomycin. Fortunately, the patient is off pressors for now and the patient is maintaining his own blood pressure. The patient is being diuresis with Lasix 60 mg IV push every 12 hours and the patient has been negative fluid balance. Renal function is still stable with a creatinine of 1.7, relatively unchanged compared to yesterday. The white cell count is at 7.4. Chest x-ray still showing bilateral consolidation unchanged compared to yesterday. The hemoglobin still at 6.8 without evidence of any bleeding. The cardiac rhythm is atrial fibrillation. The patient is having short runs of tachycardia with aberrant rhythm. Electrolytes show a potassium level of 4.0. He agrees of is at 1.8. He is awake. Following commands and answering questions. No altered mentation. On 05/17/2018, I'm seeing this patient for a follow-up. He is doing well. I'm still surprised that the chest x-ray findings are still lagging behind. There is still bilateral pulmonary infiltrates that are quite extensive. Meanwhile, the patient is diagnosed having a Klebsiella pneumonia septicemia. The patient is currently on a combination of Zosyn and Levaquin. He is afebrile. Hemoglobin is stable. He is on no pressors for now. He is still being diuresed with IV Lasix and he is a negative fluid balance of 4.5 L over the past 24 hours. He is producing excellent amount of urine output. His lower extremity edema is also improving. Currently is on Lasix 60 mg IV push every 12 hours. Meanwhile the patient's blood work in the renal function remains stable. The patient got transfused with a unit of packed RBC and hemoglobin is up to 7.8. No signs of any GI bleed. His creatinine today is at 1.7. On 05/18/2018, the patient is resting comfortably in bed. He spent overnight on a BiPAP and currently is on fleets of oxygen by nasal cannula. I'm not appreciating a whole lot of difference on his chest x-ray finding. The patient is still consolidation bilaterally. He had Klebsiella pneumonia septicemia and the patient is currently on a combination of Zosyn and Levaquin. He is still being diuresed with IV Lasix. His urine output is excellent and the diuretics will be cut down to 40 mg of Lasix once a day. Renal function continues to improve slowly and the creatinine is down to 1.68. No fever. No chills. Hemoglobin is stable at 8.5 and the patient has not shown any signs of GI bleeding. Discussed the long-term anticoagulation with his primary care physician and with decided to hold off the antibiotic ventilation for now due to concerns of ongoing and recurrent GI bleeding. The patient was able to sit up at the bedside. He will need some aggressive physical therapy for today. No fever. No chills. No signs of any GI bleeding. He is weak. He is tolerating his diet. Wounds are being taken care of. 05/19/2018 I'm seeing this patient for a follow-up. He has no specific complaints. He had an uneventful night. His chest x-ray today shows improvement in the left upper lobe consolidation. The volume status is also improving and the patient is being diuresis with IV Lasix. The patient remains on a combination of Zosyn and Levaquin for a Klebsiella pneumonia septicemia. No fever. No chills. He remains on IV Lasix 40 mg on a daily basis and he remains in a negative fluid balance. No signs of any GI bleeding. We have already Stop the anticoagulation. Local wound care to his lower extremities. The renal function gradually continues to improve the creatinine is down to 1.63. On 05/20/2018, patient remains in the intensive care unit, improving, but continues to have significant amount of bilateral pleural effusions, he is responding to diuretics, he is also on antibiotics for Klebsiella pneumonia septicemia. Ultrasound of the chest showed bilateral pleural effusions, I am considering the possibility of thoracentesis especially the patient does not improve much with diuresis. Clinically the patient is feeling a bit better but not back to his baseline. Renal functioning seems to be a bit worse, creatinine today is 1.73 compared to 1.63 yesterday. Hemoglobin is 7.3 today. On 05/21/2018, patient remains in the ICU, improving, responding to diuretics as well as antibiotics, and I went ahead today and performed a right sided thoracentesis, over 2100 mL of fluid drained from the right pleural space. Fluid was sent for different diagnostic studies. Patient felt much better after the procedure. Hemoglobin today is 7.2, CBC is normal otherwise. His basic metabolic profile is normal renal profile is slightly worse with creatinine of 1.76. GFR is above 57. Patient was reevaluated today on 05/22/2018, feeling better breathing a lot easier since her last right sided thoracentesis done yesterday. Patient is not in any distress, remains on nasal cannula, remains on antibiotics and diuretics for his pneumonia and congestive heart failure respectively. Asked x-ray showed stable findings, cardiomegaly, small left pleural effusion, and left suprahilar consolidation. Blood culture from 05/13 was positive for staph epidermidis and Klebsiella pneumonia. Labs today showed hemoglobin of 7.1, no leukocytosis, electrolytes are normal bicarb however is 39 BUN is 36 creatinine is 1.75. His creatinine on admission was 2.30 and has been gradually improving labs on the pleural effusion are still pending. Patient is relatively asymptomatic today, denies any cough wheezing shortness of breath denies any chest pain no nausea no vomiting no abdominal pain. Patient was reevaluated today on 05/23/2018, continues to do well, improved significantly since his last thoracentesis. Patient is hemodynamically stable, remains on 2 L nasal cannula, remains on antibiotics, chest x-ray is showing improvement in his congestive heart failure and left upper lobe consolidation. Hence I plan to transfer the patient today to a regular medical floor with remote telemetry. Labs were reviewed hemoglobin is 7.1. Basic metabolic profile is normal renal functioning still hovering between 1.7 and 1.91 for the creatinine. On 05/24/2018 patient seen in follow-up on surgical floor, he had been transferred out of the intensive care unit yesterday, doing well. Currently on 2 L per flow nasal cannula, with a pulse ox of 96%, afebrile, hemodynamically stable. Denies any worsening shortness of breath or chest pain. He had a run of 7 beats V. tach, nonsustained, no major electrolyte abnormality, sodium is 141, potassium is 5.1, CO2 was 40, B1 is 39, creatinine is 1.94, magnesium was 1.8, patient was given 2 g of magnesium sulfate. This afternoon patient another run of 21 beats of V. tach, and cardiology has been consulted. Patient had the right-sided thoracentesis on 05/21/2018 with drainage of 2100 mL of pleural fluid. Pleural fluid analysis showed transudative pleural fluid. Pleural fluid cultures are pending. Cytology was negative for malignancy. Today's chest x-ray has been reviewed, showed patchy basilar densities and small pleural effusions. Clinically patient is without any major complaints, he has been ambulating to the bathroom with assistance, and tolerating activity fairly well. Edema in bilateral lower extremities is improving. On 05/25/2018 patient seen in follow-up on selective.. He sitting up in the chair, in no acute distress, 2 L per nasal cannula, socks is 98%, he did wear the BiPAP last night for his history of obstructive sleep apnea. He is awake, alert, oriented 3, denies any worsening shortness of breath or chest pain. Lung sounds are positive for a few scattered rales, no wheezing. No coughing, no chest congestion, he hasn't had a chest x-ray since 05 24, repeated chest x- ray tomorrow morning. Blood culture showed staph dermatitis, and Klebsiella pneumonia, patient had done right-sided thoracentesis on 2017 with drainage of 2100 mL of pleural fluid, which was found to be transudative, and pleural fluid cultures were negative. He continues on IV Lasix at 40 mg once daily, he is on Zosyn and Levaquin, he is on oral Cordarone 200 mg twice daily. Objective - Vital Signs Vital signs: Vital Signs Temp 98.2 F 05/27/18 08:00 Pulse 85 05/27/18 12:16 Resp 18 05/27/18 08:00 BP 109/57 05/27/18 08:00 Pulse Ox 98 05/27/18 08:00 Intake & Output 05/26/18 05/27/18 05/27/18 18:59 06:59 18:59 Intake Total 1188 50 480 Output Total 1000 1250 300 Balance 188 -1200 180 Weight 100.8 kg Intake: IV 50 Piperacillin-Tazobactam 3 50 .375 gm In Dextrose/Water 1 50ml.bag @ 12.5 mls/hr IVPB Q8HR [facility] Rx#: [id number] Oral 1188 480 Output: Urine 1000 1250 300 Other: Voiding Method Toilet Toilet Toilet Urinal Urinal Urinal # Voids 1 # Bowel Movements 1 1 - Exam Physical Exam: Revealed a 73-year-old white male in no distress. Asymptomatic, pleasant. Head: Relatively unremarkable. HEENT:[Neck is supple.] [No neck masses.] [No thyromegaly.] [No JVD.] PERRLA, EOMI, neck is supple. Chest: [Bibasilar crackles, diminished at the bases. Symmetrical chest expansion noted. Cardiac Exam: Irregular irregular rhythm, no S3 gallop, no murmur. Abdomen: [Obese nontender no megaly no rebound] Extremities: [Trace of edema no clubbing. No cyanosis. Neurological Exam: [No focal neurologic deficit.] Alert oriented 3. Lymphatics: No lymphadenopathy. Psychiatric: Normal mood, affect and mental status examination. - Labs CBC & Chem 7: 05/24/18 20:54 05/24/18 20:54 Assessment and Plan Plan: Assessment: Impression: Acute hypoxic respiratory failure secondary to diastolic congestive heart failure and left upper lobe pneumonia. Right pleural effusion, status post thoracentesis on 05/21/2018 Acute kidney injury secondary to ATN and septic shock Chronic atrial fibrillation/flutter rate control. Klebsiella pneumonia sepsis and septic shock on presentation. Nonsustained episodes of V. tach, cardiology consulted Recommendation: We'll obtain a repeat chest x-ray in the morning, continue IV diuretics, continue antibiotic coverage, and nebulized bronchodilators. I performed a history & physical examination of the patient and discussed their management with my nurse practitioner, Maylin Tsai. I reviewed the nurse practitioner's note and agree with the documented findings and plan of care. Lung sounds are positive for bibasilar crackles. The findings and the impression was discussed with the patient. I attest to the documentation by the nurse practitioner. Time with Patient: Less than 30
--- NOTE | 2018-05-27 14:05 | P.PN ---
Subjective Progress Note Date: 05/27/18 Progress Note Date: 05/27/18 This is a 73-year-old gentleman who was initially admitted to the hospital with worsening shortness of breath and altered mentation. On admission patient was found to have diminished level of consciousness and also questionable left- sided facial droop. He was diagnosed to have evidence of pulmonary edema and possible pneumonia. He was fluid overloaded on admission. He also has some ulceration of the legs. He spent several days in intensive care unit. He was transferred to [facility] floor Patient had a bout of nonsustained V. tach followed by another V. tach of 22 beats. Patient was asymptomatic. He was given magnesium supplementation was transferred to telemetry unit. At the time of my examination patient is sitting in bed and doesn't appear to be in acute distress. He doesn't appear patient was symptomatic from these episodes. His echocardiogram done during this admission showed normal LV function. His creatinine went up to 2.0. His potassium level been normal. Patient is on beta kevin. Will increase the dose of the beta kevin and continue to monitor his rhythm. On review of the rhythm strips, it does appear that the patient has had a run of nonsustained ventricular tachycardia. Dr. Verena floyd review the office notes today, we will also review most recent stress test. Objective - Vital Signs Vital signs: Vital Signs Temp 98.2 F 05/27/18 08:00 Pulse 85 05/27/18 12:16 Resp 18 05/27/18 08:00 BP 109/57 05/27/18 08:00 Pulse Ox 98 05/27/18 08:00 Intake & Output 05/26/18 05/27/18 05/27/18 18:59 06:59 18:59 Intake Total 1188 50 480 Output Total 1000 1250 300 Balance 188 -1200 180 Weight 100.8 kg Intake: IV 50 Piperacillin-Tazobactam 3 50 .375 gm In Dextrose/Water 1 50ml.bag @ 12.5 mls/hr IVPB Q8HR [facility] Rx#: [id number] Oral 1188 480 Output: Urine 1000 1250 300 Other: Voiding Method Toilet Toilet Toilet Urinal Urinal Urinal # Voids 1 # Bowel Movements 1 1 - Exam GENERAL EXAM: Patient is alert and doesn't appear to be in any acute distress HEENT: Normocephalic. Normal reaction of pupils, equal size, normal range of extraocular motion. No erythema or exudates in the throat. NECK: No masses, no nuchal rigidity. CHEST: No chest wall deformity. LUNGS: Diminished air exchange HEART: S1 and S2 normal with no audible mumurs or gallops. Regular rhythm, femorals equal on both sides.. ABDOMEN: No hepatosplenomegaly, normal bowel sounds, no guarding or rigidity. SKIN: No rashes CENTRAL NERVOUS SYSTEM: No focal deficits. EXTREMITIES: No cyanosis, clubbing or edema. - Labs CBC & Chem 7: 05/24/18 20:54 05/24/18 20:54 Assessment and Plan Plan: Assessment and plan #1 acute renal failure #2 anemia #3 nonsustained ventricular tachycardia #4 chronic persistent atrial fibrillation #5 prior TIA Plan From cardiology's perspective, we'll continue current medications which include amiodarone 200 mg by mouth twice a day, Ecotrin 81 mg daily, metoprolol 25 mg one tablet by mouth 3 times a day. DNP note has been reviewed, I agree with a documented findings and plan of care. Patient was seen and examined.
--- NOTE | 2018-05-27 17:13 | MISC ---
MISCELLANOUS REPORT Chronic kidney disease, stage IV. MMODL / IJN: [id number] /
--- NOTE | 2018-05-27 19:43 | XR ---
EXAMINATION TYPE: XR chest 2V DATE OF EXAM: 05/27/2018 COMPARISON: 05/24/2018 HISTORY: Heart failure TECHNIQUE: Frontal and lateral views of the chest are obtained. FINDINGS: There is pulmonary vascular congestion. There is blunting of costophrenic angles. Heart is probably enlarged. There is some linear infiltrate in the left upper lobe. IMPRESSION: Mild congestive heart failure with bilateral subpulmonic pleural effusions. Chest appear s worse than last exam.
--- NOTE | 2018-05-28 01:42 | PN ---
PROGRESS NOTE DATE OF SERVICE: 05/27/2018 REASON FOR FOLLOWUP: 1. Bilateral lower extremity venostasis ulcer. 2. Klebsiella pneumoniae bacteremia and pneumonia. INTERVAL HISTORY: The patient is currently afebrile. He is breathing comfortably. The patient denies having any chest pain, shortness of breath or cough. No abdominal pain or any diarrhea. PHYSICAL EXAMINATION: Blood pressure is 114/59 with a pulse of 77, temperature of 97.7. He is 97% on 2 L nasal cannula. General description is an elderly male up in the bed in no distress. RESPIRATORY SYSTEM: Unlabored breathing with decreased breath sounds at the bases. No wheeze. HEART: S1, S2. Regular rate and rhythm. ABDOMEN: Soft. Leg wounds are currently dressed up. No obvious drainage on the dressing. LABS: No new labs have been obtained today. DIAGNOSTIC IMPRESSION AND PLAN: 1. Patient with bilateral lower extremity venostasis ulcers. No evidence of any cellulitis. Continue wound care with Aquacel Silver dressing and Curtis wrap to keep the swelling down. 2. Patient Klebsiella pneumoniae bacteremia secondary to pneumonia. Patient has received about 2 weeks of antibiotic therapy. That should be enough. Antibiotic can be safely discontinued. Continue with supportive care. MMODL / IJN: [id number] /
[2018-05-28] MEDS: LATANOPROST 0.005% OPHTH DROPS 2.5 ML BTL BOTH EYES SCH ×2 (06:40→21:42)
[2018-05-28] MEDS: IPRATROPIUM-ALBUTEROL 3 ML NEB INHALATION SCH ×4 (08:49→19:41)
[2018-05-28] MEDS: ENOXAPARIN 30 MG/0.3 ML SYRINGE SQ SCH (10:04)
[2018-05-28] MEDS: PANTOPRAZOLE 40 MG/10 ML VIAL IVP SCH (10:04)
[2018-05-28] MEDS: METOPROLOL TARTRATE 25 MG TAB PO SCH ×3 (10:05→21:43)
[2018-05-28] MEDS: ATORVASTATIN 80 MG TAB PO SCH (10:05)
[2018-05-28] MEDS: PIPERACILLIN-TAZOBACTAM 3.375 GM in DEXTROSE/WATER 1 50ML.BAG IVPB SCH ×3 (10:06→23:42)
[2018-05-28] MEDS: ASPIRIN 81 MG PO SCH (10:06)
[2018-05-28] MEDS: FUROSEMIDE 10 MG/ML 4 ML VIAL IV SCH (10:06)
--- NOTE | 2018-05-28 11:28 | P.PN ---
Subjective Progress Note Date: 05/28/18 Principal diagnosis: Acute hypoxic respiratory failure secondary to diastolic congestive heart failure and left upper lobe pneumonia 73-year-old male patient who was brought into the emergency department because of worsening shortness of breath and altered mentation. Apparently the patient was found to have diminished level of consciousness at home in addition to some questionable left-sided/facial droop that was not present at the time of admission today emergency department. The patient seemed to be more lethargic and hypoxic and he was in obvious respiratory failure. Initial chest exit showed acute bilateral pulmonary edema in addition to some questionable consolidation involving the left upper lobe. The patient was found to be in significant fluid overload. He had positive JVDs. He had positive edema in lower extremities bilaterally and diffuse swelling. He has chronic ulceration of the legs stage I to 2 that don't seem to be infected this point in time and he also has a stage II decubitus ulceration. No reported fever or chills. He is moving all 4 extremities without any limitation. On admission, it is not complain of any chest pain. White cell count is not elevated. Hemoglobin was at 6 and the patient has had chronic problems with anemia and his previous GI workup for blood loss anemia was essentially negative. His hemoglobin at a time of discharge from his most recent admission was 8. His chest x-ray was also clear from his most recent discharge. He is also an acute kidney injury. Creatinine is up to 2.3 from a normal baseline prior to his discharge. We evaluated this patient in the emergency department. He was awake and alert. He was short of breath. He was on a BiPAP at a pressure of 12/5 cm of water and FiO2 of 100%. He was given a dose of Lasix 80 mg IV push and he is producing adequate amount of urine output. 2 units of packed RBC was ordered. I inserted a triple lumen catheter in the left subclavian without any complications. He is moving all 4 extremities without any limitation. His cardiac rhythm showing a low voltage QRS, prolonged QT, no clear p waves are seen and the patient is possibly in a sinus rhythm although I'm not absolutely sure. I think he is in a flutter rhythm.. Repeat EKG needs to be done. CAT scan of the brain showed no definite acute intracranial hemorrhage or mass effect. There is units changes involving the white matter. The patient is seen again today 05/28/2018 in follow-up on the selective care unit. He is awake and alert in no acute distress. Currently sitting up in a chair at the bedside. He is maintaining good O2 saturations in the high 90s on 2 L/m per nasal cannula. He's been afebrile. Hemodynamically stable. He remains on bronchodilators along with Zosyn and Levaquin which can now be discontinued per ID recommendation. Objective - Vital Signs Vital signs: Vital Signs Temp 97.8 F 05/28/18 08:00 Pulse 88 05/28/18 09:03 Resp 16 05/28/18 08:00 BP 115/58 05/28/18 08:00 Pulse Ox 99 05/28/18 08:00 Intake & Output 05/27/18 05/28/18 05/28/18 18:59 06:59 18:59 Intake Total 960 290 Output Total 300 250 Balance 660 -250 290 Weight 100.8 kg Intake: IV 50 Invasive Line 4 50 Oral 960 240 Output: Urine 300 250 Other: Voiding Method Toilet Toilet Urinal Urinal # Voids 1 - Exam Physical Exam: Revealed a 73-year-old white male in no distress. In a chair today. O2 at 2 L per nasal cannula. Head: Relatively unremarkable. HEENT:[Neck is supple.] [No neck masses.] [No thyromegaly.] [No JVD.] PERRLA, EOMI, neck is supple. Chest: [Bibasilar crackles, diminished at the bases. Symmetrical chest expansion noted. Cardiac Exam: Irregular irregular rhythm, no S3 gallop, no murmur. Abdomen: [Obese nontender no megaly no rebound] Extremities: [Trace of edema no clubbing. No cyanosis. Neurological Exam: [No focal neurologic deficit.] Alert oriented 3. Lymphatics: No lymphadenopathy. Psychiatric: Normal mood, affect and mental status examination. - Labs CBC & Chem 7: 05/24/18 20:54 05/24/18 20:54 Assessment and Plan Assessment: Assessment: Acute hypoxic respiratory failure secondary to diastolic congestive heart failure and left upper lobe pneumonia. Improved. Right pleural effusion, status post thoracentesis on 05/21/2018, fluid negative for malignancy Acute kidney injury secondary to ATN and septic shock Chronic atrial fibrillation/flutter rate control. Klebsiella pneumonia sepsis and septic shock on presentation. Nonsustained episodes of V. tach, cardiology consulted Shy currently on amiodarone. Recommendation: The patient was seen and evaluated by Dr. Alves. He is currently stable from the pulmonary standpoint. We'll continue with his current medications. Increase his activity as tolerated. Discharge planning is in place. I, the cosigning physician, performed a history & physical examination of the patient. Lungs sounds have few crackles in the posterior bases. Maintaining good O2 saturations in the 90s on 2 L/m per nasal cannula. I discussed the assessment and plan of care with my nurse practitioner, Trudy Bear. I attest to the above note as dictated by her.
[2018-05-28] MEDS: DONEPEZIL 5 MG TAB PO SCH (12:41)
[2018-05-28] MEDS: LEVOFLOXACIN 250 MG TAB PO SCH (12:41)
--- NOTE | 2018-05-28 14:15 | PN ---
PROGRESS NOTE DATE OF SERVICE: 05/29/2018. CHIEF COMPLAINT: Blood loss anemia, renal failure, CHF. HISTORY OF PRESENT ILLNESS: The patient is fairly stable. Hemoglobin is rising slightly. Renal function is staying about the same. He remains very weak. PHYSICAL EXAM: He is sitting up and he is awake, alert and oriented. His chest is clear with no rales or rhonchi and his cardiac exam is unchanged. IMPRESSION: 1. Blood loss anemia. 2. Gastrointestinal bleed. 3. Congestive heart failure. 4. Renal failure. PLAN: Continue to support and, hopefully, get him in a [facility] in the next few days. MMODL / IJN: [id number] /
--- NOTE | 2018-05-28 14:54 | P.PN ---
Subjective Progress Note Date: 05/28/18 Progress Note Date: 05/27/18 This is a 73-year-old gentleman who was initially admitted to the hospital with worsening shortness of breath and altered mentation. On admission patient was found to have diminished level of consciousness and also questionable left- sided facial droop. He was diagnosed to have evidence of pulmonary edema and possible pneumonia. He was fluid overloaded on admission. He also has some ulceration of the legs. He spent several days in intensive care unit. He was transferred to [facility] floor Patient had a bout of nonsustained V. tach followed by another V. tach of 22 beats. Patient was asymptomatic. He was given magnesium supplementation was transferred to telemetry unit. At the time of my examination patient is sitting in bed and doesn't appear to be in acute distress. He doesn't appear patient was symptomatic from these episodes. His echocardiogram done during this admission showed normal LV function. His creatinine went up to 2.0. His potassium level been normal. Patient is on beta kevin. Will increase the dose of the beta kevin and continue to monitor his rhythm. On review of the rhythm strips, it does appear that the patient has had a run of nonsustained ventricular tachycardia. Dr. Verena floyd review the office notes today, we will also review most recent stress test. 05/28/2018 Patient seen and examined today on the telemetry unit, awake and alert, up in the chair the time of our examination. Maintaining good oxygen saturations in the mid-90s. Afebrile and hemodynamically stable. No further arrhythmias have been noted on the monitor. White blood cell count 10.6, hemoglobin 7.6, platelet count 220. Sodium 138, potassium 4.5, BUN 46, creatinine 2.0. Patient continues to be on 40 mg of IV Lasix daily for pulmonary. Objective - Vital Signs Vital signs: Vital Signs Temp 98.1 F 05/28/18 11:31 Pulse 84 05/28/18 13:56 Resp 16 05/28/18 12:00 BP 122/69 05/28/18 11:31 Pulse Ox 98 05/28/18 11:31 Intake & Output 05/27/18 05/28/18 05/28/18 18:59 06:59 18:59 Intake Total 960 340 Output Total 300 250 420 Balance 660 -250 -80 Weight 100.8 kg 100.8 kg Intake: IV 100 Invasive Line 4 50 Piperacillin-Tazobactam 3 50 .375 gm In Dextrose/Water 1 50ml.bag @ 12.5 mls/hr IVPB Q8HR [facility] Rx#: [id number] Oral 960 240 Output: Urine 300 250 420 Other: Voiding Method Toilet Toilet Toilet Urinal Urinal Urinal # Voids 1 - Exam GENERAL EXAM: Patient is alert and doesn't appear to be in any acute distress HEENT: Normocephalic. Normal reaction of pupils, equal size, normal range of extraocular motion. No erythema or exudates in the throat. NECK: No masses, no nuchal rigidity. CHEST: No chest wall deformity. LUNGS: Diminished air exchange HEART: S1 and S2 normal with no audible mumurs or gallops. Regular rhythm, femorals equal on both sides.. ABDOMEN: No hepatosplenomegaly, normal bowel sounds, no guarding or rigidity. SKIN: No rashes CENTRAL NERVOUS SYSTEM: No focal deficits. EXTREMITIES: No cyanosis, clubbing or edema. - Labs CBC & Chem 7: 05/24/18 20:54 05/24/18 20:54 Assessment and Plan Plan: Assessment and plan #1 acute renal failure #2 anemia #3 nonsustained ventricular tachycardia #4 chronic persistent atrial fibrillation #5 prior TIA Plan From cardiology's perspective, we'll continue current medications which include amiodarone 200 mg by mouth twice a day, Ecotrin 81 mg daily, metoprolol 25 mg one tablet by mouth 3 times a day. DNP note has been reviewed, I agree with a documented findings and plan of care. Patient was seen and examined.
--- NOTE | 2018-05-28 22:35 | PN ---
PROGRESS NOTE DATE OF SERVICE: 05/28/2018 REASON FOR FOLLOWUP: 1. Bilateral lower extremity venostasis ulcers with no cellulitis. 2. Klebsiella bacteremia secondary to pneumonia. INTERVAL HISTORY: The patient is currently afebrile. He is breathing comfortably. Denies having any chest pain, shortness of breath or cough. No abdominal pain. No pain to the bilateral leg wound area. PHYSICAL EXAMINATION: Blood pressure is 107/63 with a pulse of 80, temperature 98.1. He is 99% on 2 L nasal cannula. General description is an elderly male up in the bed in no distress. RESPIRATORY SYSTEM: Unlabored breathing. Clear to auscultation anteriorly. HEART: S1, S2. Regular rate and rhythm. ABDOMEN: Soft. No tenderness. LABS: Hemoglobin is 7.6, white count 10.6, BUN of 46, creatinine 2.02. DIAGNOSTIC IMPRESSION AND PLAN: 1. Patient with bilateral lower extremity venostasis ulcers; no cellulitis. Continue local wound care with Aquacel Silver dressing and Curtis wraps. 2. Patient with Klebsiella pneumoniae bacteremia secondary to pneumonia. Underlying infection has been adequately treated. Discontinue Zosyn on discharge. No need for antibiotic on discharge. Continue with supportive care. MMODL / IJN: [id number] /
[2018-05-29] MEDS: PANTOPRAZOLE 40 MG/10 ML VIAL IVP SCH (08:30)
[2018-05-29] MEDS: ENOXAPARIN 30 MG/0.3 ML SYRINGE SQ SCH (08:30)
[2018-05-29] MEDS: ATORVASTATIN 80 MG TAB PO SCH (08:30)
[2018-05-29] MEDS: METOPROLOL TARTRATE 25 MG TAB PO SCH ×3 (08:31→22:48)
[2018-05-29] MEDS: FUROSEMIDE 10 MG/ML 4 ML VIAL IV SCH (08:31)
[2018-05-29] MEDS: PIPERACILLIN-TAZOBACTAM 3.375 GM in DEXTROSE/WATER 1 50ML.BAG IVPB SCH ×2 (08:33→15:01)
[2018-05-29] MEDS: ASPIRIN 81 MG PO SCH (08:33)
[2018-05-29] MEDS: IPRATROPIUM-ALBUTEROL 3 ML NEB INHALATION SCH ×4 (08:47→18:58)
[2018-05-29] MEDS: DONEPEZIL 5 MG TAB PO SCH (11:08)
[2018-05-29] MEDS: LEVOFLOXACIN 250 MG TAB PO SCH (11:08)
--- NOTE | 2018-05-29 11:44 | P.PN ---
Subjective Progress Note Date: 05/29/18 Principal diagnosis: Acute hypoxic respiratory failure secondary to diastolic congestive heart failure and left upper lobe pneumonia 73-year-old male patient who was brought into the emergency department because of worsening shortness of breath and altered mentation. Apparently the patient was found to have diminished level of consciousness at home in addition to some questionable left-sided/facial droop that was not present at the time of admission today emergency department. The patient seemed to be more lethargic and hypoxic and he was in obvious respiratory failure. Initial chest exit showed acute bilateral pulmonary edema in addition to some questionable consolidation involving the left upper lobe. The patient was found to be in significant fluid overload. He had positive JVDs. He had positive edema in lower extremities bilaterally and diffuse swelling. He has chronic ulceration of the legs stage I to 2 that don't seem to be infected this point in time and he also has a stage II decubitus ulceration. No reported fever or chills. He is moving all 4 extremities without any limitation. On admission, it is not complain of any chest pain. White cell count is not elevated. Hemoglobin was at 6 and the patient has had chronic problems with anemia and his previous GI workup for blood loss anemia was essentially negative. His hemoglobin at a time of discharge from his most recent admission was 8. His chest x-ray was also clear from his most recent discharge. He is also an acute kidney injury. Creatinine is up to 2.3 from a normal baseline prior to his discharge. We evaluated this patient in the emergency department. He was awake and alert. He was short of breath. He was on a BiPAP at a pressure of 12/5 cm of water and FiO2 of 100%. He was given a dose of Lasix 80 mg IV push and he is producing adequate amount of urine output. 2 units of packed RBC was ordered. I inserted a triple lumen catheter in the left subclavian without any complications. He is moving all 4 extremities without any limitation. His cardiac rhythm showing a low voltage QRS, prolonged QT, no clear p waves are seen and the patient is possibly in a sinus rhythm although I'm not absolutely sure. I think he is in a flutter rhythm.. Repeat EKG needs to be done. CAT scan of the brain showed no definite acute intracranial hemorrhage or mass effect. There is units changes involving the white matter. The patient is seen again today 05/28/2018 in follow-up on the selective care unit. He is awake and alert in no acute distress. Currently sitting up in a chair at the bedside. He is maintaining good O2 saturations in the high 90s on 2 L/m per nasal cannula. He's been afebrile. Hemodynamically stable. He remains on bronchodilators along with Zosyn and Levaquin which can now be discontinued per ID recommendation. The patient is seen again today 05/29/2018 in follow-up on the selective care unit. He is currently sitting up in a chair at the bedside he is awake and alert in no acute distress. He denies any worsening shortness of breath, cough or congestion. Maintaining good O2 saturations in the upper 90s on 2 L/m per nasal cannula. He's afebrile. Hemodynamically stable. Objective - Vital Signs Vital signs: Vital Signs Temp 97.2 F L 05/29/18 08:00 Pulse 72 05/29/18 08:59 Resp 18 05/29/18 08:00 BP 127/60 05/29/18 08:00 Pulse Ox 98 05/29/18 08:00 Intake & Output 05/28/18 05/29/18 05/29/18 18:59 06:59 18:59 Intake Total 1230 240 Output Total 420 200 Balance 810 -200 240 Weight 100.8 kg 101.2 kg Intake: IV 270 Invasive Line 4 220 Piperacillin-Tazobactam 3 50 .375 gm In Dextrose/Water 1 50ml.bag @ 12.5 mls/hr IVPB Q8HR [facility] Rx#: [id number] Oral 960 240 Output: Urine 420 200 Other: Voiding Method Toilet Toilet Toilet Urinal Urinal Urinal # Voids 3 1 # Bowel Movements 1 - Exam GENERAL EXAM: Alert, active, comfortable in no apparent distress. HEAD: Normocephalic. EYES: Normal reaction of pupils, equal size. NOSE: Clear with pink turbinates. THROAT: No erythema or exudates. NECK: No masses, no JVD. CHEST: No chest wall deformity. LUNGS: Equal air entry with faint crackles in the posterior bases, diminished. CVS: S1 and S2 normal with no audible murmur, irregular rhythm. ABDOMEN: No hepatosplenomegaly, normal bowel sounds, no guarding or rigidity. SPINE: No scoliosis or deformity SKIN: No rashes CENTRAL NERVOUS SYSTEM: No focal deficits, tone is normal in all 4 extremities. EXTREMITIES: There is no peripheral edema. No clubbing, no cyanosis. Peripheral pulses are intact. - Labs CBC & Chem 7: 05/24/18 20:54 05/24/18 20:54 Assessment and Plan Assessment: Assessment: Acute hypoxic respiratory failure secondary to diastolic congestive heart failure and left upper lobe pneumonia. Improved. Right pleural effusion, status post thoracentesis on 05/21/2018, fluid negative for malignancy Acute kidney injury secondary to ATN and septic shock Chronic atrial fibrillation/flutter rate control. Klebsiella pneumonia sepsis and septic shock on presentation. Nonsustained episodes of V. tach, cardiology consulted Shy currently on amiodarone. Recommendation: The patient was seen and evaluated by Dr. Alves. He is cleared for discharge from the pulmonary standpoint. The plan is to transfer to [facility] for further inpatient rehabilitation. I, the cosigning physician, performed a history & physical examination of the patient. Lungs sounds have few crackles in the posterior bases. Maintaining good O2 saturations in the 90s on 2 L/m per nasal cannula. I discussed the assessment and plan of care with my nurse practitioner, Trudy Bear. I attest to the above note as dictated by her.
--- NOTE | 2018-05-29 11:48 | PN ---
PROGRESS NOTE DATE OF SERVICE: 05/22/2018 CHIEF COMPLAINT: Blood loss anemia, renal failure and atrial fibrillation. HISTORY OF PRESENT ILLNESS: This gentleman is slowly regaining strength. He will be going to a alf. His hemoglobin is stable and rising very slowly. PHYSICAL EXAM: He remains pale. Chest is fairly clear and his cardiac exam is unchanged. Abdomen is protuberant and soft. IMPRESSION: 1. Blood loss anemia. 2. Upper gastrointestinal bleed. 3. Congestive heart failure. 4. Atrial fibrillation. PLAN: Continue to progress activity while monitoring his hemoglobin and renal function. He will be going to the alf from the hospital. MMODL / IJN: [id number] /
--- NOTE | 2018-05-29 12:03 | PN ---
PROGRESS NOTE DATE OF SERVICE: 05/27/2018. CHIEF COMPLAINT: Blood loss anemia. HISTORY OF PRESENT ILLNESS: This gentleman is doing about the same. Laboratory studies are not changed a great deal, but he is starting to sit up and move around. His BUN is 46, creatinine at 2.02, and hemoglobin 7.6. PHYSICAL EXAM: He is awake, alert. He is pale. Chest is clear and cardiac exam is unremarkable. The abdomen is protuberant, soft and legs are wrapped. IMPRESSION: 1. Blood loss anemia. 2. Upper gastrointestinal bleed. 3. Renal failure. 4. Congestive heart failure. PLAN: Continue supportive care and work toward a discharge summary when cleared by Nephrology. MMODL / IJN: [id number] /
--- NOTE | 2018-05-29 12:18 | PN ---
PROGRESS NOTE CHIEF COMPLAINT: Blood loss anemia, renal failure, with atrial fibrillation and CHF. HISTORY OF PRESENT ILLNESS: This gentleman is doing fairly well and is stabilized. He understands that he may be moved to the skilled nursing tomorrow. PHYSICAL EXAM: Chest is fairly clear. Cardiac demonstrates his atrial fibrillation. The abdomen is soft and nontender. IMPRESSION: 1. Status post upper gastrointestinal bleed with gastrointestinal blood loss anemia. 2. Atrial fibrillation. 3. Renal failure. PLAN: Possibly discharge tomorrow. MMODL / IJN: [id number] /
--- NOTE | 2018-05-29 13:18 | PN ---
PROGRESS NOTE DATE OF SERVICE: 05/29/2018 REASON FOR FOLLOWUP: 1. Bilateral lower extremity venous stasis ulcer. 2. Klebsiella pneumoniae bacteremia and pneumonia. INTERVAL HISTORY: The patient is currently afebrile. He is breathing comfortably. Denies having any chest pain or shortness of breath. Occasional cough. No nausea, vomiting. No abdominal pain. Denies any pain into the leg wound area. PHYSICAL EXAMINATION: On examination, blood pressure 121/74 with a pulse of 78, temperature 98.2. He is 98% on 2 L nasal cannula. General description is an elderly male up in the chair in no distress. RESPIRATORY SYSTEM: Unlabored breathing, clear to auscultation anteriorly. HEART: S1, S2. Regular rate and rhythm. ABDOMEN: Soft, no tenderness. Leg wounds are currently drainage, no obvious drainage on the dressing. LABS: No new labs have been obtained today. DIAGNOSTIC IMPRESSION AND PLAN: 1. Patient with bilateral lower extremity venous stasis ulcer. No cellulitis. Local wound care with Aquacel Silver dressing. Continue along with Curtis wrap to keep the swelling down. 2. Patient with Klebsiella pneumoniae bacteremia secondary to pneumonia. Underlying infection has been adequately treated, discontinue Zosyn on discharge. Continue with supportive care. MMODL / IJN: [id number] /
--- NOTE | 2018-05-29 13:59 | P.PN ---
Subjective Progress Note Date: 05/29/18 Progress Note Date: 05/27/18 This is a 73-year-old gentleman who was initially admitted to the hospital with worsening shortness of breath and altered mentation. On admission patient was found to have diminished level of consciousness and also questionable left- sided facial droop. He was diagnosed to have evidence of pulmonary edema and possible pneumonia. He was fluid overloaded on admission. He also has some ulceration of the legs. He spent several days in intensive care unit. He was transferred to [facility] floor Patient had a bout of nonsustained V. tach followed by another V. tach of 22 beats. Patient was asymptomatic. He was given magnesium supplementation was transferred to telemetry unit. At the time of my examination patient is sitting in bed and doesn't appear to be in acute distress. He doesn't appear patient was symptomatic from these episodes. His echocardiogram done during this admission showed normal LV function. His creatinine went up to 2.0. His potassium level been normal. Patient is on beta kevin. Will increase the dose of the beta kevin and continue to monitor his rhythm. On review of the rhythm strips, it does appear that the patient has had a run of nonsustained ventricular tachycardia. Dr. Verena floyd review the office notes today, we will also review most recent stress test. 05/28/2018 Patient seen and examined today on the telemetry unit, awake and alert, up in the chair the time of our examination. Maintaining good oxygen saturations in the mid-90s. Afebrile and hemodynamically stable. No further arrhythmias have been noted on the monitor. White blood cell count 10.6, hemoglobin 7.6, platelet count 220. Sodium 138, potassium 4.5, BUN 46, creatinine 2.0. Patient continues to be on 40 mg of IV Lasix daily for pulmonary. 05/29/2018 Patient seen ambulating in the hallway this morning, overall doing significantly better. Blood pressure 120/70 with a heart rate in the 70s, 98% on 2 L Objective - Vital Signs Vital signs: Vital Signs Temp 98.2 F 05/29/18 11:48 Pulse 76 05/29/18 13:34 Resp 18 05/29/18 11:48 BP 121/74 05/29/18 11:48 Pulse Ox 98 05/29/18 11:48 Intake & Output 09/05/29/18 05/29/18 18:59 06:59 18:59 Intake Total 1230 480 Output Total 420 200 600 Balance 810 -200 -120 Weight 100.8 kg 101.2 kg Intake: IV 270 Invasive Line 4 220 Piperacillin-Tazobactam 3 50 .375 gm In Dextrose/Water 1 50ml.bag @ 12.5 mls/hr IVPB Q8HR [facility] Rx#: [id number] Oral 960 480 Output: Urine 420 200 600 Other: Voiding Method Toilet Toilet Toilet Urinal Urinal Urinal # Voids 3 1 # Bowel Movements 1 - Exam GENERAL EXAM: Patient is alert and doesn't appear to be in any acute distress HEENT: Normocephalic. Normal reaction of pupils, equal size, normal range of extraocular motion. No erythema or exudates in the throat. NECK: No masses, no nuchal rigidity. CHEST: No chest wall deformity. LUNGS: Diminished air exchange HEART: S1 and S2 normal with no audible mumurs or gallops. Regular rhythm, femorals equal on both sides.. ABDOMEN: No hepatosplenomegaly, normal bowel sounds, no guarding or rigidity. SKIN: No rashes CENTRAL NERVOUS SYSTEM: No focal deficits. EXTREMITIES: No cyanosis, clubbing or edema. - Labs CBC & Chem 7: 05/24/18 20:54 05/24/18 20:54 Assessment and Plan Plan: Assessment and plan #1 acute renal failure #2 anemia #3 nonsustained ventricular tachycardia #4 chronic persistent atrial fibrillation #5 prior TIA Plan From cardiology's perspective, we'll continue current medications which include amiodarone 200 mg by mouth twice a day, Ecotrin 81 mg daily, metoprolol 25 mg one tablet by mouth 3 times a day. DNP note has been reviewed, I agree with a documented findings and plan of care. Patient was seen and examined.
--- NOTE | 2018-05-29 16:12 | HP ---
HISTORY AND PHYSICAL DATE OF ADMISSION: 05/13/2018 CHIEF COMPLAINT: Hypotension, GI blood loss and anemia. HISTORY OF PRESENT ILLNESS: This is another admission for this 73-year-old white male who was recently discharged and came back in with GI bleeding and anemia once again. REVIEW OF SYSTEMS: He is not having any abdominal pain. He has no confusion. He is short of breath. Past medical history, family history, and personal and social histories are all otherwise unremarkable and unchanged. PHYSICAL EXAMINATION: Blood pressure is 80/40 with a pulse of 88, respirations of 40. He is afebrile. In general he appeared to be awake and alert, but pale. He is slightly short of breath. Skin is dry. Head, ears, eyes, nose, mouth and throat were otherwise normal. Chest demonstrated occasional rales throughout. Cardiac exam demonstrated atrial fibrillation with no murmurs. The abdomen was protuberant, soft and nontender. Bowel sounds were present. Extremities were normal. Neurologically he was intact. IMPRESSION: 1. Upper gastrointestinal bleed. 2. Blood loss anemia. 3. Hypovolemic shock. 4. Atrial fibrillation. 5. Heart failure. PLAN: 1. Bed rest. 2. ICU with residential direct support professional care. 3. Transfuse. 4. Stop anticoagulants. MMODL / IJN: [id number] /
[2018-05-29] MEDS: LATANOPROST 0.005% OPHTH DROPS 2.5 ML BTL BOTH EYES SCH (22:49)
[2018-05-30] MEDS: PIPERACILLIN-TAZOBACTAM 3.375 GM in DEXTROSE/WATER 1 50ML.BAG IVPB SCH ×2 (03:50→03:52)
[2018-05-30] MEDS: PANTOPRAZOLE 40 MG/10 ML VIAL IVP SCH (08:04)
[2018-05-30] MEDS: METOPROLOL TARTRATE 25 MG TAB PO SCH ×3 (08:05→20:03)
[2018-05-30] MEDS: ENOXAPARIN 30 MG/0.3 ML SYRINGE SQ SCH (08:05)
[2018-05-30] MEDS: ASPIRIN 81 MG PO SCH (08:05)
[2018-05-30] MEDS: FUROSEMIDE 10 MG/ML 4 ML VIAL IV SCH (08:05)
[2018-05-30] MEDS: ATORVASTATIN 80 MG TAB PO SCH (08:05)
[2018-05-30] MEDS: IPRATROPIUM-ALBUTEROL 3 ML NEB INHALATION SCH ×4 (08:23→21:05)
[2018-05-30] MEDS: LEVOFLOXACIN 250 MG TAB PO SCH (12:04)
--- NOTE | 2018-05-30 12:04 | P.PN ---
Subjective Progress Note Date: 05/30/18 Principal diagnosis: Acute hypoxic respiratory failure secondary to diastolic congestive heart failure and left upper lobe pneumonia 73-year-old male patient who was brought into the emergency department because of worsening shortness of breath and altered mentation. Apparently the patient was found to have diminished level of consciousness at home in addition to some questionable left-sided/facial droop that was not present at the time of admission today emergency department. The patient seemed to be more lethargic and hypoxic and he was in obvious respiratory failure. Initial chest exit showed acute bilateral pulmonary edema in addition to some questionable consolidation involving the left upper lobe. The patient was found to be in significant fluid overload. He had positive JVDs. He had positive edema in lower extremities bilaterally and diffuse swelling. He has chronic ulceration of the legs stage I to 2 that don't seem to be infected this point in time and he also has a stage II decubitus ulceration. No reported fever or chills. He is moving all 4 extremities without any limitation. On admission, it is not complain of any chest pain. White cell count is not elevated. Hemoglobin was at 6 and the patient has had chronic problems with anemia and his previous GI workup for blood loss anemia was essentially negative. His hemoglobin at a time of discharge from his most recent admission was 8. His chest x-ray was also clear from his most recent discharge. He is also an acute kidney injury. Creatinine is up to 2.3 from a normal baseline prior to his discharge. We evaluated this patient in the emergency department. He was awake and alert. He was short of breath. He was on a BiPAP at a pressure of 12/5 cm of water and FiO2 of 100%. He was given a dose of Lasix 80 mg IV push and he is producing adequate amount of urine output. 2 units of packed RBC was ordered. I inserted a triple lumen catheter in the left subclavian without any complications. He is moving all 4 extremities without any limitation. His cardiac rhythm showing a low voltage QRS, prolonged QT, no clear p waves are seen and the patient is possibly in a sinus rhythm although I'm not absolutely sure. I think he is in a flutter rhythm.. Repeat EKG needs to be done. CAT scan of the brain showed no definite acute intracranial hemorrhage or mass effect. There is units changes involving the white matter. The patient is seen again today 05/28/2018 in follow-up on the selective care unit. He is awake and alert in no acute distress. Currently sitting up in a chair at the bedside. He is maintaining good O2 saturations in the high 90s on 2 L/m per nasal cannula. He's been afebrile. Hemodynamically stable. He remains on bronchodilators along with Zosyn and Levaquin which can now be discontinued per ID recommendation. The patient is seen again today 05/29/2018 in follow-up on the selective care unit. He is currently sitting up in a chair at the bedside he is awake and alert in no acute distress. He denies any worsening shortness of breath, cough or congestion. Maintaining good O2 saturations in the upper 90s on 2 L/m per nasal cannula. He's afebrile. Hemodynamically stable. Patient is seen again today 05/30/2018 in follow-up on the selective care unit. He sitting up in a chair at the bedside. He is awake and alert in no acute distress. He denies any worsening shortness of breath, cough or congestion. Still maintaining good O2 saturation in the 90s on room air. Objective - Vital Signs Vital signs: Vital Signs Temp 97.8 F 05/30/18 08:00 Pulse 64 05/30/18 11:57 Resp 18 05/30/18 08:00 BP 117/56 05/30/18 08:00 Pulse Ox 92 L 05/30/18 08:00 Intake & Output 05/29/18 05/30/18 05/30/18 18:59 06:59 18:59 Intake Total 1080 400 360 Output Total 1100 400 Balance -20 400 -40 Weight 101.2 kg Intake: IV 100 0.9 50 Piperacillin-Tazobactam 3 50 .375 gm In Dextrose/Water 1 50ml.bag @ 12.5 mls/hr IVPB Q8HR [facility] Rx#: [id number] Oral 1080 300 360 Output: Urine 1100 400 Other: Voiding Method Toilet Toilet Urinal Urinal # Voids 2 - Exam GENERAL EXAM: Alert, oriented 3, comfortable in no apparent distress. HEAD: Normocephalic. EYES: Normal reaction of pupils, equal size. NOSE: Clear with pink turbinates. THROAT: No erythema or exudates. NECK: No masses, no JVD. CHEST: No chest wall deformity. LUNGS: Equal air entry with faint crackles in the posterior bases, diminished. CVS: S1 and S2 normal with no audible murmur, irregular rhythm. ABDOMEN: No hepatosplenomegaly, normal bowel sounds, no guarding or rigidity. SPINE: No scoliosis or deformity SKIN: No rashes CENTRAL NERVOUS SYSTEM: No focal deficits, tone is normal in all 4 extremities. EXTREMITIES: There is no peripheral edema. No clubbing, no cyanosis. Peripheral pulses are intact. - Labs CBC & Chem 7: 05/24/18 20:54 05/24/18 20:54 Assessment and Plan Assessment: Assessment: Acute hypoxic respiratory failure secondary to diastolic congestive heart failure and left upper lobe pneumonia. Improved. Right pleural effusion, status post thoracentesis on 05/21/2018, fluid negative for malignancy Acute kidney injury secondary to ATN and septic shock Chronic atrial fibrillation/flutter rate control. Klebsiella pneumonia sepsis and septic shock on presentation. Nonsustained episodes of V. tach, cardiology consulted Shy currently on amiodarone. Recommendation: The patient was seen and evaluated by Dr. Alves. Continue current treatment plan. The plan is to discharge home or transfer to [facility] for subacute rehabilitation. We will see the patient on as-needed basis P I, the cosigning physician, performed a history & physical examination of the patient. Lungs sounds have few crackles in the posterior bases. Maintaining good O2 saturations in the 90s on room air. I discussed the assessment and plan of care with my nurse practitioner, Trudy Bear. I attest to the above note as dictated by her.
[2018-05-30] MEDS: DONEPEZIL 5 MG TAB PO SCH (12:05)
--- NOTE | 2018-05-30 13:38 | P.PN ---
Subjective Progress Note Date: 05/30/18 Progress Note Date: 05/27/18 This is a 73-year-old gentleman who was initially admitted to the hospital with worsening shortness of breath and altered mentation. On admission patient was found to have diminished level of consciousness and also questionable left- sided facial droop. He was diagnosed to have evidence of pulmonary edema and possible pneumonia. He was fluid overloaded on admission. He also has some ulceration of the legs. He spent several days in intensive care unit. He was transferred to [facility] floor Patient had a bout of nonsustained V. tach followed by another V. tach of 22 beats. Patient was asymptomatic. He was given magnesium supplementation was transferred to telemetry unit. At the time of my examination patient is sitting in bed and doesn't appear to be in acute distress. He doesn't appear patient was symptomatic from these episodes. His echocardiogram done during this admission showed normal LV function. His creatinine went up to 2.0. His potassium level been normal. Patient is on beta kevin. Will increase the dose of the beta kevin and continue to monitor his rhythm. On review of the rhythm strips, it does appear that the patient has had a run of nonsustained ventricular tachycardia. Dr. Verena floyd review the office notes today, we will also review most recent stress test. 05/28/2018 Patient seen and examined today on the telemetry unit, awake and alert, up in the chair the time of our examination. Maintaining good oxygen saturations in the mid-90s. Afebrile and hemodynamically stable. No further arrhythmias have been noted on the monitor. White blood cell count 10.6, hemoglobin 7.6, platelet count 220. Sodium 138, potassium 4.5, BUN 46, creatinine 2.0. Patient continues to be on 40 mg of IV Lasix daily for pulmonary. 05/29/2018 Patient seen ambulating in the hallway this morning, overall doing significantly better. Blood pressure 120/70 with a heart rate in the 70s, 98% on 2 L 05/30/2018 Patient seen and examined this morning, continues to ambulate in the kolb without any difficulty. Hemodynamically stable. Objective - Vital Signs Vital signs: Vital Signs Temp 97.8 F 05/30/18 12:00 Pulse 68 05/30/18 12:09 Resp 18 05/30/18 12:00 BP 132/58 05/30/18 12:00 Pulse Ox 98 05/30/18 12:00 Intake & Output 05/29/18 05/30/18 05/30/18 18:59 06:59 18:59 Intake Total 1080 400 600 Output Total 1100 400 Balance -20 400 200 Weight 101.2 kg Intake: IV 100 0.9 50 Piperacillin-Tazobactam 3 50 .375 gm In Dextrose/Water 1 50ml.bag @ 12.5 mls/hr IVPB Q8HR [facility] Rx#: [id number] Oral 1080 300 600 Output: Urine 1100 400 Other: Voiding Method Toilet Toilet Urinal Urinal # Voids 2 - Exam GENERAL EXAM: Patient is alert and doesn't appear to be in any acute distress HEENT: Normocephalic. Normal reaction of pupils, equal size, normal range of extraocular motion. No erythema or exudates in the throat. NECK: No masses, no nuchal rigidity. CHEST: No chest wall deformity. LUNGS: Diminished air exchange HEART: S1 and S2 normal with no audible mumurs or gallops. Regular rhythm, femorals equal on both sides.. ABDOMEN: No hepatosplenomegaly, normal bowel sounds, no guarding or rigidity. SKIN: No rashes CENTRAL NERVOUS SYSTEM: No focal deficits. EXTREMITIES: No cyanosis, clubbing or edema. - Labs CBC & Chem 7: 05/24/18 20:54 05/24/18 20:54 Assessment and Plan Plan: Assessment and plan #1 acute renal failure #2 anemia #3 nonsustained ventricular tachycardia #4 chronic persistent atrial fibrillation, not a candidate for anticoagulation. #5 prior TIA Plan From cardiology's perspective, we'll continue current medications which include amiodarone 200 mg by mouth twice a day, Ecotrin 81 mg daily, metoprolol 25 mg one tablet by mouth 3 times a day. DNP note has been reviewed, I agree with a documented findings and plan of care. Patient was seen and examined.
--- NOTE | 2018-05-30 13:49 | PN ---
PROGRESS NOTE DATE OF SERVICE: 05/30/2018 REASON FOR FOLLOWUP: 1. Bilateral lower extremity venous status ulcer, no cellulitis. 2. Klebsiella bacteremia and pneumonia. INTERVAL HISTORY: The patient is currently afebrile. He is breathing comfortably. Denies having any chest pain. No shortness of breath or cough. No abdominal pain. Denies the pain to the bilateral leg area. PHYSICAL EXAMINATION: On examination, blood pressure 132/50 with a pulse of 71, temperature is 97.8. He is 98% on 2 L nasal cannula. General description is an elderly male up in the bed in no distress. RESPIRATORY SYSTEM: Unlabored breathing, clear to auscultation anteriorly. HEART: S1, S2. Regular rate and rhythm. ABDOMEN: Soft, no tenderness. Leg wounds are currently dressed up, no obvious drainage on the dressing. LABS: No new labs have been obtained today. DIAGNOSTIC IMPRESSION AND PLAN: 1. Patient with bilateral extremity venous status ulcer. No cellulitis. Plan at this time is to keep the patient on the Aquacel dressing and Curtis wrap to keep the swelling down. 2. The patient with Klebsiella bacteremia secondary to pneumonia. Underlying infection adequately treated, currently off antibiotic. Continue supportive care. MMODL / IJN: [id number] /
[2018-05-30] MEDS: LATANOPROST 0.005% OPHTH DROPS 2.5 ML BTL BOTH EYES SCH (20:04)
[2018-05-30 21:05] LABS: Anisocytosis Slight; Basophils # (A) 0.1 k/uL (0-0.2); Basophils % (A) 1 %; Eosinophils # (A) 0.4 k/uL (0-0.7); Eosinophils % (A) 5 %; HCT 25.2 % (39.0-53.0); HGB 7.5 gm/dL (13.0-17.5); Hypochromasia Marked; Lymphocytes # (A) 1.1 k/uL (1.0-4.8); Lymphocytes % (A) 12 %; MCH 27.2 pg (25.0-35.0); MCHC 29.9 g/dL (31.0-37.0); MCV 90.9 fL (80.0-100.0); Mean Platelet Volume 8.7; Monocytes # (A) 0.8 k/uL (0-1.0); Monocytes % (A) 9 %; Neutrophils # (A) 6.4 k/uL (1.3-7.7); Neutrophils % (A) 72 %; Platelet Count 252 k/uL (150-450); RBC 2.77 m/uL (4.30-5.90); RDW 18.3 % (11.5-15.5); WBC 8.9 k/uL (3.8-10.6)
[2018-05-30 21:12] LABS: Calcium 8.4 mg/dL (8.4-10.2); Magnesium 1.5 mg/dL (1.6-2.3); Potassium 4.9 mmol/L (3.5-5.1)
--- NOTE | 2018-05-30 22:05 | PN ---
PROGRESS NOTE DATE OF SERVICE: 05/30/2018. CHIEF COMPLAINT: GI bleed, blood loss anemia, renal failure, and atrial fibrillation. HISTORY OF PRESENT ILLNESS: This gentleman is slowly improving and can probably go to the senior care anytime. REVIEW OF SYSTEMS: He has not complaining of any significant chest pain, orthopnea, PND, etc. PHYSICAL EXAM: Chest is quite clear with only scattered rales. Cardiac exam demonstrates atrial fibrillation. The abdomen is soft and nontender. IMPRESSION: 1. GI bleed. 2. Blood loss anemia. 3. Renal failure. 4. Congestive heart failure. 5. Atrial fibrillation. PLAN: Prepare for discharge to senior care anytime. MMODL / IJN: [id number] /
[2018-05-30] MEDS ORDERED: Magnesium Replacement Protocol 1 EACH MISC MISCELLANE PRN (23:08)
[2018-05-31] MEDS: MAGNESIUM SULFATE-D5W PMX 1 GM in DEXTROSE/WATER 1 100ML.BAG IVPB SCH ×2 (00:10→01:17)
[2018-05-31] MEDS: IPRATROPIUM-ALBUTEROL 3 ML NEB INHALATION SCH ×4 (07:52→19:50)
[2018-05-31] MEDS: ASPIRIN 81 MG PO SCH (09:31)
[2018-05-31] MEDS: ENOXAPARIN 30 MG/0.3 ML SYRINGE SQ SCH (09:32)
[2018-05-31] MEDS: ATORVASTATIN 80 MG TAB PO SCH (09:32)
[2018-05-31] MEDS: FUROSEMIDE 10 MG/ML 4 ML VIAL IV SCH (09:33)
[2018-05-31] MEDS: PANTOPRAZOLE 40 MG/10 ML VIAL IVP SCH (09:34)
[2018-05-31] MEDS: METOPROLOL TARTRATE 25 MG TAB PO SCH ×3 (09:34→21:15)
[2018-05-31 11:31] VITALS: BMI 30.6
--- NOTE | 2018-05-31 12:09 | DS ---
DISCHARGE SUMMARY CHIEF COMPLAINT: Blood loss anemia, hypovolemic shock, renal failure, congestive heart failure and CKD. HISTORY OF PRESENT ILLNESS AND PHYSICAL EXAM: Details of this man's history and physical can be found in the initial workup. COURSE IN THE HOSPITAL: After admission, he was placed on bedrest, started on intravenous fluids and transfused. He slowly stabilized, but he had difficulty with congestive heart failure and renal failure and he was followed by Med, Renal and Cardiology. He did stabilized and was moved to telemetry. His hemoglobin was gradually increasing. He did develop some short runs of nonsustained asymptomatic ventricular tachycardia. He continued to improve and it was arranged for him to go back to [facility] for rehabilitation. He will be sent there. In followup he will be off of anticoagulants indefinitely. FINAL DIAGNOSES: 1. Upper gastrointestinal hemorrhage. 2. Blood loss anemia. 3. Atrial fibrillation. 4. Congestive heart failure. 5. Renal failure. 6. Continued tachycardia. OPERATIONS: None. CONSULTATIONS: Cardiology, Intensive Medicine and Nephrology. He is improved. MMODRonnie / LUCERON: [id number] /
--- NOTE | 2018-05-31 12:12 | P.PN ---
Subjective Progress Note Date: 05/31/18 Principal diagnosis: Acute hypoxic respiratory failure secondary to diastolic congestive heart failure and left upper lobe pneumonia 73-year-old male patient who was brought into the emergency department because of worsening shortness of breath and altered mentation. Apparently the patient was found to have diminished level of consciousness at home in addition to some questionable left-sided/facial droop that was not present at the time of admission today emergency department. The patient seemed to be more lethargic and hypoxic and he was in obvious respiratory failure. Initial chest exit showed acute bilateral pulmonary edema in addition to some questionable consolidation involving the left upper lobe. The patient was found to be in significant fluid overload. He had positive JVDs. He had positive edema in lower extremities bilaterally and diffuse swelling. He has chronic ulceration of the legs stage I to 2 that don't seem to be infected this point in time and he also has a stage II decubitus ulceration. No reported fever or chills. He is moving all 4 extremities without any limitation. On admission, it is not complain of any chest pain. White cell count is not elevated. Hemoglobin was at 6 and the patient has had chronic problems with anemia and his previous GI workup for blood loss anemia was essentially negative. His hemoglobin at a time of discharge from his most recent admission was 8. His chest x-ray was also clear from his most recent discharge. He is also an acute kidney injury. Creatinine is up to 2.3 from a normal baseline prior to his discharge. We evaluated this patient in the emergency department. He was awake and alert. He was short of breath. He was on a BiPAP at a pressure of 12/5 cm of water and FiO2 of 100%. He was given a dose of Lasix 80 mg IV push and he is producing adequate amount of urine output. 2 units of packed RBC was ordered. I inserted a triple lumen catheter in the left subclavian without any complications. He is moving all 4 extremities without any limitation. His cardiac rhythm showing a low voltage QRS, prolonged QT, no clear p waves are seen and the patient is possibly in a sinus rhythm although I'm not absolutely sure. I think he is in a flutter rhythm.. Repeat EKG needs to be done. CAT scan of the brain showed no definite acute intracranial hemorrhage or mass effect. There is units changes involving the white matter. The patient is seen again today 05/28/2018 in follow-up on the selective care unit. He is awake and alert in no acute distress. Currently sitting up in a chair at the bedside. He is maintaining good O2 saturations in the high 90s on 2 L/m per nasal cannula. He's been afebrile. Hemodynamically stable. He remains on bronchodilators along with Zosyn and Levaquin which can now be discontinued per ID recommendation. The patient is seen again today 05/29/2018 in follow-up on the selective care unit. He is currently sitting up in a chair at the bedside he is awake and alert in no acute distress. He denies any worsening shortness of breath, cough or congestion. Maintaining good O2 saturations in the upper 90s on 2 L/m per nasal cannula. He's afebrile. Hemodynamically stable. Patient is seen again today 05/30/2018 in follow-up on the selective care unit. He sitting up in a chair at the bedside. He is awake and alert in no acute distress. He denies any worsening shortness of breath, cough or congestion. Still maintaining good O2 saturation in the 90s on room air. The patient is seen again today 05/31/2018 in follow-up on the selective care unit. He's been up ambulating in the hallway with assistance. Doing quite well. No worsening shortness of breath, cough or congestion, lungs are basically clear. Objective - Vital Signs Vital signs: Vital Signs Temp 98.1 F 05/31/18 08:00 Pulse 70 05/31/18 11:32 Resp 18 05/31/18 08:00 BP 124/56 05/31/18 08:00 Pulse Ox 95 05/31/18 08:00 Intake & Output 05/30/18 05/31/18 05/31/18 18:59 06:59 18:59 Intake Total 3002 240 Output Total 1200 200 600 Balance 9402 200 360 Weight 99.5 kg 99.5 kg Intake: Oral 3002 240 Output: Urine 1200 200 600 Other: Voiding Method Toilet Toilet Urinal Urinal # Voids 1 # Bowel Movements 1 - Exam GENERAL EXAM: Alert, oriented 3, comfortable in no apparent distress. HEAD: Normocephalic. EYES: Normal reaction of pupils, equal size. NOSE: Clear with pink turbinates. THROAT: No erythema or exudates. NECK: No masses, no JVD. CHEST: No chest wall deformity. LUNGS: Equal air entry with faint crackles in the posterior bases, diminished. CVS: S1 and S2 normal with no audible murmur, irregular rhythm. ABDOMEN: No hepatosplenomegaly, normal bowel sounds, no guarding or rigidity. SPINE: No scoliosis or deformity SKIN: No rashes CENTRAL NERVOUS SYSTEM: No focal deficits, tone is normal in all 4 extremities. EXTREMITIES: There is no peripheral edema. No clubbing, no cyanosis. Peripheral pulses are intact. - Labs CBC & Chem 7: 05/30/18 20:41 05/30/18 20:41 Labs: Abnormal Lab Results - Last 24 Hours (Table) 05/30/18 05/30/18 Range/Units 20:41 20:41 RBC 2.77 L (4.30-5.90) m/uL Hgb 7.5 L (13.0-17.5) gm/dL Hct 25.2 L (39.0-53.0) % MCHC 29.9 L (31.0-37.0) g/dL RDW 18.3 H (11.5-15.5) % Carbon Dioxide 32 H (22-30) mmol/L BUN 47 H (9-20) mg/dL Creatinine 1.76 H (0.66-1.25) mg/dL Magnesium 1.5 L (1.6-2.3) mg/dL Assessment and Plan Assessment: Assessment: Acute hypoxic respiratory failure secondary to diastolic congestive heart failure and left upper lobe pneumonia. Improved. Right pleural effusion, status post thoracentesis on 05/21/2018, fluid negative for malignancy Acute kidney injury secondary to ATN and septic shock. Creatinine 1.76. Chronic atrial fibrillation/flutter rate control. Klebsiella pneumonia sepsis and septic shock on presentation. Nonsustained episodes of V. tach, cardiology consulted currently on amiodarone. Recommendation: The patient was seen and evaluated by Dr. Alves. Continue current treatment plan. The plan is to transfer to [facility] for subacute rehabilitation. We will see the patient on as-needed basis. I, the cosigning physician, performed a history & physical examination of the patient. Lungs sounds have few crackles in the posterior bases. Maintaining good O2 saturations in the 90s on room air. I discussed the assessment and plan of care with my nurse practitioner, Trudy Bear. I attest to the above note as dictated by her.
--- NOTE | 2018-05-31 12:31 | P.PN ---
Subjective Patient's blood pressure better controlled now 124/56. His mercury, afebrile 98.1F pulse rate in the 80s respirations nonlabored Kidney function improving, creatinine 1.76, hemoglobin 7.5 He has had chronic anemia and therefore his anticoagulation for atrial fibrillation and has been discontinued Breath sounds are reduced bilaterally but there are no rhonchi no crackles at this time heart sounds are irregular with rates are controlled Both lower extremities are bandaged There is no significant edema No JVD Impression Persistent rate controlled atrial fibrillation Nonsustained ventricular tachycardia now on amiodarone Chronic kidney disease Anemia, GI workup unrevealing. However he does have diverticulosis and this is most likely the source of his bleeding did he is off anticoagulants now Suggest Amiodarone 400 mg by mouth daily for one month then 200 mg thereafter and then I will reduce it further Consideration for left atrial occlusion device to prevent strokes secondary to atrial fibrillation Continue other medications unchanged Follow-up with Dr. Marlow in about 3 weeks os discharge Objective - Vital Signs Vital signs: Vital Signs Temp 98.1 F 05/31/18 08:00 Pulse 72 05/31/18 11:42 Resp 18 05/31/18 08:00 BP 124/56 05/31/18 08:00 Pulse Ox 95 05/31/18 08:00 Intake & Output 05/30/18 05/31/18 05/31/18 18:59 06:59 18:59 Intake Total 3002 240 Output Total 1200 200 600 Balance 1802 -200 -360 Weight 99.5 kg 99.5 kg Intake: Oral 3002 240 Output: Urine 1200 200 600 Other: Voiding Method Toilet Toilet Urinal Urinal # Voids 1 # Bowel Movements 1 - Labs CBC & Chem 7: 05/30/18 20:41 05/30/18 20:41 Labs: Abnormal Lab Results - Last 24 Hours (Table) 05/30/18 05/30/18 Range/Units 20:41 20:41 RBC 2.77 L (4.30-5.90) m/uL Hgb 7.5 L (13.0-17.5) gm/dL Hct 25.2 L (39.0-53.0) % MCHC 29.9 L (31.0-37.0) g/dL RDW 18.3 H (11.5-15.5) % Carbon Dioxide 32 H (22-30) mmol/L BUN 47 H (9-20) mg/dL Creatinine 1.76 H (0.66-1.25) mg/dL Magnesium 1.5 L (1.6-2.3) mg/dL
[2018-05-31] MEDS: DONEPEZIL 5 MG TAB PO SCH (12:36)
[2018-05-31] MEDS: LEVOFLOXACIN 250 MG TAB PO SCH (12:36)
--- NOTE | 2018-05-31 14:00 | PN ---
PROGRESS NOTE DATE OF SERVICE: 05/31/2018. REASON FOR FOLLOWUP: 1. Bilateral lower extremity venous stasis ulcer, no cellulitis. 2. Klebsiella bacteremia, adequately treated. INTERVAL HISTORY: The patient is currently afebrile. He is currently waiting for placement. Denies having any chest pain or shortness of breath or cough. No abdominal pain or pain to the foot area. PHYSICAL EXAMINATION: On examination, blood pressure 124/56, pulse of 83, temperature 98.1. He is 95% on 2 L nasal cannula. General description is an elderly male lying in bed in no distress. RESPIRATORY SYSTEM: Unlabored breathing, clear to auscultation anteriorly. HEART: S1, S2. Regular rate and rhythm. ABDOMEN: Soft, no tenderness. LABS: No new labs have been obtained today. DIAGNOSTIC IMPRESSION AND PLAN: 1. Patient with bilateral lower extremity venous stasis ulcer, no cellulitis. Continue local wound care as ordered with Aquacel Silver dressing and Curtis wrap. 2. Patient with Klebsiella bacteremia secondary to pneumonia adequately treated, has completed antibiotic therapy. Continue to monitor patient closely off antibiotic. Continue supportive care. MMODL / IJN: [id number] /
[2018-05-31] MEDS: LATANOPROST 0.005% OPHTH DROPS 2.5 ML BTL BOTH EYES SCH (21:15)
[2018-05-31 21:43] VITALS: RESP 18
[2018-06-01] MEDS: ATORVASTATIN 80 MG TAB PO SCH (07:47)
[2018-06-01] MEDS: ENOXAPARIN 30 MG/0.3 ML SYRINGE SQ SCH (07:47)
[2018-06-01] MEDS: ASPIRIN 81 MG PO SCH (07:47)
[2018-06-01] MEDS: PANTOPRAZOLE 40 MG/10 ML VIAL IVP SCH (07:48)
[2018-06-01] MEDS: FUROSEMIDE 10 MG/ML 4 ML VIAL IV SCH (07:48)
[2018-06-01] MEDS: METOPROLOL TARTRATE 25 MG TAB PO SCH (07:48)
[2018-06-01] MEDS: IPRATROPIUM-ALBUTEROL 3 ML NEB INHALATION SCH ×3 (07:50→15:38)
--- NOTE | 2018-06-01 09:49 | P.PN ---
Subjective Progress Note Date: 06/01/18 Progress Note Date: 05/27/18 This is a 73-year-old gentleman who was initially admitted to the hospital with worsening shortness of breath and altered mentation. On admission patient was found to have diminished level of consciousness and also questionable left- sided facial droop. He was diagnosed to have evidence of pulmonary edema and possible pneumonia. He was fluid overloaded on admission. He also has some ulceration of the legs. He spent several days in intensive care unit. He was transferred to [facility] floor Patient had a bout of nonsustained V. tach followed by another V. tach of 22 beats. Patient was asymptomatic. He was given magnesium supplementation was transferred to telemetry unit. At the time of my examination patient is sitting in bed and doesn't appear to be in acute distress. He doesn't appear patient was symptomatic from these episodes. His echocardiogram done during this admission showed normal LV function. His creatinine went up to 2.0. His potassium level been normal. Patient is on beta kevin. Will increase the dose of the beta kevin and continue to monitor his rhythm. On review of the rhythm strips, it does appear that the patient has had a run of nonsustained ventricular tachycardia. Dr. Albarado willl review the office notes today, we will also review most recent stress test. 05/28/2018 Patient seen and examined today on the telemetry unit, awake and alert, up in the chair the time of our examination. Maintaining good oxygen saturations in the mid-90s. Afebrile and hemodynamically stable. No further arrhythmias have been noted on the monitor. White blood cell count 10.6, hemoglobin 7.6, platelet count 220. Sodium 138, potassium 4.5, BUN 46, creatinine 2.0. Patient continues to be on 40 mg of IV Lasix daily for pulmonary. 05/29/2018 Patient seen ambulating in the hallway this morning, overall doing significantly better. Blood pressure 120/70 with a heart rate in the 70s, 98% on 2 L 05/30/2018 Patient seen and examined this morning, continues to ambulate in the kolb without any difficulty. Hemodynamically stable. 06/01/2018 Patient seen and examined this morning, doing well overall. Hoping to be discharged home today. Hemodynamically stable. Follow-up appointment with Dr. Albarado post discharge. Objective - Vital Signs Vital signs: Vital Signs Temp 98.0 F 06/01/18 08:00 Pulse 83 06/01/18 08:00 Resp 18 06/01/18 08:00 BP 113/66 06/01/18 08:00 Pulse Ox 94 L 06/01/18 08:00 Intake & Output 05/31/18 06/01/18 06/01/18 18:59 06:59 18:59 Intake Total 480 Output Total 600 400 Balance -120 -400 Weight 99.5 kg Intake: Oral 480 Output: Urine 600 400 Other: Voiding Method Toilet Urinal # Voids 2 1 # Bowel Movements 1 - Exam GENERAL EXAM: Patient is alert and doesn't appear to be in any acute distress HEENT: Normocephalic. Normal reaction of pupils, equal size, normal range of extraocular motion. No erythema or exudates in the throat. NECK: No masses, no nuchal rigidity. CHEST: No chest wall deformity. LUNGS: Diminished air exchange HEART: S1 and S2 normal with no audible mumurs or gallops. Regular rhythm, femorals equal on both sides.. ABDOMEN: No hepatosplenomegaly, normal bowel sounds, no guarding or rigidity. SKIN: No rashes CENTRAL NERVOUS SYSTEM: No focal deficits. EXTREMITIES: No cyanosis, clubbing or edema. - Labs CBC & Chem 7: 05/30/18 20:41 05/30/18 20:41 Assessment and Plan Plan: Assessment and plan #1 acute renal failure #2 anemia #3 nonsustained ventricular tachycardia #4 chronic persistent atrial fibrillation, not a candidate for anticoagulation. #5 prior TIA Plan From cardiology's perspective, we'll continue current medications which include amiodarone 200 mg by mouth twice a day, Ecotrin 81 mg daily, metoprolol 25 mg one tablet by mouth 3 times a day. DNP note has been reviewed, I agree with a documented findings and plan of care. Patient was seen and examined.
[2018-06-01 11:27] VITALS: BP 112/62; TEMP 97.5
[2018-06-01] MEDS: LEVOFLOXACIN 250 MG TAB PO SCH (11:28)
[2018-06-01] MEDS: DONEPEZIL 5 MG TAB PO SCH (11:28)
--- NOTE | 2018-06-01 14:25 | PN ---
PROGRESS NOTE DATE OF SERVICE: 06/01/2018 Patient was discharged yesterday and remains in the hospital. He was cleared by Cardiology and me yesterday. There is not a reason that he should be in the hospital. MMODL / IJN: [id number] /
--- NOTE | 2018-06-01 15:04 | PN ---
PROGRESS NOTE DATE OF SERVICE: 06/01/2018. REASON FOR FOLLOW UP: 1. Bilateral lower extremity venous stasis ulcer, no cellulitis. 2. Patient with Klebsiella bacteremia with pneumonia that has been adequately treated. INTERVAL HISTORY: The patient is currently afebrile. He is breathing comfortably. Denies having any chest pain. No shortness of breath, no cough, no abdominal pain and no pain to the leg wound area. PHYSICAL EXAMINATION: Blood pressure 112/62 with a pulse of 72, temperature is 97.5, he is 96% on room air. General description is an elderly male up in the chair, in no distress. RESPIRATORY SYSTEM: Unlabored breathing, clear to auscultation anteriorly. HEART: S1, S2. Regular rate and rhythm. ABDOMEN: Soft, no tenderness. LEGS: Wounds already mentioned that there is no evidence of any redness and the wounds are healing well at the time of examination. DIAGNOSTIC IMPRESSION AND PLAN: 1. Patient with bilateral extremities venous stasis ulcer, no cellulitis. Continue local wound care as ordered. Will follow up in [facility]. 2. Patient with Klebsiella bacteremia secondary to the pneumonia that has been adequately treated. No need for antibiotic on discharge. MMODL / IJN: [id number] /
[2018-06-01 15:47] VITALS: PULSE 76
[2018-06-03] MEDS ORDERED: AMIODARONE 200 MG TAB PO SCH (09:00)
--- NOTE | 2018-06-04 11:08 | CDI ---
Last Revision, August 2017 Documentation Clarification Form Date: 06/04/18 From: Daksha Gerardo Sarah Lili, Director Blood Bank Hours-8:30 am & 5 pm M-F Admit Date: 05/13/2018 2:36:00 PM Patient Name: Tin James Visit Number: [id number] Discharge Date: 06/01/18 ATTENTION: The Clinical Documentation Specialists (CDI) and [facility] Coding Staff appreciate your assistance in clarifying documentation. Please respond to the clarification below the line at the bottom and electronically sign. The CDI & [facility] [employer] [facility] Coding staff will review the response and follow-up if needed. Please note: Queries are made part of the Legal Health Record. If you have any questions, please contact the author of this message via ITS. Dr. Barbara Shearer, Atrial Flutter is documented in the ED note and in Dr Valdes's progress notes. History/Risk factors: sepsis w septic shock, A/C/diastolic CHF, V tach, ATN, PNA Clinical Indicators: EKG/telemetry: per ED-shows atrial flutter at 74 bpm QRS 94 QT interval 422 QTC is 468 Treatment: controlled for now per 05/13 consult In your professional opinion, in order to capture the severity of condition; can you please clarify the type of atrial flutter if known? Typical/Type I Atypical/Type II Other, please specify Unable to determine Please continue to document in your progress notes and discharge summary in order to capture severity of illness and risk of mortality. Include clinical findings that support your diagnosis. MTDD
--- NOTE | 2018-06-06 12:42 | P.PN ---
Progress Note - Text Progress Note Date: 06/06/18 This is documentation to address a documentation clarification which was forwarded to cardiology. Patient does not have atrial flutter, there is no documentation of atrial flutter in any of the cardiology notes. DNP note has been reviewed, I agree with a documented findings and plan of care. Patient was seen and examined.
== END 2018-06-01 17:32 | disposition home health service (06) | DRG 871 ==
LOC: EC 13:12 → 6ICU 14:36 → 3SUR 05-23 21:45 → 6SEL 05-24 14:35
PROVIDERS: ADMIT Family Medicine; ATTEND Family Medicine
PROC: 30233N1 Transfusion of Nonautologous Red Blood Cells into Peripheral Vein, Percutaneous Approach (ICD-10-PCS; principal; 2018-05-13)
PROC: 02HV33Z Insertion of Infusion Device into Superior Vena Cava, Percutaneous Approach (ICD-10-PCS; 2018-05-13)
PROC: 5A09557 Assistance with Respiratory Ventilation, Greater than 96 Consecutive Hours, Continuous Positive Airway Pressure (ICD-10-PCS; 2018-05-13)
PROC: 0W993ZX Drainage of Right Pleural Cavity, Percutaneous Approach, Diagnostic (ICD-10-PCS; 2018-05-21)
DX: A41.59 Other Gram-negative sepsis (principal); R65.21 Severe sepsis with septic shock; N17.0 Acute kidney failure with tubular necrosis; R57.1 Hypovolemic shock; J96.01 Acute respiratory failure with hypoxia; J15.0 Pneumonia due to Klebsiella pneumoniae; I50.33 Acute on chronic diastolic (congestive) heart failure; K57.91 Diverticulosis of intestine, part unspecified, without perforation or abscess with bleeding; L97.819 Non-pressure chronic ulcer of other part of right lower leg with unspecified severity; L97.821 Non-pressure chronic ulcer of other part of left lower leg limited to breakdown of skin; N18.4 Chronic kidney disease, stage 4 (severe); I47.2 Ventricular tachycardia; G45.9 Transient cerebral ischemic attack, unspecified; J44.0 Chronic obstructive pulmonary disease with (acute) lower respiratory infection; I08.1 Rheumatic disorders of both mitral and tricuspid valves; L89.152 Pressure ulcer of sacral region, stage 2; I27.20 Pulmonary hypertension, unspecified; I48.2 Chronic atrial fibrillation; E86.1 Hypovolemia; I83.018 Varicose veins of right lower extremity with ulcer other part of lower leg; I83.028 Varicose veins of left lower extremity with ulcer other part of lower leg; E83.51 Hypocalcemia; D50.0 Iron deficiency anemia secondary to blood loss (chronic); K29.70 Gastritis, unspecified, without bleeding; E78.5 Hyperlipidemia, unspecified; G47.33 Obstructive sleep apnea (adult) (pediatric); I73.9 Peripheral vascular disease, unspecified; E66.9 Obesity, unspecified; Z68.30 Body mass index [BMI] 30.0-30.9, adult; Z79.01 Long term (current) use of anticoagulants; Z79.82 Long term (current) use of aspirin; Z79.899 Other long term (current) drug therapy; Z86.718 Personal history of other venous thrombosis and embolism; Z87.81 Personal history of (healed) traumatic fracture; Z86.79 Personal history of other diseases of the circulatory system; Z87.891 Personal history of nicotine dependence; Z99.89 Dependence on other enabling machines and devices; Z86.73 Personal history of transient ischemic attack (TIA), and cerebral infarction without residual deficits; Z82.3 Family history of stroke
CPT/HCPCS: 36415; 36600; 51702; 70450; 71045; 71046; 76604; 80048; 80053; 80202; 81001; 82272; 82550; 82553; 82805; 82945; 83605; 83615; 83735; 83880; 84100; 84132; 84155; 84157; 84484; 85025; 85027; 85610; 85730; 86850; 86900; 86901; 86920; 87040; 87070; 87077; 87186; 87205; 88108; 88305; 89050; 93005; 93306; 94640; 94660; 94760; 96365; 96368; 96375; 99291

== ENCOUNTER 2018-08-09 12:34 | Inpatient (IN) | payer MEDICARE, BC ==
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
--- NOTE | 2018-08-09 13:37 | XR ---
EXAMINATION TYPE: XR chest 2V DATE OF EXAM: 08/09/2018 COMPARISON: 05/27/2018 HISTORY: Shortness of breath TECHNIQUE: Frontal and lateral views of the chest are obtained. FINDINGS: There is an increasing right pleural effusion and persistent small left pleural effusion w ith associated bilateral airspace disease. Cardiomediastinal silhouette is enlarged. Mild pulmonary v ascular congestion is noted. Mild multilevel degenerative changes of the thoracic spine are seen. IMPRESSION: Increasing pleural effusions, moderate on the right and small on the left, with findings suggesting underlying decompensated congestive heart failure.
[2018-08-09 14:23] LABS: Albumin 2.6 g/dL (3.5-5.0); Magnesium 1.2 mg/dL (1.6-2.3); Potassium 5.2 mmol/L (3.5-5.1); Total Bilirubin 0.8 mg/dL (0.2-1.3); Total Protein 6.3 g/dL (6.3-8.2)
[2018-08-09 14:26] LABS: Anisocytosis Slight; Basophils % (A) 0 %; Eosinophils % (A) 0 %; HCT 28.1 % (39.0-53.0); HGB 8.2 gm/dL (13.0-17.5); Hypochromasia Marked; INR 1.4 (<1.2); Lymphocytes # (A) 0.8 k/uL (1.0-4.8); Lymphocytes % (A) 8 %; MCH 25.7 pg (25.0-35.0); MCHC 29.2 g/dL (31.0-37.0); MCV 87.9 fL (80.0-100.0); Mean Platelet Volume 8.8; Monocytes # (A) 0.5 k/uL (0-1.0); Monocytes % (A) 5 %; Neutrophils % (A) 85 %; Partial Thromboplastin Time 33.6 sec (22.0-30.0); Platelet Count 123 k/uL (150-450); Poikilocytosis Slight; Prothrombin Time 14.3 sec (9.0-12.0); RBC 3.19 m/uL (4.30-5.90); RDW 19.7 % (11.5-15.5); WBC 9.4 k/uL (3.8-10.6)
[2018-08-09 14:44] LABS: Creatine Kinase MB 11.7 ng/mL (0.0-2.4)
[2018-08-09 14:55] LABS: Troponin I 0.289 ng/mL (0.000-0.034)
[2018-08-09 16:44] LABS: Appearance,Urine Turbid (Clear); Bilirubin,Urine Negative (Negative); Blood,Urine Moderate (Negative); Color,Urine Red; Glucose,Urine (UA) Negative (Negative); Ketones,Urine Negative (Negative); Leukocyte Esterase,Urine Large (Negative); Mucus,Urine Many /hpf; Nitrite,Urine Positive (Negative); PH, Urine 7.5 (5.0-8.0); Protein,Urine 1+ (Negative); RBC,Urine 77 /hpf (0-5); Squamous Epithelial Cell,Urine 7 /hpf (0-4); Urobilinogen,Urine <2.0 mg/dL (<2.0); WBC,Urine >182 /hpf (0-5)
[2018-08-09] MEDS ORDERED: cefTRIAXone 2,000 MG in SODIUM CHLORIDE 0.9% 100 ML IVPB STA (16:44)
[2018-08-09 16:45] LABS: Specific Gravity,Urine 1.022 (1.001-1.035)
[2018-08-09 17:11] LABS: Anisocytosis Slight; Basophils % (A) 0 %; Eosinophils % (A) 0 %; HCT 27.2 % (39.0-53.0); HGB 7.8 gm/dL (13.0-17.5); Hypochromasia Marked; Lymphocytes # (A) 0.6 k/uL (1.0-4.8); Lymphocytes % (A) 7 %; MCH 25.8 pg (25.0-35.0); MCHC 28.7 g/dL (31.0-37.0); MCV 89.7 fL (80.0-100.0); Mean Platelet Volume 10.3; Monocytes # (A) 0.5 k/uL (0-1.0); Monocytes % (A) 5 %; Neutrophils # (A) 7.5 k/uL (1.3-7.7); Neutrophils % (A) 85 %; Platelet Count 114 k/uL (150-450); Poikilocytosis Slight; RBC 3.03 m/uL (4.30-5.90); RDW 19.6 % (11.5-15.5); WBC 8.8 k/uL (3.8-10.6)
[2018-08-09] MEDS ORDERED: SODIUM CHLORIDE 0.9% 500 ML 500 ML IV ONE (18:26)
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
[2018-08-09] MEDS ORDERED: SODIUM CHLORIDE 0.9% 2,000 ML IV ONE (19:27)
--- NOTE | 2018-08-09 19:41 | XR ---
EXAMINATION TYPE: XR chest 1V DATE OF EXAM: 08/09/2018 COMPARISON: 08/09/2018 HISTORY: Line placement TECHNIQUE: Single frontal view of the chest is obtained. FINDINGS: There is left subclavian catheter with the tip in the lower superior vena cava. There is b lunting of the costophrenic angles. There is pulmonary vascular congestion. There are chest leads. IMPRESSION: Catheter in good position. Congestive heart failure with pleural effusions. Heart and latha ngs not significantly different than exam earlier today.
[2018-08-09] MEDS: SODIUM CHLORIDE 0.9% 1,000 ML IV SCH ×3 (19:49→19:52)
[2018-08-09] MEDS ORDERED: DEXTROSE 50%-WATER 50 ML SYRINGE IVP STA (19:51)
[2018-08-09] MEDS ORDERED: NALOXONE 0.4 MG/ML 1 ML VIAL IV PRN (19:55)
[2018-08-09] MEDS: NOREPINEPHRINE 16 MG in SODIUM CHLORIDE 0.9% 250 ML IV SCH (19:58)
[2018-08-09 20:02] LABS: ABG Base Excess -10.6 mmol/L; ABG HCO3 17 mmol/L (21-25); ABG Oxygen Saturation 99.8 % (94-97); ABG PCO2 41 mmHg (35-45); ABG PH 7.23 (7.35-7.45); ABG PO2 159 mmHg (83-108); ABG TCO2 18 mmol/L (19-24)
[2018-08-09 20:04] LABS: Glucose,Whole Blood 107 mg/dL (75-99)
--- NOTE | 2018-08-09 20:58 | US ---
EXAMINATION TYPE: US kidneys/renal and bladder DATE OF EXAM: 08/09/2018 COMPARISON: CT 02/05/2018 CLINICAL HISTORY: BECKY. EXAM MEASUREMENTS: Right Kidney: 9.7 x 5.3 x 4.7 cm Left Kidney: not identified Technically difficult study performed portable in ICU. Patient has edema and unable to roll, left mckenna al not seen. Right Kidney: No hydronephrosis or masses seen Left Kidney: not identified Bladder: patient has catheter There is no evidence for hydronephrosis at this point in time. No nephrolithiasis is seen. No rodney s are identified. IMPRESSION: Right kidney is seen and shows no evidence of mass or obstruction. Left kidney is not maryann ntified. Limited exam.
[2018-08-09] MEDS ORDERED: PIPERACILLIN-TAZOBACTAM 3.375 GM in SODIUM CHLORIDE 0.9% 100 ML IVPB SCH (21:00)
[2018-08-09 23:24] LABS: Glucose,Whole Blood 83 mg/dL (75-99)
[2018-08-10] MEDS ORDERED: FUROSEMIDE 10 MG/ML 2 ML VIAL IV SCH
[2018-08-10] MEDS: HEPARIN SODIUM,PORCINE 5,000 UNIT/ML 1 ML VIAL SQ SCH ×4 (00:29→23:30)
[2018-08-10] MEDS ORDERED: SODIUM CHLORIDE 0.9% 1,000 ML IV ONE (01:24)
[2018-08-10 04:58] LABS: Glucose,Whole Blood 69 mg/dL (75-99)
[2018-08-10 05:00] LABS: Anisocytosis Slight; Basophils % (A) 0 %; Calcium 6.5 mg/dL (8.4-10.2); Eosinophils % (A) 0 %; HGB 8.6 gm/dL (13.0-17.5); Hypochromasia Marked; Lymphocytes # (A) 0.9 k/uL (1.0-4.8); Lymphocytes % (A) 8 %; MCH 25.6 pg (25.0-35.0); MCHC 28.7 g/dL (31.0-37.0); Magnesium 1.1 mg/dL (1.6-2.3); Monocytes # (A) 0.6 k/uL (0-1.0); Monocytes % (A) 5 %; Neutrophils # (A) 9.3 k/uL (1.3-7.7); Neutrophils % (A) 85 %; Phosphorus 6.9 mg/dL (2.5-4.5); Platelet Count 151 k/uL (150-450); Poikilocytosis Slight; Potassium 4.9 mmol/L (3.5-5.1); RBC 3.37 m/uL (4.30-5.90); RDW 19.6 % (11.5-15.5)
[2018-08-10] MEDS ORDERED: DEXTROSE 50%-WATER 50 ML SYRINGE IVP STA (05:01)
[2018-08-10 05:28] LABS: Glucose,Whole Blood 138 mg/dL (75-99)
[2018-08-10] MEDS: SODIUM CHLORIDE 0.9% 1,000 ML IV SCH (05:43)
[2018-08-10] MEDS: NOREPINEPHRINE 16 MG in SODIUM CHLORIDE 0.9% 250 ML IV SCH ×3 (05:44→16:30)
[2018-08-10 05:47] LABS: Glucose,Whole Blood 122 mg/dL (75-99)
--- NOTE | 2018-08-10 06:18 | XR ---
EXAMINATION TYPE: XR chest 1V DATE OF EXAM: 08/10/2018 HISTORY: fluid overload. REFERENCE: Previous study dated 08/09/2018. FINDINGS: There is a left subclavian catheter in place. Its tip is at the cavoatrial junction. There are bilateral effusions. There is left basilar airspace disease and possibly right basilar airspace d isease. There is some atelectasis in the right upper lobe. The heart is enlarged. IMPRESSION: NO SIGNIFICANT INTERVAL CHANGE IN APPEARANCE OF THE CHEST.
[2018-08-10] MEDS: MAGNESIUM SULFATE-D5W PMX 1 GM in DEXTROSE/WATER 1 100ML.BAG IVPB SCH ×5 (06:42→22:06)
[2018-08-10 07:18] LABS: Glucose,Whole Blood 104 mg/dL (75-99)
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
[2018-08-10] MEDS: SODIUM CHLORIDE 0.9% 99 ML with VASOPRESSIN 20 UNIT IV SCH ×4 (09:53→18:27)
[2018-08-10] MEDS: AZTREONAM 1 GM in SODIUM CHLORIDE 0.9% 50 ML IVPB SCH ×3 (09:53→23:30)
[2018-08-10] MEDS: DEXTROSE 5% IN WATER 1,000 ML with SODIUM BICARB (1 MEQ/ML) 150 ML IV SCH ×2 (09:54→22:06)
[2018-08-10] MEDS: MEROPENEM 1 GM in SODIUM CHLORIDE 0.9% 100 ML IVPB SCH (09:54)
[2018-08-10] MEDS: PANTOPRAZOLE 40 MG/10 ML VIAL IVP SCH (09:55)
[2018-08-10] MEDS: NYSTATIN 100,000 UNIT/GM POWD 15 GM TOPICAL SCH ×2 (09:55→20:32)
--- NOTE | 2018-08-10 10:34 | CONS ---
CONSULTATION This is a 73-year-old gentleman with multiple comorbid conditions. He has a fairly poor baseline functional status. He has had multiple issues from a cardiac and respiratory as well as renal standpoint. He has history of chronic atrial fibrillation and also atrial tachycardia, for which he underwent multiple interventions. He was on Xarelto 20 mg until about a month ago or so. Apparently this patient was admitted initially to the medical floor and became hypotensive with systolic pressure in the 70s. He was given IV fluid bolus and then transferred to the ICU. Patient is in atrial fibrillation. The rate control appears to be fairly decent. He was apparently feeling more weak, short of breath at home and did not have much energy. EMS was called and then he was brought into the hospital. He also complains of having lightheadedness and dizziness as well. However, he did not have any syncopal spells when he arrived. He has history of chronic atrial fibrillation, previous CVA, DVT, hyperlipidemia, sleep apnea syndrome, wears a CPAP. Past medical history is remarkable for multiple hospitalizations with an EP study for atrial tachycardia and also for chronic atrial fibrillation. This gentleman has had a previous evaluation in the form of ablation with pulmonary vein isolation without being able to terminate the atrial tachycardia. Patient was then treated with a combination of beta blockers and Xarelto, but Xarelto has also been held about a month ago. At the time of my evaluation, he is resting comfortably but feels weak and tired. His current issues include severe dehydration with hypovolemia, acute renal injury with almost negligible urine output. He has gram-negative bacteremia as well. Clinically, patient still appears to be somewhat volume-depleted, but his BNP was quite elevated when he came into the hospital. Laboratory data suggest a creatinine of 7.9. His potassium is 4.9. Magnesium is 1.1 and is being supplemented. Hemoglobin is 8.6. White count is normal. It appears that he does have gram-negative bacteremia. The patient is on a very high dose of Levophed of more than 40 mcg. His urine output is almost negligible. Blood pressure is about 109/60. Pulse rate is about 78 per minute, irregular. JVD is evident. S1 and S2 heard with irregular rhythm, short systolic murmur. Lungs reveal diminished air entry. Abdomen is soft. Lower extremities reveal diminished pulses. Central nervous system: Generalized weakness noted. His last echocardiogram from May revealed ejection fraction of about 50% to 55% without significant pulmonary hypertension. IMPRESSION: 1. Severe hypotension, hypovolemia with intravascular volume depletion and consequent acute renal injury. 2. Acute urinary tract infection with bacteremia. 3. Chronic atrial fibrillation. 4. Last ejection fraction performed in May was in the 55% range without significant pulmonary hypertension. 5. History of sleep apnea syndrome. RECOMMENDATIONS: From a cardiac standpoint, I am recommending that we not give him any Xarelto; instead, just continue subcutaneous heparin and beta kevin for rate control. Continue his antibiotics and supportive management from a nephrology standpoint. Prognosis for this patient is quite poor, given his multiple comorbid conditions and elevated creatinine and overall poor functional capacity. I discussed my thoughts in detail with the patient and family members. From a cardiac standpoint, we will continue beta kevin for rate control and his other management, including his respiratory status and kidney status that are being managed by other specialists. Thank you very much for the consult. KATHLEEN / REMEDIOS: [id number] /
[2018-08-10 13:43] LABS: Glucose,Whole Blood 127 mg/dL (75-99)
[2018-08-10] MEDS: IPRATROPIUM-ALBUTEROL 3 ML NEB INHALATION SCH ×2 (15:55→20:07)
[2018-08-10] MEDS ORDERED: PANTOPRAZOLE 40 MG TABLET PO SCH (17:00)
[2018-08-10 18:59] LABS: Magnesium 1.6 mg/dL (1.6-2.3); Potassium 4.8 mmol/L (3.5-5.1)
[2018-08-10] MEDS: LATANOPROST 0.005% OPHTH DROPS 2.5 ML BTL BOTH EYES SCH (20:32)
[2018-08-10 23:57] LABS: Albumin 2.4 g/dL (3.5-5.0); Magnesium 2.1 mg/dL (1.6-2.3); Phosphorus 7.2 mg/dL (2.5-4.5); Potassium 4.8 mmol/L (3.5-5.1); Total Bilirubin 0.4 mg/dL (0.2-1.3)
[2018-08-11 00:10] LABS: Glucose,Whole Blood 185 mg/dL (75-99)
[2018-08-11 00:22] LABS: Calcium 6.2 mg/dL (8.4-10.2)
[2018-08-11] MEDS ORDERED: CALCIUM CHLORIDE 1,000 MG in SODIUM CHLORIDE 0.9% 100 ML IVPB STA (00:39)
[2018-08-11 05:06] LABS: Calcium 6.7 mg/dL (8.4-10.2); Magnesium 1.9 mg/dL (1.6-2.3); Phosphorus 7.3 mg/dL (2.5-4.5); Potassium 4.8 mmol/L (3.5-5.1)
[2018-08-11 05:07] LABS: Anisocytosis Slight; HCT 28.9 % (39.0-53.0); HGB 8.5 gm/dL (13.0-17.5); Hypochromasia Marked; MCH 26.2 pg (25.0-35.0); MCHC 29.4 g/dL (31.0-37.0); MCV 89.1 fL (80.0-100.0); Mean Platelet Volume 10.7; Platelet Count 115 k/uL (150-450); Poikilocytosis Slight; RBC 3.24 m/uL (4.30-5.90); RDW 19.6 % (11.5-15.5); WBC 10.7 k/uL (3.8-10.6)
[2018-08-11 05:55] LABS: Band Neutrophils % 2 %; Lymphocytes # (M) 0.21 k/uL (1.0-4.8); Monocytes # (M) 0.75 k/uL (0-1.0); Neutrophils % (M) 89 %; Nucleated Red Blood Cells 0 /100 WBC (0-0); Total Cells Counted 100
[2018-08-11 05:56] LABS: Large Platelets Present
--- NOTE | 2018-08-11 06:22 | XR ---
EXAMINATION TYPE: XR chest 1V DATE OF EXAM: 08/11/2018 HISTORY: fluid overload. REFERENCE: Previous study dated 08/10/2018. FINDINGS: The heart remains enlarged. There are bilateral effusions. There is bibasilar airspace dise ase. There is vascular congestion. There is prominent interstitial change. IMPRESSION: SLIGHT WORSENING IN THE APPEARANCE OF THE PATIENT'S CONGESTIVE HEART FAILURE.
[2018-08-11] MEDS: SODIUM CHLORIDE 0.9% 99 ML with VASOPRESSIN 20 UNIT IV SCH ×4 (06:40→17:50)
[2018-08-11] MEDS: NOREPINEPHRINE 16 MG in SODIUM CHLORIDE 0.9% 250 ML IV SCH ×2 (06:42→08:44)
--- NOTE | 2018-08-11 07:32 | ECHOF ---
Referral Reason:assess heart function MEASUREMENTS -------- HEIGHT: 180.3 cm WEIGHT: 108.9 kg BP: 126/60 RVIDd: 4.3 cm (< 3.3) IVSd: 1.3 cm (0.6 - 1.1) LVIDd: 4.0 cm (3.9 - 5.3) LVPWd: 1.3 cm (0.6 - 1.1) IVSs: 1.6 cm LVIDs: 2.4 cm LVPWs: 1.6 cm LA Diam: 4.0 cm (2.7 - 3.8) LAESV Index (A-L): 31.35 ml/m Ao Diam: 3.9 cm (2.0 - 3.7) AV Cusp: 1.5 cm (1.5 - 2.6) LA Diam: 3.6 cm (2.7 - 3.8) EPSS: 0.9 cm AR PHT: 437 ms RAP: 5.00 mmHg RVSP: 52.10 mmHg MV EF SLOPE: 168.40 mm/s (70 - 150) MV EXCURSION: 2.95 cm (> 18.000) FINDINGS -------- Atrial fibrillation. This was a technically adequate study. The left ventricular size is normal. There is mild concentric left ventricular hypertrophy. Overa ll left ventricular systolic function is low-normal with, an EF between 50 - 55 %. The right ventricle is severely enlarged. LA is midly dilated 29-33ml/m2. The right atrium is markedly enlarged. There is mild aortic valve sclerosis. There is gldx-zk-immcnqst aortic regurgitation. There is no evidence of aortic stenosis. The mitral valve leaflets are mildly thickened. Mild mitral annular calcification present. Mild-t o-moderate mitral regurgitation is present. Moderate to severe tricuspid regurgitation present. There is moderate pulmonary hypertension. The right ventricular systolic pressure, as measured by Doppler, is 52.10mmHg. Moderate pulmonic regurgitation. The aortic root is mildy dilated, up to 4.0 cm. IVC Not well visulized. There is a trivial pericardial effusion present. CONCLUSIONS -------- 1. Atrial fibrillation. 2. This was a technically adequate study. 3. The left ventricular size is normal. 4. There is mild concentric left ventricular hypertrophy. 5. Overall left ventricular systolic function is low-normal with, an EF between 50 - 55 %. 6. The right ventricle is severely enlarged. 7. LA is midly dilated 29-33ml/m2. 8. The right atrium is markedly enlarged. 9. There is mild aortic valve sclerosis. 10. There is vuba-yn-oxpvmkgx aortic regurgitation. 11. The mitral valve leaflets are mildly thickened. 12. Mild mitral annular calcification present. 13. Bjhe-az-yaxrddss mitral regurgitation is present. 14. Moderate to severe tricuspid regurgitation present. 15. There is moderate pulmonary hypertension. 16. The right ventricular systolic pressure, as measured by Doppler, is 52.10mmHg. 17. Moderate pulmonic regurgitation. 18. The aortic root is mildy dilated, up to 4.0 cm. 19. IVC Not well visulized. 20. There is a trivial pericardial effusion present. MEAT LOINER: Guille Pretty RDCS
[2018-08-11] MEDS: IPRATROPIUM-ALBUTEROL 3 ML NEB INHALATION SCH ×4 (07:45→19:03)
[2018-08-11] MEDS: DEXTROSE 5% IN WATER 1,000 ML with SODIUM BICARB (1 MEQ/ML) 150 ML IV SCH ×2 (08:37→20:33)
[2018-08-11] MEDS: MEROPENEM 1 GM in SODIUM CHLORIDE 0.9% 100 ML IVPB SCH (08:38)
[2018-08-11] MEDS: PANTOPRAZOLE 40 MG/10 ML VIAL IVP SCH (08:38)
[2018-08-11] MEDS: HEPARIN SODIUM,PORCINE 5,000 UNIT/ML 1 ML VIAL SQ SCH ×3 (08:38→23:00)
[2018-08-11] MEDS: AZTREONAM 1 GM in SODIUM CHLORIDE 0.9% 50 ML IVPB SCH ×3 (08:38→23:00)
[2018-08-11] MEDS: NYSTATIN 100,000 UNIT/GM POWD 15 GM TOPICAL SCH ×2 (08:39→20:33)
--- NOTE | 2018-08-11 09:21 | P.PN ---
Subjective Patient is seen in follow-up for acute kidney injury. Patient's creatinine in the last few months has been in the range of 1-2. He is noted to have a solitary right kidney on imaging. Renal function is not improving despite aggressive IV hydration. He remains oliguric. He is maintained on bicarb drip. Also noted to have quite a bit of edema. He is awake and alert. Currently on 15 mics of Levophed and 0.03 units of vasopressin. Vital signs are stable. Currently on Levophed and vasopressin. General: The patient appeared well nourished and normally developed. HEENT: Head exam is unremarkable. Neck is without jugular venous distension. LUNGS: Breath sounds decreased. HEART: Rate and Rhythm are regular. First and second heart sounds normal. No murmurs, rubs or gallops. ABDOMEN: Abdominal exam reveals normal bowel sounds. Non-tender and non- distended. No evidence of peritonitis. EXTREMITITES: 1+ edema. Objective - Vital Signs Vital signs: Vital Signs Temp 97.4 F L 08/11/18 08:00 Pulse 72 08/11/18 09:00 Resp 19 08/11/18 09:00 BP 112/23 08/11/18 08:45 Pulse Ox 94 L 08/11/18 09:00 Intake & Output 08/10/18 08/11/18 08/11/18 18:59 06:59 18:59 Intake Total 2402.854 5160.567 2881.216 Output Total 39 43 9 Balance 2363.854 3654.571 8571.216 Weight 109 kg 112.6 kg Intake: IV 1645 1530 495 Aztreonam 1 gm In Sodium 100 50 50 Chloride 0.9% 50 ml @ 100 mls/hr IVPB Q8HR [facility] Rx# :[id number] Calcium Chloride 1,000 mg 100 In Sodium Chloride 0.9% 100 ml @ 100 mls/hr IVPB ONCE STA Rx#:[id number] Dextrose 5% in Water 1, 800 1200 300 000 ml @ 100 mls/hr IV . [id number] YANICK with Sodium Bicarb (1 Meq/ml) 150 ml Rx#:[id number] Magnesium Sulfate-D5w Pmx 200 1 gm In Dextrose/Water 1 100ml.bag @ 100 mls/hr IVPB Q1H [facility] Rx#: [id number] Meropenem 1 gm In Sodium 100 100 Chloride 0.9% 100 ml @ 200 mls/hr IVPB Q24HR [facility] Rx#:[id number] Sodium Chloride 0.9% 1, 400 000 ml @ 100 mls/hr IV . Q10H [facility] Rx#:[id number] Sodium Chloride 0.9% 99 45 108 27 ml @ 0.03 UNITS/MIN 9 mls /hr IV .[id number] [facility] with Vasopressin 20 unit Rx#: [id number] pressure bags 72 18 Intake, IV Titration 517.854 182.196 37.216 Amount Norepinephrine 16 mg In 517.854 182.196 37.216 Sodium Chloride 0.9% 250 ml @ Titrate IV .Q0M [facility] Rx#:[id number] Oral 240 720 Output: Urine 39 43 8 Stool 1 Other: Voiding Method Indwelling Catheter Indwelling Catheter Indwelling Catheter ABP, PAP, CO, CI - Last Documented Arterial Blood Pressure 116/47 - Labs CBC & Chem 7: 08/11/18 04:30 08/11/18 04:30 Labs: Abnormal Lab Results - Last 24 Hours (Table) 08/10/18 08/10/18 08/10/18 Range/Units 13:32 23:20 23:58 WBC (3.8-10.6) k/uL RBC (4.30-5.90) m/uL Hgb (13.0-17.5) gm/dL Hct (39.0-53.0) % MCHC (31.0-37.0) g/dL RDW (11.5-15.5) % Plt Count (150-450) k/uL Neutrophils # (Manual) (1.3-7.7) k/uL Lymphocytes # (Manual) (1.0-4.8) k/uL Chloride 109 H (98-107) mmol/L Carbon Dioxide 18 L (22-30) mmol/L BUN 87 H (9-20) mg/dL Creatinine 7.69 H* (0.66-1.25) mg/dL Glucose 179 H (74-99) mg/dL POC Glucose (mg/dL) 127 H 185 H (75-99) mg/dL Calcium 6.2 L* (8.4-10.2) mg/dL Ionized Calcium Jared 4.0 L (4.5-5.3) mg/dL Phosphorus 7.2 H (2.5-4.5) mg/dL Total Protein 6.0 L (6.3-8.2) g/dL Albumin 2.4 L (3.5-5.0) g/dL 08/11/18 08/11/18 Range/Units 04:30 04:30 WBC 10.7 H (3.8-10.6) k/uL RBC 3.24 L (4.30-5.90) m/uL Hgb 8.5 L (13.0-17.5) gm/dL Hct 28.9 L (39.0-53.0) % MCHC 29.4 L (31.0-37.0) g/dL RDW 19.6 H (11.5-15.5) % Plt Count 115 L (150-450) k/uL Neutrophils # (Manual) 9.70 H (1.3-7.7) k/uL Lymphocytes # (Manual) 0.21 L (1.0-4.8) k/uL Chloride 109 H (98-107) mmol/L Carbon Dioxide 19 L (22-30) mmol/L BUN 83 H (9-20) mg/dL Creatinine 7.78 H* (0.66-1.25) mg/dL Glucose 170 H (74-99) mg/dL POC Glucose (mg/dL) (75-99) mg/dL Calcium 6.7 L (8.4-10.2) mg/dL Ionized Calcium Jared (4.5-5.3) mg/dL Phosphorus 7.3 H (2.5-4.5) mg/dL Total Protein (6.3-8.2) g/dL Albumin (3.5-5.0) g/dL Microbiology - Last 24 Hours (Table) 08/09/18 22:30 Blood Culture - Preliminary Blood No Growth after 24 hours 08/09/18 22:28 Blood Culture - Preliminary Blood No Growth after 24 hours 08/09/18 19:04 Urine Culture - Preliminary Urine,Catheterized Gram Neg Bacilli 08/09/18 13:12 Blood Culture Gram Stain - Preliminary Blood Blood Culture - Preliminary Klebsiella pneumoniae Assessment and Plan Plan: Assessment: 1. Oliguric acute kidney injury secondary to ATN secondary to septic shock. Creatinine 8.14 on admission and is 7.78 today. Recently his creatinine has been in the range of 1-2. 2. Hypotension maintained on Levophed and vasopressin. 3. Metabolic acidosis secondary to acute kidney injury. 4. Hypomagnesemia from poor oral intake. Improved post replacement. 5. Bacteremia with blood culture positive for Klebsiella. Urine culture positive for gram-negative bacilli. Maintained on IV antibiotics. 6. Left kidney not visualized on ultrasound. Patient denies history of nephrectomy. 7. Hyperphosphatemia secondary to acute kidney injury. Plan: Maintain bicarb drip. Patient remains anuric and acidotic at this time. He is also starting to develop vascular congestion. I will start renal replacement therapy in the form of SLED today. Patient is agreeable. Continue to monitor renal function and urine output.
[2018-08-11] MEDS ORDERED: HEPARIN SODIUM 1,000 UN/ML (10ML VL) ONE (11:30)
[2018-08-11] MEDS ORDERED: LIDOCAINE 1% INJ 10MG/ML (20 ML MDV) ONE (11:30)
--- NOTE | 2018-08-11 11:41 | PN ---
PROGRESS NOTE HISTORY: Mr. James is a gentleman with history of paroxysmal/persistent atrial fibrillation, hypertension, hyperlipidemia. He had an echocardiogram yesterday, revealed fairly preserved LV systolic function. His renal failure persists. He has acute kidney injury and is probably going to have dialysis, however, he is on a high dose of Levophed at this time. Vital signs are stable. S1 and S2 heard normally. Irregular rhythm noted. Short systolic murmur noted. Lungs reveal diminished air entry. Abdomen and lower extremity exams are unchanged. The patient is not on anticoagulation at this time, but if he is going to have dialysis we will wait for the catheter to be put in and then consider anticoagulation after that. I discussed my thoughts with the patient. MMODL / IJN: [id number] /
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
[2018-08-11] MEDS ORDERED: ACETAMINOPHEN TAB 325 MG TAB PO PRN (13:43)
[2018-08-11] MEDS: IRON POLYSACCHARIDES COMPLEX 150 MG CAP PO SCH (13:55)
--- NOTE | 2018-08-11 15:20 | PN ---
PROGRESS NOTE DATE OF SERVICE: 08/10/2018 CHIEF COMPLAINT: Anemia, generalized weakness, renal failure, hypotension and atrial fib. HISTORY OF PRESENT ILLNESS: This gentleman is somewhat lethargic. He is not complaining of any of any chest or stomach pain. PHYSICAL EXAM: His blood pressure is 108/83 and he has irregularly irregular pulse of 71. He is pale. Chest demonstrates rales on both sides, anterior and posteriorly and cardiac exam demonstrates atrial fibrillation. The abdomen is soft and protuberant. There are no masses. IMPRESSION: 1. Acute renal failure. 2. Chronic renal failure. 3. Blood loss anemia. 4. Atrial fibrillation. 5. Elevated troponin. 6. Hypocalcemia. PLAN: Continue with IV fluids and await recommendations of med renal. MMODL / IJN: [id number] /
--- NOTE | 2018-08-11 16:35 | HP ---
HISTORY AND PHYSICAL CHIEF COMPLAINT: Weakness, malaise, shortness of breath and renal failure. HISTORY OF PRESENT ILLNESS: This is another recent admission for this gentleman who keeps struggling to survive. He has been in the hospital in the past for several major problems including GI blood loss with hypovolemic shock, pneumonitis, recurrent anemia, etc. He has been doing reasonably well and then was brought in the emergency room when he developed extreme shortness of breath. In the emergency room, he was found to have bilateral pleural effusions and creatinine of 7. Urine was also infected, which has been normal for him of late and his hemoglobin was 8.2. He has atrial fibrillation and congestive heart failure. REVIEW OF SYSTEMS: He is quite weak and lethargic. He denies headaches, chest pain, abdominal pain, etc. Past medical history, family history, personal and social histories reveal that he has no allergies. He has been on 5 mg twice a day, metoprolol 50 mg 1/2 tablet 3 times a day, Lasix 40 mg once a day, ipratropium and albuterol updrafts p.r.n., donepezil 5 mg q.h.s., Combivent, Xalatan eye drops, latanoprost eye drops, lisinopril 10 mg once a day. He used to smoke but does not any longer. He uses alcohol occasionally. PHYSICAL EXAM: Blood pressure is 88/60 with a pulse of 98, respirations of 35 and he is afebrile. In general, appeared to be overweight and pale. Skin is dry and lymph nodes not enlarged. Head, ears, eyes, nose, mouth, and throat were normal and neck veins could not be assessed. Chest demonstrated poor breath sounds with rales at the bases. Cardiac exam demonstrated atrial fib with a rapid ventricular response. Abdomen is soft and protuberant without visceromegaly or masses. Extremities are normal. Neurologically he is lethargic but intact. IMPRESSION: He is admitted to the hospital with diagnoses: 1. Acute congestive heart failure. 2. Chronic congestive heart failure. 3. Cardiomyopathy. 4. Bilateral pleural effusions. 5. Acute on chronic renal failure. 6. Urinary tract infection. PLAN: 1. Bed rest. 2. IV fluids. 3. Monitor hemoglobin and rule out GI bleed. 4. Consult with Intensive Medicine and med renal. MMODL / IJN: [id number] /
[2018-08-11 17:09] LABS: Glucose,Whole Blood 172 mg/dL (75-99)
--- NOTE | 2018-08-11 17:23 | PN ---
PROGRESS NOTE CHIEF COMPLAINT: Acute on chronic renal failure. HISTORY OF PRESENT ILLNESS: This gentleman continues to respond slowly. He still is very weak and short of breath. The dialysis catheter has been placed and he is to be dialyzed in the next day or 2. He denies any pain, confusion, etc. PHYSICAL EXAM: Head, ears, eyes, nose, mouth, and throat are normal. Chest is clear. Breath sounds are very shallow. Cardiac exam demonstrates atrial fibrillation and the abdomen is protuberant and soft. Extremities normal. IMPRESSION: 1. Acute on chronic renal failure. 2. Anemia. 3. Congestive heart failure. 4. Atrial fibrillation. PLAN: Continue to monitor in ICU and he will be starting dialysis in the next day or 2. Sugars are also somewhat erratic, but these will be treated with sliding scale. MMODL / IJN: [id number] /
[2018-08-11] MEDS: INSULIN ASPART 100 UNIT/ML 1 ML 10 ML VIAL SQ SCH ×2 (17:50→20:32)
[2018-08-11 20:33] LABS: Glucose,Whole Blood 160 mg/dL (75-99)
[2018-08-11] MEDS: LATANOPROST 0.005% OPHTH DROPS 2.5 ML BTL BOTH EYES SCH (20:33)
[2018-08-12 06:02] LABS: Calcium 6.5 mg/dL (8.4-10.2); Magnesium 1.7 mg/dL (1.6-2.3); Phosphorus 5.8 mg/dL (2.5-4.5); Potassium 4.1 mmol/L (3.5-5.1)
[2018-08-12] MEDS: NOREPINEPHRINE 16 MG in SODIUM CHLORIDE 0.9% 250 ML IV SCH (06:31)
[2018-08-12] MEDS: SODIUM CHLORIDE 0.9% 99 ML with VASOPRESSIN 20 UNIT IV SCH ×4 (06:31→14:10)
[2018-08-12 06:38] LABS: Anisocytosis Slight; HCT 26.3 % (39.0-53.0); HGB 7.8 gm/dL (13.0-17.5); Hypochromasia Marked; MCH 25.9 pg (25.0-35.0); MCHC 29.6 g/dL (31.0-37.0); MCV 87.4 fL (80.0-100.0); Mean Platelet Volume 11.4; Poikilocytosis Slight; RBC 3.01 m/uL (4.30-5.90); RDW 19.9 % (11.5-15.5)
[2018-08-12 07:13] LABS: Band Neutrophils % 1 %; Eosinophils # (M) 0.12 k/uL (0-0.7); Lymphocytes # (M) 0.35 k/uL (1.0-4.8); Monocytes # (M) 0.47 k/uL (0-1.0); Neutrophils % (M) 92 %; Nucleated Red Blood Cells 1 /100 WBC (0-0); Total Cells Counted 200; WBC 11.8 k/uL (3.8-10.6)
[2018-08-12 07:15] LABS: Platelet Count 69 k/uL (150-450)
[2018-08-12 07:26] LABS: Glucose,Whole Blood 107 mg/dL (75-99)
[2018-08-12] MEDS: IPRATROPIUM-ALBUTEROL 3 ML NEB INHALATION SCH ×4 (07:29→20:06)
[2018-08-12] MEDS: INSULIN ASPART 100 UNIT/ML 1 ML 10 ML VIAL SQ SCH ×4 (07:44→21:44)
[2018-08-12] MEDS: AZTREONAM 1 GM in SODIUM CHLORIDE 0.9% 50 ML IVPB SCH ×3 (07:45→23:57)
[2018-08-12 07:53] LABS: Glucose,Whole Blood 59 mg/dL (75-99)
[2018-08-12 07:53] LABS: Glucose,Whole Blood 55 mg/dL (75-99)
[2018-08-12] MEDS: PANTOPRAZOLE 40 MG/10 ML VIAL IVP SCH (07:56)
[2018-08-12] MEDS: NYSTATIN 100,000 UNIT/GM POWD 15 GM TOPICAL SCH ×2 (07:56→21:45)
[2018-08-12] MEDS: MEROPENEM 1 GM in SODIUM CHLORIDE 0.9% 100 ML IVPB SCH (07:57)
[2018-08-12] MEDS: HEPARIN SODIUM,PORCINE 5,000 UNIT/ML 1 ML VIAL SQ SCH ×3 (07:57→23:57)
--- NOTE | 2018-08-12 08:48 | XR ---
EXAMINATION TYPE: XR chest 1V DATE OF EXAM: 08/12/2018 COMPARISON: 08/11/2018 INDICATION: Fluid overload TECHNIQUE: Single frontal view of the chest is obtained. FINDINGS: The heart size is enlarged. The pulmonary vasculature is normal. Bibasilar infiltrates are present. Small bilateral pleural effusions are present. A central venous ca theter is present on the left with the tip in the superior vena cava region. IMPRESSION: 1. Small bilateral pleural effusions. 2. Cardiomegaly. 3. Exam appears similar to the comparison.
--- NOTE | 2018-08-12 09:46 | CDI ---
Documentation Clarification Form Date: 08/12/18 From: Cyn Lee RN Admit Date: 08/09/2018 4:08:00 PM Patient Name: Tin James Visit Number: [id number] ATTENTION: The Clinical Documentation Specialists (CDI) and [facility] Coding Staff appreciate your assistance in clarifying documentation. Please respond to the clarification below the line at the bottom and electronically sign. The CDI & [facility] Coding staff will review the response and follow-up if needed. Please note: Queries are made part of the Legal Health Record. If you have any questions, please contact the author of this message via ITS. Dr. Ayush Wills, CHF is documented in the documentation from 08/09 - 08/11. In the H&P Acute on chronic heart failure is documented. Right sided heart failure is documented throughout the chart. Patient presented with weakness and shortness of breath. Admitted with acute renal failure, anemia, pleural effusion, pulmonary edema , UTi History/Risk Factors: A Fib, CVA/TIA, DVT, hyperlipidemia, apnea, vascular disorder, obesity, ex smoker Clinical Indicators: VS on admission: T 97.8, P 71, R 16, 102/83, 95%4L BNP: 10715 Echocardiogram Results: EF 50-55% Chest X Ray: increasing pleural effusion, findings suggesting underlying decompensated CHF. PN 08/11: 1+ edema upper and lower extremities, consistent with CHF and fluid overload. Treatment: Lasix IV gambling monitor Heart healthy diet, strict I&O's In your professional opinion, can you please clarify the acuity and type of CHF if known? Systolic Heart Failure: Diastolic Heart Failure: Systolic & Diastolic Heart Failure: Unable to Determine Other, please specify MTDD
--- NOTE | 2018-08-12 10:06 | CDI ---
Documentation Clarification Form Date: 08/12/18 From: Cyn Lee RN Admit Date: 08/09/2018 4:08:00 PM Patient Name: Tin James Visit Number: [id number] ATTENTION: The Clinical Documentation Specialists (CDI) and [facility] Coding Staff appreciate your assistance in clarifying documentation. Please respond to the clarification below the line at the bottom and electronically sign. The CDI & [facility] Coding staff will review the response and follow-up if needed. Please note: Queries are made part of the Legal Health Record. If you have any questions, please contact the author of this message via ITS. Dr. Ayush Wills, A diagnosis of UTI has been documented in the PN 08/09 - 08/11. Hubbard catheter was inserted on 08/10. Patient presented with weakness and shortness of breath. Admitted with acute renal failure, anemia, pleural effusion, pulmonary edema, UTI. History/Risk Factors: A-FIB, CVA/TIA, DVT, hyperlipidemia, apnea, vascular disorder, obesity, ex smoker. Clinical Indicators: Urinalysis: Protein +1, blood moderate, leukocyte esterase large, RBC 77, WBC >182, WBC clumps many, squamous epith cells 7, mucus many Urine culture: Klebsiella pneumoniae Lab results on admission: LABS: RBC 3.19, HGB 8.2, HCT 28.1 Treatment: Aztreonam IVPB, Ceftriaxone IVPB, Meropenem IVPB, Piperacillin IVPB In your professional opinion, can you please clarify the etiology of the UTI, if known? Hubbard catheter UTI not related to catheter Other condition, please specify Unable to determine MTDD
[2018-08-12] MEDS: DEXTROSE 5% IN WATER 1,000 ML with SODIUM BICARB (1 MEQ/ML) 150 ML IV SCH (10:35)
[2018-08-12] MEDS: IRON POLYSACCHARIDES COMPLEX 150 MG CAP PO SCH (11:33)
--- NOTE | 2018-08-12 12:03 | PCN ---
DATE OF PROCEDURE NOTE: 08/12/2018 PREOPERATIVE DIAGNOSE: Acute renal failure. PROCEDURE: Ultrasound-guided dialysis catheter placed right. Dialysis catheter was placed into the right femoral vein. This patient was seen in the intensive care unit. The right groin was prepped and draped in usual sterile manner; 1% lidocaine plain for the right groin area. Ultrasound-guided needle was then introduced in the right common femoral vein, micropuncture guidewire was passed and regular guidewire was passed. After that, we advanced the dilator on the top of the guidewire, then we placed a 20 cm dialysis catheter on the top of the guidewire. Guidewire was removed and flushed with heparin saline. After that, hep-locked and secured with 3-0 nylon, dressing applied. Patient tolerated the procedure well. MMODL / IJN: [id number] / MTDD
--- NOTE | 2018-08-12 12:06 | CONS ---
DATE OF CONSULTATION: 08/12/2018 This is a 73-year-old gentleman who has been admitted to the intensive care unit. I was called in for placement of urgent dialysis catheter. Patient has a history of acute chronic injury to the kidney and has a high creatinine. History of atrial fibrillation and congestive heart failure. MEDICAL HISTORY: 1. Acute congestive heart failure. 2. Chronic congestive heart failure. 3. Cardiomyopathy. 4. Bilateral pleural effusion. 5. Acute chronic kidney disease. 6. Urine retention. PHYSICAL EXAMINATION: Patient was seen in the intensive care unit. The neck is supple. Patient has no bruit. Chest, a few rhonchi in the lung bases. Abdomen is protuberant. No peritoneal sign noted. Femorals are palpable bilateral. Patient has some swelling of the lower extremity. PLAN: Placement of the dialysis catheter. Risks and complications discussed. MMJARADL / LUCERON: [id number] / MTDD
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
[2018-08-12 12:57] LABS: Glucose,Whole Blood 98 mg/dL (75-99)
[2018-08-12 13:18] LABS: Hepatitis B Surface AB- Quant 3.5 mIU/mL
[2018-08-12 14:22] LABS: Hemoglobin A1C 5.3 % (4.0-6.0)
--- NOTE | 2018-08-12 16:45 | PN ---
PROGRESS NOTE Mr. James is a gentleman who developed acute renal injury. He is doing better today. He is on hemodialysis and his Levophed dose has been decreased. He appears to be more comfortable, breathing better. Currently dialysis is in progress. Vital signs are stable. He is in atrial fibrillation. Rate control is good. S1, S2 heard normally. Irregular rhythm noted. Lungs reveal bilateral improved air entry. Abdomen and lower extremity exam is unchanged. Plan is to continue current medical regimen, and hopefully after the dialysis the need for Levophed will be decreased. Patient should have his anticoagulation resumed, and I discussed this with him. His hemoglobin is about 7.8. He has some hesitancy about it, but we will consider starting him on Coumadin because, with the abnormality of his renal function, it would be better to be on Coumadin. I discussed my thoughts in detail with the patient. We will consider resuming anticoagulation tomorrow. Patient understands that he remains at a risk for embolic stroke, but at this time we will hold anticoagulation. Prognosis remains guarded. MMODL / IJN: [id number] /
[2018-08-12 17:15] LABS: Glucose,Whole Blood 151 mg/dL (75-99)
--- NOTE | 2018-08-12 19:45 | PN ---
PROGRESS NOTE Patient is seen for followup for acute kidney injury. Patient has been maintained on dialysis. He has minimal urine output. Today was his second treatment of SLED procedure. We were able to get about one liter of UF. Patient is maintained on Levophed, which is about the same at 12 to 13 mcg. On examination this morning, blood pressure was 112/23, heart rate of 78 per minute. Patient is afebrile. EXAMINATION OF THE HEART: S1, S2. EXAMINATION OF LUNGS: Decreased breath sounds in the bases. ABDOMEN: Soft. Examination of lower extremities shows edema bilaterally. Both legs are wrapped. POL[employer]FFER exam is grossly intact. Patient is under a thermal blanket. His temperature has been low. Labs from this morning show sodium 139, potassium 4.1, BUN 65, serum creatinine 5.82, glucose 114. Hemoglobin 7.8 g/dL. ASSESSMENT: 1. Acute kidney injury, currently dialysis-dependent. Patient will be dialyzed again tomorrow. We will plan for about one liter again in a.m. 2. Bacteremia with Klebsiella. 3. Hyperphosphatemia related to renal failure. 4. Metabolic acidosis associated with renal failure, improved with dialysis. PLAN: Discontinue bicarb drip. Repeat hemodialysis in a.m. Continue to wean down Levophed as tolerated. MMODL / IJN: [id number] /
[2018-08-12] MEDS: LATANOPROST 0.005% OPHTH DROPS 2.5 ML BTL BOTH EYES SCH (21:44)
[2018-08-12 21:53] LABS: Glucose,Whole Blood 126 mg/dL (75-99)
[2018-08-13] MEDS: NOREPINEPHRINE 16 MG in SODIUM CHLORIDE 0.9% 250 ML IV SCH (02:13)
[2018-08-13] MEDS: SODIUM CHLORIDE 0.9% 99 ML with VASOPRESSIN 20 UNIT IV SCH ×4 (02:13→14:32)
[2018-08-13 04:15] LABS: Anisocytosis Slight; HGB 7.7 gm/dL (13.0-17.5); Hypochromasia Marked; MCH 25.6 pg (25.0-35.0); MCHC 29.5 g/dL (31.0-37.0); Mean Platelet Volume 12.5; Poikilocytosis Slight; RBC 2.99 m/uL (4.30-5.90); RDW 19.8 % (11.5-15.5); WBC 10.6 k/uL (3.8-10.6)
[2018-08-13 04:39] LABS: Platelet Count 46 k/uL (150-450)
[2018-08-13 04:47] LABS: Calcium 6.8 mg/dL (8.4-10.2); Magnesium 1.7 mg/dL (1.6-2.3); Phosphorus 5.7 mg/dL (2.5-4.5); Potassium 4.1 mmol/L (3.5-5.1)
[2018-08-13 05:15] LABS: Eosinophils # (M) 0.11 k/uL (0-0.7); Lymphocytes # (M) 0.42 k/uL (1.0-4.8); Monocytes # (M) 0.53 k/uL (0-1.0); Neutrophils # (M) 9.65 k/uL (1.3-7.7); Neutrophils % (M) 91 %; Nucleated Red Blood Cells 0 /100 WBC (0-0); Total Cells Counted 200
--- NOTE | 2018-08-13 06:35 | XR ---
EXAMINATION TYPE: XR chest 1V DATE OF EXAM: 08/13/2018 CLINICAL HISTORY: Difficulty breathing progress study. TECHNIQUE: Single AP portable semiupright view of the chest is obtained. COMPARISON: Chest x-ray from one day earlier and older studies. FINDINGS: There is stable left subclavian central venous catheter. There is persistent cardiomegaly with central vascular congestion and fairly moderate sized bilateral pleural effusions. There is asso ciated bibasilar atelectasis and/or infiltrate. Osseous structures are intact. IMPRESSION: Overall stable findings, cardiomegaly with central vascular congestion and fairly moder ate sized bilateral pleural effusions all redemonstrated, findings suggest persistent CHF exacerbatio n.
[2018-08-13] MEDS: AZTREONAM 1 GM in SODIUM CHLORIDE 0.9% 50 ML IVPB SCH ×3 (07:04→23:20)
[2018-08-13] MEDS: INSULIN ASPART 100 UNIT/ML 1 ML 10 ML VIAL SQ SCH ×4 (07:09→20:56)
[2018-08-13 07:19] LABS: Glucose,Whole Blood 139 mg/dL (75-99)
[2018-08-13] MEDS: HEPARIN SODIUM,PORCINE 5,000 UNIT/ML 1 ML VIAL SQ SCH ×3 (08:58→23:09)
[2018-08-13] MEDS: PANTOPRAZOLE 40 MG/10 ML VIAL IVP SCH (08:59)
[2018-08-13] MEDS: MEROPENEM 1 GM in SODIUM CHLORIDE 0.9% 100 ML IVPB SCH (08:59)
[2018-08-13] MEDS: NYSTATIN 100,000 UNIT/GM POWD 15 GM TOPICAL SCH ×2 (08:59→20:05)
[2018-08-13] MEDS: IPRATROPIUM-ALBUTEROL 3 ML NEB INHALATION SCH ×4 (09:06→19:38)
--- NOTE | 2018-08-13 09:40 | PN ---
PROGRESS NOTE Mr. James has had dialysis yesterday, a liter was taken out, today also he is going to have dialysis. He has atrial fibrillation, rate control is good. I am recommending that we initiate him on Eliquis 2.5 mg b.i.d. since his dialysis has been started. We will check with Dr. Brito from Nephrology. His blood pressure is much better. He is on the lesser dose of Levophed and is feeling much better today. S1, S2 heard normally, regular rhythm noted short, systolic murmur noted. Lungs reveal improved air entry. Abdomen and lower extremity exam is unchanged. MMODL / IJN: [id number] /
[2018-08-13] MEDS: APIXABAN 2.5 MG TABLET PO SCH ×2 (09:51→20:05)
[2018-08-13] MEDS: IRON POLYSACCHARIDES COMPLEX 150 MG CAP PO SCH (11:37)
[2018-08-13 12:17] LABS: Glucose,Whole Blood 120 mg/dL (75-99)
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
[2018-08-13 18:29] LABS: Glucose,Whole Blood 117 mg/dL (75-99)
[2018-08-13] MEDS ORDERED: DARBEPOETIN ALFA 60 MCG/0.3 ML SYRINGE SQ SCH (20:00)
--- NOTE | 2018-08-13 20:34 | PN ---
PROGRESS NOTE Patient was seen this morning. He was awake, not in any acute distress. The vasopressin was discontinued; however, it was restarted. Patient has been dialyzed 2 days in a row. He is being dialyzed again today. He is currently seen on hemodialysis. Patient is tolerating his treatment fairly well. We have had about one liter of ultrafiltration on the last 2 treatments. On examination this morning, blood pressure was 107/50, heart rate 80 per minute. He is afebrile. EXAMINATION OF THE HEART: S1, S2. EXAMINATION OF LUNGS: Bilateral breath sounds are heard. ABDOMEN: Soft, non-tender. Examination of lower extremities shows edema 2+ bilaterally. 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 Labs show sodium 138, potassium 4.1, BUN 48, serum creatinine 4.3, hemoglobin 7.7 g/dL. ASSESSMENT: 1. Acute kidney injury, mainly acute tubular necrosis, currently oliguric, and patient is hemodialysis-dependent. He has a solitary kidney. Urine output has not picked up. Patient will be dialyzed again tomorrow. 2. Metabolic acidosis secondary to renal failure, currently improved. 3. Sepsis with gram-negative bacteremia from Klebsiella pneumoniae urinary tract infection. 4. Urinary tract infection with Klebsiella pneumoniae, maintained on aztreonam. 5. Anemia. No active bleeding noted at this time. 6. Chronic atrial fibrillation, started on Eliquis. 7. Cardiomyopathy with ejection fraction on echocardiogram on 08/10/2018 at 50% to 55% with severely enlarged right ventricle. PLAN: Repeat dialysis tomorrow. Okay to start Eliquis at 2.5 mg b.i.d. I will also start the patient on Aranesp. MMODL / IJN: [id number] /
[2018-08-13 20:57] LABS: Glucose,Whole Blood 108 mg/dL (75-99)
[2018-08-13] MEDS: LATANOPROST 0.005% OPHTH DROPS 2.5 ML BTL BOTH EYES SCH (21:10)
[2018-08-14] MEDS: SODIUM CHLORIDE 0.9% 99 ML with VASOPRESSIN 20 UNIT IV SCH ×4 (00:38→13:07)
[2018-08-14] MEDS: NOREPINEPHRINE 16 MG in SODIUM CHLORIDE 0.9% 250 ML IV SCH (00:38)
[2018-08-14 05:04] LABS: Eosinophils # (A) 0.1 k/uL (0-0.7); Eosinophils % (A) 1 %; Hypochromasia Marked; Poikilocytosis Slight
[2018-08-14 05:10] LABS: Anisocytosis Moderate; Basophils % (A) 0 %; HCT 24.7 % (39.0-53.0); HGB 7.5 gm/dL (13.0-17.5); Lymphocytes # (A) 0.9 k/uL (1.0-4.8); Lymphocytes % (A) 10 %; MCH 26.8 pg (25.0-35.0); MCHC 30.5 g/dL (31.0-37.0); MCV 87.9 fL (80.0-100.0); Monocytes # (A) 0.6 k/uL (0-1.0); Monocytes % (A) 7 %; Neutrophils # (A) 7.1 k/uL (1.3-7.7); Neutrophils % (A) 80 %; RBC 2.81 m/uL (4.30-5.90); WBC 8.9 k/uL (3.8-10.6)
[2018-08-14 05:17] LABS: Magnesium 1.7 mg/dL (1.6-2.3); Phosphorus 5.2 mg/dL (2.5-4.5); Platelet Count 31 k/uL (150-450)
--- NOTE | 2018-08-14 06:57 | XR ---
EXAMINATION TYPE: XR chest 1V DATE OF EXAM: 08/14/2018 COMPARISON: 08/13/2018 INDICATION: Fluid overload TECHNIQUE: Single frontal view of the chest is obtained. FINDINGS: The heart size is enlarged. The pulmonary vasculature is prominent. Diffuse increased opacities over the lungs more so on the right mid and lower lung field within the l eft lower lung field. Small left pleural effusion and small to moderate right pleural effusion is lik rob present. There is a left central venous catheter present with the tip in the superior vena cava region. EKG le ads overlie the chest. IMPRESSION: 1. Cardiomegaly with prominent pulmonary vascular markings. Correlate for CHF. 2. Small left and moderate right pleural effusions may be present. 3. Continued follow-up is recommended.
[2018-08-14 07:03] LABS: Glucose,Whole Blood 86 mg/dL (75-99)
[2018-08-14] MEDS: IPRATROPIUM-ALBUTEROL 3 ML NEB INHALATION SCH ×4 (07:03→19:56)
[2018-08-14] MEDS: INSULIN ASPART 100 UNIT/ML 1 ML 10 ML VIAL SQ SCH (07:04)
[2018-08-14] MEDS: AZTREONAM 1 GM in SODIUM CHLORIDE 0.9% 50 ML IVPB SCH ×3 (09:59→23:12)
[2018-08-14] MEDS: APIXABAN 2.5 MG TABLET PO SCH ×2 (10:01→21:30)
[2018-08-14] MEDS: MEROPENEM 1 GM in SODIUM CHLORIDE 0.9% 100 ML IVPB SCH (10:01)
[2018-08-14] MEDS: HEPARIN SODIUM,PORCINE 5,000 UNIT/ML 1 ML VIAL SQ SCH ×2 (10:01→10:10)
[2018-08-14] MEDS: NYSTATIN 100,000 UNIT/GM POWD 15 GM TOPICAL SCH ×2 (10:02→21:30)
[2018-08-14] MEDS: PANTOPRAZOLE 40 MG TABLET PO SCH (10:02)
--- NOTE | 2018-08-14 12:14 | MISC ---
MISCELLANOUS REPORT QUERY: Regarding heart failure, systolic and diastolic. Etiology of urinary tract infection. Unable to determine. MMODL / IJN: [id number] /
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
[2018-08-14] MEDS: IRON POLYSACCHARIDES COMPLEX 150 MG CAP PO SCH (12:58)
[2018-08-14] MEDS: MIDODRINE 5 MG TAB PO SCH ×2 (12:58→17:56)
--- NOTE | 2018-08-14 15:44 | PN ---
PROGRESS NOTE DATE OF SERVICE: 08/12/2018 CHIEF COMPLAINT: Anemia, congestive heart failure, atrial fibrillation and end-stage renal disease. HISTORY OF PRESENT ILLNESS: This gentleman is a just about the same and he is going to be starting dialysis. PHYSICAL EXAM: He remains weak, but he is awake and he is oriented. Still on pressors. PHYSICAL EXAM: Blood pressure is 116 systolically. Chest is fairly clear with occasional rales scattered throughout. Cardiac exam demonstrates atrial fibrillation. Abdomen is soft, nontender and there are no masses. Extremities are unchanged with the stasis dermatitis and cellulitis of the lower legs. IMPRESSION: 1. Renal failure, acute and chronic. 2. Congestive heart failure. 3. Atrial fibrillation. 4. Anemia. PLAN: He will be starting on dialysis and otherwise there is no significant change. MMODL / IJN: [id number] /
--- NOTE | 2018-08-14 16:08 | PN ---
PROGRESS NOTE DATE OF SERVICE: 08/13/2018. CHIEF COMPLAINT: Congestive heart failure and renal failure. HISTORY OF PRESENT ILLNESS: This gentleman's condition is basically the same. He is being dialyzed. PHYSICAL EXAM: He is awake and alert. Chest demonstrates no significant abnormality. Cardiac exam is unremarkable except for his atrial fibrillation. Abdomen is soft. Extremities are unchanged. IMPRESSION: 1. Acute on chronic renal failure. 2. Arrhythmia with atrial fibrillation. 3. Congestive heart failure. 4. Anemia. 5. Stasis disease of the lower extremities. PLAN: Continue to follow with Cardiology, Intensive Medicine and med renal until he is out of the unit. MMODL / IJN: [id number] /
--- NOTE | 2018-08-14 16:26 | PN ---
PROGRESS NOTE DATE OF SERVICE: 08/14/2018 CHIEF COMPLAINT: Renal failure, congestive heart failure, blood loss anemia. HISTORY OF PRESENT ILLNESS: This gentleman is stable and there has been a little progress. He will be continued on dialysis. PHYSICAL EXAM: He remains pale. Chest is clear with only occasional rales. The cardiac exam is unchanged with atrial fibrillation. Abdomen is soft. Edema and cellulitis of the lower extremities seems to be slightly improved. IMPRESSION: 1. Acute renal failure. 2. Chronic renal failure. 3. Congestive heart failure. 4. Atrial fibrillation. 5. Cardiomyopathy. 6. Anemia. 7. Stasis disease of lower extremities. PLAN: No change in his recommended management at this time. MMODL / IJN: [id number] /
[2018-08-14] MEDS ORDERED: HEPARIN SODIUM,PORCINE 5,000 UNIT/ML 1 ML VIAL ONE (17:30)
[2018-08-14 17:58] LABS: Iron Saturation 18.43 (15.00-50.00)
--- NOTE | 2018-08-14 19:08 | PN ---
PROGRESS NOTE Patient is seen for followup for acute kidney injury. He remains oliguric and has been requiring daily dialysis. The patient is also significantly fluid overloaded. This morning he was on Levophed and small dose of vasopressin. Systolic blood pressure was about 130 and the pressors are currently being weaned off. Overall, patient is awake. He denies any significant complaints. He continues to have the heating blanket on. PHYSICAL EXAMINATION: This morning, when patient was seen, blood pressure was 134/57, heart rate of about 70 per minute. He is afebrile. Examination of the heart: S1, S2. Examination of the lungs: Bilateral breath sounds are heard. Abdomen is soft, nontender, distended. Examination of the lower extremities shows edema about 3+ bilaterally. [employer] exam is grossly intact. LABS: Show sodium 135, potassium 4.0, chloride 102, BUN 37, serum creatinine 3.5, hemoglobin 7.5 g/dL. ASSESSMENT: 1. Acute kidney injury, acute tubular necrosis, currently oliguric, dialysis dependent with severe volume overload, currently receiving daily dialysis. 2. Sepsis with Klebsiella pneumoniae bacteremia and urinary tract infection. 3. Gram-negative bacteremia. 4. Fluid overload, currently maintained on daily dialysis. 5. Anemia. No active bleeding noted. Hemoglobin is at 7.5 g/dL, which is slightly lower than before. Iron profile showed iron saturation of about 18% and ferritin was low at 42. I will give a dose of IV iron for 2 days. 6. Cardiomyopathy, ejection fraction 45%. 7. Chronic atrial fibrillation, currently on Eliquis. 8. Metabolic acidosis secondary to renal failure, currently improved. PLAN: Hemodialysis today and again in a.m. Add oral midodrine to help with the blood pressures. Continue antibiotics. Continue with Eliquis. I will also give 2 doses of IV iron. MMODL / IJN: [id number] /
--- NOTE | 2018-08-14 19:59 | PN ---
PROGRESS NOTE Mr. James is a gentleman who had dialysis. He is doing better overall. He is on a small dose of Eliquis. He has atrial fibrillation, rate control is optimal. Hemodynamically stable. Lesser dose of Levophed is noted. Vital signs are stable. Blood pressure is over 100 systolic. S1, S2 with irregular rhythm noted. Lungs reveal diminished air entry. Abdomen and lower extremity exam is unchanged. MMODL / IJN: [id number] /
[2018-08-14] MEDS: LATANOPROST 0.005% OPHTH DROPS 2.5 ML BTL BOTH EYES SCH (21:30)
[2018-08-14 21:44] LABS: Glucose,Whole Blood 83 mg/dL (75-99)
[2018-08-15 04:57] LABS: Glucose,Whole Blood 86 mg/dL (75-99)
[2018-08-15 05:28] LABS: Anisocytosis Moderate; Basophils % (A) 0 %; Eosinophils # (A) 0.1 k/uL (0-0.7); Eosinophils % (A) 1 %; HGB 7.6 gm/dL (13.0-17.5); Hypochromasia Marked; Lymphocytes # (A) 0.8 k/uL (1.0-4.8); Lymphocytes % (A) 10 %; MCH 25.9 pg (25.0-35.0); MCHC 29.2 g/dL (31.0-37.0); MCV 88.9 fL (80.0-100.0); Mean Platelet Volume 13.6; Monocytes # (A) 0.5 k/uL (0-1.0); Monocytes % (A) 6 %; Neutrophils % (A) 81 %; Poikilocytosis Slight; RBC 2.92 m/uL (4.30-5.90); RDW 20.2 % (11.5-15.5); WBC 8.6 k/uL (3.8-10.6)
[2018-08-15 05:41] LABS: Platelet Count 36 k/uL (150-450)
[2018-08-15 05:58] LABS: Calcium 7.1 mg/dL (8.4-10.2); Magnesium 1.7 mg/dL (1.6-2.3); Phosphorus 5.1 mg/dL (2.5-4.5); Potassium 3.9 mmol/L (3.5-5.1)
--- NOTE | 2018-08-15 07:26 | XR ---
EXAMINATION TYPE: XR chest 1V DATE OF EXAM: 08/15/2018 CLINICAL HISTORY: Difficulty breathing progress study. TECHNIQUE: Single AP portable semiupright view of the chest is obtained. COMPARISON: Chest x-ray from one day earlier and older studies. FINDINGS: There is stable left subclavian central venous catheter. There is cardiomegaly with modera te to severe central vascular congestion and small to moderate right greater than left pleural effusi ons. Osseous structures are intact. IMPRESSION: Findings consistent with CHF exacerbation redemonstrated as there is cardiomegaly with mo derate to severe central vascular congestion and small to moderate-sized right greater than left pleu ral effusions all redemonstrated. Correlate clinically. No significant interval change.
[2018-08-15] MEDS: IPRATROPIUM-ALBUTEROL 3 ML NEB INHALATION SCH ×4 (08:11→19:42)
--- NOTE | 2018-08-15 08:33 | PN ---
PROGRESS NOTE Mr. James is a gentleman with history of atrial fibrillation which is chronic persistent, has been now off Levophed. He is doing well. Urine output has also picked up some and he is going to have another additional round of dialysis today. His vital signs of stable. Blood pressure is about 108 systolic. S1, S2 heard normally. Irregular rate and rhythm noted, short systolic murmur noted. Lungs are clearer. Abdomen and lower extremity exam is unchanged. He is on Eliquis. I will start Lopressor 12.5 mg daily with parameters. We will continue all his other medications. MMODL / IJN: [id number] /
[2018-08-15] MEDS: AZTREONAM 1 GM in SODIUM CHLORIDE 0.9% 50 ML IVPB SCH ×2 (08:35→17:30)
[2018-08-15] MEDS: SODIUM FERRIC GLUCONAT-SUCROSE 125 MG in SODIUM CHLORIDE 0.9% 100 ML IVPB SCH (08:38)
[2018-08-15] MEDS: MEROPENEM 1 GM in SODIUM CHLORIDE 0.9% 100 ML IVPB SCH (09:30)
[2018-08-15] MEDS: MIDODRINE 5 MG TAB PO SCH ×3 (12:54→19:36)
[2018-08-15] MEDS: IRON POLYSACCHARIDES COMPLEX 150 MG CAP PO SCH (12:54)
[2018-08-15] MEDS: APIXABAN 2.5 MG TABLET PO SCH ×2 (12:54→23:17)
[2018-08-15] MEDS: PANTOPRAZOLE 40 MG TABLET PO SCH (12:54)
[2018-08-15] MEDS: NYSTATIN 100,000 UNIT/GM POWD 15 GM TOPICAL SCH ×2 (12:56→23:17)
[2018-08-15] MEDS ORDERED: HEPARIN SODIUM,PORCINE 5,000 UNIT/ML 1 ML VIAL ONE (14:00)
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
[2018-08-15] MEDS: METOPROLOL TARTRATE 12.5 MG TAB PO SCH (18:56)
[2018-08-15] MEDS: LATANOPROST 0.005% OPHTH DROPS 2.5 ML BTL BOTH EYES SCH (23:17)
--- NOTE | 2018-08-15 23:32 | PN ---
PROGRESS NOTE HISTORY: Patient is seen this morning. He is awake, not in any acute distress. Patient will be dialyzed again today. He is currently off of pressors. PHYSICAL EXAMINATION: This morning, blood pressure was 100/60, heart rate about 70 per minute. Patient is afebrile. Examination of the heart S1, S2. Examination lungs bilateral breath sounds are heard. Abdomen is soft, nontender, nondistended. Examination lower extremities shows edema 3+ bilaterally. STILL CLEANER TUBE exam is grossly intact. LABS: From today, sodium 137, potassium 3.9, BUN 30, serum creatinine 3.01, hemoglobin 7.6 g/dL. ASSESSMENT: 1. Acute kidney injury, acute tubular necrosis. Patient remains oliguric and dialysis dependent. We will dialyze him again today and we will plan for mainly ultrafiltration tomorrow. He has a serous drainage from the site of the catheter. 2. Sepsis with Klebsiella pneumoniae bacteremia and urinary tract infection. 3. Fluid overload. Slowly improving with dialysis. 4. Anemia with slightly low iron saturation. Currently maintained on IV iron. 5. Cardiomyopathy, ejection fraction about 45% to 50%. 6. Chronic atrial fibrillation maintained on Eliquis. 7. Metabolic acidosis secondary to renal failure, currently improved. PLAN: Continue with oral midodrine. Hemodialysis today. We will plan for only ultrafiltration tomorrow morning. Continue to encourage increased oral intake. MMODL / IJN: [id number] /
[2018-08-16] MEDS: AZTREONAM 1 GM in SODIUM CHLORIDE 0.9% 50 ML IVPB SCH ×3 (01:26→17:20)
[2018-08-16] MEDS: MIDODRINE 5 MG TAB PO SCH ×3 (06:16→16:20)
[2018-08-16] MEDS: APIXABAN 2.5 MG TABLET PO SCH ×2 (08:06→19:55)
[2018-08-16] MEDS: PANTOPRAZOLE 40 MG TABLET PO SCH (08:06)
[2018-08-16] MEDS: IPRATROPIUM-ALBUTEROL 3 ML NEB INHALATION SCH ×4 (08:06→19:59)
[2018-08-16] MEDS: MEROPENEM 1 GM in SODIUM CHLORIDE 0.9% 100 ML IVPB SCH (08:08)
[2018-08-16] MEDS: METOPROLOL TARTRATE 12.5 MG TAB PO SCH (08:09)
[2018-08-16] MEDS: NYSTATIN 100,000 UNIT/GM POWD 15 GM TOPICAL SCH ×2 (11:00→19:55)
[2018-08-16] MEDS: IRON POLYSACCHARIDES COMPLEX 150 MG CAP PO SCH (11:08)
--- NOTE | 2018-08-16 11:38 | XR ---
EXAMINATION TYPE: XR chest 1V portable DATE OF EXAM: 08/16/2018 COMPARISON: Prior chest x-ray 08/15/2018 HISTORY: Shortness of breath TECHNIQUE: Single frontal view of the chest is obtained. FINDINGS: Left subclavian central venous catheter is again noted, distal tip overlying the cavoatria l junction level. There is no evident pneumothorax. Patient is rotated. Heart is likely enlarged. Bib asilar density obscures the hemidiaphragms, there is prominence of the central vascularity and inters titium. IMPRESSION: Correlate for congestive heart failure. There are likely associated effusions, pneumonia not excluded.
--- NOTE | 2018-08-16 11:52 | PN ---
PROGRESS NOTE Patient is seen for followup for acute kidney injury. Patient remains oliguric and hemodialysis dependent with severe volume overload. He is being dialyzed on a daily basis. He has, however, come out of the ICU as blood pressure is much more stable and not requiring pressors and he is not requiring pressors. Yesterday, we had about 1-1/2 L of ultrafiltration and patient tolerated that fairly well. He continues to be oliguric with no significant urine output. PHYSICAL EXAMINATION: This morning, blood pressure was 105/54, heart rate 83 per minute. He is afebrile. Examination of the heart, S1, S2. Examination of the lungs, bilateral breath sounds are heard. Decreased breath sounds at the bases. Abdomen is soft , distended, nontender. Examination of the lower extremities shows severe edema, 4+ bilaterally with weeping of skin noted. CORRECTIONAL SECURITY OFFICER exam is grossly intact. Patient moving all 4 extremities. LABS: Show sodium 137, potassium 3.9, chloride 102, BUN 30, serum creatinine 3.01, hemoglobin 7.6 g/dL. ASSESSMENT: 1. Acute kidney injury, acute tubular necrosis, currently oliguric and hemodialysis dependent. Patient has been dialyzed on a daily basis for the last 5 days. We will arrange for ultrafiltration only today as he remains significantly volume overloaded. 2. Severe volume overload with 3rd with interstitial edema and 3rd spacing. Will plan for only ultrafiltration today. 3. Sepsis with gram-negative bacteremia. 4. Urinary tract infection with Klebsiella pneumoniae and Klebsiella pneumoniae bacteremia as well. Currently improved. Repeat blood cultures negative. The patient is maintained on meropenem. 5. Anemia with some degree of iron deficiency, maintained on IV iron and Aranesp. 6. Atrial fibrillation chronic with controlled ventricular response maintained on Eliquis. 7. Generalized debility. PLAN: The patient is encouraged to increase oral intake. We will arrange for ultrafiltration today. Continue with oral midodrine. MMODL / IJN: [id number] /
[2018-08-16] MEDS ORDERED: HEPARIN SODIUM,PORCINE 5,000 UNIT/ML 1 ML VIAL ONE (14:00)
[2018-08-16 14:10] VITALS: BMI 38.1
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
[2018-08-16 17:10] LABS: Glucose,Whole Blood 81 mg/dL (75-99)
[2018-08-16] MEDS: KETOROLAC 30 MG/ML 1 ML VIAL IVP PRN (17:20)
[2018-08-16] MEDS ORDERED: KETOROLAC 30 MG/ML 1 ML VIAL IVP SCH (18:00)
[2018-08-16] MEDS: SODIUM FERRIC GLUCONAT-SUCROSE 125 MG in SODIUM CHLORIDE 0.9% 100 ML IVPB SCH (18:16)
[2018-08-16] MEDS: LATANOPROST 0.005% OPHTH DROPS 2.5 ML BTL BOTH EYES SCH (19:55)
[2018-08-16 23:36] LABS: Glucose,Whole Blood 75 mg/dL (75-99)
[2018-08-17] MEDS: AZTREONAM 1 GM in SODIUM CHLORIDE 0.9% 50 ML IVPB SCH ×2 (01:25→11:26)
[2018-08-17 01:53] LABS: Glucose,Whole Blood 74 mg/dL (75-99)
[2018-08-17 05:18] LABS: Glucose,Whole Blood 90 mg/dL (75-99)
[2018-08-17] MEDS: MIDODRINE 5 MG TAB PO SCH (06:40)
--- NOTE | 2018-08-17 09:21 | P.PN ---
Subjective Progress Note Date: 08/17/18 Seen and examined for the follow-up of acute kidney injury on dialysis. Lying in bed no acute distress. Had dialysis yesterday for ultrafiltration. Objective - Vital Signs Vital signs: Vital Signs Temp 97.2 F L 08/17/18 04:00 Pulse 73 08/17/18 04:00 Resp 22 08/17/18 04:00 BP 89/56 08/17/18 04:00 Pulse Ox 94 L 08/17/18 04:00 Intake & Output 08/16/18 08/17/18 08/17/18 18:59 06:59 18:59 Intake Total 0 160 Output Total 250 63 Balance -250 97 Weight 124 kg 120.5 kg Intake: IV 160 .9@10ml/HR 110 Aztreonam 1 gm In Sodium 50 Chloride 0.9% 50 ml @ 100 mls/hr IVPB Q8HR [facility] Rx# :[id number] Oral 0 0 Output: Urine 250 60 Stool 3 Other: Voiding Method Indwelling Catheter Indwelling Catheter # Bowel Movements 0 ABP, PAP, CO, CI - Last Documented Arterial Blood Pressure 106/47 - Exam Lying in bed in no acute distress S1-S2 heard Abdomen soft Lower extremity edema Right groin Tamir catheter. - Labs CBC & Chem 7: 08/15/18 04:50 08/15/18 04:50 Labs: Abnormal Lab Results - Last 24 Hours (Table) 08/17/18 Range/Units 01:52 POC Glucose (mg/dL) 74 L (75-99) mg/dL Microbiology - Last 24 Hours (Table) 08/15/18 16:00 Blood Culture - Preliminary Blood No Growth after 24 hours Assessment and Plan Assessment: #1 acute kidney injury secondary to hemodynamic ATN currently dialysis dependent for oliguria. Patient has been dialyzed on an daily basis for the last 5 days. #2 volume overload with interstitial edema. #3 shock secondary to gram-negative sepsis currently off pressors #4 anemia multifactorial #5 atrial fibrillation on eliquis. #6 CKD3 secondary to nephrosclerosis baseline creatinine about 1.7 MG per DL. Plan: #1 [id number] dialysis for the last 5 days. Plan hemodialysis again today. #2 strict ins and outs and monitor for renal recovery. #3 avoid nephrotoxic agents and hypotensive episodes #4 continue with midodrine for now for hemodynamic support Thank you very much for this consultation follow along while he is in the hospital
[2018-08-17] MEDS: IPRATROPIUM-ALBUTEROL 3 ML NEB INHALATION SCH ×4 (09:36→20:09)
[2018-08-17 11:18] LABS: Glucose,Whole Blood 80 mg/dL (75-99)
[2018-08-17] MEDS: MEROPENEM 1 GM in SODIUM CHLORIDE 0.9% 100 ML IVPB SCH (12:27)
[2018-08-17] MEDS: SODIUM FERRIC GLUCONAT-SUCROSE 125 MG in SODIUM CHLORIDE 0.9% 100 ML IVPB SCH (12:29)
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
--- NOTE | 2018-08-17 14:35 | PN ---
PROGRESS NOTE DATE OF SERVICE: 08/15/2018 CHIEF COMPLAINT: Congestive heart failure, atrial fibrillation, renal failure. HISTORY OF PRESENT ILLNESS: This gentleman is not doing well. He is being dialyzed. He is lethargic and weak and he is complaining of shortness of breath. PHYSICAL EXAM: He remains pale. Breath sounds are heard on both sides but they are diminished and there are rales scattered about. Cardiac exam is unchanged. He has atrial fibrillation. Abdomen is soft, nontender. Extremities demonstrated his stasis changes with open areas. IMPRESSION: 1. Acute renal failure. 2. End-stage renal failure on dialysis. 3. Congestive heart failure. 4. Atrial fibrillation. 5. Chronic anemia. PLAN: Supportive efforts continue along with dialysis. Prognosis is poor. Discharge planning will have to be can be considered and he will likely have to go back to the detention. KATHLEEN / REMEDIOS: [id number] /
--- NOTE | 2018-08-17 15:17 | PN ---
PROGRESS NOTE DATE OF SERVICE: 08/16/2018 CHIEF COMPLAINT: Renal failure, CHF. HISTORY OF PRESENT ILLNESS: This gentleman is starting to decline. He has been getting dialysis, but he is becoming more lethargic and his blood pressure is starting to drop. PHYSICAL EXAM: He remains pale. He is alert and arousable, but his speech is very weak. His cognitive functions seemed to be intact. Chest demonstrates decreased breath sounds on both sides and the cardiac exam demonstrates atrial fibrillation. The abdomen is soft. Extremities are unchanged. IMPRESSION: 1. End-stage renal disease. 2. Hypertension. 3. Cardiomyopathy with congestive heart failure. 4. Atrial fibrillation. 5. Stasis disease with open ulcers. 6. Chronic anemia. The patient is end of life. The situation was discussed. He confirms that he does not want to be resuscitated and does not want to be on a ventilator. He only complains of some discomfort in his low back, which is likely related to his being bed ridden for numerous days. PLAN: 1. DNR. 2. Comfort measures only. KATHLEEN / REMEDIOS: [id number] /
[2018-08-17 16:26] LABS: Glucose,Whole Blood 76 mg/dL (75-99)
--- NOTE | 2018-08-17 16:32 | PN ---
PROGRESS NOTE DATE OF SERVICE: 08/17/2018 CHIEF COMPLAINT: End-stage renal disease, hypotension, CHF, cardiomyopathy. HISTORY OF PRESENT ILLNESS: This gentleman is deteriorating. Blood pressure is going down and he is becoming more lethargic. Dialysis was canceled and in being consistent with a discussion with him yesterday afternoon, we will keep him comfortable, but stop dialysis and all of his medications. This was discussed with the patient and he seems to understand although he is more lethargic today than yesterday when he was alert. He is pale. Breath sounds are audible both sides, but diminished. Cardiac exam is unchanged. IMPRESSION: 1. Hypotension. 2. Cardiomyopathy. 3. Congestive heart failure. 4. Atrial fibrillation. 5. End stage renal disease. 6. Anemia of chronic illness following blood loss anemia. PLAN: 1. Cancel all his medications and tests for now. 2. Cancel dialysis. 3. Comfort measures. MMODL / IJN: [id number] /
[2018-08-17] MEDS: NYSTATIN 100,000 UNIT/GM POWD 15 GM TOPICAL SCH ×2 (19:39→20:10)
[2018-08-17] MEDS: LATANOPROST 0.005% OPHTH DROPS 2.5 ML BTL BOTH EYES SCH (20:11)
[2018-08-17 20:34] LABS: Glucose,Whole Blood 82 mg/dL (75-99)
--- NOTE | 2018-08-17 22:20 | PN ---
PROGRESS NOTE Mr. James is a gentleman with multiple comorbid conditions, including renal failure. He was going to have dialysis today, but developed hypotension. Apparently, primary care physician and admitting doctor, Dr. Wills, suggested that he should probably go on hospice. If that is the case, we will not do any aggressive intervention, but keep him comfortable. His blood pressure last was about 90 systolic and he is not going to have dialysis in view of this. If he is going to be on a comfort care/hospice type approach, we will not do anything aggressive. I have requested the nurse, Dorene, to talk to Dr. Wills and find out what his plans are. If he is not going to be on hospice, he should be transferred to ICU for blood pressure management. Otherwise we will keep him comfortable. Vital signs reveal the blood pressure was low but now it is 90 systolic. S1, S2 heard normally. Short systolic murmur is audible. There is regular rate, rhythm. Lungs revealed bilateral diminished air entry. Abdomen and lower extremity exam unchanged. Patient appears to be very lethargic and I cannot communicate with him. Rhythm strip review suggested that the patient had a wide QRS tachycardia, but has underlying atrial fibrillation. Possibility of this being aberrancy cannot be totally excluded. His magnesium level apparently was also acceptable at 1.7 and potassium level was also normal. We will continue current medical regimen and await further direction from Dr. Wills. 1. Two the. KATHLEEN / REMEDIOS: [id number] /
[2018-08-17 23:35] LABS: Glucose,Whole Blood 74 mg/dL (75-99)
[2018-08-18 05:49] LABS: Glucose,Whole Blood 74 mg/dL (75-99)
[2018-08-18] MEDS: IPRATROPIUM-ALBUTEROL 3 ML NEB INHALATION SCH ×4 (07:24→20:54)
[2018-08-18 08:00] LABS: Calcium 8.1 mg/dL (8.4-10.2); Potassium 4.3 mmol/L (3.5-5.1)
[2018-08-18] MEDS: PANTOPRAZOLE 40 MG TABLET PO SCH (09:03)
[2018-08-18] MEDS: APIXABAN 2.5 MG TABLET PO SCH (09:03)
[2018-08-18] MEDS: METOPROLOL TARTRATE 12.5 MG TAB PO SCH (09:03)
[2018-08-18] MEDS: NYSTATIN 100,000 UNIT/GM POWD 15 GM TOPICAL SCH ×2 (09:10→21:44)
[2018-08-18] MEDS: KETOROLAC 30 MG/ML 1 ML VIAL IVP PRN (09:10)
--- NOTE | 2018-08-18 10:18 | P.PN ---
Subjective Progress Note Date: 08/18/18 Seen and examined for the follow-up of acute kidney injury on dialysis. Lying in bed no acute distress. Had dialysis for ultrafiltration on Sunday. Yesterday blood pressures were low unable to dialyze him. As per the primary team planning to make him comfort care and hospice. Objective - Vital Signs Vital signs: Vital Signs Temp 97.8 F 08/18/18 04:00 Pulse 88 08/18/18 07:40 Resp 20 08/18/18 04:00 BP 100/62 08/18/18 04:00 Pulse Ox 94 L 08/18/18 04:00 Intake & Output 08/17/18 08/18/18 08/18/18 18:59 06:59 18:59 Intake Total 100 Output Total 100 70 Balance -100 30 Weight 121.3 kg Intake: IV 100 .9@10ml/HR 100 Aztreonam 1 gm In Sodium 0 Chloride 0.9% 50 ml @ 100 mls/hr IVPB Q8HR [facility] Rx# :[id number] Meropenem 1 gm In Sodium 0 Chloride 0.9% 100 ml @ 200 mls/hr IVPB Q24HR [facility] Rx#:[id number] Oral 0 Output: Urine 100 70 Other: Voiding Method Indwelling Catheter Indwelling Catheter ABP, PAP, CO, CI - Last Documented Arterial Blood Pressure 106/47 - Exam Lying in bed in no acute distress S1-S2 heard Abdomen soft Lower extremity edema Right groin Tamir catheter. - Labs CBC & Chem 7: 08/15/18 04:50 08/18/18 06:00 Labs: Abnormal Lab Results - Last 24 Hours (Table) 08/17/18 08/18/18 08/18/18 Range/Units 23:33 05:48 06:00 BUN 36 H (9-20) mg/dL Creatinine 3.27 H (0.66-1.25) mg/dL POC Glucose (mg/dL) 74 L 74 L (75-99) mg/dL Calcium 8.1 L (8.4-10.2) mg/dL Microbiology - Last 24 Hours (Table) 08/15/18 16:00 Blood Culture - Preliminary Blood No Growth after 48 hours Assessment and Plan Assessment: #1 acute kidney injury secondary to hemodynamic ATN currently dialysis dependent for oliguria. Patient has been dialyzed on an daily basis from Sunday to Sunday. Unable to dialyze him yesterday because he was very hypotensive. #2 volume overload with interstitial edema. #3 shock secondary to gram-negative sepsis currently off pressors #4 anemia multifactorial #5 atrial fibrillation on eliquis. #6 CKD3 secondary to nephrosclerosis baseline creatinine about 1.7 MG per DL. Plan: #1 no dialysis today. Await for the final plan from the primary team regarding comfort care hospice. #2 strict ins and outs and monitor for renal recovery. #3 avoid nephrotoxic agents and hypotensive episodes #4 continue with midodrine for now for hemodynamic support Thank you very much for this consultation follow along while he is in the hospital
[2018-08-18] MEDS ORDERED: ONDANSETRON 4 MG/2 ML VIAL IVP PRN (11:51)
[2018-08-18] MEDS ORDERED: LORazepam 2 MG/ML INJ IV PRN (11:51)
[2018-08-18 11:55] LABS: Glucose,Whole Blood 72 mg/dL (75-99)
[2018-08-18] MEDS ORDERED: SCOPOLAMINE 1.5MG/72HR PATCH TRANSDERM SCH (12:00)
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
[2018-08-18] MEDS: MORPHINE SULFATE 2 MG/ML SYRINGE IV PRN ×2 (16:16→18:23)
[2018-08-18 18:25] VITALS: BP 101/57; PULSE 78; RESP 16; TEMP 96.2
[2018-08-18] MEDS: LATANOPROST 0.005% OPHTH DROPS 2.5 ML BTL BOTH EYES SCH (21:44)
--- NOTE | 2018-08-20 05:40 | DS ---
DISCHARGE SUMMARY renal failure. HISTORY OF PRESENT ILLNESS AND PHYSICAL EXAM: Details of this man's history and physical can be found in the initial workup. LABORATORY STUDIES: While he was in a hospital he had laboratory studies, details of which can be found in the laboratory section of his chart. COURSE IN HOSPITAL: After admission he was placed on bedrest, started on intravenous fluids and given supportive care. BUN and creatinine continued to rise and eventually determination was made that he should be dialyzed. He was started on dialysis, but his blood pressure remained quite unstable and he could not be subjected to further treatments. He became more lethargic and blood pressure began to drop. The patient was and when asked about end of life decisions, he opted for no further dialysis, not to be resuscitated and ended up being NO CODE. He on the evening of the . FINAL DIAGNOSES: 1. Acute renal failure. 2. Chronic renal failure. 3. Chronic diastolic congestive heart failure. 4. Atrial fibrillation. 5. Chronic anemia. 6. Status post several episodes of upper gastrointestinal hemorrhage with hypovolemic shock. OPERATIONS: None. CONSULTATIONS: Intensive Medicine, Cardiology and Nephrology. He is not improved, he . MMODL / IJN: [id number] /
--- NOTE | 2018-08-21 10:10 | CDI ---
Documentation Clarification Form Date: 08/21/2018 9:57:18 AM From: Emily Montiel Email: [email or web address] Admit Date: 08/09/2018 4:08:00 PM Patient Name: Tin James Visit Number: [id number] Discharge Date: 08/18/2018 10:45:00 PM ATTENTION: The Clinical Documentation Specialists (CDI) and [facility] Coding Staff appreciate your assistance in clarifying documentation. Please respond to the clarification below the line at the bottom and electronically sign. The CDI & [facility] Coding staff will review the response and follow-up if needed. Please note: Queries are made part of the Legal Health Record. If you have any questions, please contact the author of this message via ITS. Dr. Ayush Wills Please render your opinion on the clinical significance, if any, of platelet values 114 to low 31 History/Risk Factors: acute on chronic CHF, Cardiomyopathy, Acute on chronic renal failure, sepsis, uti Clinical indicators: Platelets of 31 Treatment: monitoring ,pt made comfort care Clinical significance of diagnostic testing and treatment CANNOT be assumed or coded without physician documentation of significance if any. Please clarify what abnormal laboratory signifies: Thrombocytopenia 2nd to Thrombocytopenia, unspecified Abnormal Lab Value not clinically significant Unable to determine Other, please specify (Last Revision: June 2017) MTDD
--- NOTE | 2018-09-07 14:12 | MISC ---
MISCELLANOUS REPORT QUERY Explanation of abnormal studies: Thrombocytopenia secondary to septicemia. MMODL / IJN: [id number] /
== END 2018-08-18 22:45 | disposition expired | DRG 871 ==
LOC: EC 12:34 → 3SCARD 16:08 → 2SICU 18:37 → 3SCARD 08-16 05:54 → 4MS4W 08-18 14:23
PROVIDERS: ADMIT Family Medicine; ATTEND Family Medicine
PROC: 02HV33Z Insertion of Infusion Device into Superior Vena Cava, Percutaneous Approach (ICD-10-PCS; principal; 2018-08-13)
PROC: 5A1D70Z Performance of Urinary Filtration, Intermittent, Less than 6 Hours Per Day (ICD-10-PCS; 2018-08-13)
DX: A41.59 Other Gram-negative sepsis (principal); I50.43 Acute on chronic combined systolic (congestive) and diastolic (congestive) heart failure; J18.9 Pneumonia, unspecified organism; J96.01 Acute respiratory failure with hypoxia; N17.0 Acute kidney failure with tubular necrosis; N18.6 End stage renal disease; R65.21 Severe sepsis with septic shock; E87.2 Acidosis; I13.2 Hypertensive heart and chronic kidney disease with heart failure and with stage 5 chronic kidney disease, or end stage renal disease; I42.9 Cardiomyopathy, unspecified; I48.1 Persistent atrial fibrillation; J44.0 Chronic obstructive pulmonary disease with (acute) lower respiratory infection; N39.0 Urinary tract infection, site not specified; L97.929 Non-pressure chronic ulcer of unspecified part of left lower leg with unspecified severity; L97.919 Non-pressure chronic ulcer of unspecified part of right lower leg with unspecified severity; Q60.0 Renal agenesis, unilateral; L03.116 Cellulitis of left lower limb; L03.115 Cellulitis of right lower limb; Z66 Do not resuscitate; B96.1 Klebsiella pneumoniae [K. pneumoniae] as the cause of diseases classified elsewhere; I27.20 Pulmonary hypertension, unspecified; D50.0 Iron deficiency anemia secondary to blood loss (chronic); Z51.5 Encounter for palliative care; D63.8 Anemia in other chronic diseases classified elsewhere; E78.5 Hyperlipidemia, unspecified; E83.39 Other disorders of phosphorus metabolism; E83.42 Hypomagnesemia; E83.51 Hypocalcemia; R13.10 Dysphagia, unspecified; E86.0 Dehydration; E86.1 Hypovolemia; G47.33 Obstructive sleep apnea (adult) (pediatric); I48.2 Chronic atrial fibrillation; L89.152 Pressure ulcer of sacral region, stage 2; L98.419 Non-pressure chronic ulcer of buttock with unspecified severity; I73.9 Peripheral vascular disease, unspecified; L89.322 Pressure ulcer of left buttock, stage 2; L89.312 Pressure ulcer of right buttock, stage 2; Z79.01 Long term (current) use of anticoagulants; Z79.899 Other long term (current) drug therapy; Z82.3 Family history of stroke; Z86.718 Personal history of other venous thrombosis and embolism; Z86.73 Personal history of transient ischemic attack (TIA), and cerebral infarction without residual deficits; Z87.891 Personal history of nicotine dependence; Z99.2 Dependence on renal dialysis; Z87.11 Personal history of peptic ulcer disease; D69.59 Other secondary thrombocytopenia
CPT/HCPCS: 36415; 71045; 71046; 76770; 80048; 80053; 81001; 82330; 82550; 82553; 82805; 83036; 83540; 83550; 83605; 83735; 83880; 84100; 84132; 84484; 85025; 85610; 85730; 86704; 86706; 87040; 87077; 87086; 87150; 87186; 87340; 90935; 93005; 93306; 94640; 94660; 94760; 99291